=== PATIENT | male | born 1935 | race Caucasian/White ===

== ENCOUNTER 2016-11-27 11:58 | Outpatient (RCR) | payer MEDICARE, OTHER | END 2016-12-06 | LOC: M CR 11:58 | PROVIDERS: ATTEND Internal Medicine | DX: Z51.89 Encounter for other specified aftercare (principal); E78.00 Pure hypercholesterolemia, unspecified ==

== ENCOUNTER → 2017-03-10 | Outpatient (REF) | payer MEDICARE, OTHER ==
[2017-03-10 12:38] LABS: ALBUMIN 3.7 GM/DL (3.2-5.2); ALBUMIN/GLOBULIN RATIO 1.03 (1.00-1.93); BILIRUBIN,TOTAL 0.6 MG/DL (0.2-1.0); CREATININE FOR GFR 1.25 MG/DL (0.70-1.30); GLOMERULAR FILTRATION RATE 59.3 (>42); POTASSIUM SERUM 3.9 MEQ/L (3.5-5.1); TOTAL PROTEIN 7.3 GM/DL (6.4-8.2)
== END ==
LOC: M SFHCPLAZ 09:45
PROVIDERS: ATTEND Internal Medicine
DX: E11.9 Type 2 diabetes mellitus without complications (principal); E78.00 Pure hypercholesterolemia, unspecified
CPT/HCPCS: 36415; 80053; 80061; 82043; 83036; G0463

== ENCOUNTER → 2017-09-26 | Outpatient (REF) | payer MEDICARE, OTHER ==
[2017-09-26 21:34] LABS: HEMATOCRIT 41.7 % (42.0-52.0); HEMOGLOBIN 13.2 g/dl (14.0-18.0); MEAN CORPUSCULAR HEMOGLOBIN 28.6 pg (27.0-33.0); MEAN CORPUSCULAR HGB CONC 31.7 g/dl (32.0-36.5); MEAN CORPUSCULAR VOLUME 90.5 fl (80.0-96.0); PLATELET COUNT, AUTOMATED 235 10^3/uL (150-450); RED BLOOD COUNT 4.61 10^6/uL (4.30-6.10); RED CELL DISTRIBUTION WIDTH 13.2 % (11.5-14.5); WHITE BLOOD COUNT 5.9 10^3/uL (4.0-10.0)
[2017-09-26 21:53] LABS: ALBUMIN 4.2 GM/DL (3.2-5.2); ALKALINE PHOSPHATASE 88 U/L (45-117); ALT/SGPT 29 U/L (12-78); ANION GAP 7 MEQ/L (8-16); AST/SGOT 19 U/L (7-37); BILIRUBIN,TOTAL 0.6 MG/DL (0.2-1.0); BLOOD UREA NITROGEN 37 MG/DL (7-18); CALCIUM LEVEL 9.3 MG/DL (8.8-10.2); CARBON DIOXIDE LEVEL 31 MEQ/L (21-32); CHLORIDE LEVEL 103 MEQ/L (98-107); CHOLESTEROL LEVEL 140 MG/DL (<200); CHOLESTEROL RISK RATIO 2.456 (<5); CREATININE FOR GFR 1.18 MG/DL (0.70-1.30); GLOMERULAR FILTRATION RATE > 60.0 (>42); GLUCOSE, FASTING 110 MG/DL (83-110); HDL CHOLESTEROL 57 MG/DL (>40); LDL CHOLESTEROL 62.4 MG/DL (<100); NON-HDL-C 83 MG/DL; POTASSIUM SERUM 4.1 MEQ/L (3.5-5.1); SODIUM LEVEL 141 MEQ/L (136-145); TOTAL PROTEIN 7.7 GM/DL (6.4-8.2); TRIGLYCERIDES LEVEL 103 MG/DL (<150)
[2017-09-26 22:08] LABS: ESTIMATED AVERAGE GLUCOSE 146 MG/DL (60-110); HEMOGLOBIN A1c 6.7 %
== END ==
LOC: M SFHCPLAZ 11:35
DX: E11.9 Type 2 diabetes mellitus without complications (principal); E78.00 Pure hypercholesterolemia, unspecified; I10 Essential (primary) hypertension; Z85.46 Personal history of malignant neoplasm of prostate
CPT/HCPCS: 80053

== ENCOUNTER 2017-11-17 12:27 | Outpatient (RCR) | payer MEDICARE, OTHER ==
[2017-12-01 12:55] LABS: BEDSIDE GLUCOSE 233 MG/DL (83-110)
== END 2017-12-06 ==
LOC: M CR 12:27
DX: Z51.89 Encounter for other specified aftercare (principal); Z95.1 Presence of aortocoronary bypass graft
CPT/HCPCS: 93798

== ENCOUNTER 2017-12-08 12:56 | Outpatient (RCR) | payer MEDICARE, OTHER ==
[2017-12-18 11:25] LABS: BEDSIDE GLUCOSE 129 MG/DL (83-110)
== END 2018-01-05 ==
LOC: M CR 12:56
DX: Z95.1 Presence of aortocoronary bypass graft (principal)
CPT/HCPCS: 93798

== ENCOUNTER → 2018-01-22 | Outpatient (REF) | payer MEDICARE, OTHER ==
[2018-01-22 13:15] LABS: HEMOGLOBIN 11.4 g/dl (13.5-17.5); MEAN CORPUSCULAR HEMOGLOBIN 27.6 pg (27.0-33.0); MEAN CORPUSCULAR HGB CONC 31.7 g/dl (32.0-36.5); MEAN CORPUSCULAR VOLUME 87.2 fl (80.0-96.0); PLATELET COUNT, AUTOMATED 219 10^3/uL (150-450); RED BLOOD COUNT 4.13 10^6/uL (4.30-6.10); RED CELL DISTRIBUTION WIDTH 14.1 % (11.5-14.5); WHITE BLOOD COUNT 5.4 10^3/uL (4.0-10.0)
[2018-01-22 13:28] LABS: ESTIMATED AVERAGE GLUCOSE 120 MG/DL (60-110); HEMOGLOBIN A1c 5.8 %
[2018-01-22 13:33] LABS: ALBUMIN 3.7 GM/DL (3.2-5.2); ALBUMIN/GLOBULIN RATIO 0.97 (1.00-1.93); ALKALINE PHOSPHATASE 101 U/L (45-117); ALT/SGPT 49 U/L (12-78); ANION GAP 7 MEQ/L (8-16); AST/SGOT 31 U/L (7-37); BILIRUBIN,TOTAL 0.6 MG/DL (0.2-1.0); BLOOD UREA NITROGEN 39 MG/DL (7-18); CALCIUM LEVEL 9.1 MG/DL (8.8-10.2); CARBON DIOXIDE LEVEL 31 MEQ/L (21-32); CHLORIDE LEVEL 103 MEQ/L (98-107); CHOLESTEROL LEVEL 124 MG/DL (<200); CREATININE FOR GFR 1.56 MG/DL (0.70-1.30); GLOMERULAR FILTRATION RATE 45.8 (>35); GLUCOSE, FASTING 111 MG/DL (70-100); HDL CHOLESTEROL 50 MG/DL (>40); LDL CHOLESTEROL 57.6 MG/DL (<100); MAGNESIUM LEVEL 1.7 MG/DL (1.8-2.4); NON-HDL-C 74 MG/DL; POTASSIUM SERUM 4.1 MEQ/L (3.5-5.1); SODIUM LEVEL 141 MEQ/L (136-145); TOTAL PROTEIN 7.5 GM/DL (6.4-8.2); TRIGLYCERIDES LEVEL 82 MG/DL (<150)
== END ==
LOC: M SFHCADAM 08:37
DX: Z00.00 Encounter for general adult medical examination without abnormal findings (principal); I25.810 Atherosclerosis of coronary artery bypass graft(s) without angina pectoris; E11.9 Type 2 diabetes mellitus without complications; I10 Essential (primary) hypertension
CPT/HCPCS: 83735

== ENCOUNTER → 2018-03-04 | Outpatient (REF) | payer MEDICARE, OTHER ==
[2018-03-04 13:00] LABS: BASO # 0.1 10^3/uL (0.0-0.2); BASO % 1.3 % (0.0-1.0); EOS # 0.2 10^3/uL (0.0-0.50); EOS % 4.9 % (0.0-3.0); HEMATOCRIT 36.5 % (42.0-52.0); HEMOGLOBIN 11.7 g/dl (13.5-17.5); IMMATURE GRANULOCYTE % 0.4 % (0-3.0); LYMPH # 0.8 10^3/uL (1.5-4.5); LYMPH % 17.2 % (24.0-44.0); MEAN CORPUSCULAR HEMOGLOBIN 27.2 pg (27.0-33.0); MEAN CORPUSCULAR HGB CONC 32.1 g/dl (32.0-36.5); MEAN CORPUSCULAR VOLUME 84.9 fl (80.0-96.0); MONO # 0.7 10^3/uL (0.0-0.8); MONO % 14.6 % (0.0-5.0); NEUTROPHILS # 2.8 10^3/uL (1.8-7.7); NEUTROPHILS % 61.6 % (36.0-66.0); PLATELET COUNT, AUTOMATED 211 10^3/uL (150-450); RED CELL DISTRIBUTION WIDTH 14.4 % (11.5-14.5); WHITE BLOOD COUNT 4.5 10^3/uL (4.0-10.0)
[2018-03-04 13:09] LABS: ANION GAP 8 MEQ/L (8-16); BLOOD UREA NITROGEN 46 MG/DL (7-18); CALCIUM LEVEL 9.1 MG/DL (8.8-10.2); CARBON DIOXIDE LEVEL 32 MEQ/L (21-32); CHLORIDE LEVEL 100 MEQ/L (98-107); CREATININE FOR GFR 1.94 MG/DL (0.70-1.30); GLOMERULAR FILTRATION RATE 35.6 (>35); GLUCOSE, FASTING 117 MG/DL (70-100); POTASSIUM SERUM 3.4 MEQ/L (3.5-5.1); SODIUM LEVEL 140 MEQ/L (136-145)
== END ==
LOC: M LABDRWAD 12:14
DX: I11.0 Hypertensive heart disease with heart failure (principal); I50.32 Chronic diastolic (congestive) heart failure
CPT/HCPCS: 80048

== ENCOUNTER → 2018-03-18 | Outpatient (REF) | payer MEDICARE, OTHER ==
[2018-03-18 13:19] LABS: ANION GAP 7 MEQ/L (8-16); BLOOD UREA NITROGEN 50 MG/DL (7-18); CALCIUM LEVEL 9.4 MG/DL (8.8-10.2); CARBON DIOXIDE LEVEL 33 MEQ/L (21-32); CHLORIDE LEVEL 100 MEQ/L (98-107); CREATININE FOR GFR 1.66 MG/DL (0.70-1.30); GLOMERULAR FILTRATION RATE 42.6 (>35); GLUCOSE, FASTING 169 MG/DL (70-100); POTASSIUM SERUM 3.8 MEQ/L (3.5-5.1); SODIUM LEVEL 140 MEQ/L (136-145)
== END ==
LOC: M LAB REF 12:22
DX: I10 Essential (primary) hypertension (principal); E87.6 Hypokalemia
CPT/HCPCS: 80048

== ENCOUNTER → 2018-04-29 | Outpatient (REF) | payer MEDICARE, OTHER ==
[2018-04-29 13:20] LABS: PROSTATIC SPECIFIC AG MONITOR 0.03 NG/ML (< 4.0)
== END ==
LOC: M LAB REF 12:21
DX: C61 Malignant neoplasm of prostate (principal)
CPT/HCPCS: 84153

== ENCOUNTER → 2018-06-05 | Outpatient (REF) | payer MEDICARE, OTHER ==
[2018-06-05 12:37] LABS: HEMATOCRIT 38.2 % (42.0-52.0); HEMOGLOBIN 12.4 g/dl (13.5-17.5); MEAN CORPUSCULAR HEMOGLOBIN 27.6 pg (27.0-33.0); MEAN CORPUSCULAR HGB CONC 32.5 g/dl (32.0-36.5); MEAN CORPUSCULAR VOLUME 85.1 fl (80.0-96.0); PLATELET COUNT, AUTOMATED 232 10^3/uL (150-450); RED BLOOD COUNT 4.49 10^6/uL (4.30-6.10); WHITE BLOOD COUNT 5.4 10^3/uL (4.0-10.0)
[2018-06-05 12:59] LABS: ALBUMIN/GLOBULIN RATIO 1.05 (1.00-1.93); ALKALINE PHOSPHATASE 102 U/L (45-117); ALT/SGPT 43 U/L (12-78); ANION GAP 9 MEQ/L (8-16); AST/SGOT 36 U/L (7-37); BILIRUBIN,TOTAL 0.8 MG/DL (0.2-1.0); BLOOD UREA NITROGEN 45 MG/DL (7-18); CALCIUM LEVEL 9.6 MG/DL (8.8-10.2); CARBON DIOXIDE LEVEL 33 MEQ/L (21-32); CHLORIDE LEVEL 98 MEQ/L (98-107); CREATININE FOR GFR 1.53 MG/DL (0.70-1.30); GLOMERULAR FILTRATION RATE 46.9 (>35); GLUCOSE, FASTING 138 MG/DL (70-100); POTASSIUM SERUM 3.4 MEQ/L (3.5-5.1); SODIUM LEVEL 140 MEQ/L (136-145); TOTAL PROTEIN 7.8 GM/DL (6.4-8.2)
[2018-06-05 13:06] LABS: PTH INTACT 31.3 PG/ML (18.5-88.0)
[2018-06-05 14:08] LABS: CREATININE, URINE 84.3 MG/DL
[2018-06-05 14:12] LABS: MAU/CREAT RATIO 155.4 MCG/MG (0.0-30.0)
[2018-06-05 14:35] LABS: ESTIMATED AVERAGE GLUCOSE 134 MG/DL (60-110); HEMOGLOBIN A1c 6.3 %
== END ==
LOC: M SFHCADAM 08:49
DX: G47.30 Sleep apnea, unspecified (principal); N18.3 Chronic kidney disease, stage 3 (moderate); E11.29 Type 2 diabetes mellitus with other diabetic kidney complication
CPT/HCPCS: 80053

== ENCOUNTER → 2018-07-28 | Outpatient (REF) | payer MEDICARE, OTHER ==
[2018-07-28 13:12] LABS: ANION GAP 6 MEQ/L (8-16); BLOOD UREA NITROGEN 51 MG/DL (7-18); CALCIUM LEVEL 9.2 MG/DL (8.8-10.2); CARBON DIOXIDE LEVEL 34 MEQ/L (21-32); CHLORIDE LEVEL 102 MEQ/L (98-107); CREATININE FOR GFR 1.54 MG/DL (0.70-1.30); GLOMERULAR FILTRATION RATE 46.5 (>35); GLUCOSE, FASTING 122 MG/DL (70-100); POTASSIUM SERUM 3.7 MEQ/L (3.5-5.1); PROSTATIC SPECIFIC AG MONITOR < 0.0 NG/ML (< 4.0); SODIUM LEVEL 142 MEQ/L (136-145)
== END ==
LOC: M LAB REF 12:30
DX: C61 Malignant neoplasm of prostate (principal); R31.29 Other microscopic hematuria
CPT/HCPCS: 84153

== ENCOUNTER → 2018-09-29 | Outpatient (REF) | payer MEDICARE, OTHER ==
[~2018-09-29] MED LIST: AMLO10TA5 PO; ASCO25TA PO; BAYE325T12 PO; CELE20TA PO; FERR28TA PO; FOLI1TAB11 PO; GLIP2.5T2 PO; KLOR10TA76 PO; LASI20TA3 PO; LIPI20TA PO; METO1TAB87 PO; MIRA1.5T2 PO; MIRA3350 PO; OMEG1CAP16 PO; PACE0.05 PO; TYLE325T5 PO
[2018-09-29 10:57] LABS: HEMATOCRIT 37.6 % (42.0-52.0); HEMOGLOBIN 12.5 g/dl (13.5-17.5); MEAN CORPUSCULAR HEMOGLOBIN 28.8 pg (27.0-33.0); MEAN CORPUSCULAR HGB CONC 33.2 g/dl (32.0-36.5); MEAN CORPUSCULAR VOLUME 86.6 fl (80.0-96.0); PLATELET COUNT, AUTOMATED 224 10^3/uL (150-450); RED BLOOD COUNT 4.34 10^6/uL (4.30-6.10); WHITE BLOOD COUNT 5.4 10^3/uL (4.0-10.0)
[2018-09-29 11:14] LABS: ALBUMIN 3.8 GM/DL (3.2-5.2); CALCIUM LEVEL 9.2 MG/DL (8.8-10.2); CREATININE FOR GFR 1.55 MG/DL (0.70-1.30); GLOMERULAR FILTRATION RATE 46.2 (>35); MAGNESIUM LEVEL 1.4 MG/DL (1.8-2.4); POTASSIUM SERUM 3.6 MEQ/L (3.5-5.1); PTH INTACT 36.2 PG/ML (18.5-88.0); TOTAL PROTEIN 7.4 GM/DL (6.4-8.2)
[2018-09-29 11:41] LABS: HEMOGLOBIN A1c 7.2 %
== END ==
LOC: M SFHCPLAZ 08:28
PROVIDERS: ATTEND Internal Medicine
DX: E11.29 Type 2 diabetes mellitus with other diabetic kidney complication (principal); I12.9 Hypertensive chronic kidney disease with stage 1 through stage 4 chronic kidney disease, or unspecified chronic kidney disease
CPT/HCPCS: 36415; 80053; 83036; 83735; 83970; 85027; G0463

== ENCOUNTER → 2018-11-10 | Outpatient (CLI) | payer MEDICARE, OTHER ==
[2018-11-10 12:43] LABS: APPEARANCE, URINE CLEAR (CLEAR); BACTERIA, URINE AUTO NEGATIVE (NEGATIVE); BILIRUBIN, URINE AUTO NEGATIVE (NEGATIVE); BLOOD, URINE BLOOD 1+ (NEGATIVE); COLOR, URINE YELLOW (YELLOW); GLUCOSE, URINE (UA) AUTO 1+ mg/dL (NEGATIVE); KETONE, URINE AUTO NEGATIVE (NEGATIVE); LEUKOCYTE ESTERASE, URINE AUTO NEGATIVE (NEGATIVE); MUCUS, URINE SMALL (NEGATIVE); NITRITE, URINE AUTO NEGATIVE (NEGATIVE); PROTEIN, URINE AUTO 2+ mg/dL (NEGATIVE); RBC, URINE AUTO 48 /HPF (0-3); RENAL EPITHELIAL CELLS 2 /HPF; SPECIFIC GRAVITY URINE AUTO 1.013 (1.002-1.035); SQUAMOUS EPITHELIAL CELL UR AU 0 /HPF (0-6); TRANSITIONAL EPITHELIAL AUTO <1 /HPF; UROBILINOGEN, URINE AUTO 0.2 mg/dL (0.0-2.0); WBC, URINE AUTO 11 /HPF (0-3)
[2018-11-10 12:49] LABS: BASO # 0.1 10^3/uL (0.0-0.2); BASO % 1.6 % (0.0-1.0); EOS # 0.2 10^3/uL (0.0-0.50); EOS % 3.7 % (0.0-3.0); HEMATOCRIT 38.2 % (42.0-52.0); HEMOGLOBIN 12.7 g/dl (13.5-17.5); LYMPH # 1.2 10^3/uL (1.5-4.5); MEAN CORPUSCULAR HEMOGLOBIN 29.1 pg (27.0-33.0); MEAN CORPUSCULAR HGB CONC 33.2 g/dl (32.0-36.5); MEAN CORPUSCULAR VOLUME 87.6 fl (80.0-96.0); MONO # 0.5 10^3/uL (0.0-0.8); NEUTROPHILS # 4.4 10^3/uL (1.8-7.7); NEUTROPHILS % 68.4 % (36.0-66.0); PLATELET COUNT, AUTOMATED 236 10^3/uL (150-450); RED BLOOD COUNT 4.36 10^6/uL (4.30-6.10); WHITE BLOOD COUNT 6.4 10^3/uL (4.0-10.0)
[2018-11-10 13:19] LABS: ALBUMIN 3.8 GM/DL (3.2-5.2); BILIRUBIN,TOTAL 0.6 MG/DL (0.2-1.0); CALCIUM LEVEL 8.7 MG/DL (8.8-10.2); CREATININE FOR GFR 1.43 MG/DL (0.70-1.30); GLOMERULAR FILTRATION RATE 50.7 (>35); POTASSIUM SERUM 3.9 MEQ/L (3.5-5.1); TOTAL PROTEIN 7.5 GM/DL (6.4-8.2)
== END ==
LOC: M ADAMS 10:42
PROVIDERS: ATTEND Urology
DX: Z01.812 Encounter for preprocedural laboratory examination (principal); R82.998 Other abnormal findings in urine; R79.9 Abnormal finding of blood chemistry, unspecified

== ENCOUNTER → 2018-11-18 | Outpatient (REF) | payer MEDICARE, OTHER ==
[~2018-11-18] MED LIST changes: +CIPR500T3; +COLA100C5 PO; +KEFL500C17 PO; +OXYB5TAB; +PERC5TAB12 PO; +PHEN-500; +QUET1TAB7 PO; +[UNRECOGNIZED DRUG - OTHER]
[2018-11-18 19:54] LABS: CALCIUM LEVEL 9.3 MG/DL (8.8-10.2); CREATININE FOR GFR 1.75 MG/DL (0.70-1.30); GLOMERULAR FILTRATION RATE 40.1 (>35); POTASSIUM SERUM 3.1 MEQ/L (3.5-5.1)
[2018-11-18 20:03] LABS: HEMOGLOBIN A1c 8.3 %
== END ==
LOC: M SFHCPLAZ 12:09 → M SFHCADAM 12:55
PROVIDERS: ATTEND Internal Medicine
DX: E11.29 Type 2 diabetes mellitus with other diabetic kidney complication (principal); D49.4 Neoplasm of unspecified behavior of bladder; F34.1 Dysthymic disorder
CPT/HCPCS: 80048; 83036; G0463

== ENCOUNTER 2018-11-21 13:03 | Emergency (ER) | payer MEDICARE, OTHER ==
[~2018-11-21] VITALS: Ht 171.4 cm; Wt 80.9 kg
[~2018-11-21 13:03] MED LIST changes: -CIPR500T3; -COLA100C5 PO; -KEFL500C17 PO; -OXYB5TAB; -PERC5TAB12 PO; -PHEN-500; -QUET1TAB7 PO; -[UNRECOGNIZED DRUG - OTHER]
[2018-11-21] MEDS ORDERED: PHEN-500 (13:40)
[2018-11-21] MEDS ORDERED: [UNRECOGNIZED DRUG - OTHER] (13:40)
[2018-11-21] MEDS ORDERED: CIPR500T3 (13:40)
[2018-11-21] MEDS ORDERED: OXYB5TAB (13:40)
[2018-11-21] MEDS ORDERED: QUET1TAB7 PO (13:40)
[2018-11-21 13:48] LABS: BASO # 0.1 10^3/uL (0.0-0.2); BASO % 0.7 % (0.0-1.0); EOS # 0.1 10^3/uL (0.0-0.50); EOS % 0.8 % (0.0-3.0); HEMATOCRIT 37.1 % (42.0-52.0); HEMOGLOBIN 12.8 g/dl (13.5-17.5); LYMPH # 0.9 10^3/uL (1.5-4.5); LYMPH % 8.6 % (24.0-44.0); MEAN CORPUSCULAR HEMOGLOBIN 29.2 pg (27.0-33.0); MEAN CORPUSCULAR HGB CONC 34.5 g/dl (32.0-36.5); MEAN CORPUSCULAR VOLUME 84.5 fl (80.0-96.0); MONO # 0.9 10^3/uL (0.0-0.8); MONO % 8.7 % (0.0-5.0); NEUTROPHILS # 8.3 10^3/uL (1.8-7.7); NEUTROPHILS % 80.9 % (36.0-66.0); PLATELET COUNT, AUTOMATED 263 10^3/uL (150-450); RED BLOOD COUNT 4.39 10^6/uL (4.30-6.10); WHITE BLOOD COUNT 10.3 10^3/uL (4.0-10.0)
[2018-11-21 14:22] LABS: BLOOD UREA NITROGEN 55 MG/DL (7-18); CALCIUM LEVEL 8.8 MG/DL (8.8-10.2); CARBON DIOXIDE LEVEL 28 MEQ/L (21-32); CHLORIDE LEVEL 92 MEQ/L (98-107); CPK CREATINE PHOSPHOKINASE 412 U/L (39-308); CREATININE FOR GFR 2.03 MG/DL (0.70-1.30); GLOMERULAR FILTRATION RATE 33.8 (>35); GLUCOSE, FASTING 276 MG/DL (70-100); MB/CK RELATIVE INDEX 1.84 (< OR =4); POTASSIUM SERUM 3.2 MEQ/L (3.5-5.1); SODIUM LEVEL 132 MEQ/L (136-145); TROPONIN I < 0.02 NG/ML (< 0.10)
--- NOTE | 2018-11-21 14:26 | REP ---
CT Head without contrast HISTORY: Syncope COMPARISON: None An area of decreased attenuation is present in the left basal ganglia. This represents an old lacunar infarction. Areas of decreased attenuation are present in the periventricular white matter. This represents small-vessel ischemic disease. A punctate calcification is present in the right cerebellum. There is no intraparenchymal hemorrhage, acute infarct, mass or midline shift. The ventricular system and cortical sulci are dilated consistent with mild volume loss. There is no extra cerebral collection. There is no fracture. Mucosal thickening is present in the maxillary sinuses. IMPRESSION: 1. Old left basal ganglia lacunar infarction. 2. Small vessel ischemic disease. 3. Mild volume loss. Electronically Signed by Baljit Butt MD 11/21/2018 02:17 P
--- NOTE | 2018-11-21 14:29 | REP ---
CT cervical spine without contrast HISTORY: Syncope COMPARISON: None There is no acute fracture or subluxation. A disc bulge is present at the C2-3 level. Disc bulges with associated osteophyte formation are present at the C3-4 through C6-7 levels. There is minimal narrowing of the spinal canal. Uncinate process and/or facet hypertrophy are present at the C2-3 through C7-T1 levels. These findings produce minimal to severe narrowing of the neural foramina. The cervical intervertebral discs are decreased in height consistent with disc degeneration. IMPRESSION: 1. There is no acute fracture or subluxation. 2. There is cervical spondylosis at the C2-3 through C7-T1 levels. Electronically Signed by Baljit Butt MD 11/21/2018 02:22 P
--- NOTE | 2018-11-21 14:36 | REP ---
Chest one-view HISTORY: Syncope Comparison: None A calcified granuloma is present in the left lower lobe. The right lung is clear. The heart is normal in size. The pulmonary vasculature is normal in appearance. Impression: No acute disease. Electronically Signed by Baljit Butt MD 11/21/2018 02:28 P
[2018-11-21] MEDS ORDERED: KEFL500C17 PO (15:23)
[2018-11-21 15:34] VITALS: BP 141/63
--- NOTE | 2018-11-22 18:41 | ECGEPIP ---
Stationary ECG Study 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
== END 2018-11-21 15:53 | disposition home or self-care (01) ==
LOC: M ED 13:03
DX: R55 Syncope and collapse (principal); R33.9 Retention of urine, unspecified; E11.9 Type 2 diabetes mellitus without complications; I13.10 Hypertensive heart and chronic kidney disease without heart failure, with stage 1 through stage 4 chronic kidney disease, or unspecified chronic kidney disease; I25.10 Atherosclerotic heart disease of native coronary artery without angina pectoris; M54.12 Radiculopathy, cervical region; E78.5 Hyperlipidemia, unspecified; N18.3 Chronic kidney disease, stage 3 (moderate); Z85.46 Personal history of malignant neoplasm of prostate; Z95.1 Presence of aortocoronary bypass graft; Z98.890 Other specified postprocedural states; Z79.899 Other long term (current) drug therapy; Z79.82 Long term (current) use of aspirin; Z79.84 Long term (current) use of oral hypoglycemic drugs

== ENCOUNTER 2018-11-27 17:47 | Emergency (ER) | payer MEDICARE, OTHER ==
[~2018-11-27] VITALS: Ht 172.7 cm; Wt 81.4 kg
[~2018-11-27 17:47] MED LIST changes: -ASCO25TA PO; +CIPR500T3; +KEFL500C17 PO; +OXYB5TAB; +PHEN-500; +QUET1TAB7 PO; +VITA1TAB23 PO; +[UNRECOGNIZED DRUG - OTHER]
[2018-11-27] MEDS ORDERED: MORPHINE 2 MG/ML 1ML SYRINGE (J2270) IV ONE ×2 (18:30→20:00)
[2018-11-27] MEDS ORDERED: NS 500 ML IV ONE (18:30)
[2018-11-27 18:59] LABS: BASO # 0.1 10^3/uL (0.0-0.2); BASO % 1.4 % (0.0-1.0); EOS # 0.3 10^3/uL (0.0-0.50); EOS % 5.4 % (0.0-3.0); HEMATOCRIT 35.1 % (42.0-52.0); HEMOGLOBIN 11.8 g/dl (13.5-17.5); LYMPH # 1.1 10^3/uL (1.5-4.5); LYMPH % 18.4 % (24.0-44.0); MEAN CORPUSCULAR HEMOGLOBIN 28.8 pg (27.0-33.0); MEAN CORPUSCULAR HGB CONC 33.6 g/dl (32.0-36.5); MEAN CORPUSCULAR VOLUME 85.6 fl (80.0-96.0); MONO # 0.7 10^3/uL (0.0-0.8); MONO % 12.3 % (0.0-5.0); NEUTROPHILS # 3.6 10^3/uL (1.8-7.7); NEUTROPHILS % 62.1 % (36.0-66.0); PLATELET COUNT, AUTOMATED 269 10^3/uL (150-450); WHITE BLOOD COUNT 5.7 10^3/uL (4.0-10.0)
[2018-11-27 19:23] LABS: CALCIUM LEVEL 8.7 MG/DL (8.8-10.2); CREATININE FOR GFR 1.5 MG/DL (0.70-1.30); GLOMERULAR FILTRATION RATE 47.9 (>35); POTASSIUM SERUM 3.3 MEQ/L (3.5-5.1)
--- NOTE | 2018-11-27 20:07 | REPVR ---
EXAM: CT Abdomen and Pelvis Without Contrast EXAM DATE/TIME: 11/27/2018 7:14 PM CLINICAL HISTORY: 82 years old, male; Pain; Other: Pelvic; Prior surgery; Surgery date: 3-7 days post-operative; Surgery type: Turp; Additional info: Lower pelvic bladder pain, recent biopsy TECHNIQUE: Imaging protocol: Axial computed tomography images of the abdomen and pelvis without contrast. Coronal and sagittal reformatted images were created and reviewed. Radiation optimization: All CT scans at this facility use at least one of these dose optimization techniques: automated exposure control; mA and/or kV adjustment per patient size (includes targeted exams where dose is matched to clinical indication); or iterative reconstruction. COMPARISON: No relevant prior studies available. FINDINGS: Lower thorax: Minimal bibasilar fibro-atelectatic change and calcified granuloma in the left lower lobe. ABDOMEN: Liver: Normal. No mass. Gallbladder and bile ducts: The gallbladder is contracted with no stones, however, there is a calcification adjacent to the contracted fundus. Pancreas: Normal. No ductal dilation. Spleen: Splenic calcifications. Adrenals: Normal. No mass. Kidneys and ureters: There is a right renal cyst measuring 5.0 cm. Punctate nonobstructing right renal calculus. Stomach and bowel: There is colonic diverticulosis without evidence of diverticulitis. Appendix: Short appendix or appendiceal stump. PELVIS: Bladder: There is a Cedeño catheter in the bladder. Urinary bladder wall thickening with perivesicular induration. 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 Penile prosthesis in position with reservoir at the anterolateral aspect of the urinary bladder. Minimal calcification of the right vas deferens. ABDOMEN and PELVIS: Intraperitoneal space: Normal. No free air. No significant fluid collection. Bones/joints: Status post sternotomy. Degenerative changes of the lumbar spine. Soft tissues: Minimal fat filled umbilical hernia. Vasculature: There is prominent atherosclerotic calcification of the abdominal aorta. Lymph nodes: Normal. No enlarged lymph nodes. IMPRESSION: 1. 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 2. Punctate nonobstructing right renal calculus. 3. Cedeño catheter in the bladder. 4. 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 5. Urinary bladder wall thickening with perivesicular induration which is nonspecific. Cystitis is not excluded. 6. Colonic diverticulosis without diverticulitis. Electronically signed by: Conor Angelo On 11/27/2018 20:07:22 PM
[2018-11-27] MEDS ORDERED: MIRA3350 PO (21:42)
[2018-11-27] MEDS ORDERED: PERC5TAB12 PO (21:42)
[2018-11-27] MEDS ORDERED: COLA100C5 PO (21:42)
[2018-11-27 21:45] VITALS: BP 125/59
[2018-11-27] MEDS ORDERED: PERCOCET 5MG/325MG TAB PO ONE (21:45)
== END 2018-11-27 22:10 | disposition home or self-care (01) ==
LOC: M ED 17:47
DX: G89.18 Other acute postprocedural pain (principal); K59.00 Constipation, unspecified; Z46.6 Encounter for fitting and adjustment of urinary device; N20.0 Calculus of kidney; K57.30 Diverticulosis of large intestine without perforation or abscess without bleeding; Z85.46 Personal history of malignant neoplasm of prostate; Z87.891 Personal history of nicotine dependence; Z79.82 Long term (current) use of aspirin; Z79.84 Long term (current) use of oral hypoglycemic drugs; Z79.899 Other long term (current) drug therapy
CPT/HCPCS: 51700; 74176; 80048; 81001; 85025; 86850; 86900; 86901; 87086; 96361; 96374; 96376; 99284; J2270

== ENCOUNTER → 2018-12-21 | Outpatient (CLI) | payer MEDICARE, OTHER ==
[~2018-12-21] MED LIST changes: +COLA100C5 PO; +ISOVUE-370 76% 100ML VIAL (Q9967) As Ordered ONE; +PERC5TAB12 PO
--- NOTE | 2018-12-21 10:45 | REP ---
CT ANGIO NECK: HISTORY: Infarction. CONTRAST: Isovue 370, 75 mL. Calcified atherosclerotic plaques are present at the origins of the right external and internal carotid arteries . There is severe stenosis of 70% of the right internal carotid artery at is origin. There is moderate stenosis of 55% of the right external carotid artery at its origin. Calcified atherosclerotic plaques are present at the origins of the left external and internal carotid arteries. There is severe stenosis of 75% of the left internal carotid artery at its origin. There is moderate stenosis of 55% of the left external carotid artery at its origin. Calcified atherosclerotic plaques are present in the cavernous internal carotid arteries. These produce at least mild stenosis. The vertebral arteries are equal in size and patent. Calcified atherosclerotic plaque is present at the origin of the left subclavian artery. This produces at least moderate stenosis. Calcified atherosclerotic plaque is present at the origin of the right subclavian artery. There is no significant stenosis. The origins of the remaining great vessels are normal. IMPRESSION: 1. Severe stenosis of 70% of the right internal carotid artery at its origin. 2. Severe stenosis of 75% of the left internal carotid artery at its origin. Electronically Signed by Baljit Butt MD 12/21/2018 10:49 A
== END ==
LOC: M RAD 07:11
PROVIDERS: ATTEND Internal Medicine Cardiovascular Disease
DX: R42 Dizziness and giddiness (principal); I63.9 Cerebral infarction, unspecified
CPT/HCPCS: 70498; Q9967

== ENCOUNTER 2019-01-19 10:42 | Emergency (ER) | payer MEDICARE, OTHER ==
[~2019-01-19] VITALS: Ht 172.7 cm; Wt 81.8 kg
[~2019-01-19 10:42] MED LIST changes: -ISOVUE-370 76% 100ML VIAL (Q9967) As Ordered ONE
[2019-01-19] MEDS ORDERED: SITA50TAB (12:23)
[2019-01-19] MEDS ORDERED: METF750T (12:23)
[2019-01-19] MEDS ORDERED: PYRI1TAB5 PO (13:22)
[2019-01-19] MEDS ORDERED: PHENAZOPYRIDINE 100 MG TAB PO ONE (13:30)
[2019-01-19] MEDS ORDERED: cefTRIAXone SOD 1 GM VIAL (J0696) IM ONE (13:45)
[2019-01-19] MEDS ORDERED: LIDOCAINE 1% SDV 5 ML VIAL DILUENT ONE (13:45)
[2019-01-19 14:00] VITALS: BP 127/60
== END 2019-01-19 14:00 | disposition home or self-care (01) ==
LOC: M ED 10:42
DX: N10 Acute pyelonephritis (principal); E11.9 Type 2 diabetes mellitus without complications; I10 Essential (primary) hypertension; N40.0 Benign prostatic hyperplasia without lower urinary tract symptoms; I25.2 Old myocardial infarction; Z85.46 Personal history of malignant neoplasm of prostate; Z85.51 Personal history of malignant neoplasm of bladder; Z95.1 Presence of aortocoronary bypass graft; Z92.21 Personal history of antineoplastic chemotherapy; Z79.899 Other long term (current) drug therapy; Z79.84 Long term (current) use of oral hypoglycemic drugs; Z79.82 Long term (current) use of aspirin
CPT/HCPCS: 81001; 87088; 87186; 96372; 99283; J0696

== ENCOUNTER → 2019-03-30 | Outpatient (REF) | payer MEDICARE, OTHER ==
[~2019-03-30] MED LIST changes: +METF750T; +PYRI1TAB5 PO; +SITA50TAB
[2019-03-30 13:17] LABS: BASO # 0.1 10^3/uL (0.0-0.2); BASO % 1.2 % (0.0-1.0); EOS # 0.2 10^3/uL (0.0-0.50); EOS % 3.3 % (0.0-3.0); HEMATOCRIT 36.7 % (42.0-52.0); HEMOGLOBIN 11.8 g/dl (13.5-17.5); LYMPH # 0.8 10^3/uL (1.5-4.5); LYMPH % 12.6 % (24.0-44.0); MEAN CORPUSCULAR HEMOGLOBIN 27.3 pg (27.0-33.0); MEAN CORPUSCULAR HGB CONC 32.2 g/dl (32.0-36.5); MONO # 0.6 10^3/uL (0.0-0.8); MONO % 9.3 % (0.0-5.0); NEUTROPHILS # 4.7 10^3/uL (1.8-7.7); NEUTROPHILS % 73.1 % (36.0-66.0); PLATELET COUNT, AUTOMATED 233 10^3/uL (150-450); RED BLOOD COUNT 4.32 10^6/uL (4.30-6.10); WHITE BLOOD COUNT 6.4 10^3/uL (4.0-10.0)
[2019-03-30 13:29] LABS: CALCIUM LEVEL 9.3 MG/DL (8.8-10.2); CREATININE FOR GFR 1.36 MG/DL (0.70-1.30); GLOMERULAR FILTRATION RATE 53.5 (>35)
== END ==
LOC: M LABDRWAD 12:17
PROVIDERS: ATTEND Internal Medicine Cardiovascular Disease
DX: I65.23 Occlusion and stenosis of bilateral carotid arteries (principal); I25.10 Atherosclerotic heart disease of native coronary artery without angina pectoris; I10 Essential (primary) hypertension

== ENCOUNTER → 2019-04-02 | Outpatient (CLI) | payer MEDICARE, OTHER ==
[2019-04-02 11:08] LABS: CALCIUM LEVEL 8.9 MG/DL (8.8-10.2); CREATININE FOR GFR 1.44 MG/DL (0.70-1.30); GLOMERULAR FILTRATION RATE 50.1 (>35); POTASSIUM SERUM 3.9 MEQ/L (3.5-5.1)
== END ==
LOC: M LAB 10:02
PROVIDERS: ATTEND Internal Medicine Cardiovascular Disease
DX: I10 Essential (primary) hypertension (principal)

== ENCOUNTER → 2019-04-20 | Outpatient (REF) | payer MEDICARE, OTHER ==
[~2019-04-20] MED LIST changes: -OXYB5TAB; +OXYB5TAB2
== END ==
LOC: M SFHCADAM 13:02
PROVIDERS: ATTEND Internal Medicine
DX: N18.3 Chronic kidney disease, stage 3 (moderate) (principal); I12.9 Hypertensive chronic kidney disease with stage 1 through stage 4 chronic kidney disease, or unspecified chronic kidney disease; E11.29 Type 2 diabetes mellitus with other diabetic kidney complication; E78.00 Pure hypercholesterolemia, unspecified; Z53.9 Procedure and treatment not carried out, unspecified reason

== ENCOUNTER → 2019-04-21 | Outpatient (REF) | payer MEDICARE, OTHER ==
[2019-04-21 14:39] LABS: HEMATOCRIT 36.4 % (42.0-52.0); HEMOGLOBIN 11.5 g/dl (13.5-17.5); MEAN CORPUSCULAR HEMOGLOBIN 28.1 pg (27.0-33.0); MEAN CORPUSCULAR HGB CONC 31.6 g/dl (32.0-36.5); PLATELET COUNT, AUTOMATED 245 10^3/uL (150-450); RED BLOOD COUNT 4.09 10^6/uL (4.30-6.10)
[2019-04-21 15:18] LABS: CREATININE, URINE 95.6 MG/DL; MAU/CREAT RATIO 235.3 MCG/MG (0.0-30.0)
[2019-04-21 16:06] LABS: HEMOGLOBIN A1c 7.3 %
[2019-04-21 16:09] LABS: ALBUMIN 3.5 GM/DL (3.2-5.2); BILIRUBIN,TOTAL 0.7 MG/DL (0.2-1.0); CALCIUM LEVEL 9.7 MG/DL (8.8-10.2); CHOLESTEROL RISK RATIO 2.586 (<5); CREATININE FOR GFR 1.51 MG/DL (0.70-1.30); GLOMERULAR FILTRATION RATE 47.5 (>35); MAGNESIUM LEVEL 1.5 MG/DL (1.8-2.4); POTASSIUM SERUM 3.6 MEQ/L (3.5-5.1); PTH INTACT 31.1 PG/ML (18.5-88.0); TOTAL PROTEIN 7.6 GM/DL (6.4-8.2)
== END ==
LOC: M SFHCADAM 08:00
PROVIDERS: ATTEND Internal Medicine
DX: N18.3 Chronic kidney disease, stage 3 (moderate) (principal); I12.9 Hypertensive chronic kidney disease with stage 1 through stage 4 chronic kidney disease, or unspecified chronic kidney disease; E11.29 Type 2 diabetes mellitus with other diabetic kidney complication; E78.00 Pure hypercholesterolemia, unspecified

== ENCOUNTER → 2019-07-01 | Outpatient (REF) | payer MEDICARE, OTHER ==
[~2019-07-01] MED LIST changes: -METF750T; +METF750T36
[2019-07-01 13:30] LABS: CREATININE FOR GFR 1.57 MG/DL (0.70-1.30); GLOMERULAR FILTRATION RATE 45.4 (>35)
== END ==
LOC: M LABDRWAD 12:28
PROVIDERS: ATTEND Urology
DX: C67.8 Malignant neoplasm of overlapping sites of bladder (principal)

== ENCOUNTER 2019-09-02 14:04 | Emergency (ER) | payer MEDICARE, OTHER ==
[~2019-09-02] VITALS: Ht 172.7 cm; Wt 86.4 kg
[~2019-09-02 14:04] MED LIST changes: -OXYB5TAB2; +OXYB5TAB3
[2019-09-02] MEDS ORDERED: CIDA500T2 PO (14:37)
[2019-09-02] MEDS ORDERED: FOLI1TAB11 PO (14:37)
[2019-09-02] MEDS ORDERED: HYDR25TAB PO (14:37)
[2019-09-02 14:42] LABS: BASO # 0.1 10^3/uL (0.0-0.2); BASO % 0.8 % (0.0-1.0); EOS # 0.2 10^3/uL (0.0-0.5); HEMOGLOBIN 11.4 g/dl (13.5-17.5); LYMPH # 0.6 10^3/uL (1.5-5.0); LYMPH % 7.5 % (24.0-44.0); MEAN CORPUSCULAR HGB CONC 32.6 g/dl (32.0-36.5); MONO # 0.4 10^3/uL (0.0-0.8); MONO % 5.3 % (0.0-5.0); NEUTROPHILS # 6.6 10^3/uL (1.5-8.5); NEUTROPHILS % 83.3 % (36.0-66.0); PLATELET COUNT, AUTOMATED 206 10^3/uL (150-450); RED BLOOD COUNT 4.07 10^6/uL (4.30-6.10)
[2019-09-02 15:14] LABS: ALBUMIN 3.2 GM/DL (3.2-5.2); BILIRUBIN,DIRECT 0.2 MG/DL (0.0-0.2); BILIRUBIN,TOTAL 0.9 MG/DL (0.2-1.0); CALCIUM LEVEL 8.8 MG/DL (8.8-10.2); CREATININE FOR GFR 1.58 MG/DL (0.70-1.30); TOTAL PROTEIN 7.5 GM/DL (6.4-8.2)
[2019-09-02] MEDS ORDERED: E-Z-PAQUE 96% w/w SUSP 176GM BTL As Ordered ONE (15:43)
[2019-09-02] MEDS ORDERED: E-Z-HD 98% w/w 340GM SUSP BTL As Ordered ONE (15:43)
[2019-09-02] MEDS ORDERED: E-Z-GAS II EFFERVESCENT PACKET (SODIUM BICARB./CITRIC ACID/SIMETHICONE) As Ordered ONE (15:43)
[2019-09-02 18:15] VITALS: BP 154/73
--- NOTE | 2019-09-04 09:03 | REP ---
Examination Requested: Esophagram Barium Swallow Reason For Exam/Comment: Evaluate for esophageal stricture Esophagram: The procedure was performed LYUBOV Graves, under the direct supervision of Dr. Cerrato. The images were reviewed with Dr. Cerrato. A single PA chest x-ray is submitted as a shoe associate film, and shows no changes since the chest x-ray done on 11/21/2018. Liquid barium and gas producing granules were given in the erect position as well as liquid barium in the prone oblique position, in order to perform a double contrast esophagram examination. Oral and pharyngeal stages of the examination were unremarkable. Esophageal transport is efficient and there is no esophagitis, stricture, or mucosal ring noted. There is no hiatal hernia noted. Gastroesophageal reflux was not visualized throughout the course of the exam. Impression: 1. Unremarkable esophagram 0.4 minutes of fluoroscopy time was utilized for this procedure. Some fluoroscopic images are performed with last image hold technology. These images require no additional radiation. Reviewed by LYUBOV Killian 09/02/2019 04:44 P Electronically Signed by Neo Cerrato MD 09/04/2019 08:54 A
== END 2019-09-02 18:39 | disposition home or self-care (01) ==
LOC: M ED 14:04
DX: K20.8 Other esophagitis (principal); I48.91 Unspecified atrial fibrillation; I13.10 Hypertensive heart and chronic kidney disease without heart failure, with stage 1 through stage 4 chronic kidney disease, or unspecified chronic kidney disease; E11.22 Type 2 diabetes mellitus with diabetic chronic kidney disease; E78.5 Hyperlipidemia, unspecified; G25.81 Restless legs syndrome; G47.33 Obstructive sleep apnea (adult) (pediatric); N18.3 Chronic kidney disease, stage 3 (moderate); C67.9 Malignant neoplasm of bladder, unspecified; Z85.46 Personal history of malignant neoplasm of prostate; Z95.1 Presence of aortocoronary bypass graft; Z79.899 Other long term (current) drug therapy; Z79.82 Long term (current) use of aspirin; Z79.84 Long term (current) use of oral hypoglycemic drugs

== ENCOUNTER → 2019-10-27 | Outpatient (REF) | payer MEDICARE, OTHER ==
[~2019-10-27] MED LIST changes: +CIDA500T2 PO; +HYDR25TAB PO; +OXYB-54; -OXYB5TAB3
== END ==
LOC: M LABDRWAD 12:48
PROVIDERS: ATTEND Urology
DX: Z85.46 Personal history of malignant neoplasm of prostate (principal)

== ENCOUNTER → 2020-04-19 | Outpatient (REF) | payer MEDICARE, OTHER ==
[~2020-04-19] MED LIST changes: -AMLO10TA5 PO; +AMLO1TAB24 PO; +AMLO1TAB25 PO; -VITA1TAB23 PO; +VITA250T20 PO
[2020-05-20 10:36] LABS: HEMATOCRIT 38.5 % (42.0-52.0); HEMOGLOBIN 12.4 g/dl (13.5-17.5); MEAN CORPUSCULAR HEMOGLOBIN 28.8 pg (27.0-33.0); MEAN CORPUSCULAR HGB CONC 32.2 g/dl (32.0-36.5); MEAN CORPUSCULAR VOLUME 89.3 fl (80.0-96.0); PLATELET COUNT, AUTOMATED 246 10^3/uL (150-450); RED BLOOD COUNT 4.31 10^6/uL (4.30-6.10); WHITE BLOOD COUNT 6.7 10^3/uL (4.0-10.0)
[2020-06-02 22:43] LABS: ALBUMIN 3.5 GM/DL (3.2-5.2); BILIRUBIN,TOTAL 0.6 MG/DL (0.2-1.0); CALCIUM LEVEL 8.8 MG/DL (8.8-10.2); CHOLESTEROL RISK RATIO 2.604 (<5); CREATININE FOR GFR 1.44 MG/DL (0.70-1.30); HEMOGLOBIN A1c 6.5 %; POTASSIUM SERUM 3.7 MEQ/L (3.5-5.1); TOTAL PROTEIN 7.4 GM/DL (6.4-8.2)
== END ==
LOC: M LABDRWAD 16:52
PROVIDERS: ATTEND Internal Medicine
DX: I10 Essential (primary) hypertension (principal); E11.9 Type 2 diabetes mellitus without complications; E78.00 Pure hypercholesterolemia, unspecified; C67.9 Malignant neoplasm of bladder, unspecified

== ENCOUNTER 2020-05-02 15:22 | Emergency (ER) | payer MEDICARE, OTHER ==
[~2020-05-02] VITALS: Ht 171.4 cm; Wt 81.8 kg
[~2020-05-02 15:22] MED LIST changes: -AMLO1TAB24 PO
[2020-05-02] MEDS ORDERED: AMLO1TAB24 PO (15:48)
[2020-05-02 16:11] LABS: BASO # 0.1 10^3/uL (0.0-0.2); BASO % 1.1 % (0.0-1.0); EOS # 0.2 10^3/uL (0.0-0.5); EOS % 3.1 % (0.0-3.0); HEMATOCRIT 37.5 % (42.0-52.0); HEMOGLOBIN 12.6 g/dl (13.5-17.5); LYMPH % 13.5 % (24.0-44.0); MEAN CORPUSCULAR HEMOGLOBIN 29.5 pg (27.0-33.0); MEAN CORPUSCULAR HGB CONC 33.6 g/dl (32.0-36.5); MEAN CORPUSCULAR VOLUME 87.8 fl (80.0-96.0); MONO # 0.7 10^3/uL (0.0-0.8); MONO % 9.9 % (0.0-5.0); NEUTROPHILS # 5.1 10^3/uL (1.5-8.5); NEUTROPHILS % 72.1 % (36.0-66.0); PLATELET COUNT, AUTOMATED 241 10^3/uL (150-450); RED BLOOD COUNT 4.27 10^6/uL (4.30-6.10); WHITE BLOOD COUNT 7.1 10^3/uL (4.0-10.0)
--- NOTE | 2020-05-02 16:18 | REPVR ---
PROCEDURE INFORMATION: Exam: XR Chest, 1 View Exam date and time: 05/02/2020 4:05 PM Age: 84 years old Clinical indication: Chest pain TECHNIQUE: Imaging protocol: XR of the chest Views: 1 view. COMPARISON: CR PORTABLE CHEST X-RAY 11/21/2018 1:48 PM FINDINGS: Lungs: Comparison to the previous chest radiograph from 11/21/2018 shows interval improvement in aeration in both lungs. No evidence of acute pneumonia. A small calcified nodule is seen lateral to the left pulmonary hilum unchanged since the previous study. Pleural space: Unremarkable. No pleural effusion. No pneumothorax. Heart/Mediastinum: The heart size is normal. Midline sternotomy wires are intact. Bones/joints: Normal. IMPRESSION: 1. Comparison to the previous chest radiograph from 11/21/2018 shows interval improvement in aeration in both lungs. No evidence of acute pneumonia. A small calcified nodule is seen lateral to the left pulmonary hilum unchanged since the previous study. 2. The heart size is normal. Midline sternotomy wires are intact. Electronically signed by: Mairto Landis On 05/02/2020 16:19:07 PM
[2020-05-02 16:24] LABS: PARTIAL THROMBOPLASTIN TIME 25.2 SECONDS (25.0-38.4)
[2020-05-02 16:51] LABS: ALBUMIN 3.8 GM/DL (3.2-5.2); ALT/SGPT 41 U/L (12-78); BILIRUBIN,DIRECT 0.3 MG/DL (0.0-0.2); BLOOD UREA NITROGEN 40 MG/DL (7-18); CALCIUM LEVEL 9.4 MG/DL (8.8-10.2); CARBON DIOXIDE LEVEL 32 MEQ/L (21-32); CHLORIDE LEVEL 99 MEQ/L (98-107); CPK CREATINE PHOSPHOKINASE 305 U/L (39-308); CREATININE FOR GFR 1.52 MG/DL (0.70-1.30); GLUCOSE, FASTING 111 MG/DL (70-100); LIPASE 209 U/L (73-393); MB/CK RELATIVE INDEX 1.97 (< OR =4); NT-PRO BNP 419 PG/ML (<450); POTASSIUM SERUM 3.3 MEQ/L (3.5-5.1); SODIUM LEVEL 135 MEQ/L (136-145); TOTAL PROTEIN 8.2 GM/DL (6.4-8.2); TROPONIN I < 0.02 NG/ML (< 0.10)
[2020-05-02] MEDS ORDERED: ISOVUE-370 76% 100ML VIAL As Ordered ONE (18:09)
--- NOTE | 2020-05-02 18:57 | REPVR ---
PROCEDURE INFORMATION: Exam: CT Head Without Contrast Exam date and time: 05/02/2020 6:30 PM Age: 84 years old Clinical indication: Injury or trauma; Fall; Initial encounter; Blunt trauma (contusions or hematomas); Additional info: Fall, head injury TECHNIQUE: Imaging protocol: Computed tomography of the head without contrast. Radiation optimization: All CT scans at this facility use at least one of these dose optimization techniques: automated exposure control; mA and/or kV adjustment per patient size (includes targeted exams where dose is matched to clinical indication); or iterative reconstruction. COMPARISON: CT Head without contrast 11/21/2018 1:37 PM FINDINGS: Brain: No acute intracerebral abnormality or injury. No acute infarct or intracerebral bleed. Mild cerebral atrophy with minimal patchy periventricular leukomalacia in both cerebral hemispheres, consistent most likely with chronic underlying small vessel / microvascular ischemic disease. A small chronic lacunar infarct is seen in the head of the left caudate nucleus on image 13 of series 201. Small punctate calcifications are seen in the basal ganglia bilaterally and in the right cerebellar hemisphere. These have benign features and their causes could be idiopathic versus chronic cysticercosis infection. [place] Stroke Program Early CT Score (ASPECTS score) = 10. Ventricles: Normal. No ventriculomegaly. Bones/joints: Unremarkable. No acute fracture. Sinuses: Visualized sinuses are unremarkable. No fluid levels. Mastoid air cells: Visualized mastoid air cells are well aerated. Soft tissues: Unremarkable. IMPRESSION: 1. No acute intracerebral abnormality or injury. No acute infarct or intracerebral bleed. 2. Mild cerebral atrophy with minimal patchy periventricular leukomalacia in both cerebral hemispheres, consistent most likely with chronic underlying small vessel / microvascular ischemic disease. 3. A small chronic lacunar infarct is seen in the head of the left caudate nucleus on image 13 of series 201. Small punctate calcifications are seen in the basal ganglia bilaterally and in the right cerebellar hemisphere. These have benign features and their causes could be idiopathic versus chronic cysticercosis infection. 4. [place] Stroke Program Early CT Score (ASPECTS score) = 10. Electronically signed by: Marito Landis On 05/02/2020 18:57:01 PM
[2020-05-02 18:58] LABS: INR 1.01; PROTHROMBIN TIME 13.5 SECONDS (11.8-14.0)
--- NOTE | 2020-05-02 19:13 | REPVR ---
PROCEDURE INFORMATION: Exam: CT Angiography Chest With Contrast Exam date and time: 05/02/2020 6:30 PM Age: 84 years old Clinical indication: Chest pain; Additional info: Fall, head injury - chest pain/midepigastric pain TECHNIQUE: Imaging protocol: Computed tomographic angiography of the chest with intravenous contrast. 3D rendering (Not supervised by radiologist): MIP and/or 3D reconstructed images were created by the technologist. Radiation optimization: All CT scans at this facility use at least one of these dose optimization techniques: automated exposure control; mA and/or kV adjustment per patient size (includes targeted exams where dose is matched to clinical indication); or iterative reconstruction. Contrast material: ISOVUE 370; Contrast volume: 100 ml; Contrast route: INTRA-ARTERIAL (ARTERIAL); COMPARISON: CR PORTABLE CHEST X-RAY 05/02/2020 3:58 PM FINDINGS: Pulmonary arteries: No CT evidence of acute pulmonary embolism. Aorta: No CT evidence of acute aortic dissection, aneurysm or acute intramural thoracic aortic hematoma. Lungs: Both lungs are well-aerated. No pneumothorax or pleural effusion. Heart: The heart size is normal. Midline sternotomy wires are intact. Moderate coronary artery calcification is present. Lymph nodes: Unremarkable. No enlarged lymph nodes. Bones/joints: No acute vascular, visceral or bony injury evident in the chest or upper abdomen. Moderate chronic degenerative vertebral body endplate osteophytic disease is seen in the mid to lower thoracic spine. Soft tissues: Unremarkable. IMPRESSION: 1. No acute vascular, visceral or bony injury evident in the chest or upper abdomen. 2. No CT evidence of acute pulmonary embolism. 3. No CT evidence of acute aortic dissection, aneurysm or acute intramural thoracic aortic hematoma. 4. The heart size is normal. Midline sternotomy wires are intact. Moderate coronary artery calcification is present. 5. Both lungs are well-aerated. No pneumothorax or pleural effusion. 6. Moderate chronic degenerative vertebral body endplate osteophytic disease is seen in the mid to lower thoracic spine. Electronically signed by: aMrito Landis On 05/02/2020 19:14:01 PM
[2020-05-02] MEDS ORDERED: GI COCKTAIL 50ML BTL(HYOSCYAMINE/MAALOX/LIDOCAINE VISCOUS)(1:3:1) PO ONE (19:15)
--- NOTE | 2020-05-02 19:22 | REPVR ---
PROCEDURE INFORMATION: Exam: CT Abdomen And Pelvis With Contrast Exam date and time: 05/02/2020 6:30 PM Age: 84 years old Clinical indication: Abdominal pain; Epigastric; Additional info: Fall, head injury - chest pain/midepigastric pain TECHNIQUE: Imaging protocol: Computed tomography of the abdomen and pelvis with intravenous contrast. Radiation optimization: All CT scans at this facility use at least one of these dose optimization techniques: automated exposure control; mA and/or kV adjustment per patient size (includes targeted exams where dose is matched to clinical indication); or iterative reconstruction. Contrast material: ISOVUE 370; Contrast volume: 100 ml; Contrast route: INTRAVENOUS (IV); COMPARISON: CT ABD PELVIS W/O CONTRAST 11/27/2018 7:06 PM FINDINGS: Liver: Mild diffuse fatty infiltration of the liver. Gallbladder and bile ducts: Prior cholecystectomy. The biliary ducts appear normal. Pancreas: Normal. No ductal dilation. Spleen: Normal. No splenomegaly. Adrenals: Normal. No mass. Kidneys and ureters: There is a large hypodense mass in the lower pole right kidney on image 88 of series 501 and image 47 of series 502. This measures 4.3 x 4.3 cm transversely and 4.4 cm craniocaudally. This has a benign appearance with a smooth, well-defined thin wall and low internal CT attenuation and is likely a Bosniak type I simple cyst. No further follow-up is recommended. Reference: Madai EDGAR, Management of the Incidental Renal Mass on CT: A White Paper of the ACR Incidental Findings Committee, J Am Leonides Radiol 2018. Stomach and bowel: A small sliding-type gastric hiatal hernia is present. Moderately severe distal colonic diverticulosis is present, with no evidence of acute diverticulitis. Appendix: No evidence of appendicitis. Intraperitoneal space: Unremarkable. No free air. No significant fluid collection. Vasculature: No significant vascular, visceral or bony injury evident in the abdomen or pelvis. Atherosclerotic calcific disease of the abdominal aorta and iliofemoral arteries is present. No aortic aneurysm however. Lymph nodes: Unremarkable. No enlarged lymph nodes. Bladder: Unremarkable as visualized. 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 A penile prosthesis is present with a reservoir are seen anterior to the right side urinary bladder. Bones/joints: Moderate levoscoliosis of the lumbar spine, apex at L4/L5. Chronic degenerative discovertebral disease is seen in the lumbar spine with endplate osteophytosis, diminished disc height and vacuum disc phenomenon at levels L1-S1. Soft tissues: Unremarkable. IMPRESSION: 1. No significant vascular, visceral or bony injury evident in the abdomen or pelvis. 2. Mild diffuse fatty infiltration of the liver. 3. Prior cholecystectomy. The biliary ducts appear normal. 4. Atherosclerotic calcific disease of the abdominal aorta and iliofemoral arteries is present. No aortic aneurysm however. 5. There is a large hypodense mass in the lower pole right kidney on image 88 of series 501 and image 47 of series 502. This measures 4.3 x 4.3 cm transversely and 4.4 cm craniocaudally. This has a benign appearance with a smooth, well-defined thin wall and low internal CT attenuation and is likely a Bosniak type I simple cyst. No further follow-up is recommended. Reference: Madai EDGAR, Management of the Incidental Renal Mass on CT: A White Paper of the ACR Incidental Findings Committee, J Am Leonides Radiol 2018. 6. Moderately severe distal colonic diverticulosis is present, with no evidence of acute diverticulitis. 7. 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 A penile prosthesis is present with a reservoir are seen anterior to the right side urinary bladder. 8. Moderate levoscoliosis of the lumbar spine, apex at L4/L5. Chronic degenerative discovertebral disease is seen in the lumbar spine with endplate osteophytosis, diminished disc height and vacuum disc phenomenon at levels L1-S1. Electronically signed by: Marito Landis On 05/02/2020 19:23:10 PM
--- NOTE | 2020-05-02 20:46 | REPVR ---
PROCEDURE INFORMATION: Exam: US Duplex Lower Extremity Veins, Bilateral Exam date and time: 05/02/2020 8:27 PM Age: 84 years old Clinical indication: Other: Weakness TECHNIQUE: Imaging protocol: Real-time duplex ultrasound of the extremities with 2-D wisdom scale, color Doppler flow and spectral waveform analysis with image documentation. Complete exam focused on the bilateral lower extremity veins. COMPARISON: No relevant prior studies available. FINDINGS: Right deep veins: Unremarkable. The common femoral, femoral, proximal profunda femoral and popliteal veins are patent without thrombus. Normal Doppler waveforms. Normal compressibility and/or augmentation response. Right superficial veins: Saphenofemoral junction is patent without thrombus. Left deep veins: Unremarkable. The common femoral, femoral, proximal profunda femoral and popliteal veins are patent without thrombus. Normal Doppler waveforms. Normal compressibility and/or augmentation response. Left superficial veins: Saphenofemoral junction is patent without thrombus. Soft tissues: Unremarkable. IMPRESSION: No evidence of deep vein thrombosis. Electronically signed by: Lio Burks On 05/02/2020 20:46:58 PM
[2020-05-02 22:12] LABS: CK-MB VALUE MASS 3.9 NG/ML (<3.6); CPK CREATINE PHOSPHOKINASE 232 U/L (39-308); MB/CK RELATIVE INDEX 1.68 (< OR =4); TROPONIN I < 0.02 NG/ML (< 0.10)
[2020-05-02 22:50] VITALS: BP 138/67
--- NOTE | 2020-05-22 14:41 | ECGEPIP ---
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
== END 2020-05-02 23:03 | disposition home or self-care (01) ==
LOC: M ED 15:22
DX: R07.89 Other chest pain (principal); R06.02 Shortness of breath; E11.9 Type 2 diabetes mellitus without complications; I10 Essential (primary) hypertension; E78.5 Hyperlipidemia, unspecified; I25.10 Atherosclerotic heart disease of native coronary artery without angina pectoris; G47.30 Sleep apnea, unspecified; M54.12 Radiculopathy, cervical region; Z79.899 Other long term (current) drug therapy; Z79.84 Long term (current) use of oral hypoglycemic drugs; Z79.82 Long term (current) use of aspirin
CPT/HCPCS: 36415; 70450; 71045; 71275; 74177; 80048; 80076; 82550; 82553; 83690; 83880; 84443; 84484; 85025; 85610; 85730; 93005; 93970; 99284; Q9967

== ENCOUNTER 2020-08-25 06:22 | Emergency (ER) | payer MEDICARE, OTHER ==
[~2020-08-25] VITALS: Ht 170.2 cm; Wt 80.0 kg
[~2020-08-25 06:22] MED LIST changes: +AMLO1TAB24 PO
[2020-08-25] MEDS ORDERED: traMADol 50 MG TAB PO ONE (07:15)
--- NOTE | 2020-08-25 08:12 | REP ---
INDICATION: felt immediate pain and tear lateral leg, pain over IT band. COMPARISON: None. TECHNIQUE: Four views. FINDINGS: Four views of the left femur demonstrate mild vascular calcification. Radiotherapy prostate seeds are noted along with a peroneal prosthetic device. Femoral head is smooth and rounded. Hip joint and knee joint spaces are preserved. There is minimal patellar spurring. There is no evidence of fracture or subluxation.. . No opaque foreign body noted. IMPRESSION: Negative left femur series. <Electronically signed by Bran Shabazz > 08/25/20 [id number]
--- NOTE | 2020-08-25 08:14 | REP ---
INDICATION: felt immediate pain and tear when reaching on step stool COMPARISON: None. TECHNIQUE: Five views. FINDINGS: There is no fracture or dislocation. Mineralization and joint spaces are normal. There are no calcifications or foreign bodies. Except for vascular atheromatous calcifications. There is a suprapatellar effusion. IMPRESSION: Suprapatellar effusion. <Electronically signed by Kevyn Gatica > 08/25/20 [id number]
--- NOTE | 2020-08-25 09:15 | REP ---
INDICATION: severe pain to lateral leg, unable to bear weight. COMPARISON: Plain film studies of the left femur and left knee earlier this same date. TECHNIQUE: CT left femur without IV contrast. FINDINGS: There is no fracture or dislocation. Mineralization is normal. The femoroacetabular and knee articulations are unremarkable except for a suprapatellar effusion at the knee. There is mild focal edema/scarring in the subcutaneous soft tissues lateral to the hip greater trochanter. There are no calcifications or foreign bodies. There is a focal cyst versus hematoma posterior to the medial femoral condyle. IMPRESSION: Suprapatellar effusion of the knee. Cyst versus hematoma posterior to the medial femoral condyle. Focal soft tissue edema in the subcutaneous fat lateral to the greater trochanter. Depending on symptoms consider follow-up MRI. <Electronically signed by Kevyn Gatica > 08/25/20 [id number]
[2020-08-25] MEDS ORDERED: NORC1TAB7 PO (09:25)
[2020-08-25 09:56] VITALS: BP 143/65
== END 2020-08-25 09:50 | disposition home or self-care (01) ==
LOC: M ED 06:22
DX: M25.462 Effusion, left knee (principal); E11.9 Type 2 diabetes mellitus without complications; I10 Essential (primary) hypertension; E78.5 Hyperlipidemia, unspecified; Z79.84 Long term (current) use of oral hypoglycemic drugs; Z79.899 Other long term (current) drug therapy; Z87.891 Personal history of nicotine dependence

== ENCOUNTER → 2020-10-09 | Outpatient (REF) | payer MEDICARE, OTHER ==
[~2020-10-09] MED LIST changes: +NORC1TAB7 PO
[2020-10-09 13:26] LABS: BASO # 0.1 10^3/uL (0.0-0.2); BASO % 1.5 % (0.0-1.0); EOS # 0.2 10^3/uL (0.0-0.5); EOS % 3.2 % (0.0-3.0); HEMATOCRIT 39.6 % (42.0-52.0); HEMOGLOBIN 12.5 g/dl (13.5-17.5); LYMPH # 0.8 10^3/uL (1.5-5.0); LYMPH % 11.3 % (24.0-44.0); MEAN CORPUSCULAR HEMOGLOBIN 28.2 pg (27.0-33.0); MEAN CORPUSCULAR HGB CONC 31.6 g/dl (32.0-36.5); MEAN CORPUSCULAR VOLUME 89.4 fl (80.0-96.0); MONO # 0.6 10^3/uL (0.0-0.8); NEUTROPHILS # 5.6 10^3/uL (1.5-8.5); NEUTROPHILS % 75.2 % (36.0-66.0); PLATELET COUNT, AUTOMATED 256 10^3/uL (150-450); RED BLOOD COUNT 4.43 10^6/uL (4.30-6.10); WHITE BLOOD COUNT 7.4 10^3/uL (4.0-10.0)
[2020-10-09 13:51] LABS: ALBUMIN 3.4 GM/DL (3.2-5.2); BILIRUBIN,TOTAL 0.6 MG/DL (0.2-1.0); CALCIUM LEVEL 9.7 MG/DL (8.8-10.2); CREATININE FOR GFR 1.34 MG/DL (0.70-1.30); GLOMERULAR FILTRATION RATE 54.3 (>35); PROSTATIC SPECIFIC AG MONITOR 0.03 NG/ML (< 4.00); TOTAL PROTEIN 7.2 GM/DL (6.4-8.2)
== END ==
LOC: M LABDRWAD 12:37
PROVIDERS: ATTEND Urology
DX: C67.8 Malignant neoplasm of overlapping sites of bladder (principal); Z85.46 Personal history of malignant neoplasm of prostate

== ENCOUNTER 2020-11-02 16:35 | Emergency (ER) | payer MEDICARE, OTHER ==
[~2020-11-02] VITALS: Ht 172.7 cm; Wt 79.5 kg
[~2020-11-02 16:35] MED LIST changes: +HYDR-3490 PO; -HYDR25TAB PO; -QUET1TAB7 PO; +QUET25TA3 PO
--- OUTSIDE RECORDS SUMMARY | 2020-11-02 16:42 | CCD | Continuity of Care Document ---
Author Author Conor FIELDS M.D. Organization Unknown Address [address] [place] [id number] Phone [phone] Care Team Providers Care Flush Tester Name Role Phone Freeman Shen M.D. AUTM [phone] Parth Barney M.D AUTM [phone] Problems Active Problems Provider Date Impotence of organic origin Flaco Rivera, PMaryAMary Onset: 0 11/25/2011 Malignant tumor of prostate Cassie Spencer D.O. Onset: 11/25/2011 Hydrocele Cassie Spencer D.O. Onset: 012 History of malignant neoplasm of prostate FELIX Fields MD Onset: 08/11/2012 Right lower quadrant pain Ze Guzmán MD Onset: 016 Epididymitis associated with another disorder Ze Guzmán MD Onset: 05/03/2016 Nocturia FELIX Fields MD Onset: 04/08/2017 Microscopic hematuria FELIX Fields MD Onset: 08/03/2018 Urgent desire to urinate FELIX Fields MD Onset: 08/03/20 18 Neoplasm of uncertain behavior of bladder FELIX Fields MD Onset: 08/03/2018 Urinary tract infectious disease FELIX Fields MD Onset: 08/03/2018 Acute injury of kidney Onset: 10/19/2017 Coronary arteriosclerosis Onset: 018 Chest pain Onset: 10/09/2017 Essential hypertension Onset: 10/08/2017 Pure hypercholesterolemia Onset: 018 Type 2 diabetes mellitus without complication Onset: 10/08/2017 Preinfarction syndrome Onset: 10/08/2017 Malignant neoplasm, overlapping lesion of bladder FELXI Fields MD Onset: 03/24/2019 Acquired renal cystic disease PO Starr Fields MD Onset: Social History Type Date Description Comments Sex Unknown Tobacco Use Start: Unknown End: Unknown Former Cigarette Smo ker Smoking Status Reviewed: 04/12/20 Former Cigarette Smoker Tobacco Use Reviewed: 03/29/16 Never Smoked Cigars Tobacco Use Start: Unknown End: Unknown Former Pipe Smoker Smokeless Tobacco 03/29/2016 Never Used Smokeless Tobacco ETOH Use 03/29/2016 current beer 2 beers per week Allergies, Adverse Reactions, Alerts Description No Known Drug Allergies Medications Active Medications SIG Qnty Indications Ordering Provide r Date Gemcitabine HCL 2GM/52.6ML Solutio n instill into bladder once a week for 3 weeks PO Starr Fields MD 06/15/2020 Amlodipine Besylate 10mg Tablets Take 1 tablet (10 mg total) by mouth daily 30tabs Unknown 10/21/2017 Amiodarone HCL 200mg Tablets Take 200 mg PO bid x 1 week, then drop to 200 mg Po qd 56tabs Unkno wn 10/21/2017 Acetaminophen 325mg Tablets Take 2 tablets (650 mg total) by mouth every 6 (six) hours as needed for fever 30tabs Unknown 10/20/2017 Furosemide 20mg Tablets Take 1 tablet (20 mg total) by mouth daily 30tabs Unknown 018 Metoprolol Tartrate 25mg Tablets Take 1 tablet (25 mg total) by mouth 2 (two) times a day 60tabs Unknown 10/20/2017 Mirapex Unknown 09/26/2008 Januvia 50mg Tablets Take One Tablet By Mouth Every Day Unknown Metformin HCL Unknown Glipizide 5mg Tablets Freeman Shen M.D. Ferrous Gluconate 324(37.5Fe) mg T ablets Take 648 mg by mouth daily with breakfast Unknow n Quetiapine Fumarate 25mg Tablets Take 12.5 mg by mouth nightly Unknown Citalopram Hydrobromide 20mg Table ts Take 20 mg by mouth daily Unknown Atorvastatin Calcium 40mg Tablets Take One Tablet By Mouth Every Day Unknown Folic Acid 1mg Tablets Take One Tablet By Mouth Every Day Unknown Pramipexole Dihydrochloride 1.5mg Tablets Take 2 3 Tablets By Mouth Once A Day Unknown Hydrochlorothiazide 25mg Tablets Take One Tablet By Mouth Every Day Unknown Potassium Chloride Leigh Ann ER 20Meq Tablets ER Take One Tablet By Mouth Twice A Day Unkn own [id number] Ethyl Esters 1gm Caps ules Take Two Capsules By Mouth Every Day Unknown Vitamin E Unknown History Medications Cipro 250mg Tablets 1 by mouth twice a day 4tabs PO Starr Fields MD 04/12/2020 - 02/2020 Medications Administered in Office Medication SIG Qnty Indications Ordering Provider Date Gemcitabine HCL 200 MG Injection WSC2,Nursing Schedule/Procedure Room 07/04/2020 Gemcitabine HCL 200 MG Injection WSC2,Nursing Schedule/Procedure Room 06/27/2020 Gemcitabine HCL 200 MG Injection WSC2,Nursing Schedule/Procedure Room 06/20/2020 Gemcitabine HCL 200 MG Injection WSC2,Nursing Schedule/Procedure Room 09/20/2019 Gemcitabine HCL 200 MG Injection WSC2,Nursing Schedule/Procedure Room 08/30/2019 Gemcitabine HCL 200 MG Injection WSC2,Nursing Schedule/Procedure Room 04/15/2019 Gemcitabine HCL 200 MG Injection Matthew Hanson MD 04/01/2019 Gemcitabine HCL 200 MG Injection WSC2,Nursing Schedule/Procedure Room 04/01/2019 BCG, Firth Strain DO Not Use After 9 Dos Injection Jose D Damon MD 9 BCG, Firth Strain DO Not Use After 9 Dos Injection WSC2,Nursing Schedule/Proce dure Room 02/17/2019 BCG, Sharon Strain DO Not Use After 9 Dos Injection Ellyn Samuels 02/11/2019 BCG, Firth Strain DO Not Use After 9 Dos Injection WSC2,Nursing Schedule/Proce dure Room 02/11/2019 BCG, Sharon Strain DO Not Use After 9 Dos Injection WSC2,Nursing Schedule/Proce dure Room 02/04/2019 Chemoclave Kit Injection WSC2,Nursing Schedule/Procedure Room 02/04/2019 BCG, Sharon Strain DO Not Use After 9 Dos Injection Conor Izquierdo MD 10/2018 BCG, Sharon Strain DO Not Use After 9 Dos Injection WSC2,Nursing Schedule/Proce dure Room 01/07/2019 BCG, Firth Strain DO Not Use After 9 Dos Injection Conor Izquierdo MD 12/07 BCG, Firth Strain DO Not Use After 9 Dos Injection WSC2,Nursing Schedule/Proce dure Room 12/24/2018 Immunizations Description No Information Available Vital Signs Date Vital Result Comment 04/12/2020 9:21am Height 67.5 inches 5'7.50" Weight 180.00 lb Weight 81.648 kg BMI (Body Mass Index) 27.8 kg/m2 BP Systolic 128 mmHg BP Diastolic 69 mmHg Heart Rate 72 /min Body Temperature 97.1 F 11/03/2019 3:16pm Height 67.5 inches 5'7.50" Weight 190.00 lb Weight 86.184 kg BMI (Body Mass Index) 29.3 kg/m2 Results Test Acquired Date Facility Test Result H/L Range Note 230 Ua Routine 07/04/2020 [facility] REF TO DR ADDRESS ON ORDER FOR (315)- - Ua Glucose Negative Ua Protein 30 mg/dL Ua Nitrite Negative Ua Leuko Negative Ua Blood Negative Ua Color Not Entered Ua Ketones Negative Ua Clarity Not Entered Ua Specific Jasper 1.020 1.003-1.030 Ua PH 5.0 5.0-7.5 Ua Bilirubin Negative Ua Urobilinogen 0.2 E.U./dL 0.0-1.0 230 Ua Routine 06/27/2020 [facility] REF TO DR ADDRESS ON ORDER FOR (315)- - Ua Glucose Negative Ua Protein Negative Ua Nitrite Negative Ua Leuko Negative Ua Blood Negative Ua Color Not Entered Ua Ketones Negative Ua Clarity Not Entered Ua Specific Jasper 1.020 1.003-1.030 Ua PH 6.0 5.0-7.5 Ua Bilirubin Negative Ua Urobilinogen 0.2 E.U./dL 0.0-1.0 230 Ua Routine 06/20/2020 [facility] REF TO DR ADDRESS ON ORDER FOR (315)- - Ua Glucose Negative Ua Protein 30 mg/dL Ua Nitrite Negative Ua Leuko Negative Ua Blood Negative Ua Color Not Entered Ua Ketones Negative Ua Clarity Not Entered Ua Specific Jasper 1.025 1.003-1.030 Ua PH 7.0 5.0-7.5 Ua Bilirubin Negative Ua Urobilinogen 0.2 E.U./dL 0.0-1.0 Urine Cytology 04/12/2020 [facility] [address] [place] [address] [phone] Clinical History cancer Normal 1 Specimen Adequacy Satisfactory for <SEE NOTE> Normal 2 BodySite Voided - Clean C <SEE NOTE> Normal 3 Gross Description Received in a sp <SEE NOTE> Normal 4 Microscopic Description Atypical urothel <SEE NOTE> Normal 5 Final Diagnosis ATYPICAL UROTHEL <SEE NOTE> Normal 6 CPTCode 75945 Normal [id number] C67.8 Normal PDF Report SEE IMAGE 230 Ua Routine 04/12/2020 [facility] REF TO DR ADDRESS ON ORDER FOR (315)- - Ua Glucose Negative Ua Protein Trace Ua Nitrite Negative Ua Leuko Negative Ua Blood Negative Ua Color Not Entered Ua Ketones Negative Ua Clarity Not Entered Ua Specific Jasper 1.015 1.003-1.030 Ua PH 5.5 5.0-7.5 Ua Bilirubin Negative Ua Urobilinogen 0.2 E.U./dL 0.0-1.0 1 C67.8 2 Satisfactory for evaluation. 3 Voided - Clean Catch 4 Received in a specimen conta iner, labeled with the patients name and , is Cloudy Yellow fluid consistent with urine, measuring approximately 60 ml. 5 Atypical urothelial cells pr esent. 6 ATYPICAL UROTHELIAL CELLS. Procedures Date Code Description Status 07/04/2020 62136 Bladder Instillation ,Of Anticarcinogenic Agent (Including Retenti Completed 06/27/2020 41651 Bladder Instillation ,Of Anticarcinogenic Agent (Including Retenti Completed 06/20/2020 35245 Bladder Instillation ,Of Anticarcinogenic Agent (Including Retenti Completed 04/12/2020 73763 Cystourethroscopy, Separate Proc edure Completed 07/07/2019 84175404 Colonoscopy Completed Medical Devices Description No Information Available Encounters Description No Information Available Assessments Date Code Description Provider 07/04/2020 C67.8 Malignant neoplasm of overlappin g sites of bladder Kiana De Santiago MD 07/04/2020 C67.8 Malignant neoplasm of overlappin g sites of bladder WSC2,Nursing Schedule/Procedure Room 06/27/2020 C67.8 Malignant neoplasm of overlappin g sites of bladder FELIX Fields MD 06/27/2020 C67.8 Malignant neoplasm of overlappin g sites of bladder WSC2,Nursing Schedule/Procedure Room 06/20/2020 C67.8 Malignant neoplasm of overlappin g sites of bladder Raphael Arthur MD 06/20/2020 C67.8 Malignant neoplasm of overlappin g sites of bladder WSC2,Nursing Schedule/Procedure Room 04/12/2020 C67.8 Malignant neoplasm of overlappin g sites of bladder FELIX Fields MD 04/12/2020 C67.8 Malignant neoplasm of overlappin g sites of bladder Freedom Rangel MD Plan of Treatment Future Appointment(s):* 10/27/2020 2:20 pm - FELIX Fields MD at [facility] 04/12/2020 - FELIX Fields MD* C67.8 Malignant neoplasm of overlapping sites of bladder* New Labs:* CMP, Ordered: 04/12/20 * CBC W/Diff, Ordered: 04/12/20 * New Xrays:* CT Abdomen & Pelvis W/Wo Contrast, Scheduled: 10/27/20 * Comments:* Cystoscopy showed no evidence of recurrence of his cancer. I will send his urine for cytology. He should maintain his gemcitabine treatment. * Follow up:* Follow-up with Dr. Fields in 4 months with a cystoscopy. Please have him do 3 sessions of weekly gemcitabine starting in June. He will also need CT urogram, CBC, CMP, and PSA when he comes back to see me for his cystoscopy. * All * New Medication:* Cipro 250 mg - 1 by mouth twice a day Functional Status Functional Condition Comment Date Status Trifocal Glasses 03/29/2016 Active Mental Status Description No Information Available Referrals Refer to Reason for Referral Status Appt Date FELIX Fields M.D. Medicare Never Requires Prio r Authorization for Any Services Per [facility] Online ([facility] Health Plan) CPT Code: 63632 This member's plan does not currently require notification or prior-authorization through the [facility] Notification or Prior-Authorization Program 10/04/20 [facility] Urology [address] [place] [phone] FELIX Fields M.D. Medicare never needs auth Pe r [facility] online CPT Code: 57648 This member's plan does not currently require notification or prior-authorization through the [facility] Notification or Prior- Authorization Program. 07/20/2020 [place] Created [facility]rology [address] [place] [phone]
--- OUTSIDE RECORDS SUMMARY | 2020-11-02 16:42 | CCD | Continuity of Care Document ---
Author Author Conor JAIMES P.A. Organization Unknown Address [address] [place] [phone] Phone [phone] Care Team Providers Care Digestion Operator Name Role Phone Freeman Shen MD [facility] [phone] Problems Description No Information Available Social History Type Date Description Comments Sex Unknown Allergies, Adverse Reactions, Alerts Description No Information Available Medications Active Medications SIG Qnty Indications Ordering Provide r Date Medrol 4mg Tablets dose lana, take as directed on sheet 1tabs M19.012 Javier Bee MD 020 Immunizations Description No Information Available Vital Signs Description No Information Available Results Description No Information Available Procedures Description No Information Available Medical Devices Description No Information Available Encounters Description No Information Available Assessments Date Code Description Provider 08/25/2020 M19.012 Primary osteoarthritis, left sonya ulder Last Jaimes, Tariq.A. 08/25/2020 M75.42 Impingement syndrome of left sonya ulder Barak Mar. 08/25/2020 M17.12 Unilateral primary osteoarthriti s, left knee Shannon MarA. 08/25/2020 M25.462 Effusion, left knee Shannon BerryAMary 08/25/2020 M76.32 Iliotibial band syndrome, left l eg Madina Mar Plan of Treatment 08/25/2020 - Barak Mar.* M19.012 Primary osteoarthritis, left shoulder* New Medication:* Medrol 4 mg - dose lana, take as directed on sheet * Follow up:* 3-4 weeks with [facility] for right shoulder, hip and knee recheck * M75.42 Impingement syndrome of left shoulder * M17.12 Unilateral primary osteoarthritis, left knee * M25.462 Effusion, left knee * M76.32 Iliotibial band syndrome, left leg Functional Status Description No Information Available Mental Status Description No Information Available Referrals Description No Information Available
--- OUTSIDE RECORDS SUMMARY | 2020-11-02 16:42 | CCD ---
Author Author [facility] Organization [facility] Address Unknown Phone Unavailable Care Team Providers Care Core Finisher Name Role Phone Freeman Shen Unavailable PROBLEMS Type Condition ICD9-CM Code [id number] Code Onset Dates Condition S tatus SNOMED Code Notes Problem Dysthymia F34.1 Active [id number] He is on Heidi xa therapy with benefit. I restarted that in June 2011. He sees be stable at present. Problem History of prostate cancer Z85.46 Active 76763 2007 Prostate cancer, diagnosed on basis of elevated PSA in 2006, Izabel score 3+3 in one of 12 biopsies, treated with prostate seed implantation. PSA was undetectable in July 2018. Problem Restless legs syndrome G25.81 Active [id number] For this he is on Mirapex therapy. In the past this was not working well in receptive to ropinirole as of September 2017. He was placed on Seroquel during his hospitalization after his coronary bypass procedure because of delirium and he says this worked well for restless legs at the time. He is now off Seroquel and back on Mirapex 1.5 mg at bedtime and this is working fairly well. 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 With his hospitalizations in early 2017 he was switched to metoprolol and amlodipine and taken off lisinopril hydrochlorothiazide due to his chronic kidney disease. He remains on Lasix at 20 mg twice? Daily, and hydrochlorothiazide was added back by the hanger in mid 2017. His blood pressure is adequately controlled at present. He requires potassium supplementation. Problem Macular degeneration H35.30 Active 272902991 H e is no longer on avastin injections bilaterally but is suffering from gradual decline in his vision. Sees Dr. Courtney Salazar. Problem History of syncope Z87.898 Active [id number] In May 2012 he was admitted to the hospital after experiencing an episode of syncope. This was in [facility]. I have no records in that regard. He was working with [employer], looking up, stacked some brush after working outside for an hour, and went back to his house. He played a game with his . He started feeling faint, had nausea, weakness, and some diarrhea. As he got up from the toilet he felt lightheaded and collapsed. An ambulance was called. Glucose was normal. Cardiac monitoring in hospital overnight was unremarkable and a subsequent event monitor was unrevealing. I believe he had vasodepressor syncope. He had a recurrent episode associated with catheter difficulties in November 2018. 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 Suspect spinal stenosis. MRI deferred. In the past a bulging disc was identified. He is able to ambulate up to 200 feet before he needs to stop and rest briefly. Problem Memory change R41.3 Active 829444442 Serologi c testing was negative in November 2015. He seems fairly oriented today. Vitamin B12 therapy was suggested in the past, and which he maintains Problem Hypercholesterolemia E78.00 Active 10871791 He is on Lipitor and Lovaza, and when last assessed in April 2019 his lipids were optimal. With his bypass operations Lipitor was increased to 40 mg daily in October 2017. Problem Cervical radiculopathy due to degenerative joint disease of spine M47.22 Active 808543269 Describes neck p ain and radiculopathy to his hands. I have referred him to physical therapy. If this is ineffective, he will need referral to orthopedics. Problem Malignant neoplasm of urinary bladder, unspecified site C67.9 Active 407049694 This was discovered on the b asis of a urinalysis demonstrating microscopic hematuria, discovered by his urologist. Had TURBT, fulguration in October 2018 and is now getting bladder instillations with gemcitabine instead of BCG due to a shortage of BCG. Problem History of adenomatous polyp of colon Z86.010 Ac tive 134615776 I believe he had an adenomatous polyp in January 2014, and he had more adenomatous polyps in 08/2016. Problem Bilateral carotid artery stenosis I65.23 Active 60040929 He has been worked up by his hanger for moderate to severe carotid artery disease, as manifest on his CT angiogram in December 2018. Plans for a stent were canceled because his disease was not severe enough. Problem Sleep apnea syndrome G47.30 Active 87337703 He has sleep apnea but has been intolerant of therapy. His symptoms are stable by his account. In 2009 he was prescribed BiPAP at 10 but he stopped using it. I referred him back to his in home caregiver for a reevaluation in 2018 but he decided against keeping that appointment. 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 He denies any chest pain in a radionuclide stress test in June 2018 was unremarkable for reversible ischemia, and he had an ejection fraction of 67% at that time. He is referred back to cardiac rehabilitation at his request. Problem Paroxysmal atrial fibrillation I48.0 Active 2 97377949 He is on amiodarone since his bypass procedure in late September 2017, presumably because he had atrial fibrillation postoperatively. This is monitored by his hanger. Problem Chronic kidney disease, stage III (moderate) N18.3 Active 354556483 He has had a decline in his renal function since September 2017 when it was normal. His creatinine was 2.2 in the hospital when he had his bypass procedure, but has improved since. Most recent GFR was 48 with a creatinine of 1.51 in April 2019. He had been taken off his lisinopril therapy during cardiac hospitalization. He has an associated mild anemia with a hemoglobin of 12.5 in September 2018, 11.5 in April 2019. 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 Last HgbA1c had remained relatively stable at 7.3 in April 2019, a 8 % in November 2018, 7.2% in September 2018. He has chronic microalbuminuria , last evaluated May 2019, but this could relate to his hematuria. He was on an JOAQUÍN inhibitor until his bypass procedure when he developed some renal insufficiency and he is now on amlodipine. Has an eye examination at least twice yearly. Diabetes is currently adequately controlled. He was placed on insulin therapy with glargine during his hospitalizations for cardiac disease in October 2017 but I switched him back to his previous oral therapy as of late October 2017. As of September 2018 he was complaining of hyperphagia, likely from his glipizide therapy at 2.5 mg twice daily. I reduced at to once daily and changed his metformin to the 750 mg extended release product then. With his deterioration in control as of November 2018 I ncreased his metformin to 1500 mg daily, and increased his glipizide to 5 mg once daily. As of later in November 2018 his glucoses were still moderately elevated so we added Januvia 50 mg daily (dose adjusted for CKD), with some benefit. ALLERGIES No Known Allergies ENCOUNTERS from 1935 to 2020-08-28 Encounter Location Date Provider Diagnosis [address] [id number] [facility] Administration Date Status Influenza (High Dose 65 & up) Unknown May 22, 2018 Ad ministered Influenza (High Dose 65 & up) Unknown Jul 05, 2017 Ad ministered Pneumococcal Adult 0.5mL (Pneumovax 23) Unknown May 20, 2012 Administered Pneumococcal 0.5mL (Prevnar 13) IM Intramuscular November 20, 2015 Administered Influenza (6mo & up) Fluzone Unknown Jun 23, 2014 Adm inistered SOCIAL HISTORY Sex Assigned At : Social History Observation Description Sex Assigned At Unknown Audit Question Answer Notes Total Score: 2 Interpretation: Alcohol Education Language: Question Answer Notes Languages spoken: [place]guill[place] Jainism: Question Answer Notes Jainism No scientologist beliefs that would impact health care. Domestic Violence: Question Answer Notes Status: Sexual Hx: Question Answer Notes Had sex in the last 12 months (vaginal, oral, or anal)? No Have you ever had an STD? No Drug and Alcohol Question Answer Notes Total Score: 0 Interpretation: No problems reported BMI Care Goal Follow-Up Question Answer Notes Above Normal BMI Follow-Up Weight monitoring REASON FOR REFERRAL No Information VITAL SIGNS No information MEDICATIONS Medication SIG (Take, Route, Frequency, Duration) Notes Start Da te End Date Status Potassium Chloride 20 MEQ 1 capsule with food Orally twice a day for 90 day(s) Active Hydrochlorothiazide 25 MG 1 tablet in the morning Orally Once a day Active Metoprolol Tartrate 25 mg 1 tablet with food Orally twice daily for 9 0 Active Colace 100 mg 1 capsule Orally Twice a day as needed for constipation for 90 day(s) Dec, Not-Taking Folic Acid 1 mg 1 tablet Orally Once a day for 90 Active Lovaza 1 GM 2 capsules Orally Twice a day for 90 Nov, 018 Active Celexa 20 mg 1 tablet Orally Once a day for 90 Active GlipiZIDE 5 MG 1 tablet Orally Daily for 90 Active Colace 100 MG 1 capsule as needed Orally Once a day Not-Taking Acetaminophen 325 MG 2 capsule as needed Orally every 6 hrs Not-Taking Januvia 50 MG 1 tablet Orally Once a day for 90 Active Ferrous Gluconate 324 (38 Fe) MG Orally Active Amiodarone HCl 200 MG 1 tablet Orally Once a day for 90 day(s) Active MetFORMIN HCl ER 750 MG 2 tablets with evening meal Orally Once a day for 90 Active Lasix 20 MG 1 tablet Orally Once a day for 90 Active AmLODIPine Besylate 10 MG 1 tablet Orally Once a day for 90 Active Magnesium Oxide 400 MG 1 tablet as needed Orally Once a day for 30 day(s) Sep, Active Lipitor 40 MG 1 tablet Orally Once a day for 90 Active Mirapex 1.5 MG 1 tablet Orally Once a day as needed hs for 90 Active Vitamin B12 1000 MCG 1 tablet Orally Once a day for 100 days Oct, Not-Taking Aspirin 325 MG 1 tablet Orally Once a day Active PROCEDURES No Information RESULTS No Results REASON FOR VISIT ER F/U [facility] D/C 08/25; left hip hurts MEDICAL (GENERAL) HISTORY Type Description Date Medical History Diabetes mellitus Medical History Hypertension Medical History Hypercholesterolemia Medical History History of prostate cancer Medical History Restless legs syndrome Medical History Sleep apnea syndrome Medical History Macular degeneration Medical History Pseudoclaudication Medical History Dysthymia Medical History History of syncope Medical History History of adenomatous polyp of colon Medical History Memory change Medical History Cervical radiculopathy due t o degenerative joint disease of spine Medical History Coronary artery disease invo lving autologous artery coronary bypass graft without angina pectoris Medical History Paroxysmal atrial fibrillation Surgical History Appendectomy 1945 Surgical History L orchiectomy for torsion 1956 Surgical History Rhinoplasty 1957 Surgical History Prostate seed implantation 02-18-07 Surgical History Excision skin lesion 08-21-11 Surgical History Penile prosthesis insertion 10-04-11 Surgical History Colonoscopy and had adenomatous polyps 1 10/2015 Surgical History Coronary artery bypass procedure 10/08/19 18 Surgical History TURBT by Dr. Jordan 11/2018 Hospitalization History for above reasons. Hospitalization History [facility] ED-Syncopal episode 11/21/2018 Hospitalization History [facility] ED-Post-op pain 11/27/2018 Hospitalization History [facility] ED-pyleonephritis 01/19/2019 Goals Section No Information Health Concerns No Information MEDICAL EQUIPMENT No Information MENTAL STATUS No Information FUNCTIONAL STATUS No Information ASSESSMENTS No Information PLAN OF TREATMENT Medication Medication Name Sig Start Date Stop Date GlipiZIDE 5 MG 1 tablet Orally Daily for 90 Mirapex 1.5 MG 1 tablet Orally Once a day as needed hs for 90 Potassium Chloride 20 MEQ 1 capsule with food Orally twice a day for 90 day(s) AmLODIPine Besylate 10 MG 1 tablet Orally Once a day for 90 Insurance Providers Payer Name Payer Address Payer Phone Insured Name Patient Relati onship to Insured Coverage Start Date Coverage End Date MEDICARE Part A and B [address] [facility] [phone] NANY LENZ [facility] [address] [facility] [phone] NANY LENZ
--- OUTSIDE RECORDS SUMMARY | 2020-11-02 16:42 | CCD ---
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 Role Phone Jordan, N Po MD Unavailable Unavailable Jordan, N Po MD Unavailable Unavailable Jordan, N Po MD Unavailable Unavailable Jordan, N Po MD Unavailable Unavailable Jordan, N Po MD Unavailable Unavailable Jordan, N Po MD Unavailable Unavailable Jordan, N Po MD Unavailable Unavailable Jordan, N Po MD Unavailable Unavailable Jordan, N Po MD Unavailable Unavailable Jordan, N Po MD Unavailable Unavailable Jordan, N Po MD Unavailable Unavailable Jordan, N Po MD Unavailable Unavailable Jordan, N Po MD Unavailable Unavailable Jordan, N Po MD Unavailable Unavailable Jordan, N Po MD Unavailable Unavailable Jordan, N Po MD Unavailable Unavailable Jordan, N Po MD Unavailable Unavailable Jordan, N Po MD Unavailable Unavailable Jordan, N Po MD Unavailable Unavailable Jordan, N Po MD Unavailable Unavailable Jordan, N Po MD Unavailable Unavailable Jordan, N Po MD Unavailable Unavailable Jordan, N Po MD Unavailable Unavailable Jordan, N Po MD Unavailable Unavailable Jordan, N Po MD Unavailable Unavailable Jordan, N Po MD Unavailable Unavailable Jordan, N Po MD Unavailable Unavailable Jordan, N Po MD Unavailable Unavailable Jordan, N Po MD Unavailable Unavailable Jordan, N Po MD Unavailable Unavailable Jordan, N Po MD Unavailable Unavailable Jordan, N Po MD Unavailable Unavailable Jordan, N Po MD Unavailable Unavailable Jordan, N Po MD Unavailable Unavailable Jordan, N Po MD Unavailable Unavailable Jordan, N Po MD Unavailable Unavailable Jordan, N Po MD Unavailable Unavailable Jordan, N Po MD Unavailable Unavailable Jordan, N Po MD Unavailable Unavailable Jordan, N Po MD Unavailable Unavailable Jordan, N Po MD Unavailable Unavailable Jordan, N Po MD Unavailable Unavailable Jordan, N Po MD Unavailable Unavailable Jordan, N Po MD Unavailable Unavailable Jordan, N Po MD Unavailable Unavailable Jordan, N Po MD Unavailable Unavailable Jordan, N Po MD Unavailable Unavailable Jordan, N Po MD Unavailable Unavailable Jordan, N Po MD Unavailable Unavailable Jordan, N Po MD Unavailable Unavailable Jordan, N Po MD Unavailable Unavailable Jordan, N Po MD Unavailable Unavailable Jordan, N Po MD Unavailable Unavailable Jordan, N Po MD Unavailable Unavailable Jordan, N Po MD Unavailable Unavailable Jordan, N Po MD Unavailable Unavailable Jordan, N Po MD Unavailable Unavailable Jordan, N Po MD Unavailable Unavailable Jordan, N Po MD Unavailable Unavailable Jordan, N Po MD Unavailable Unavailable Jordan, N Po MD Unavailable Unavailable Jordan, N Po MD Unavailable Unavailable Jordan, N Po MD Unavailable Unavailable Jordan, N Po MD Unavailable Unavailable Jordan, N Po MD Unavailable Unavailable Jordan, N Po MD Unavailable Unavailable Jordan, N Po MD Unavailable Unavailable Jordan, N Po MD Unavailable Unavailable Jordan, N Po MD Unavailable Unavailable Jordan, N Po MD Unavailable Unavailable Jordan, N Po MD Unavailable Unavailable Jordan, N Po MD Unavailable Unavailable Jordan, N Po MD Unavailable Unavailable Jordan, N Po MD Unavailable Unavailable Jordan, N Po MD Unavailable Unavailable Jordan, N Po MD Unavailable Unavailable Jordan, N Po MD Unavailable Unavailable Jordan, N Po MD Unavailable Unavailable Jordan, N Po MD Unavailable Unavailable Jordan, N Po MD Unavailable Unavailable Jordan, N Po MD Unavailable Unavailable Jordan, N Po MD Unavailable Unavailable Jordan, N Po MD Unavailable Unavailable Jordan, N Po MD Unavailable Unavailable Jordan, N Po MD Unavailable Unavailable Jordan, N Po MD Unavailable Unavailable Jordan, N Po MD Unavailable Unavailable Jordan, N Po MD Unavailable Unavailable Jordan, N Po MD Unavailable Unavailable Jordan, N Po MD Unavailable Unavailable Jordan, N Po MD Unavailable Unavailable Jordan, N Po MD Unavailable Unavailable Jordan, N Po MD Unavailable Unavailable Jordan, N Po MD Unavailable Unavailable Jordan, N Po MD Unavailable Unavailable Jordan, N Po MD Unavailable Unavailable Jordan, N Po MD Unavailable Unavailable Parth Chen MD Unavailable Unavailabl e Ranjbaran-Jahromi, Parth MD Unavailable Unavailabl e Galdinobaran-Jahromi Parth MD Unavailable Unavailabl e Galdinobarsaroj-Jahromi Parth Unavailable Unavailabl e Galdinobaran-Jahromi Parth MD Unavailable Unavailabl e Galdinobaran-Jahromi, Parth MD Unavailable Unavailabl e Galdinobarsaroj-Jahromi Parth Unavailable Unavailabl e Galdinobaran-Jahromi Parth Unavailable Unavailabl e Galdinobaran-Jahromi Parth MD Unavailable Unavailabl e Galdinobaran-Jahromi Patrh MD Unavailable Unavailabl e Galdinobaran-Jahromi Parth Unavailable Unavailabl e Galdinobarsaroj-Christopherhromi Parth MD Unavailable Unavailabl e Galdinobaran-Jahromi Parth Unavailable Unavailabl e Caitlin-Christopherhromi Parthnisha BROOKS Unavailable Unavailabl e Caitlin-Christopherhromi Parthnisha BROOKS Unavailable Unavailabl e Caitlin-Jahromi Parth MD Unavailable Unavailabl e Caitlin-Jahromi Parth MD Unavailable Unavailabl e Caitlin-Christopherhromi Parthnisha BROOKS Unavailable Unavailabl e Caitlin-Christopherhromi Parthnisha BROOKS Unavailable Unavailabl e Caitlin-Christopherhromi Parthnisha BROOKS Unavailable Unavailabl e Caitlin-Christopherhromi Parthnisha BROOKS Unavailable Unavailabl e Caitlin-Christopherhromi Parthnisha BROOKS Unavailable Unavailabl e Caitlin-Christopherhromi Parthnisha BROOKS Unavailable Unavailabl e Caitlin-Jahromi Parthnisha BROOKS Unavailable Unavailabl e Jackan-Jahromi Parth Unavailable Unavailabl e Caitlin-Christopherhromi Parthnisha BROOKS Unavailable Unavailabl e Caitlin-Christopherhromi Parthnisha BROOKS Unavailable Unavailabl e Caitlin-Jahromi Parthnisha BROOKS Unavailable Unavailabl e Caitlin-Christopherhromi Parthnisha BROOKS Unavailable Unavailabl e Caitlin-Christopherhromi Parthnisha BROOKS Unavailable Unavailabl e Caitlin-Christopherhromi, Parth MD Unavailable Unavailabl e Ranjbaran-Jahromi, Parth MD Unavailable Unavailabl e Galdinobaran-Jahromi, Parth Unavailable Unavailabl e Galdinobarsaroj-Jahromi Parth MD Unavailable Unavailabl e Ranjbaran-Jahromi, Parth MD Unavailable Unavailabl e Galdinobaran-Jahromi Parth MD Unavailable Unavailabl e Galdinobaran-Jahromi Parth MD Unavailable Unavailabl e Galdinobaran-Jahromi Parth MD Unavailable Unavailabl e Ransinghbaran-Jahromi Parth MD Unavailable Unavailabl e Galdinobaran-Jahromi Parth Unavailable Unavailabl e Galdinobarsaroj-Jahromi Parth MD Unavailable Unavailabl e Galdinobaran-Jahromi Parth MD Unavailable Unavailabl e Galdinobaran-Jahromi Parth MD Unavailable Unavailabl e Caitlin-Jahromi Parth Unavailable Unavailabl e Caitlin-Jahromi Parth MD Unavailable Unavailabl e Caitlin-Jahromi Parth MD Unavailable Unavailabl e Caitlin-Christopherhromi Parthnisha BROOKS Unavailable Unavailabl e Caitlin-Christopherhromi Parthnisha BROOKS Unavailable Unavailabl e Caitlin-Jahromi Parthnisha BROOKS Unavailable Unavailabl e Caitlin-Jahromi Parthnisha BROOKS Unavailable Unavailabl e Caitlin-Christopherhromi Parthnisha BROOKS Unavailable Unavailabl e Caitlin-Christopherhromi Parth MD Unavailable Unavailabl e Galdinobaran-Jahromi Parth MD Unavailable Unavailabl e Jackan-Jahromi Parth Unavailable Unavailabl e Caitlin-Christopherhromi Parthnisha BROOKS Unavailable Unavailabl e Caitlin-Christopherhromi Parthnisha BROOKS Unavailable Unavailabl e Jackan-Jahromi Parth MD Unavailable Unavailabl e Caitlin-Jahromi Parth Unavailable Unavailabl e Caitlin-Christopherhromi Parthnisha BROOKS Unavailable Unavailabl e Caitlin-Christopherhromi Parthnisha BROOKS Unavailable Unavailabl e Ranjbaran-Jahromi, Parth MD Unavailable Unavailabl e Ranjbaran-Jahromi, Parth MD Unavailable Unavailabl e Ranjbaran-Jahromi, Parth MD Unavailable Unavailabl e Ranjbaran-Jahromi, Parth MD Unavailable Unavailabl e Ranjbaran-Jahromi, Parth MD Unavailable Unavailabl e Ranjbaran-Jahromi, Parth MD Unavailable Unavailabl e Ranjbaran-Jahromi, Parth MD Unavailable Unavailabl e Ranjbaran-Jahromi, Parth MD Unavailable Unavailabl e Ranjbaran-Jahromi, Parth MD Unavailable Unavailabl e Ranjbaran-Jahromi, Parth MD Unavailable Unavailabl e Ranjbaran-Jahromi, Parth MD Unavailable Unavailabl e Ranjbaran-Jahromi, Parth MD Unavailable Unavailabl e Ranjbaran-Jahromi, Parth MD Unavailable Unavailabl e Ranjbaran-Jahromi, Parth MD Unavailable Unavailabl e Ranjbaran-Jahromi, Parth MD Unavailable Unavailabl e Ranjbaran-Jahromi, Parth MD Unavailable Unavailabl e Ranjbaran-Jahromi, Parth MD Unavailable Unavailabl e Ranjbaran-Jahromi, Parth MD Unavailable Unavailabl e Ranjbaran-Jahromi, Parth MD Unavailable Unavailabl e Ranjbaran-Jahromi, Parth MD Unavailable Unavailabl e Ranjbaran-Jahromi, Parth MD Unavailable Unavailabl e Ranjbaran-Jahromi, Parth MD Unavailable Unavailabl e Ranjbaran-Jahromi, Parth MD Unavailable Unavailabl e Ranjbaran-Jahromi, Parth MD Unavailable Unavailabl e Ranjbaran-Jahromi, Parth MD Unavailable Unavailabl e Ranjbaran-Jahromi, Parth MD Unavailable Unavailabl e Re-disclosure Warning The records that you are about to access may contain information from federally-assisted alcohol or drug abuse programs. If such information is present, then the following federally mandated warning applies: This information has been disclosed to you from records protected by federal confidentiality rules (42 CFR part 2). The federal rules prohibit you from making any further disclosure of this information unless further disclosure is expressly permitted by the written consent of the person to whom it pertains or as otherwise permitted by 42 CFR part 2. A general authorization for the release of medical or other information is NOT sufficient for this purpose. The Federal rules restrict any use of the information to criminally investigate or prosecute any alcohol or drug abuse patient.The records that you are about to access may contain highly sensitive health information, the redisclosure of which is protected by Article 27-F of the [facility] Public Health law. If you continue you may have access to information: Regarding HIV / AIDS; Provided by facilities licensed or operated by the [facility] Office of Mental Health; or Provided by the [facility] Office for People With Developmental Disabilities. If such information is present, then the following [facility] mandated warning applies: This information has been disclosed to you from confidential records which are protected by state law. State law prohibits you from making any further disclosure of this information without the specific written consent of the person to whom it pertains, or as otherwise permitted by law. Any unauthorized further disclosure in violation of state law may result in a fine or long term sentence or both. A general authorization for the release of medical or other information is NOT sufficient authorization for further disc losure. Family History Family Member Name Family Member Gender Family Member Status Date o f Status Description Data Source(s) Unknown Male Problem MED[facility] ([facility]) Unknown Unknown Problem MED[facility] ([facility], ) Unknown Unknown Problem [facility] ([facility] ) Unknown Unknown Problem [facility] ([facility] ) Unknown Unknown Problem [facility] ([facility] ) Unknown Male Problem [facility] ([facility]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 Encounters Encounter Providers Location Date Indications Data Source(s ) Unknown [id number] [facility] [address] 08/29/2020 12:00:00 AM EST eCW1 ([facility]) [place] [address] [facility] [address] 08/28/2020 12:00:00 AM EST eCW1 ([facility]) Outpatient Attender: Parth Chen MD [facility] 06/27/2020 03:15:00 PM EDT MEDENT ([facility] [address] [address] 04/17/2020 12:00:00 AM EDT eCW1 ([facility]) Outpatient Attender: [place] 04/12 10:00:00 AM EDT [facility] [address] [address] 02/01/2020 12:00:00 AM EDT eCW1 ([facility]) [address] [address] 11/29/2019 12:00:00 AM EDT eCW1 ([facility]) Outpatient Attender: [place] 11/03 02:00:00 PM EST [facility] ([facility] Outpatient 09/16/2019 04:15:00 PM EST [facility] [address] [address] 09/13/2019 12:00:00 AM EST eCW1 ([facility]) [address] [address] 09/13/2019 12:00:00 AM EST eCW1 ([facility]) Immunizations Vaccine Date Status Description Data Source(s) INFLUENZA VACCINE TVS 2019- (65 YR UP)/ADJUVANT MF59 C.1/PF 06/16/2020 12:00:00 AM EDT completed [facility] Medications Medication Brand Name Start Date Product Form Dose Route Admi nistrative Instructions Pharmacy Instructions Status Indications Reaction Description Data Source(s) Methylprednisolone 4 MG Oral Tablet [Medrol] Medrol 12:00:00 AM EST active [facility] ( [facility]) 4 mg 08/25/2020 12:00:00 AM EST tablets,dose pack 21 TAKE DIRECTED ON SHEET TAKE DIRECTED ON SHEET SOLD: 08/30/2020 [facility] 5-325 mg 08/25/2020 12:00:00 AM EST tablet 10 TAKE ONE TABLET BY MOUTH EVERY 4 TO 6 HOURS NEEDED FOR PAIN MAXIMUM DAILY DOSE = 6 TAKE ONE TABLET BY MOUTH EVERY 4 TO 6 HOURS NEEDED FOR PAIN MAXIMUM DAILY DOSE = 6 SOLD: 08/25/2020 [facility] 500 mg 07/17/2020 12:00:00 AM EST capsule 28 TAKE ONE CAPSULE BY MOUTH FOUR TIMES A DAY FOR 7 DAYS TAKE ONE CAPSULE BY MOUTH FOUR TIMES A DAY FOR 7 DAYS SOLD: 07/17/2020 [facility] Gemcitabine HCL 200 MG 07/04/2020 12:00:00 AM EDT completed [facility] ([facility]) Medication administered onsite Gemcitabine HCL 200 MG 06/27/2020 12:00:00 AM EDT completed [facility] ([facility]) Medication administered onsite Asa 06/27/2020 12:00:00 AM EDT ORAL active MED[facility] ([facility]) Gemcitabine HCL 200 MG 06/20/2020 12:00:00 AM EDT completed [facility] ([facility]) Medication administered onsite Gemcitabine HCL Gemcitabine HCL 06/15/2020 12:00:00 AM EDT active [facility] ([facility]) 1.5 mg 05/01/2020 12:00:00 AM EDT tablet 90 TAKE ONE TABLET BY MOUTH AT BEDTIME NEEDED TAKE ONE TABLET BY MOUTH AT BEDTIME NEEDED SOLD: [facility] 1.5 mg 05/01/2020 12:00:00 AM EDT tablet 90 TAKE ONE TABLET BY MOUTH AT BEDTIME NEEDED TAKE ONE TABLET BY MOUTH AT BEDTIME NEEDED SOLD: [facility] Ciprofloxacin 250 MG Oral Tablet [Cipro] Cipro 04/12/2020 12:00: 00 AM EDT ORAL completed [facility] ([facility] [place]) Suprep Bowel Prep Kit Suprep Bowel Prep Kit 02/01/2020 12:00:00 AM EDT active [facility] ([facility]) 20 mEq 02/01/2020 12:00:00 AM EDT tablet,ER particles/cry stals 180 TAKE ONE TABLET BY MOUTH TWICE A DAY WITH FOOD TAKE ONE TABLET BY MOUTH TWICE A DAY WIT H FOOD SOLD: 05/03/2020 [facility] Bisacodyl 5 MG Delayed Release Oral Tablet [Dulcolax] Dulcol ax 02/01/2020 12:00:00 AM EDT ORAL active M [facility]ENT ([facility], ) 20 mEq 02/01/2020 12:00:00 AM EDT tablet,ER particles/cry stals 180 TAKE ONE TABLET BY MOUTH TWICE A DAY WITH FOOD TAKE ONE TABLET BY MOUTH TWICE A DAY WIT H FOOD SOLD: 02/03/2020 [facility] 20 mEq 02/01/2020 12:00:00 AM EDT tablet,ER particles/cry stals 180 TAKE ONE TABLET BY MOUTH TWICE A DAY WITH FOOD TAKE ONE TABLET BY MOUTH TWICE A DAY WIT FOOD SOLD: 08/11/2020 [facility] 10 mg 01/28/2020 12:00:00 AM EDT tablet 90 TAKE ONE TABLET BY MOUTH EVERY DAY TAKE ONE TABLET BY MOUTH EVERY DAY SOLD: 08/11/2020 [facility] 5 mg 01/28/2020 12:00:00 AM EDT tablet 90 TAKE ONE TABLET BY MOUTH EVERY DAY TAKE ONE TABLET BY MOUTH EVERY DAY SOLD: 02/03/2020 [facility] 10 mg 01/28/2020 12:00:00 AM EDT tablet 90 TAKE ONE TABLET BY MOUTH EVERY DAY TAKE ONE TABLET BY MOUTH EVERY DAY SOLD: 02/03/2020 [facility] 5 mg 01/28/2020 12:00:00 AM EDT tablet 90 TAKE ONE TABLET BY MOUTH EVERY DAY TAKE ONE TABLET BY MOUTH EVERY DAY SOLD: 05/03/2020 [facility] 10 mg 01/28/2020 12:00:00 AM EDT tablet 90 TAKE ONE TABLET BY MOUTH EVERY DAY TAKE ONE TABLET BY MOUTH EVERY DAY SOLD: 05/03/2020 [facility] 5 mg 01/28/2020 12:00:00 AM EDT tablet 90 TAKE ONE TABLET BY MOUTH EVERY DAY TAKE ONE TABLET BY MOUTH EVERY DAY SOLD: 08/11/2020 [facility] 25 mg 01/27/2020 12:00:00 AM EDT tablet 90 TAKE ONE TABLET BY MOUTH EVERY DAY TAKE ONE TABLET BY MOUTH EVERY DAY SOLD: 08/11/2020 [facility] 25 mg 01/27/2020 12:00:00 AM EDT tablet 90 TAKE ONE TABLET BY MOUTH EVERY DAY TAKE ONE TABLET BY MOUTH EVERY DAY SOLD: 02/03/2020 [facility] 25 mg 01/27/2020 12:00:00 AM EDT tablet 90 TAKE ONE TABLET BY MOUTH EVERY DAY TAKE ONE TABLET BY MOUTH EVERY DAY SOLD: 05/03/2020 [facility] BCG, Live, Sharon Strain 50 MG Injection BCG Vaccine 12/09/2019 12:0 0:00 AM EDT completed [facility] ([facility] [place]) Ciprofloxacin 250 MG Oral Tablet [Cipro] Cipro 11/03/2019 12:00: 00 AM EST ORAL completed [facility] ([facility] [place]) 50 mg 11/02/2019 12:00:00 AM EST tablet 90 TAKE ONE TABLET BY MOUTH EVERY DAY TAKE ONE TABLET BY MOUTH EVERY DAY SOLD: 08/11/2020 [facility] 25 mg 11/02/2019 12:00:00 AM EST tablet 180 TAKE ONE TABLET BY MOUTH TWICE A DAY TAKE WITH FOOD TAKE ONE TABLET BY MOUTH TWICE A DAY TAKE WITH FOOD SO LD: 05/03/2020 [facility] 1 mg 11/02/2019 12:00:00 AM EST tablet 90 TAKE ONE TABLET BY MOUTH EVERY DAY TAKE ONE TABLET BY MOUTH EVERY DAY SOLD: 05/03/2020 [facility] 1 mg 11/02/2019 12:00:00 AM EST tablet 90 TAKE ONE TABLET BY MOUTH EVERY DAY TAKE ONE TABLET BY MOUTH EVERY DAY SOLD: 02/03/2020 [facility] 40 mg 11/02/2019 12:00:00 AM EST tablet 90 TAKE ONE TABLET BY MOUTH EVERY DAY TAKE ONE TABLET BY MOUTH EVERY DAY SOLD: 02/03/2020 [facility] 20 mg 11/02/2019 12:00:00 AM EST tablet 90 TAKE ONE TABLET BY MOUTH ONCE DAILY TAKE ONE TABLET BY MOUTH ONCE DAILY SOLD: 11/03/2019 [facility] 40 mg 11/02/2019 12:00:00 AM EST tablet 90 TAKE ONE TABLET BY MOUTH EVERY DAY TAKE ONE TABLET BY MOUTH EVERY DAY SOLD: 05/03/2020 [facility] 24 HR Metformin hydrochloride 750 MG Extended Release Oral T ablet METFORMIN HCL 11/02/2019 12:00:00 AM EST tablet extended release 24 hr 180 TAKE TWO TABLETS BY MOUTH EVERY DAY TAKE WITH EVENING MEAL TAKE TWO TABLETS BY MOUTH EVERY DAY TAKE WITH EVENING MEAL SOLD: 08/11/2020 [facility] 1 mg 11/02/2019 12:00:00 AM EST tablet 90 TAKE ONE TABLET BY MOUTH EVERY DAY TAKE ONE TABLET BY MOUTH EVERY DAY SOLD: 11/03/2019 [facility] 50 mg 11/02/2019 12:00:00 AM EST tablet 90 TAKE ONE TABLET BY MOUTH EVERY DAY TAKE ONE TABLET BY MOUTH EVERY DAY SOLD: 11/03/2019 [facility] 20 mg 11/02/2019 12:00:00 AM EST tablet 90 TAKE ONE TABLET BY MOUTH ONCE DAILY TAKE ONE TABLET BY MOUTH ONCE DAILY SOLD: 02/03/2020 [facility] 750 mg 11/02/2019 12:00:00 AM EST tablet extended release 24 hr 180 TAKE TWO TABLETS BY MOUTH EVERY DAY TAKE WITH EVENING MEAL TAKE TWO TABLETS BY MOUTH EVERY DAY TAKE WITH EVENING MEAL SOLD: 05/03/2020 [facility] atorvastatin 40 MG Oral Tablet ATORVASTATIN CALCIUM 11/02/2019 1 2:00:00 AM EST tablet 90 TAKE ONE TABLET BY MOUTH EVERY D AY TAKE ONE TABLET BY MOUTH EVERY DAY SOLD: 08/11/2020 [facility] 750 mg 11/02/2019 12:00:00 AM EST tablet extended release 24 hr 180 TAKE TWO TABLETS BY MOUTH EVERY DAY TAKE WITH EVENING MEAL TAKE TWO TABLETS BY MOUTH EVERY DAY TAKE WITH EVENING MEAL SOLD: 11/03/2019 [facility] 20 mg 11/02/2019 12:00:00 AM EST tablet 90 TAKE ONE TABLET BY MOUTH ONCE DAILY TAKE ONE TABLET BY MOUTH ONCE DAILY SOLD: 05/03/2020 [facility] 750 mg 11/02/2019 12:00:00 AM EST tablet extended release 24 hr 180 TAKE TWO TABLETS BY MOUTH EVERY DAY TAKE WITH EVENING MEAL TAKE TWO TABLETS BY MOUTH EVERY DAY TAKE WITH EVENING MEAL SOLD: 02/03/2020 [facility] 20 mg 11/02/2019 12:00:00 AM EST tablet 90 TAKE ONE TABLET BY MOUTH EVERY DAY TAKE ONE TABLET BY MOUTH EVERY DAY SOLD: 05/03/2020 [facility] 20 mg 11/02/2019 12:00:00 AM EST tablet 90 TAKE ONE TABLET BY MOUTH EVERY DAY TAKE ONE TABLET BY MOUTH EVERY DAY SOLD: 11/03/2019 [facility] 20 mg 11/02/2019 12:00:00 AM EST tablet 90 TAKE ONE TABLET BY MOUTH EVERY DAY TAKE ONE TABLET BY MOUTH EVERY DAY SOLD: 02/03/2020 [facility] 50 mg 11/02/2019 12:00:00 AM EST tablet 90 TAKE ONE TABLET BY MOUTH EVERY DAY TAKE ONE TABLET BY MOUTH EVERY DAY SOLD: 02/03/2020 [facility] 25 mg 11/02/2019 12:00:00 AM EST tablet 180 TAKE ONE TABLET BY MOUTH TWICE A DAY TAKE WITH FOOD TAKE ONE TABLET BY MOUTH TWICE A DAY TAKE WITH FOOD SO LD: 02/03/2020 [facility] 40 mg 11/02/2019 12:00:00 AM EST tablet 90 TAKE ONE TABLET BY MOUTH EVERY DAY TAKE ONE TABLET BY MOUTH EVERY DAY SOLD: 11/03/2019 [facility] 0.12 % 11/02/2019 12:00:00 AM EST mouthwash 473 RINSE BY MOUTH WITH 1 CAPFUL TWO TIMES A DAY DIRECTED RINSE BY MOUTH WITH 1 CAPFUL TWO TIMES A DAY DIRECTED SOLD: 11/03/2019 [facility] 50 mg 11/02/2019 12:00:00 AM EST tablet 90 TAKE ONE TABLET BY MOUTH EVERY DAY TAKE ONE TABLET BY MOUTH EVERY DAY SOLD: 05/03/2020 [facility] 25 mg 11/02/2019 12:00:00 AM EST tablet 180 TAKE ONE TABLET BY MOUTH TWICE A DAY TAKE WITH FOOD TAKE ONE TABLET BY MOUTH TWICE A DAY TAKE WITH FOOD SO LD: 08/11/2020 [facility] 25 mg 11/02/2019 12:00:00 AM EST tablet 180 TAKE ONE TABLET BY MOUTH TWICE A DAY TAKE WITH FOOD TAKE ONE TABLET BY MOUTH TWICE A DAY TAKE WITH FOOD SO LD: 11/03/2019 [facility] Citalopram 20 MG Oral Tablet CITALOPRAM HYDROBROMIDE 11/02/2019 12:00:00 AM EST tablet 90 TAKE ONE TABLET BY MOUTH ONCE DA EDWARD TAKE ONE TABLET BY MOUTH ONCE DAILY SOLD: 08/11/2020 [facility] 1 mg 11/02/2019 12:00:00 AM EST tablet 90 TAKE ONE TABLET BY MOUTH EVERY DAY TAKE ONE TABLET BY MOUTH EVERY DAY SOLD: 08/11/2020 [facility] 20 mg 11/02/2019 12:00:00 AM EST tablet 90 TAKE ONE TABLET BY MOUTH EVERY DAY TAKE ONE TABLET BY MOUTH EVERY DAY SOLD: 08/11/2020 [facility] 500 mg 10/14/2019 12:00:00 AM EST tablet 20 TAKE ONE TABLET BY MOUTH FOUR TIMES A DAY FOR 5 DAYS TAKE ONE TABLET BY MOUTH FOUR TIMES A DAY FOR 5 DAYS SOLD: 10/14/2019 [facility] 1.1 % 10/14/2019 12:00:00 AM EST cream 51 BRUSH WITH CREAM TWO TIMES A DAY BRUSH WITH CREAM TWO TIMES A DAY SOLD: 10/14/2019 [facility] 500 mg 10/13/2019 12:00:00 AM EST capsule 12 TAKE 4 CAPSULES BY MOUTH 1 HOUR PRIOR TO APPOINTMENT TAKE 4 CAPSULES BY MOUTH 1 HOUR PRIOR TO APPOINTMENT S OLD: 10/14/2019 [facility] Gemcitabine HCL 200 MG 09/20/2019 12:00:00 AM EST completed [facility] ([facility]) Medication administered onsite 25 mg 05/12/2019 12:00:00 AM EDT tablet 90 TAKE ONE TABLET BY MOUTH EVERY DAY TAKE ONE TABLET BY MOUTH EVERY DAY SOLD: 11/03/2019 [facility] 5 mg 04/09/2019 12:00:00 AM EDT tablet 90 TAKE ONE TABLET BY MOUTH EVERY DAY TAKE ONE TABLET BY MOUTH EVERY DAY SOLD: 11/03/2019 [facility] 20 mEq 04/09/2019 12:00:00 AM EDT tablet,ER particles/cry stals 180 TAKE ONE TABLET BY MOUTH TWICE A DAY WITH FOOD TAKE ONE TABLET BY MOUTH TWICE A DAY WIT H FOOD SOLD: 11/03/2019 [facility] 1.5 mg 02/14/2019 12:00:00 AM EDT tablet 90 TAKE ONE TABLET BY MOUTH EVERY DAY AT BEDTIME NEEDED TAKE ONE TABLET BY MOUTH EVERY DAY AT BE DTIME NEEDED SOLD: 11/03/2019 [facility] 10 mg 02/14/2019 12:00:00 AM EDT tablet 90 TAKE ONE TABLET BY MOUTH EVERY DAY TAKE ONE TABLET BY MOUTH EVERY DAY SOLD: 11/03/2019 [facility] 1.5 mg 02/14/2019 12:00:00 AM EDT tablet 90 TAKE ONE TABLET BY MOUTH EVERY DAY AT BEDTIME NEEDED TAKE ONE TABLET BY MOUTH EVERY DAY AT BE DTIME NEEDED SOLD: 02/03/2020 [facility] Insurance Providers Payer name Policy type / Coverage type Policy ID Covered constitution party ID Covered constitution party's relationship to wilson Policy [place] Plan Information MEDICARE [id number] SP [id number] [facility] [id number] SP [id number] [facility] [id number] SP [id number] [facility] O [id number] S [id number] MEDICARE C [id number] S [id number] ANSI-Medicare Part B [id number] ANSI-Commercial [id number] [facility] [id number] MEDICARE [id number] MEDICARE [id number] [place] [id number] [facility] [id number] [place] [id number] Medicare Medicare Primary [id number] Self 4 [id number] [facility] Part B [id number] Self [id number] ANSI-Medicare Part B [id number] ANSI-Commercial [id number] ANSI-Medicare Part B [id number] ANSI-Commercial [id number] ANSI-Commercial [id number] ANSI-Medicare Part B [id number] ANSI-Medicare Part B [id number] ANSI-Commercial [id number] Medicare Medicare Primary [id number] Self [id number] [facility] Health Plan [facility] Part B [id number] Self [id number] ANSI-Commercial [id number] ANSI-Medicare Part B [id number] ANSI-Commercial [id number] ANSI-Medicare Part B [id number] Medicare Medicare Primary [id number] Self 4 [id number] Medicare Medicare Primary [id number] Self 4 [id number] ANSI-Commercial [id number] ANSI-Medicare Part B [id number] ANSI-Medicare Part B [id number] ANSI-Commercial [id number] ANSI-Medicare Part B [id number] ANSI-Commercial [id number] MEDICARE [id number] [facility] [id number] A Medicare Medicare Primary [id number] Self [id number] ANSI-Medicare Part B [id number] ANSI-Commercial [id number] ANSI-Medicare Part B [id number] ANSI-Commercial [id number] ANSI-Commercial [id number] ANSI-Medicare Part B [id number] MEDICARE [id number] [facility] Medicare [facility] Medigap Part B [id number] [facility] [id number] Medicare Medigap Part B [id number] Self [id number] Medicare Medicare Primary [id number] Self 4 [id number] [place] Medicare Dme Medigap Part B [id number] Self [id number] Medicare Medigap Part B [id number] Self [id number] Medicare Medicare Primary [id number] Self 4 [id number] [facility] [id number] SP [id number] MEDICARE [id number] SP [id number] A [facility] PI PI MEDICARE PI PI [facility] [id number] [place] [id number] MEDICARE [id number] [place] [id number] [facility] [id number] SP [id number] [facility] Health Maintenance Organization (HMO) [id number] Self [id number] [place] [facility] Medicare Primary Self [facility] Medigap Part B Self [place] Medicare Dme Medigap Part B Self Medicare Medicare Primary Self [facility] Medigap Part B Self [place] Medicare Dme Medigap Part B Self [employer] [id number] SP [id number] MEDICARE - [place] MCR [id number] A [id number] Problems, Conditions, and Diagnoses Code Display Name Description Problem Type Effective Dates Data Source(s) 198934990 Pure hypercholesterolemia Pure hypercholesterolemia Pr oblem 08/28/2020 12:00:00 AM EST [facility] ([facility] ) [id number] Essential hypertension Essential hypertension Problem 08/28/2020 12:00:00 AM EST [facility] ([facility] ) [id number] Type 2 diabetes mellitus Type 2 diabetes mellitus Prob sophia 08/28/2020 12:00:00 AM EST [facility] ([facility] ) [id number] Dietary management surveillance Dietary manageme nt surveillance Problem 06/27/2020 12:00:00 AM EDT [facility] ([facility]) [id number] 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 11/03/2019 12:00:00 AM EST [facility] ([facility]) Surgeries/Procedures Procedure Description Date Indications Data Source(s) ARTHROCENTESIS ASPIR&/INJECTION MAJOR JT/BURSA 020 12:00:00 AM EST [facility] ([facility] ) ARTHROCENTESIS ASPIR&/INJECTION MAJOR JT/BURSA 020 12:00:00 AM EST [facility] ([facility] ) BLADDER INSTILLATION ANTICARCINOGENIC AGENT 07/04/2020 12:00:00 AM EDT [facility] ([facility]) BLADDER INSTILLATION ANTICARCINOGENIC AGENT 06/27/2020 12:00:00 AM EDT [facility] ([facility]) Electrocardiogram Complete 06/27/2020 12:00:00 AM EDT [facility] ([facility]) BLADDER INSTILLATION ANTICARCINOGENIC AGENT 06/20/2020 12:00:00 AM EDT [facility] ([facility]) CYSTOURETHROSCOPY 04/12/2020 12:00:00 AM EDT [facility] ([facility]) CYSTOURETHROSCOPY 11/03/2019 12:00:00 AM EST [facility] ([facility]) US RETROPERITONEAL REAL TIME W/IMAGE COMPLETE 11/03/19 12:00:00 AM EST [facility] ([facility]) US RETROPERITONEAL REAL TIME W/IMAGE COMPLETE 11/03/19 12:00:00 AM EST [facility] ([facility]) Office Visit, Est Pt., Level 3 PC 09/13/2019 12:00:00 AM EST eCW1 ([facility]) Office Visit, Est Pt., Level 2 FC 09/13/2019 12:00:00 AM EST eCW1 ([facility]) DRAIN/INJ JOINT/BURSA W/O US 09/13/2019 12:00:00 AM ES T eCW1 ([facility]) Injection, triamcinolone acetonide, not otherwise specified , 10 mg 09/13/2019 12:00:00 AM EST eCW1 ([facility]) Results ID Date Data Source [id number] 07/04/2020 08:48:00 AM EDT [facility] ([facility]) Name Value Range Interpretation Code Description Data Cary rce(s) Supporting Document(s) Glucose [Presence] in Urine Laboratory test result [facility] ([facility]) Protein [Presence] in Urine by Test strip 30 mg/dL [facility] ([facility]) Ua Nitrite Laboratory test result ME DENT ([facility]) Blood [Presence] in Urine by Visual Laboratory test result [facility] ([facility]) Ua Leuko Laboratory test result ME DENT ([facility]) Color of Urine Laboratory test result [facility] ([facility]) Ketones [Presence] in Urine by Test strip Laboratory test result [facility] ([facility]) Clarity of Urine Laboratory test result [facility] ([facility]) Ua Specific [place] 1.020 1.003-1.030 MEDE NT ([facility]) Bilirubin.total [Presence] in Urine by Test strip Laboratory test res ult [facility] ([facility]) pH of Urine by Test strip 5.0 5.0-7.5 [facility] ([facility]) Urobilinogen [Mass/volume] in Urine by Test strip 0.2 E.U./dL 0.0-1.0 [facility] ([facility]) ID Date Data Source [id number] 06/27/2020 10:40:00 AM EDT BERNARD ([facility]) Name Value Range Interpretation Code Description Data Cary rce(s) Supporting Document(s) Protein [Presence] in Urine by Test strip Laboratory test result [facility] ([facility]) Glucose [Presence] in Urine Laboratory test result [facility] ([facility]) Ua Nitrite Laboratory test result ME DENT ([facility]) Blood [Presence] in Urine by Visual Laboratory test result [facility] ([facility]) Ua Leuko Laboratory test result ME DENT ([facility]) Ketones [Presence] in Urine by Test strip Laboratory test result [facility] ([facility]) Color of Urine Laboratory test result [facility] ([facility]) Clarity of Urine Laboratory test result [facility] ([facility]) pH of Urine by Test strip 6.0 5.0-7.5 [facility] ([facility]) Ua Specific [place] 1.020 1.003-1.030 MEDE NT ([facility]) Bilirubin.total [Presence] in Urine by Test strip Laboratory test res ult [facility] ([facility]) Urobilinogen [Mass/volume] in Urine by Test strip 0.2 E.U./dL 0.0-1.0 [facility] ([facility]) ID Date Data Source [id number] 06/20/2020 11:05:00 AM EDT [facility] ([facility]) Name Value Range Interpretation Code Description Data Cary rce(s) Supporting Document(s) Ua Nitrite Laboratory test result ME DENT ([facility]) Glucose [Presence] in Urine Laboratory test result [facility] ([facility]) Protein [Presence] in Urine by Test strip 30 mg/dL [facility] ([facility]) Ua Leuko Laboratory test result ME DENT ([facility]) Blood [Presence] in Urine by Visual Laboratory test result [facility] ([facility]) Clarity of Urine Laboratory test result [facility] ([facility]) Color of Urine Laboratory test result [facility] ([facility]) Ketones [Presence] in Urine by Test strip Laboratory test result [facility] ([facility]) Ua Specific [place] 1.025 1.003-1.030 MEDE NT ([facility]) Bilirubin.total [Presence] in Urine by Test strip Laboratory test res ult [facility] ([facility]) pH of Urine by Test strip 7.0 5.0-7.5 [facility] ([facility]) Urobilinogen [Mass/volume] in Urine by Test strip 0.2 E.U./dL 0.0-1.0 [facility] ([facility]) ID Date Data Source [id number] 04/12/2020 10:32:00 AM EDT [facility] ([facility]) Name Value Range Interpretation Code Description Data Cary rce(s) Supporting Document(s) Clinical History Laboratory test result [facility] ([facility]) C67.8 Specimen Adequacy Laboratory test result [facility] ([facility]) Satisfactory for evaluation. BodySite Laboratory test result ME DENT ([facility]) Voided - Clean Catch Microscopic Description Laboratory test result [facility] ([facility]) Atypical urothelial cells present. Final Diagnosis Laboratory test result [facility] ([facility]) ATYPICAL UROTHELIAL CELLS. Gross Description Laboratory test result [facility] ([facility]) Received in a specimen container, labele d with the patients name and , is Cloudy Yellow fluid consistent with urine, measuring approximately 60 ml. AAN7Ifiv Laboratory test result ME DENT ([facility]) CPTCode 30245 [facility] ([facility] [place]) PDF Report Laboratory test result ME DENT ([facility]) ID Date Data Source [id number] 04/12/2020 10:32:00 AM EDT [facility] ([facility]) Name Value Range Interpretation Code Description Data Cary rce(s) Supporting Document(s) Cytology report of Urine Cyto stain Laboratory test result [facility] ([facility]) ID Date Data Source [id number] 04/12/2020 09:31:00 AM EDT [facility] ([facility]) Name Value Range Interpretation Code Description Data Cary rce(s) Supporting Document(s) Ua Nitrite Laboratory test result ME DENT ([facility]) Glucose [Presence] in Urine Laboratory test result [facility] ([facility]) Protein [Presence] in Urine by Test strip Laboratory test result [facility] ([facility]) Blood [Presence] in Urine by Visual Laboratory test result [facility] ([facility]) Ua Leuko Laboratory test result ME DENT ([facility]) Clarity of Urine Laboratory test result [facility] ([facility]) Ketones [Presence] in Urine by Test strip Laboratory test result [facility] ([facility]) Color of Urine Laboratory test result [facility] ([facility]) Ua Specific [place] 1.015 1.003-1.030 MEDE NT ([facility]) Bilirubin.total [Presence] in Urine by Test strip Laboratory test res ult [facility] ([facility]) pH of Urine by Test strip 5.5 5.0-7.5 [facility] ([facility]) Urobilinogen [Mass/volume] in Urine by Test strip 0.2 E.U./dL 0.0-1.0 [facility] ([facility]) ID Date Data Source [id number] 11/03/2019 02:46:00 PM EST [facility] ([facility]) Name Value Range Interpretation Code Description Data Cary rce(s) Supporting Document(s) Protein [Presence] in Urine by Test strip 30 mg/dL [facility] ([facility]) Glucose [Presence] in Urine 100 mg/dL [facility] ([facility]) Blood [Presence] in Urine by Visual Laboratory test result [facility] ([facility]) Ua Nitrite Laboratory test result ME [facility]ENT ([facility]) Ua Leuko Laboratory test result ME DENT ([facility]) Ketones [Presence] in Urine by Test strip Laboratory test result [facility] ([facility]) Color of Urine Laboratory test result [facility] ([facility]) Clarity of Urine Laboratory test result [facility] ([facility]) Ua Specific [place] 1.015 1.003-1.030 MEDE NT ([facility]) pH of Urine by Test strip 6.5 5.0-7.5 [facility] ([facility]) Bilirubin.total [Presence] in Urine by Test strip Laboratory test res ult [facility] ([facility]) Urobilinogen [Mass/volume] in Urine by Test strip 0.2 E.U./dL 0.0-1.0 [facility] ([facility]) ID Date Data Source [id number] 10/27/2019 01:34:00 PM EST [facility] ([facility]) Name Value Range Interpretation Code Description Data Cary rce(s) Supporting Document(s) Prostate specific Ag [Mass/volume] in Serum or Plasma 0.02 [facility] ([facility]) Procedure Social History Code Duration Value Status Description Data Source(s ) Smoking 04/12/2020 12:00:00 AM EDT Former Cigarette Smoker com pleted Former Cigarette Smoker [facility] ([facility]) Vital Signs ID Date Data Source UNK Name Value Range Interpretation Code Description Data Source(s) Body surface area Derived from formula 1.96 m2 1.96 m2 [facility] ([facility]) Body mass index (BMI) [Ratio] 29.1 kg/m2 29.1 k g/m2 [facility] ([facility]) Body height 67 [in_i] 67 [in_i] [facility] ([facility]) 5'7" Body weight 186.00 [lb_av] 186.00 [lb_av] MEDEN T ([facility]) Heart rate 71 /min 71 /min [facility] ([facility]) per EKG Diastolic blood pressure 64 mm[Hg] 64 mm[Hg] [facility] ([facility]) Systolic blood pressure 124 mm[Hg] 124 mm[Hg] M EDENT ([facility]) Body height 67 [in_i] 67 [in_i] [facility] ([facility]) 5'7" Body temperature 97.1 [degF] 97.1 [degF] [facility] ([facility]) Heart rate 72 /min 72 /min [facility] ([facility] [place] Diastolic blood pressure 69 mm[Hg] 69 mm[Hg] [facility] ([facility]) Systolic blood pressure 128 mm[Hg] 128 mm[Hg] M EDENT ([facility]) Body mass index (BMI) [Ratio] 27.8 kg/m2 27.8 k g/m2 [facility] ([facility]) Body weight 81.648 kg 81.648 kg [facility] ([facility]) Body weight 180.00 [lb_av] 180.00 [lb_av] MEDEN T ([facility]) Body height 67.5 [in_i] 67.5 [in_i] [facility] ([facility] [place] 5'7.50" Body weight 86.184 kg 86.184 kg MED[facility] ([facility], ) Body mass index (BMI) [Ratio] 28.9 kg/m2 28.9 k g/m2 MED[facility] ([facility], ) Body weight 190.00 [lb_av] 190.00 [lb_av] MEDEN T ([facility], ) Body height 68 [in_i] 68 [in_i] [facility] ([facility], ) 5'8" Diastolic blood pressure 69 mm[Hg] 69 mm[Hg] [facility] ([facility], ) Systolic blood pressure 155 mm[Hg] 155 mm[Hg] M EDENT ([facility], ) Body mass index (BMI) [Ratio] 29.3 kg/m2 29.3 k g/m2 [facility] ([facility]) Body weight 86.184 kg 86.184 kg [facility] ([facility] [place] Body weight 190.00 [lb_av] 190.00 [lb_av] MEDEN T ([facility] [place]) Body height 67.5 [in_i] 67.5 [in_i] [facility] ([facility] [place] 5'7.50" Body weight 85.730 kg 85.730 [facility] Body mass index (BMI) [Ratio] 28.7 kg/m2 28.7 k g/m2 MED[facility] ([facility]) Body weight 189.00 [lb_av] 189.00 [lb_av] MEDEN T ([facility], ) Body height 68 [in_i] 68 [in_i] [facility] ([facility], ) 5'8" Diastolic blood pressure 72 mm[Hg] 72 mm[Hg] [facility] Systolic blood pressure 140 mm[Hg] 140 mm[Hg] M EDENT ([facility], ) Diastolic blood pressure 60 mm[Hg] 60 mm[Hg] eCW1 ([facility]) Systolic blood pressure 122 mm[Hg] 122 mm[Hg] e CW1 ([facility]) Body temperature 98.5 [degF] 98.5 [degF] eCW1 ( [facility]) Respiratory rate 18 /min 18 /min eCW1 ([facility]) Heart rate 74 /min 74 /min eCW1 [facility] Body mass index (BMI) [Ratio] 29.19 kg/m2 29.19 kg/m2 eCW1 ([facility]) Body height [in_us] eCW1 ([facility]) Body weight Measured 192 [lb_av] 192 [lb_av] eC W1 ([facility])
--- OUTSIDE RECORDS SUMMARY | 2020-11-02 16:42 | CCD ---
Author Author [facility] Organization [facility] Address Unknown Phone Unavailable Care Team Providers Care Video Effects Editor Name Role Phone Freeman Shen Unavailable PROBLEMS Type Condition ICD9-CM Code [id number] Code Onset Dates Condition S tatus SNOMED Code Notes Problem Dysthymia F34.1 Active 22819978 He is on Heidi xa therapy with benefit. I restarted that in June 2011. He sees be stable at present. TSH was 1.35 in April 2020 Problem History of prostate cancer Z85.46 Active 26502 2007 Prostate cancer, diagnosed on basis of elevated PSA in 2006, Izabel score 3+3 in one of 12 biopsies, treated with prostate seed implantation. PSA was undetectable in July 2018. Problem Restless legs syndrome G25.81 Active 08380543 For this he is on Mirapex therapy. [...] this is working fairly well. 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 With his hospitalizations in early 2017 he was switched to metoprolol and amlodipine and taken off lisinopril hydrochlorothiazide due to his chronic kidney disease. He remains on Lasix at 20 mg twice? Daily, and hydrochlorothiazide was added back by the rf microwave engineer in mid 2017. His blood pressure is adequately controlled at present. He requires potassium supplementation. Problem Macular degeneration H35.30 Active 339968728 H marty is no longer on avastin injections bilaterally but is suffering from gradual decline in his vision. Sees Dr. Courtney Salazar. Problem History of syncope Z87.898 Active [id number] 09 In May 2012 he was admitted to the hospital after experiencing an episode of syncope. This was in [facility]. I have no records in that regard. He was working with [employer], looking up, stacked some brush after working [...] in November 2018. 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 Suspect spinal stenosis. MRI deferred. In the past a bulging disc was identified. He is able to ambulate up to 200 feet before he needs to stop and rest briefly. Problem Memory change R41.3 Active 314608579 Serologi c testing was negative in November 2015. He seems fairly oriented today. Vitamin B12 therapy was suggested in the past, and which he maintains Problem Hypercholesterolemia E78.00 Active 42083747 He is on Lipitor and Lovaza, and when last assessed in April 2020 his lipids were optimal. With his bypass operations Lipitor was increased to 40 mg daily in October 2017. Problem Cervical radiculopathy due to degenerative joint disease of spine M47.22 Active 900089433 Describes neck p ain and radiculopathy to his hands. I have referred him to physical therapy. If this is ineffective, he will need referral to orthopedics. Problem Malignant neoplasm of urinary bladder, unspecified site C67.9 Active 213791138 This was discovered on the b asis of a urinalysis demonstrating microscopic hematuria, discovered by his urologist. Had TURBT, fulguration in October 2018 and is now getting bladder instillations with gemcitabine instead of BCG due to a shortage of BCG. Problem History of adenomatous polyp of colon Z86.010 Ac tive 224560001 I believe he had an adenomatous polyp in January 2014, and he had more adenomatous polyps in 08/2016. Problem Bilateral carotid artery stenosis I65.23 Active 25213946 He has been worked up by his rf microwave engineer for moderate to severe carotid artery disease, as manifest on his CT angiogram in December 2018. Plans for a stent were canceled because his disease was not severe enough. Problem Sleep apnea syndrome G47.30 Active 58509111 He has sleep apnea but has been intolerant of therapy. His symptoms are stable by his account. In 2009 he was prescribed BiPAP at 10 but he stopped using it. I referred him back to his parts washer for a reevaluation in 2017 but he decided against keeping that appointment. Problem Coronary artery disease invo lving autologous artery coronary bypass graft without angina pectoris I25.810 Active 940201 009 He had a bypass procedure for significant angina in September 2017. He denies any chest pain in a radionuclide stress test in June 2018 was unremarkable for reversible ischemia, and he had an ejection fraction of 67% at that time. He is referred back to cardiac rehabilitation at his request. Problem Paroxysmal atrial fibrillation I48.0 Active 2 45830949 He is on amiodarone since his bypass procedure in late September 2017, presumably because he had atrial fibrillation postoperatively. This is monitored by his rf microwave engineer. Problem Chronic kidney disease, stage III (moderate) N18.3 Active 465866633 He has had a decline in his renal function since September 2017 when it was normal. His creatinine was 2.2 in the hospital when he had his bypass procedure, but has improved since. Most recent GFR was 47 with a creatinine of 1.52 in April 2020. He had been taken off his lisinopril therapy during cardiac hospitalization. He has an associated mild anemia with a hemoglobin of 12.6 in April 2020. 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 Last HgbA1c was most recently stable at 6.5% in April 2020. 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 ; Chronic kidney disease, stage III (moderate) N18.3 ; Hypercholesterolemia E78.00 ; Sleep apnea syndrome G47.30 ; History of prostate cancer Z85.46 and Encounter for HCV screening test for low risk patient Z11.59 IMMUNIZATIONS Vaccine Route Administration Date Status Influenza (High [...] Education Language: Question Answer Notes Languages spoken: Hong Konger Anglican: Question Answer Notes Anglican No scientologist beliefs that would impact health [...] Information RESULTS No Results REASON FOR VISIT lab order for October 2020; needs an appointment MEDICAL (GENERAL) HISTORY Type Description Date Medical [...] Surgical History Coronary artery bypass procedure 10/08/19 Surgical History TURBT by Dr. Jordan 11/2018 Hospitalization History for above reasons. Hospitalization History [facility] ED-Syncopal episode 11/21/2018 Hospitalization History [facility] ED-Post-op pain 11/27/2018 Hospitalization History [facility] ED-pyleonephritis 01/19/2019 Goals Section No Information Health Concerns No Information MEDICAL EQUIPMENT No Information MENTAL STATUS No Information FUNCTIONAL STATUS No Information ASSESSMENTS Encounter Date Diagnosis Assessment Notes Treatment Notes Treatm ent Clinical Notes Aug, Type 2 diabetes mellitus wit h other diabetic kidney complication (ICD-10 - E11.29) On metformin (since 07/15) therapy and g lipizide was added in March 2017. Last HgbA1c was most recently stable at 6.5% in April 2020. He has chronic microalbuminuria , last evaluated [...] during his hospitalizations for cardiac disease in September-October 2017 but I switched him back to [...] glipizide to 5 mg once daily. As o f later in November 2018 his glucoses were still moderately elevated so we added Januvia 50 mg daily (dose adjusted for CKD), with some benefit. Aug, Hypertension with renal disease (ICD-10 - I12.9) He was on lisinopril hydrochlorothiazide, atenolol and furosemide as needed until his hospitalizations September-October 2017. With his hospitalizations in early 2017 he was switched to metoprolol and amlodipine and taken off lisinopril hydrochlorothiazide due to his chronic kidney disease. He remains on Lasix at 20 mg twice? Daily, and hydrochlorothiazide was added back by the rf microwave engineer in mid 2017. His blood pressure is adequately controlled at present. He requires potassium supplementation. Aug, Chronic kidney disease, stage III (moder ate) (ICD-10 - N18.3) He has had a decline in his renal function since September 2017 when it was normal. His creatinine was 2.2 in the hospital when he had his bypass procedure, but has improved since. Most recent GFR was 47 with a creatinine of 1.52 in April 2020. He had been taken off his lisinopril therapy during cardiac hospitalization. He has an associated mild anemia with a hemoglobin of 12.6 in April 2020. Aug, Hypercholesterolemia (ICD-10 - E78.00) Zhen ferguson is on Lipitor and Lovaza, and when last assessed in April 2020 his lipids were optimal. With his bypass operations Lipitor was increased to 40 mg daily in October 2017. Aug, Sleep apnea syndrome (ICD-10 - G47.30) Zhen ferguson has sleep apnea but has been intolerant of therapy. His symptoms are stable by his account. In 2009 he was prescribed BiPAP at 8/4 but he stopped using it. I referred him back to his parts washer for a reevaluation in 2017 but he decided against keeping that appointment. Aug, History of prostate cancer (ICD-10 - Z85 .46) Prostate cancer, diagnosed on basis of elevated PSA in 2006, Izabel score 3+3 in one of 12 biopsies, treated with prostate seed implantation. PSA was undetectable in July 2018. Aug, Encounter for HCV screening test for low risk patient (ICD-10 - Z11.59) PLAN OF TREATMENT Medication Medication Name Sig Start Date Stop Date GlipiZIDE 5 MG 1 tablet Orally Daily for 90 Mirapex 1.5 MG 1 tablet Orally Once a day as needed hs for 90 Potassium Chloride 20 MEQ 1 capsule with food Orally twice a day for 90 day(s) AmLODIPine Besylate 10 MG 1 tablet Orally Once a day for 90 Future Test Test Name Order Date HEMOGLOBIN A1c 88432502 PTH INTACT 20201023 Comprehensive Metabolic Profile (CMP) [id number] CBC with Differential [id number] LIPID PANEL (CARDIAC RISK) [id number] HEPATITIS C VIRUS AB SCRN MEDICARE [id number] PSA MONITOR (HX PROSTATE CA/ABNORMAL PSA) [id number] Insurance Providers Payer Name Payer Address Payer Phone Insured Name Patient Relati onship to Insured Coverage Start Date Coverage End Date MEDICARE Part A and B [address] [facility] [id number] NANY LENZ [employer] [address] [facility] [id number] NANY LENZ
--- OUTSIDE RECORDS SUMMARY | 2020-11-02 16:42 | CCD | Continuity of Care Document ---
Author Author [facility] Organization Unknown Address [address] [place] [address] Phone [phone] Care Team Providers Care Outsole Cutter Machine Name Role Phone Freeman Shen MD AUTM [phone] Problems Active Problems Provider Date Type 2 diabetes mellitus Madina Mar Onset: 1 10/29/2019 Essential hypertension Madina Mar Onset: Pure hypercholesterolemia Madina Mar Onset: 08/28/2020 Social History Type Date Description Comments Sex Unknown ETOH Use Occasionally consumes alcohol Tobacco Use Start: Unknown End: Unknown Patient is a former smoker Allergies, Adverse Reactions, Alerts Description No Known Drug Allergies Medications Active Medications SIG Qnty Indications Ordering Provide r Date Medrol 4mg Tablets dose lana, take as directed on sheet 1tabs M19.012 Javier Bee MD 020 SF 5000 Plus 1.1% Cream [place] With Cream Two Times A Day Unknown Penicillin V Potassium 500mg Tablets Unknown Chlorhexidine Gluconate 0.12% Solu tion Rinse By Mouth With 1 Capful Two Times A Day as Directed Unknown Amoxicillin 500mg Capsules Unknown Amlodipine Besylate 10mg Tablets Take One Tablet By Mouth Every Day Unknown Atorvastatin Calcium 40mg Tablets Take One Tablet By Mouth Every Day Unknown Citalopram Hydrobromide 20mg Table ts Take One Tablet By Mouth Once Daily Unknown 0 Folic Acid 1mg Tablets Take One Tablet By Mouth Every Day Unknown Furosemide 20mg Tablets Take One Tablet By Mouth Every Day Unknown Glipizide 5mg Tablets Take One Tablet By Mouth Every Day Unknown Hydrochlorothiazide 25mg Tablets Take One Tablet By Mouth Every Day Unknown Januvia 50mg Tablets Take One Tablet By Mouth Every Day Unknown Metformin HCL ER 750mg Tablets ER 24HR Take Two Tablets By Mouth Every Day Take With Evening Meal Unknown Metoprolol Tartrate 25mg Tablets Take One Tablet By Mouth Twice A Day Take With Food Unkno wn Potassium Chloride Leigh Ann ER 20Meq Tablets ER Take One Tablet By Mouth Twice A Day With Food Unknown Pramipexole Dihydrochloride 1.5mg Tablets Take One Tablet By Mouth AT Bedtime as Needed Un known Hydrocodone-Acetaminophen 5-325mg Tablets Unknown Immunizations Description No Information Available Vital Signs Description No Information Available Results Description No Information Available Procedures Date Code Description Status 08/25/202020042 Inject/Drain Joint/Bursa Major C ompleted 08/25/202086863 Inject/Drain Joint/Bursa Major C ompleted Medical Devices Description No Information Available Encounters Description No Information Available Assessments Date Code Description Provider 08/25/2020 M19.012 Primary osteoarthritis, left sonya ulder Last Jaimes, ShannonA. 08/25/2020 M75.42 Impingement syndrome of left sonya ulder Last Jaimes, Tariq.A. 08/25/2020 M17.12 Unilateral primary osteoarthriti s, left knee Madina Mar 08/25/2020 M25.462 Effusion, left knee Shannon BerryAMary 08/25/2020 M76.32 Iliotibial band syndrome, left l eg Madina Mar Plan of Treatment Future Appointment(s):* 09/22/2020 1:15 pm - Madina Mar at [facility] 08/25/2020 - Madina Mar* M19.012 Primary osteoarthritis, left shoulder* New Medication:* [...]
[2020-11-02] MEDS ORDERED: NORCO, ANEXSIA 5/325MG TABLET (HYDROcodone/ACETAMINOPHEN) PO ONE (17:25)
--- OUTSIDE RECORDS SUMMARY | 2020-11-02 17:30 | CCD ---
Author Author [facility] Organization [facility] Address Unknown Phone Unavailable Care Team Providers Care Furniture Sander Name Role Phone Jordan, N Po MD [...] e Galdinobaran-Jahromi Parth MD Unavailable Unavailabl e Galdinobarasroj-Jahromi Parth Unavailable Unavailabl e Galdinobaran-Jahromi Parth MD [...] e Galdinobaran-Jahromi Parth MD Unavailable Unavailabl e Ransnighbaran-Jahromi Parth MD Unavailable Unavailabl e Galdinobaran-Jahromi Parth [...] Ranjbaran-Jahromi, Parth MD Unavailable Unavailabl e Ranjbaran-Jahromi, Patrh MD Unavailable Unavailabl e Ranjbaran-Jahromi, Parth MD [...] is protected by Article 27-F of the [facility] Public Health law. If you continue you may have access to information: Regarding HIV / AIDS; Provided by facilities licensed or operated by the [facility] Office of Mental Health; or Provided by the [facility] Office for People With Developmental Disabilities. If such information is present, then the following [facility] mandated warning applies: This information has been [...] law may result in a fine or longterm sentence or both. A general authorization for the release of medical or other information is NOT sufficient authorization for further disc losure. Family History Family Member Name Family Member Gender Family Member Status Date o f Status Description Data Source(s) Unknown Male Problem [facility] Unknown Unknown Problem MEDENT ([facility] ) Unknown Unknown Problem MEDENT ([facility] ) Unknown Unknown Problem MEDENT ([facility] ) Unknown Unknown Problem MEDENT ([facility] ) Unknown Male Problem MED[facility] ([facility]) 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 Encounters Encounter Providers Location Date Indications Data Source(s ) Unknown [address] [facility] [address] 08/29/2020 12:00:00 AM EST eCW1 ([facility]) Unknown [address] [facility] [address] 08/28/2020 12:00:00 AM EST eCW1 ([facility]) Outpatient Attender: Parth Chen MD [facility] 06/27/2020 03:15:00 PM EDT MEDENT ([facility] [address] [address] 04/17/2020 12:00:00 AM EDT eCW1 ([facility]) Outpatient Attender: [place] 04/12 10:00:00 AM EDT [facility] ([facility] [address] [address] 02/01/2020 12:00:00 AM EDT eCW1 ([facility]) [address] [address] 11/29/2019 12:00:00 AM EDT eCW1 ([facility]) Outpatient Attender: [place] 11/03 02:00:00 PM EST MEDENT ([facility]) Outpatient 09/16/2019 04:15:00 PM EST [facility] [address] [address] 09/13/2019 12:00:00 AM EST eCW1 ([facility]) [address] [address] 09/13/2019 12:00:00 AM EST eCW1 ([facility]) Immunizations Vaccine Date Status Description Data Source(s) INFLUENZA VACCINE TVS 2019- (65 YR UP)/ADJUVANT MF59 C.1/PF 06/16/2020 12:00:00 AM EDT completed [facility] Medications Medication Brand Name Start Date Product Form Dose Route Admi nistrative Instructions Pharmacy Instructions Status Indications Reaction Description Data Source(s) Methylprednisolone 4 MG Oral Tablet [Medrol] Medrol 12:00:00 AM EST active MEDENT ( [facility]) 4 mg 08/25/2020 12:00:00 AM [...] 07/04/2020 12:00:00 AM EDT completed [facility] ([facility]) Medication administered onsite Gemcitabine HCL 200 MG 06/27/2020 12:00:00 AM EDT completed [facility] ([facility]) Medication administered onsite Asa 06/27/2020 12:00:00 AM EDT ORAL active MEDENT ([facility]) Gemcitabine HCL 200 MG 06/20/2020 12:00:00 AM EDT completed [facility] ([facility]) Medication administered onsite Gemcitabine HCL Gemcitabine HCL 06/15/2020 12:00:00 AM EDT active [facility] ([facility]) 1.5 mg 05/01/2020 12:00:00 AM EDT tablet [...] AM EDT ORAL completed MEDENT ([facility]) Suprep Bowel Prep Kit Suprep Bowel Prep [...] 12:00:00 AM EDT ORAL active M EDENT ([facility], ) 20 mEq 02/01/2020 12:00:00 AM [...] 0:00 AM EDT completed [facility] ([facility] Ciprofloxacin 250 MG Oral Tablet [Cipro] Cipro 11/03/2019 12:00: 00 AM EST ORAL completed [facility] ([facility]) 50 mg 11/02/2019 12:00:00 AM EST tablet [...] TABLET BY MOUTH EVERY DAY SOLD: 08/11/2020 [facility] 500 mg 10/14/2019 12:00:00 AM EST [...] 09/20/2019 12:00:00 AM EST completed [facility] ([facility]) Medication administered onsite 25 mg 05/12/2019 12:00:00 [...] type / Coverage type Policy ID Covered democrat ID Covered democrat's relationship to wilson Policy Wilson Plan Information MEDICARE [id number] SP [id number] [employer] [id number] SP [id number] [employer] [facility] [id number] SP [id number] [employer] O [id number] S [id number] MEDICARE C [id number] S [id number] ANSI-Medicare Part B [id number] ANSI-Commercial [id number] [facility] [id number] MEDICARE [id number] MEDICARE [id number] [place] [id number] [facility] [id number] [place] [id number] Medicare Medicare Primary [id number] Self [id number] [facility] Part B [id number] Self [id number] ANSI-Medicare Part B [id number] ANSI-Commercial [id number] ANSI-Medicare Part B [id number] ANSI-Commercial [id number] ANSI-Commercial [id number] ANSI-Medicare Part B [id number] ANSI-Medicare Part B [id number] ANSI-Commercial [id number] Medicare Medicare Primary [id number] Self [id number] [facility] Health Plan [facility] Part B [id number] Self [id number] ANSI-Commercial [id number] ANSI-Medicare Part B [id number] ANSI-Commercial [id number] ANSI-Medicare Part B [id number] Medicare Medicare Primary [id number] Self [id number] Medicare Medicare Primary [id number] Self 4 [id number] ANSI-Commercial [id number] ANSI-Medicare Part B [id number] ANSI-Medicare Part B [id number] ANSI-Commercial [id number] ANSI-Medicare Part B [id number] ANSI-Commercial [id number] MEDICARE [id number] [facility] [id number] A Medicare Medicare Primary [id number] Self 4 [id number] ANSI-Medicare Part B [id number] ANSI-Commercial [id number] ANSI-Medicare Part B [id number] ANSI-Commercial [id number] ANSI-Commercial [id number] ANSI-Medicare Part B [id number] MEDICARE [id number] A [facility] Medigap Part B [id number] [facility] [id number] Medicare Medigap Part B [id number] Self [id number] Medicare Medicare Primary [id number] Self [id number] [place] Medicare Dme Medigap Part B [id number] Self [id number] Medicare Medigap Part B [id number] Self [id number] Medicare Medicare Primary [id number] Self 4 [id number] [facility] [id number] SP [id number] MEDICARE [id number] SP [id number] A [facility] PI PI MEDICARE PI PI [facility] [id number] [place] [id number] MEDICARE [id number] [place] [id number] A [facility] [id number] SP [id number] [facility] Health Maintenance Organization (HMO) [id number] Self [id number] [place] Medicare Primary Self [facility] Medigap Part B Self [place] Medicare Dme Medigap Part B Self Medicare Medicare Primary Self [facility] Medigap Part B Self [place] Medicare Dme Medigap Part B Self [employer] [id number] SP [id number] MEDICARE - [place] MCR [id number] S [id number] A [id number] Problems, Conditions, and Diagnoses Code Display Name Description Problem Type Effective Dates Data Source(s) 672899402 Pure hypercholesterolemia Pure hypercholesterolemia Pr oblem 08/28/2020 12:00:00 AM EST MEDENT ([facility] ) [id number] Essential hypertension Essential hypertension Problem 08/28/2020 12:00:00 AM EST MEDENT ([facility] ) [id number] Type 2 diabetes mellitus Type 2 diabetes mellitus Prob sophia 08/28/2020 12:00:00 AM EST MEDENT ([facility] ) [id number] Dietary management surveillance Dietary manageme nt surveillance Problem 06/27/2020 12:00:00 AM EDT MEDENT ([facility] [id number] 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 11/03/2019 12:00:00 AM EST MED[facility] ([facility]) Surgeries/Procedures Procedure Description Date Indications Data Source(s) ARTHROCENTESIS ASPIR&/INJECTION MAJOR JT/BURSA 020 12:00:00 AM EST MEDENT ([facility] ) ARTHROCENTESIS ASPIR&/INJECTION MAJOR JT/BURSA 020 12:00:00 AM EST MEDENT ([facility] ) BLADDER INSTILLATION ANTICARCINOGENIC AGENT 07/04/2020 12:00:00 AM EDT MED[facility] ([facility]) BLADDER INSTILLATION ANTICARCINOGENIC AGENT 06/27/2020 12:00:00 AM EDT MED[facility] ([facility]) Electrocardiogram Complete 06/27/2020 12:00:00 AM EDT MEDENT ([facility]) BLADDER INSTILLATION ANTICARCINOGENIC AGENT 06/20/2020 12:00:00 AM EDT MEDENT ([facility]) CYSTOURETHROSCOPY 04/12/2020 12:00:00 AM EDT MEDENT ([facility]) CYSTOURETHROSCOPY 11/03/2019 12:00:00 AM EST MED[facility] ([facility] US RETROPERITONEAL REAL TIME W/IMAGE COMPLETE 11/03/19 12:00:00 AM EST MEDENT ([facility]) US RETROPERITONEAL REAL TIME W/IMAGE COMPLETE 11/03/19 12:00:00 AM EST MEDENT ([facility]) Office Visit, Est Pt., Level 3 PC 09/13/2019 12:00:00 AM EST eCW1 ([facility]) Office Visit, Est Pt., Level 2 FC 09/13/2019 12:00:00 AM EST eCW1 ([facility]) DRAIN/INJ JOINT/BURSA W/O US 09/13/2019 12:00:00 AM ES T eCW1 ([facility]) Injection, triamcinolone acetonide, not otherwise specified , 10 mg 09/13/2019 12:00:00 AM EST eCW1 ([facility]) Results ID Date Data Source [id number] 07/04/2020 08:48:00 AM EDT MEDENT ([facility]) Name Value Range Interpretation Code Description Data Cary rce(s) Supporting Document(s) Glucose [Presence] in Urine Laboratory test result MED[facility] ([facility]) Protein [Presence] in Urine by Test strip 30 mg/dL [facility] ([facility]) Ua Nitrite Laboratory test result ME DENT ([facility]) Blood [Presence] in Urine by Visual Laboratory test result MEDENT ([facility]) Ua Leuko Laboratory test result ME DENT ([facility]) Color of Urine Laboratory test result MEDENT ([facility]) Ketones [Presence] in Urine by Test strip Laboratory test result MEDENT ([facility]) Clarity of Urine Laboratory test result MED[facility] ([facility]) Ua Specific [place] 1.020 1.003-1.030 MEDE NT ([facility]) Bilirubin.total [Presence] in Urine by Test strip Laboratory test res ult MEDENT ([facility]) pH of Urine by Test strip 5.0 5.0-7.5 MED[facility] ([facility]) Urobilinogen [Mass/volume] in Urine by Test strip 0.2 E.U./dL 0.0-1.0 MEDENT ([facility]) ID Date Data Source [id number] 06/27/2020 10:40:00 AM EDT BERNARD ([facility]) Name Value Range Interpretation Code Description Data Cary rce(s) Supporting Document(s) Protein [Presence] in Urine by Test strip Laboratory test result MEDENT ([facility]) Glucose [Presence] in Urine Laboratory test result MEDENT ([facility]) Ua Nitrite Laboratory test result ME DENT ([facility]) Blood [Presence] in Urine by Visual Laboratory test result MEDENT ([facility]) Ua Leuko Laboratory test result ME DENT ([facility]) Ketones [Presence] in Urine by Test strip Laboratory test result MEDENT ([facility]) Color of Urine Laboratory test result MED[facility] ([facility]) Clarity of Urine Laboratory test result MED[facility] ([facility]) pH of Urine by Test strip 6.0 5.0-7.5 [facility] ([facility]) Ua Specific [place] 1.020 1.003-1.030 MEDE NT ([facility]) Bilirubin.total [Presence] in Urine by Test strip Laboratory test res ult MEDENT ([facility]) Urobilinogen [Mass/volume] in Urine by Test strip 0.2 E.U./dL 0.0-1.0 [facility] ([facility]) ID Date Data Source [id number] 06/20/2020 11:05:00 AM EDT MED[facility] ([facility]) Name Value Range Interpretation Code Description Data Cary rce(s) Supporting Document(s) Ua Nitrite Laboratory test result ME DENT ([facility]) Glucose [Presence] in Urine Laboratory test result MEDENT ([facility]) Protein [Presence] in Urine by Test strip 30 mg/dL MED[facility] ([facility]) Ua Leuko Laboratory test result ME DENT ([facility]) Blood [Presence] in Urine by Visual Laboratory test result MEDENT ([facility]) Clarity of Urine Laboratory test result MED[facility] ([facility]) Color of Urine Laboratory test result MEDENT ([facility]) Ketones [Presence] in Urine by Test strip Laboratory test result MEDENT ([facility]) Ua Specific [place] 1.025 1.003-1.030 MEDE NT ([facility]) Bilirubin.total [Presence] in Urine by Test strip Laboratory test res ult MEDENT ([facility]) pH of Urine by Test strip 7.0 5.0-7.5 MED[facility] ([facility]) Urobilinogen [Mass/volume] in Urine by Test strip 0.2 E.U./dL 0.0-1.0 [facility] ([facility]) ID Date Data Source [id number] 04/12/2020 10:32:00 AM EDT MED[facility] ([facility]) Name Value Range Interpretation Code Description Data Cary rce(s) Supporting Document(s) Clinical History Laboratory test result MEDENT ([facility]) C67.8 Specimen Adequacy Laboratory test result MED[facility] ([facility]) Satisfactory for evaluation. BodySite Laboratory test result ME DENT ([facility]) Voided - Clean Catch Microscopic Description Laboratory test result MEDENT ([facility]) Atypical urothelial cells present. Final Diagnosis Laboratory test result MEDENT ([facility]) ATYPICAL UROTHELIAL CELLS. Gross Description Laboratory test result MED[facility] ([facility]) Received in a specimen container, labele d with the patients name and , is Cloudy Yellow fluid consistent with urine, measuring approximately 60 ml. [id number] Laboratory test result ME DENT ([facility]) CPTCode 98961 [facility] ([facility] PDF Report Laboratory test result ME DENT ([facility]) ID Date Data Source [id number] 04/12/2020 10:32:00 AM EDT [facility] ([facility]) Name Value Range Interpretation Code Description Data Cary rce(s) Supporting Document(s) Cytology report of Urine Cyto stain Laboratory test result [facility] ([facility]) ID Date Data Source [id number] 04/12/2020 09:31:00 AM EDT MED[facility] ([facility]) Name Value Range Interpretation Code Description Data Cary rce(s) Supporting Document(s) Ua Nitrite Laboratory test result ME DENT ([facility]) Glucose [Presence] in Urine Laboratory test result MED[facility] ([facility]) Protein [Presence] in Urine by Test strip Laboratory test result [facility] ([facility]) Blood [Presence] in Urine by Visual Laboratory test result [facility] ([facility]) Ua Leuko Laboratory test result ME DENT ([facility]) Clarity of Urine Laboratory test result [facility] ([facility]) Ketones [Presence] in Urine by Test strip Laboratory test result [facility] ([facility]) Color of Urine Laboratory test result [facility] ([facility]) Ua Specific [place] 1.015 1.003-1.030 MEDE NT ([facility]) Bilirubin.total [Presence] in Urine by Test strip Laboratory test res ult MEDENT ([facility]) pH of Urine by Test strip 5.5 5.0-7.5 MED[facility] ([facility]) Urobilinogen [Mass/volume] in Urine by Test strip 0.2 E.U./dL 0.0-1.0 [facility] ([facility]) ID Date Data Source [id number] 11/03/2019 02:46:00 PM EST MEDENT ([facility]) Name Value Range Interpretation Code Description Data Cary rce(s) Supporting Document(s) Protein [Presence] in Urine by Test strip 30 mg/dL MED[facility] ([facility]) Glucose [Presence] in Urine 100 mg/dL MED[facility] ([facility]) Blood [Presence] in Urine by Visual Laboratory test result MED[facility] ([facility]) Ua Nitrite Laboratory test result ME DENT ([facility]) Ua Leuko Laboratory test result ME DENT ([facility]) Ketones [Presence] in Urine by Test strip Laboratory test result MED[facility] ([facility]) Color of Urine Laboratory test result MED[facility] ([facility]) Clarity of Urine Laboratory test result [facility] ([facility]) Ua Specific [place] 1.015 1.003-1.030 MEDE NT ([facility]) pH of Urine by Test strip 6.5 5.0-7.5 [facility] ([facility]) Bilirubin.total [Presence] in Urine by Test strip Laboratory test res ult MEDENT ([facility]) Urobilinogen [Mass/volume] in Urine by Test strip 0.2 E.U./dL 0.0-1.0 [facility] ([facility]) ID Date Data Source [id number] 10/27/2019 01:34:00 PM EST MED[facility] ([facility]) Name Value Range Interpretation Code Description Data Cary rce(s) Supporting Document(s) Prostate specific Ag [Mass/volume] in Serum or Plasma 0.02 [facility] ([facility]) Procedure Social History Code Duration Value Status Description Data Source(s ) Smoking 04/12/2020 12:00:00 AM EDT Former Cigarette Smoker com pleted Former Cigarette Smoker MED[facility] ([facility]) Vital Signs ID Date Data Source UNK Name Value Range Interpretation Code Description Data Source(s) Body surface area Derived from formula 1.96 m2 1.96 m2 MEDENT ([facility]) Body mass index (BMI) [Ratio] 29.1 kg/m2 29.1 k g/m2 MEDENT ([facility]) Body height 67 [in_i] 67 [in_i] MED[facility] ([facility]) 5'7" Body weight 186.00 [lb_av] 186.00 [lb_av] MEDEN T ([facility]) Heart rate 71 /min 71 /min MEDENT ([facility]) per EKG Diastolic blood pressure 64 mm[Hg] 64 mm[Hg] MEDENT ([facility]) Systolic blood pressure 124 mm[Hg] 124 mm[Hg] M EDENT ([facility]) Body height 67 [in_i] 67 [in_i] MEDENT ([facility]) 5'7" Body temperature 97.1 [degF] 97.1 [degF] MEDENT ([facility]) Heart rate 72 /min 72 /min MEDENT ([facility] Diastolic blood pressure 69 mm[Hg] 69 mm[Hg] MEDENT ([facility]) Systolic blood pressure 128 mm[Hg] 128 mm[Hg] M EDENT ([facility]) Body mass index (BMI) [Ratio] 27.8 kg/m2 27.8 k g/m2 MEDENT ([facility]) Body weight 81.648 kg 81.648 kg MEDENT ([facility]) Body weight 180.00 [lb_av] 180.00 [lb_av] MEDEN T ([facility]) Body height 67.5 [in_i] 67.5 [in_i] MEDENT ([facility] 5'7.50" Body weight 86.184 kg 86.184 kg MEDENT ([facility], ) Body mass index (BMI) [Ratio] 28.9 kg/m2 28.9 k g/m2 MEDENT ([facility], ) Body weight 190.00 [lb_av] 190.00 [lb_av] MEDEN T ([facility], ) Body height 68 [in_i] 68 [in_i] MEDENT ([facility], ) 5'8" Diastolic blood pressure 69 mm[Hg] 69 mm[Hg] MEDENT ([facility], ) Systolic blood pressure 155 mm[Hg] 155 mm[Hg] M EDENT ([facility], ) Body mass index (BMI) [Ratio] 29.3 kg/m2 29.3 k g/m2 MEDENT ([facility]) Body weight 86.184 kg 86.184 kg MEDENT ([facility] [place] Body weight 190.00 [lb_av] 190.00 [lb_av] MEDEN T ([facility]) Body height 67.5 [in_i] 67.5 [in_i] MEDENT ([facility] 5'7.50" Body weight 85.730 kg 85.730 kg [facility] ([facility], ) Body mass index (BMI) [Ratio] 28.7 kg/m2 28.7 k g/m2 MEDENT ([facility]) Body weight 189.00 [lb_av] 189.00 [lb_av] MEDEN T ([facility], ) Body height 68 [in_i] 68 [in_i] [facility] ([facility], ) 5'8" Diastolic blood pressure 72 mm[Hg] 72 mm[Hg] [facility]) Systolic blood pressure 140 mm[Hg] 140 mm[Hg] M EDENT ([facility], ) Diastolic blood pressure 60 mm[Hg] 60 mm[Hg] eCW1 ([facility]) Systolic blood pressure 122 mm[Hg] 122 mm[Hg] e CW1 ([facility]) Body temperature 98.5 [degF] 98.5 [degF] eCW1 ( [facility]) Respiratory rate 18 /min 18 /min eCW1 ([facility]) Heart rate 74 /min 74 /min eCW1 ([facility]) Body mass index (BMI) [Ratio] 29.19 kg/m2 29.19 kg/m2 eCW1 ([facility]) Body height [in_us] eCW1 ([facility]) Body weight Measured 192 [lb_av] 192 [lb_av] eC W1 ([facility])
--- NOTE | 2020-11-02 17:56 | REP ---
INDICATION: severe pain over patella was kneeling prolinged time 2 days. COMPARISON: Comparison left knee radiographs are from August 25, 2020.. TECHNIQUE: Five views. FINDINGS: Five views of the left knee demonstrate fullness in the suprapatellar bursa suggestive of a mild joint effusion. There is also articular spurring of the patella consistent with osteoarthritis. There is non articular spurring of the inferior pole of patella at the patellar tendon insertion. Some spurring is seen in the anterior tibial apophysis as well. There is vascular calcification. Mild medial compartment osteoarthritic spurring is seen. No fracture is noted. . At. IMPRESSION: No acute bony abnormality. 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 Non articular spurring of the patella and anterior tibia may reflect patellar tendinitis. Small joint effusion suspected.. <Electronically signed by Bran Shabazz > 11/02/20 [id number]
--- NOTE | 2020-11-02 18:19 | REPVR ---
PROCEDURE INFORMATION: Exam: US Duplex Left Lower Extremity Veins, Limited Exam date and time: 11/02/2020 5:58 PM Age: 84 years old Clinical indication: Pain; Leg, upper and leg, lower; Left; Additional info: RO clot of left leg TECHNIQUE: Imaging protocol: Real-time Duplex ultrasound of the Left Lower Extremity with 2-D wisdom scale, color Doppler flow and spectral waveform analysis with image documentation. Limited exam focused on the left lower extremity veins. COMPARISON: US PV-Demetrio 05/02/2020 8:27 PM FINDINGS: Left deep veins: Unremarkable. The common femoral, femoral, proximal profunda femoral and popliteal veins are patent without thrombus. Normal Doppler waveforms. Normal compressibility and/or augmentation response. Left superficial veins: Unremarkable. Saphenofemoral junction is patent without thrombus. Soft tissues: There is a large popliteal cyst measuring 4.7 cm in length by 1.2 cm in thickness by the 2.9 cm in transverse dimension. IMPRESSION: No evidence of deep vein thrombosis. Large popliteal cyst. Electronically signed by: Pio Ordaz On 11/02/2020 18:20:10 PM
[2020-11-02 18:59] LABS: ALBUMIN 3.2 GM/DL (3.2-5.2); BILIRUBIN,DIRECT 0.1 MG/DL (0.0-0.2); BILIRUBIN,TOTAL 0.6 MG/DL (0.2-1.0); CALCIUM LEVEL 8.6 MG/DL (8.8-10.2); CREATININE FOR GFR 1.28 MG/DL (0.70-1.30); GLOMERULAR FILTRATION RATE 57.3 (>35); POTASSIUM SERUM 4.3 MEQ/L (3.5-5.1); TOTAL PROTEIN 6.7 GM/DL (6.4-8.2)
[2020-11-02 19:11] LABS: C REACTIVE PROTEIN QUANTITATIV 0.43 MG/DL (0.00-0.30)
[2020-11-02 19:13] LABS: BASO # 0.1 10^3/uL (0.0-0.2); EOS # 0.2 10^3/uL (0.0-0.5); HEMATOCRIT 35.5 % (42.0-52.0); HEMOGLOBIN 11.1 g/dl (13.5-17.5); LYMPH # 0.7 10^3/uL (1.5-5.0); LYMPH % 8.4 % (24.0-44.0); MEAN CORPUSCULAR HGB CONC 31.3 g/dl (32.0-36.5); MEAN CORPUSCULAR VOLUME 89.4 fl (80.0-96.0); MONO # 0.8 10^3/uL (0.0-0.8); MONO % 9.5 % (2.0-8.0); NEUTROPHILS # 6.3 10^3/uL (1.5-8.5); NEUTROPHILS % 77.6 % (36.0-66.0); PLATELET COUNT, AUTOMATED 224 10^3/uL (150-450); RED BLOOD COUNT 3.97 10^6/uL (4.30-6.10); WHITE BLOOD COUNT 8.1 10^3/uL (4.0-10.0)
[2020-11-02 19:56] LABS: ERYTHROCYTE SEDIMENTATION RATE 41 mm/hr (0-20)
[2020-11-02 20:15] VITALS: BP 120/58
== END 2020-11-02 20:48 | disposition home or self-care (01) ==
LOC: M ED 16:35
DX: M17.12 Unilateral primary osteoarthritis, left knee (principal); M25.462 Effusion, left knee; M71.22 Synovial cyst of popliteal space [Baker], left knee; E11.9 Type 2 diabetes mellitus without complications; I11.0 Hypertensive heart disease with heart failure; I50.9 Heart failure, unspecified; E78.5 Hyperlipidemia, unspecified; I25.2 Old myocardial infarction; M10.9 Gout, unspecified; Z79.899 Other long term (current) drug therapy; Z79.84 Long term (current) use of oral hypoglycemic drugs; Z79.82 Long term (current) use of aspirin; Z87.891 Personal history of nicotine dependence

== ENCOUNTER → 2020-12-07 | Outpatient (REF) | payer MEDICARE, OTHER ==
[2020-12-07 14:01] LABS: ALBUMIN 3.7 GM/DL (3.2-5.2); BILIRUBIN,TOTAL 0.9 MG/DL (0.2-1.0); CALCIUM LEVEL 9.2 MG/DL (8.8-10.2); CREATININE FOR GFR 1.34 MG/DL (0.70-1.30); GLOMERULAR FILTRATION RATE 54.2 (>35); POTASSIUM SERUM 3.9 MEQ/L (3.5-5.1); TOTAL PROTEIN 7.4 GM/DL (6.4-8.2)
== END ==
LOC: M LABDRWAD 12:17
PROVIDERS: ATTEND Urology
DX: C67.8 Malignant neoplasm of overlapping sites of bladder (principal)

== ENCOUNTER → 2020-12-19 | Outpatient (CLI) | payer MEDICARE, OTHER ==
--- NOTE | 2020-12-19 16:08 | REP ---
INDICATION: PAIN. COMPARISON: None TECHNIQUE: Four views FINDINGS: Chronic changes are seen involving the acromioclavicular joint consistent with arthritic changes and likely old injury. There is a subtle flake like ossific density seen arising from the inferior margin of the glenoid on both AP views. The glenohumeral relationship is within normal limits. Note is made of an old calcified granuloma in the imaged portion of the left lung. IMPRESSION: 1. Possible chip fracture involving the inferior glenoid rim. 2. AC joint changes as described above. <Electronically signed by Los Jensen > 12/19/20 [id number]
== END ==
LOC: M SOG 11:31
PROVIDERS: ATTEND Orthopaedic Surgery Sports Medicine
DX: M75.42 Impingement syndrome of left shoulder (principal)

== ENCOUNTER → 2020-12-21 | Outpatient (CLI) | payer MEDICARE, OTHER | LOC: M RAD 17:16 | PROVIDERS: ATTEND Urology | DX: K76.9 Liver disease, unspecified (principal); C67.9 Malignant neoplasm of bladder, unspecified; N28.1 Cyst of kidney, acquired ==

== ENCOUNTER → 2021-01-01 | Outpatient (CLI) | payer MEDICARE, OTHER ==
[2021-01-01 11:03] LABS: BASO # 0.1 10^3/uL (0.0-0.2); BASO % 1.7 % (0.0-1.0); EOS # 0.2 10^3/uL (0.0-0.5); EOS % 2.8 % (0.0-3.0); HEMATOCRIT 41.3 % (42.0-52.0); HEMOGLOBIN 13.3 g/dl (13.5-17.5); LYMPH # 0.8 10^3/uL (1.5-5.0); LYMPH % 12.8 % (24.0-44.0); MEAN CORPUSCULAR HEMOGLOBIN 28.1 pg (27.0-33.0); MEAN CORPUSCULAR HGB CONC 32.2 g/dl (32.0-36.5); MEAN CORPUSCULAR VOLUME 87.1 fl (80.0-96.0); MONO # 0.6 10^3/uL (0.0-0.8); MONO % 8.9 % (2.0-8.0); NEUTROPHILS # 4.8 10^3/uL (1.5-8.5); NEUTROPHILS % 73.2 % (36.0-66.0); PLATELET COUNT, AUTOMATED 248 10^3/uL (150-450); RED BLOOD COUNT 4.74 10^6/uL (4.30-6.10); WHITE BLOOD COUNT 6.5 10^3/uL (4.0-10.0)
[2021-01-01 11:33] LABS: CHOLESTEROL RISK RATIO 2.727 (<5); CREATININE FOR GFR 1.44 MG/DL (0.70-1.30); GLOMERULAR FILTRATION RATE 49.9 (>35); POTASSIUM SERUM 3.3 MEQ/L (3.5-5.1)
== END ==
LOC: M WUC 08:41
PROVIDERS: ATTEND Nurse Practitioner Adult Health
DX: I25.10 Atherosclerotic heart disease of native coronary artery without angina pectoris (principal); I10 Essential (primary) hypertension; Z71.3 Dietary counseling and surveillance; E11.9 Type 2 diabetes mellitus without complications; E78.2 Mixed hyperlipidemia

== ENCOUNTER → 2021-01-18 | Outpatient (CLI) | payer MEDICARE, OTHER ==
--- NOTE | 2021-01-18 16:41 | REP ---
INDICATION: EVAL FOR LIVER DISEASE. COMPARISON: CT 05/02/2020. TECHNIQUE: Multiple sequences obtained in the axial coronal planes prior to and following the intravenous administration of 8 cc ProHance. FINDINGS: The gallbladder appears to be collapsed and contains calculi. There is no significant intrahepatic or extrahepatic biliary dilatation. Maximum diameter of the common bile duct 7 mm. There is no evidence of significant fatty infiltration of the liver. The liver is not enlarged. No liver cyst or nodule is seen. The spleen is normal in size with no intrinsic abnormality. The adrenal glands are normal. No pancreatic mass is seen. There is no pancreatic duct dilatation. There is no hydronephrosis. Simple cyst of the lower pole the right kidney measures 4.6 cm in diameter. There is no adenopathy or free fluid in the abdomen. IMPRESSION: Gallbladder appears collapsed and contains calculi. Common bile duct upper limits of normal at 7 mm. No abnormalities identified of the liver. <Electronically signed by Kevyn Campos > 01/18/21 1716
== END ==
LOC: M RAD 13:46
PROVIDERS: ATTEND Urology
DX: K76.9 Liver disease, unspecified (principal); C67.9 Malignant neoplasm of bladder, unspecified; N28.1 Cyst of kidney, acquired

== ENCOUNTER → 2021-01-18 | Outpatient (CLI) | payer MEDICARE, OTHER ==
[~2021-01-18] MED LIST changes: +PROHANCE 279.3MG/ML 5ML VIAL As Ordered ONE
--- NOTE | 2021-01-18 16:31 | REP ---
INDICATION: IMPINGEMENT SYNDROME LT SHOULDER. COMPARISON: Radiographs 12/19/2020. TECHNIQUE: Coronal oblique T1, T2 fat sat, sagittal oblique T2 fat sat, axial T2 fat sat, gradient echo. The study is extremely limited due to patient motion. FINDINGS: Rotator cuff: There is complete tear of the supraspinatus tendon with retraction of the musculotendinous junction approximately 3-4 cm. There is a partial tear of the infraspinatus tendon. Acromioclavicular joint: There are moderate hypertrophic degenerative changes of the acromioclavicular joint. Acromion: Type 2 Biceps Tendon: Biceps tendon is displaced anteromedially out of the bicipital groove and there is diffuse thickening of the biceps tendon. There is moderate surrounding fluid. This is compatible with tenosynovitis. Hill Sach's deformity: None. Deltoid muscle: No abnormal signal. Biceps labral complex: There is fraying of the biceps labral complex. Labrum: There is diffuse SLAP tear. There is tear of the inferior labrum. Cartilage: No defects. Bone marrow: There is mild subchondral marrow edema in the superolateral humeral head. Joint fluid: There is a moderate joint effusion. There is moderate fluid throughout the subacromial/subdeltoid bursae. IMPRESSION: Complete tear of the supraspinatus tendon with retraction approximately 3-4 cm. Partial tear infraspinatus tendon. Moderate hypertrophic degenerative changes acromioclavicular joint with a type 2 acromion. Biceps tendon is displaced anteromedially out of the bicipital groove, with diffuse thickening and moderate surrounding fluid compatible with tenosynovitis. There is fraying of the biceps labral complex. There is diffuse SLAP tear. There is tear of the inferior labrum. Moderate joint effusion with fluid in the subacromial/subdeltoid bursae. <Electronically signed by Kevyn Campos > 01/18/21 [id number]
== END ==
LOC: M RAD 13:50
PROVIDERS: ATTEND Orthopaedic Surgery Sports Medicine
DX: S46.012A Strain of muscle(s) and tendon(s) of the rotator cuff of left shoulder, initial encounter (principal); W18.30XA Fall on same level, unspecified, initial encounter; Y92.009 Unspecified place in unspecified non-institutional (private) residence as the place of occurrence of the external cause; K76.9 Liver disease, unspecified; C67.9 Malignant neoplasm of bladder, unspecified; N28.1 Cyst of kidney, acquired
CPT/HCPCS: 73221; 74183; A9576

== ENCOUNTER → 2021-06-19 | Outpatient (CLI) | payer MEDICARE, OTHER ==
[~2021-06-19] MED LIST changes: +ECOT81TA5 PO; -KLOR10TA76 PO; +POTA-136 PO; -PROHANCE 279.3MG/ML 5ML VIAL As Ordered ONE; +QUET1TAB17 PO; -QUET25TA3 PO
[2021-06-19 15:29] LABS: BASO # 0.1 10^3/uL (0.0-0.2); BASO % 1.4 % (0.0-1.0); EOS # 0.2 10^3/uL (0.0-0.5); EOS % 3.1 % (0.0-3.0); HEMATOCRIT 41.3 % (42.0-52.0); HEMOGLOBIN 13.4 g/dl (13.5-17.5); LYMPH # 0.8 10^3/uL (1.5-5.0); LYMPH % 11.5 % (24.0-44.0); MEAN CORPUSCULAR HEMOGLOBIN 28.5 pg (27.0-33.0); MEAN CORPUSCULAR HGB CONC 32.4 g/dl (32.0-36.5); MEAN CORPUSCULAR VOLUME 87.7 fl (80.0-96.0); MONO # 0.9 10^3/uL (0.0-0.8); MONO % 11.6 % (2.0-8.0); NEUTROPHILS # 5.3 10^3/uL (1.5-8.5); NEUTROPHILS % 72.1 % (36.0-66.0); PLATELET COUNT, AUTOMATED 283 10^3/uL (150-450); RED BLOOD COUNT 4.71 10^6/uL (4.30-6.10); WHITE BLOOD COUNT 7.3 10^3/uL (4.0-10.0)
[2021-06-19 16:00] LABS: ALBUMIN 3.6 GM/DL (3.2-5.2); ALT/SGPT 25 U/L (12-78); BILIRUBIN,TOTAL 0.9 MG/DL (0.2-1.0); BLOOD UREA NITROGEN 34 MG/DL (7-18); CALCIUM LEVEL 9.6 MG/DL (8.8-10.2); CARBON DIOXIDE LEVEL 32 MEQ/L (21-32); CHLORIDE LEVEL 96 MEQ/L (98-107); CHOLESTEROL LEVEL 163 MG/DL (<200); CHOLESTEROL RISK RATIO 2.672 (<5); CREATININE FOR GFR 1.53 MG/DL (0.70-1.30); GLOMERULAR FILTRATION RATE 46.5 (>35); GLUCOSE, FASTING 137 MG/DL (70-100); HDL CHOLESTEROL 61 MG/DL (>40); LDL CHOLESTEROL 74 MG/DL (<100); NON-HDL-C 102 MG/DL; POTASSIUM SERUM 3.3 MEQ/L (3.5-5.1); PROSTATIC SPECIFIC AG MONITOR 0.04 NG/ML (< 4.00); SODIUM LEVEL 135 MEQ/L (136-145); TOTAL PROTEIN 7.5 GM/DL (6.4-8.2); TRIGLYCERIDES LEVEL 142 MG/DL (<150)
[2021-06-19 16:08] LABS: PTH INTACT 38.9 PG/ML (18.5-88.0)
[2021-06-19 16:50] LABS: HEMOGLOBIN A1c 7.1 %
== END ==
LOC: M PLALAB 12:34
PROVIDERS: ATTEND Internal Medicine
DX: I12.9 Hypertensive chronic kidney disease with stage 1 through stage 4 chronic kidney disease, or unspecified chronic kidney disease (principal); N18.30 Chronic kidney disease, stage 3 unspecified; G47.30 Sleep apnea, unspecified; E11.29 Type 2 diabetes mellitus with other diabetic kidney complication; E78.00 Pure hypercholesterolemia, unspecified; Z85.46 Personal history of malignant neoplasm of prostate; Z11.59 Encounter for screening for other viral diseases; Z23 Encounter for immunization
CPT/HCPCS: 36415; 80053; 80061; 83036; 83970; 84153; 85025; 90682; G0008; G0463; G0472

== ENCOUNTER → 2021-06-19 | Outpatient (REF) | payer MEDICARE, OTHER ==
[~2021-06-19] MED LIST changes: -ECOT81TA5 PO
== END ==
LOC: M SFHCPLAZ 12:24
PROVIDERS: ATTEND Internal Medicine
DX: G47.30 Sleep apnea, unspecified (principal); I12.9 Hypertensive chronic kidney disease with stage 1 through stage 4 chronic kidney disease, or unspecified chronic kidney disease; E11.29 Type 2 diabetes mellitus with other diabetic kidney complication; E78.00 Pure hypercholesterolemia, unspecified; N18.30 Chronic kidney disease, stage 3 unspecified; Z85.46 Personal history of malignant neoplasm of prostate; Z11.59 Encounter for screening for other viral diseases

== ENCOUNTER → 2021-07-23 | Outpatient (CLI) | payer MEDICARE, OTHER ==
[~2021-07-23] MED LIST changes: +ECOT81TA5 PO
== END ==
LOC: M LABSMTC 10:12
PROVIDERS: ATTEND Anesthesiology
DX: Z01.812 Encounter for preprocedural laboratory examination (principal); Z20.822 Contact with and (suspected) exposure to COVID-19

== ENCOUNTER 2021-07-27 05:59 | Day surgery (SDC) | payer MEDICARE, OTHER ==
[~2021-07-27] VITALS: Ht 170.2 cm; Wt 75.2 kg
[2021-07-27] MEDS ORDERED: PROPARACAINE 0.5% OPHTH SOL 15ML OD ONE (06:00)
--- OUTSIDE RECORDS SUMMARY | 2021-07-27 06:03 | CCD | Continuity of Care Document ---
Author Conor Loera M.D. Organization Unknown Address [address] [place] [address] Phone [phone] Care Team Providers Care Quality Technician [employer]erglass Name Role Phone Dorita Gan M.D. [facility] [phone] Freeman Shen M.D. [facility] [phone] Problems Active Problems Provider Date Hand pain Lidia Olivera M.D. Onset: 04/30/2021 Numbness of hand Lidia Olivera M.D. Onset: 04/30/2021 Carpal tunnel syndrome Lidia Olivera M.D. Onset: 04/30/2021 Social History Type Date Description Comments Sex Unknown Tobacco Use Start: Unknown End: Unknown Patient is a former smoker Allergies, Adverse Reactions, Alerts Description No Known Drug Allergies Medications Active Medications SIG Qnty Indications Ordering Provide r Date Tylenol 8 Hour 650mg Tablets ER Lidia Olivera M.D. 04/30/2021 Immunizations Description No Information Available Vital Signs Date Vital Result Comment 05/03/2021 11:12am BP Systolic 120 mmHg BP Diastolic 80 mmHg Heart Rate 72 /min Height 67 inches 5'7" Weight 168.00 lb BMI (Body Mass Index) 26.3 kg/m2 [place] Body Weight 148 lb Results Description No Information Available Procedures Date Code Description Status 05/03/2021 13700 Nerve Conduction 13+ Studies Com pleted 05/03/2021 53800 Needle Electromyogra phy Non Extremity Done With Nerve Conduction Completed 05/03/2021 43019 Needle Electromyogra phy Non Extremity Done With Nerve Conduction Completed 05/03/2021 79687 Needle Electromyography Complete , Five Or More Muscles Studied Completed 05/03/2021 20423 Needle Electromyography Complete , Five Or More Muscles Studied Completed Medical Devices Description No Information Available Encounters Description No Information Available Assessments Date Code Description Provider 05/03/2021 G56.03 Carpal tunnel syndrome, bilatera l upper limbs Lidia Jarod, M.D. 05/03/2021 G56.00 Carpal tunnel syndrome, unspecif ied upper limb Lidia Jarod, M.D. 05/03/2021 M54.12 Radiculopathy, cervical region A bdul Jarod, M.D. 05/03/2021 M25.541 Pain in joints of right hand Abd ul Jarod, M.D. 05/03/2021 M25.549 Pain in joints of unspecified monson nd Lidia Jarod, M.D. 05/03/2021 M54.2 Cervicalgia Lidia Jarod, M.D . 05/03/2021 M25.542 Pain in joints of left hand Abdu l Jarod, M.D. Plan of Treatment No Information Available Functional Status Description No Information Available Mental Status Description No Information Available Referrals Description No Information Available
--- OUTSIDE RECORDS SUMMARY | 2021-07-27 06:03 | CCD | Continuity of Care Document ---
Author Conor Loera M.D. Organization Unknown Address [address] [place] [address] Phone [phone] Care Team Providers Care Cap And Hat Production Supervisor Name Role Phone Dorita Gan M.D. [facility] [phone] Freeman Shen M.D. [facility] [phone] Problems Active Problems Provider Date Hand pain [...] lb BMI (Body Mass Index) 26.3 kg/m2 [place] Body Weight 148 lb Results Description No Information Available Procedures Description No Information Available Medical Devices Description No Information Available Encounters Description No Information Available Assessments Description No Information Available Plan of Treatment No Information Available Functional Status Description No Information Available Mental Status Description No Information Available Referrals Description No Information Available
--- OUTSIDE RECORDS SUMMARY | 2021-07-27 06:03 | CCD | Continuity of Care Document ---
Author Author Conor ANDERSON MANAGER OF FINANCIAL PLANNING Organization Unknown Address [address] [place] [address] Phone [phone] Care Team Providers Care Director Of Sales Marketing Name Role Phone [facility] AUTM [phone] [facility] Operating Room AUTM [phone] [facility] AUTM Problems Active Problems Provider Date Essential hypertension Dorita Gan M.D. Onset: Pure hypercholesterolemia Dorita Gan M.D. Onset: 2020 Localized, primary osteoarthritis of the wrist Dorita estrada M.D. Onset: 05/28/2021 Lesion of ulnar nerve Dorita Gan M.D. Onset: 05/28/2021 Carpal tunnel syndrome of right wrist Dorita Gan M.D. O nset: 04/24/2021 Carpal tunnel syndrome of left wrist Doriat Gan M.D. On set: 04/24/2021 Neck pain Dorita Gan M.D. Onset: 04/24/2021 Social History Type Date Description Comments Sex Unknown ETOH Use Occasionally consumes alcohol Tobacco Use Start: Unknown End: Patient is a former smoker Recreational Drug Use Denies Drug Use Allergies and adverse reactions Active Allergies Criticality Reaction | Severity Comments Date NKDA Unable to assess criticality 04/23/2021 NKFA Unable to assess criticality 04/24/2021 NKEA Unable to assess criticality 04/24/2021 Medications Active Medications SIG Qnty Indications Ordering Provide r Date Folic Acid 1mg Tablets 1 by mouth every day Unknown Potassium Chloride Leigh Ann ER 20Meq Tablets ER 1 by mouth every day Unknown Amlodipine Besylate 10mg Tablets 1 by mouth every day Unknown Mirapex 1.5mg Tablets Unknown Januvia 50mg Tablets 1 by mouth every day Unknown Lasix 20mg Tablets 1 by mo uth every day Unknown Glipizide 5mg Tablets 1 by mouth once daily Unknown Metformin HCL ER 750mg Tablets ER 24HR Unknown Metoprolol Succinate ER 25mg Tablets ER 24HR 1 tablet by mouth at night daily Unknown Lovaza 1gm Capsules 1 by mouth twice a day Unknown Celexa 20mg Tablets 1 by mouth every day Unknown Lipitor 40mg Tablets 1 by mouth every day Unknown Magnesium Oxide -MG Supplement 400mg Capsules 1 by mouth every day as needed Unknown Ferrous Gluconate 324(38Fe) mg Tab lets 1 by mouth every day Unknown Hydrochlorothiazide 25mg Tablets 1 by mouth every day Unknown Aspirin 325mg Tablets 1 by mouth every day Unknown Amiodarone HCL 200mg Tablets take 1 tablet by mouth once daily Unknown Immunizations Description No Information Available Vital Signs Date Vital Result Comment 07/04/2021 9:04am Body Temperature 97.3 F 07/04/2021 9:03am Body Temperature 97.5 F Results Test Acquired Date Facility Test Result H/L Range Note Covid-19 06/23/2021 [facility] Sars-CoV-2, Emely Not Detected Not Detected 1 Sars-CoV-2, Emely 2 Day Tat Performed 1 This nucleic acid amplificat ion test was developed and its performance characteristics determined by [facility]. Nucleic acid amplification tests include RT-PCR and TMA. This test has not been FDA cleared or approved. This test has been authorized by FDA under an Emergency Use Authorization (EUA). This test is only authorized for the duration of time the declaration that circumstances exist justifying the authorization of the emergency use of in vitro diagnostic tests for detection of SARS-CoV-2 virus and/or diagnosis of COVID-19 infection under section 564(b)(1) of the Act, 21 U.S.C. 360bbb-3(b) (1), unless the authorizatio n is terminated or revoked sooner. When diagnostic testing is negative, the possibility of a false negative result should be considered in the context of a patient's recent exposures and the presence of clinical signs and symptoms consistent with COVID-19. An individual without symptoms of COVID-19 and who is not shedding SARS-CoV-2 virus would expect to have a negative (not detected) result in this assay. Procedures Date Code Description Status 06/04/2021 16106 Office/Outpatient Established Mo d MDM 30-39 Min Completed 05/28/2021 78960 Office/Outpatient Established Lo w MDM 20-29 Min Completed 04/24/2021 54347 Office/Outpatient New Low MDM 30 -44 Minutes Completed Medical Devices Description No Information Available Encounters Type Date Location Provider Dx Diagnosis Office Visit 07/04/2021 9:00a [facility] Alfred BlakeDarrell loera MD DO [facility] G56.01 Carpal tunnel syndrome, right upper limb Z47.89 Encounter for other orthoped ic aftercare Assessments Date Code Description Provider 07/04/2021 G56.01 Carpal tunnel syndrome, right up per limb Alfred Anderson [facility] 07/04/2021 Z47.89 Encounter for other orthopedic a ftercare Alfred Anderson [facility] 06/04/2021 G56.01 Carpal tunnel syndrome, right up per limb Dorita Gan M.D. 05/28/2021 M54.2 Cervicalgia Dorita Gan M.D. 05/28/2021 M54.12 Radiculopathy, cervical region N irasema Gan M.D. 05/28/2021 G56.01 Carpal tunnel syndrome, right up per limb Dorita Gan M.D. 05/28/2021 G56.02 Carpal tunnel syndrome, left upp er limb Dorita Gan M.D. 05/28/2021 G56.22 Lesion of ulnar nerve, left uppe r limb Dorita Gan M.D. 05/28/2021 G56.21 Lesion of ulnar nerve, right upp er limb Dorita Gan M.D. 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 05/28/2021 M19.032 Primary osteoarthritis, left wri st Dorita Gan M.D. 05/28/2021 Y92.530 Ambulatory surgery c enter as the place of occurrence of the external cause Dorita Gan M.D. 04/24/2021 M54.2 Cervicalgia Dorita Gan M.D. 04/24/2021 G56.02 Carpal tunnel syndrome, left upp er limb Dorita Gan M.D. 04/24/2021 G56.01 Carpal tunnel syndrome, right up per limb Dorita Gan M.D. Plan of Treatment Future Appointment(s):* 08/04/2021 8:00 am - Covid Resource Schedule at [facility] * 07/09/2021 10:20 am - Ortho Group Schedule Resource Only at [facility] * 08/09/2021 6:00 am - Dorita Gan M.D. at [facility] 07/04/2021 - PEPE Castillo* G56.01 Carpal tunnel syndrome, right upper limb * Follow up:* Friday * Instructions:* You may take a shower. Your stitches can get wet but do not soak them. Gently wash over them with liquid soap and water then rinse and pat dry. Do not put any ointments or lotions on the surgical incision. You can place a band-aid over it if you would like, or if there is any chance the incision might get dirty. A band-aid will also keep your stitches from getting caught on fabrics. Try to wean yourself off the pain medications over the next few days if you have not already. Once you have completely weaned off the narcotics, you can take Tylenol (acetaminophen) OTC per the box instructions as needed for pain as long as you do not have any contraindications to this medication. You were given an order for occupational therapy today. You will start no later than next week. It is important that you schedule your appointment as soon as possible so that you start on time. You may schedule this at the physical therapy office of your choosing. You will return to the office on Friday for suture removal. Contact us sooner if you have any questions or concerns. If you have any issues outside of office hours, contact Dr. Gan on his cell phone (this number is on your surgical discharge pa perwork). * Z47.89 Encounter for other orthopedic aftercare Functional Status Functional Condition Comment Date Status Glasses Active Hearing Aid in both ears Active Mental Status Description No Information Available Referrals Refer to Reason for Referral Status Appt Date Jarod, Lidia Bilateral hand numbness and weakness, Pt is referred for EMG-NCT of bilateral upper extremities Received Complete 05/03/[address] [place] [address] [phone]"
--- OUTSIDE RECORDS SUMMARY | 2021-07-27 06:03 | CCD | Continuity of Care Document ---
Author Author Conor GAN M.D. Organization Unknown Address [facility] [address] [place] [address] Phone [phone] Care Team Providers Care Disk Operator Name Role Phone [facility] AUTM [phone] [facility] AUTM Problems Active Problems Provider Date Essential hypertension Dorita Gan M.D. Onset: Pure hypercholesterolemia Dorita Gan M.D. Onset: 2020 Localized, primary osteoarthritis of the wrist Dorita estrada M.D. Onset: 05/28/2021 Lesion of ulnar nerve Dorita Gan M.D. Onset: 05/28/2021 Carpal tunnel syndrome of right wrist Dorita Gan M.D. O nset: 04/24/2021 Carpal tunnel syndrome of left wrist Dorita Gan M.D. On set: 04/24/2021 Neck pain Dorita Gan M.D. Onset: 04/24/2021 Social History Type Date Description Comments Sex Unknown ETOH Use Occasionally consumes alcohol Tobacco Use Start: Unknown End: Patient is a former smoker Recreational Drug Use Denies Drug Use Allergies, Adverse Reactions, Alerts Active Allergies Criticality Reaction | Severity Comments Date NKDA Unable to assess criticality 04/23/2021 NKFA Unable to assess criticality 04/24/2021 NKEA Unable to assess criticality 04/24/2021 Medications Active Medications SIG Qnty Indications Ordering Provide r Date Folic Acid 1mg Tablets 1 by mouth every day Unknown Potassium Chloride Leigh Ann ER 20Meq Tablets ER 1 by mouth every day Unknown 00/00/0 000 Amlodipine Besylate 10mg Tablets 1 by mouth [...] Available Vital Signs Date Vital Result Comment 05/28/2021 9:55am Body Temperature 98.1 F 04/24/2021 1:08pm Body Temperature 98.4 F Results Description No Information Available Procedures Date Code Description Status 05/28/2021 13453 Office/Outpatient Established Lo w MDM 20-29 Min Completed 04/24/2021 06053 Office/Outpatient New Low MDM 30 -44 Minutes Completed Medical Devices Description No Information Available Encounters Type Date Location Provider Dx Diagnosis Office Visit 05/28/2021 10:20a [facility] Dorita estrada M.D. M54.2 Cervicalgia M54.12 Radiculopathy, cervical boubacar on G56.01 Carpal tunnel syndrome, righ t upper limb G56.02 Carpal tunnel syndrome, left upper limb G56.22 Lesion of ulnar nerve, left upper limb G56.21 Lesion of ulnar nerve, right upper limb M19.031 Primary osteoarthritis, righ t wrist M19.032 Primary osteoarthritis, left wrist Assessments Date Code Description Provider 05/28/2021 M54.2 Cervicalgia Dorita Gan M.D. 05/28/2021 M54.12 Radiculopathy, cervical region Tanvir Gan M.D. 05/28/2021 G56.01 Carpal tunnel syndrome, [...] osteoarthritis, left wri st Dorita Gan M.D. 04/24/2021 M54.2 Cervicalgia Dorita Gan M.D. 04/24/2021 G56.02 Carpal tunnel syndrome, left upp er limb Dorita Gan M.D. 04/24/2021 G56.01 Carpal tunnel syndrome, right up per limb Dorita Gan M.D. Plan of Treatment Future Appointment(s):* 07/11/2021 10:00 am - Ortho Group Schedule Resource Only at [facility] * 06/04/2021 9:40 am - Ortho Group Schedule Resource Only at [facility] 05/28/2021 - Dorita Gan M.D.* M54.2 Cervicalgia* Instructions:* Contact your primary care in the next couple of days to start cervical spine elaine luation. Go immediately to the emergency room with any deterioration ( weakness, numbness or aggravation of pain). * M54.12 Radiculopathy, cervical region* Instructions:* Contact your primary care in the next couple of days to start cervical spine evaluation. Go immediately to the emergency room with any deterioration ( weakness, numbness or aggravation of pain). * G56.01 Carpal tunnel syndrome, right upper limb* Follow up:* 1 week. * Instructions:* Keep doing self stretching and strengthening. In any deterioration contact my clinic. Therapy as instructed. * G56.02 Carpal tunnel syndrome, left upper limb* Follow up:* 6 Weeks * Instructions:* Keep doing self stretching and strengthening. In any deterioration contact my clinic. Therapy as instructed. * G56.22 Lesion of ulnar nerve, left upper limb* Instructions:* Keep doing self stretching and strengthening. In any deterioration contact my clinic. Physical Therapy as instructed. * G56.21 Lesion of ulnar nerve, right upper limb* Instructions:* Keep doing self strecthing and strengthening. In any deterioration contact my clinic. Physical Therapy as instructed. 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 In any deterioration contact my clinic. Physical Therapy as instructed. * M19.032 Primary osteoarthritis, left wrist* Instructions:* Keep doing self stretching and strengthening. In any deterioration contact my clinic. Physical Therapy as instructed. Functional Status Functional Condition Comment Date Status Glasses Active Hearing Aid in both ears Active Mental Status Description No Information Available Referrals Refer to Reason for Referral Status Appt Date Jarod, Lidia Bilateral hand numbness and weakness, Pt is referred for EMG-NCT of bilateral upper extremities Received Complete 05/03/[address] [place] [address] [phone]"
--- OUTSIDE RECORDS SUMMARY | 2021-07-27 06:03 | CCD | Continuity of Care Document ---
Author Author Conor GAN M.D. Organization Unknown Address [facility] [address] [place] [address] Phone [phone] Care Team Providers Care Men'S Swim Coach Name Role Phone [facility] AUTM [phone] [facility] AUTM [phone] Problems Active Problems Provider Date Essential hypertension [...] Available Vital Signs Date Vital Result Comment 06/04/2021 12:58pm Body Temperature 97.3 F Weight 162.00 lb Weight 73.483 kg Height 67 inches 5'7" BMI (Body Mass Index) 25.4 kg/m2 BSA (Body Surface Area) 1.85 m2 05/28/2021 9:55am Body Temperature 98.1 F Results Description No Information Available Procedures Date Code Description Status 06/04/2021 39077 Office/Outpatient Established Mo d MDM 30-39 Min Completed 05/28/2021 07036 Office/Outpatient Established Lo w MDM 20-29 Min Completed 04/24/2021 78314 Office/Outpatient New Low MDM 30 -44 Minutes Completed Medical Devices Description No Information Available Encounters Type Date Location Provider Dx Diagnosis Office Visit 06/04/2021 1:00p [facility] Dorita estrada M.D. G56.01 Carpal tunnel syndrome, right upper limb Assessments Date Code Description Provider 06/04/2021 G56.01 Carpal tunnel syndrome, right up [...] Gan M.D. Plan of Treatment Future Appointment(s):* 07/09/2021 10:20 am - Ortho Group Schedule Resource Only at [facility] * 07/04/2021 9:00 am - Ortho Group Schedule Resource Only at [facility] * 06/23/2021 8:00 am - Covid Resource Schedule at [facility] * 08/09/2021 6:00 am - Dorita Gan M.D. at [facility] * 06/28/2021 6:00 am - Dorita Gan M.D. at [facility] * 07/11/2021 10:00 am - Dorita Gan M.D. at [facility] 06/04/2021 - Dorita Gan M.D.* G56.01 Carpal tunnel syndrome, right upper limb* New Labs:* Covid-19, Scheduled: 06/23/21 * Follow up:* You will receive your next appointment prior to being discharged from the OR on the day of surgery. * Instructions:* It is very important to keep all of the appointments that were scheduled for you today including any presurgical clearances with your primary care provider/specialty doctors and with anesthesia at [facility]. Make sure you have all of your labs done and EKG, chest X-ray, etc as indicated on your Pre-Operative Order. Complete the [facility] Anesthesia Questionnaire prior to your meeting with anesthesia. If you will require a sling following surgery, your order has already been faxed. [facility] Orthopedic lab will likely contact you within the next few days. If you do not hear from them in a week, contact their office. You will need to have this appointment to get fitted for your sling. Do not take any NSAIDs (including but no limited to: ibuprofen, Motrin, Advil, aleve, naproxen, mobic, meloxicam, Celebrex) 7 days prior to surgery. If you have pain and do not have any contraindication to taking Tylenol (acetaminophen), you may do so per the bottle recommendations. If you are currently taking any narcotic pain medications, we strongly recommend you stop it 2 weeks prior to surgery so that it will work better after your surgery. If you take blood thinners (Plavi x, coumadin, warfarin, xarelto, pradaxa, eliquis etc), it is very important that you stop them according to the prescribing provider's recommendations. It is important that you maintain your range of motion but avoid activities that aggravate your pain or put you at risk for any further injury. Contact our office immediately if you have any questions, concerns, or problems completing your presurgical work up. Functional Status Functional Condition Comment Date Status Glasses Active Hearing Aid in both ears Active Mental Status Description No Information Available Referrals Refer to Reason for Referral Status Appt Date Jarod, Lidia Bilateral hand numbness and weakness, Pt is referred for EMG-NCT of bilateral upper extremities Received Complete 05/03/2021 [facility] [place], [place] [id number] [phone]
--- OUTSIDE RECORDS SUMMARY | 2021-07-27 06:03 | CCD | Continuity of Care Document ---
Author Author Conor GAN M.D. Organization Unknown Address [facility] [address] [place] [address] Phone [phone] Care Team Providers Care Sawmill Relief Worker Name Role Phone [facility] AUTM [phone] [facility] AUTM [phone] [facility] Operating Room AUTM [phone] [facility] AUTM Problems Active Problems Provider Date Essential hypertension Dorita Gan M.D. Onset: Pure hypercholesterolemia Dorita aGn M.D. Onset: 2020 Localized, primary osteoarthritis of [...] Available Vital Signs Date Vital Result Comment 07/09/2021 10:09am Body Temperature 97.9 F 07/04/2021 9:04am Body Temperature 97.3 F Results Test Acquired Date Facility Test Result H/L Range Note Covid-19 06/23/2021 [facility] Sars-CoV-2, Emely Not Detected Not Detected 1 Sars-CoV-2, Emely 2 Day Tat Performed 1 This nucleic acid amplificat ion test was developed and its performance characteristics determined by [facility]. Nucleic acid amplification tests include RT-PCR and [...] this assay. Procedures Date Code Description Status 07/09/2021 98775 Office/Outpatient Established Mo d MDM 30-39 Min Completed 06/04/2021 25456 Office/Outpatient Established Mo d MDM 30-39 Min Completed 05/28/2021 83099 Office/Outpatient Established Lo w MDM 20-29 Min Completed 04/24/2021 03600 Office/Outpatient New Low MDM 30 -44 Minutes Completed Medical Devices Description No Information Available Encounters Type Date Location Provider Dx Diagnosis Office Visit 07/09/2021 10:20a [facility] Dorita estrada M.D. G56.02 Carpal tunnel syndrome, left upper limb G56.01 Carpal tunnel syndrome, righ t upper limb Assessments Date Code Description Provider 07/09/2021 G56.02 Carpal tunnel syndrome, left upp er limb Dorita Gan M.D. 07/09/2021 G56.01 Carpal tunnel syndrome, right up per limb Dorita Gan M.D. 07/04/2021 G56.01 Carpal tunnel syndrome, right up per limb Alfred Anderson, [facility] 07/04/2021 Z47.89 Encounter for other orthopedic a ftercare Alfred Anderson, [facility] 06/04/2021 G56.01 Carpal tunnel syndrome, right up [...] Gan M.D. Plan of Treatment Future Appointment(s):* 08/20/2021 8:00 am - Ortho Group Schedule Resource Only at [facility] * 08/15/2021 8:40 am - Ortho Group Schedule Resource Only at [facility] * 08/04/2021 8:00 am - Covid Resource Schedule at [facility] * 08/09/2021 6:00 am - Dorita Gan M.D. at [facility] 07/09/2021 - Dorita Gan M.D.* G56.02 Carpal tunnel syndrome, left upper limb* New Labs:* Covid-19, Scheduled: 08/04/21 * Follow up:* You will receive your next appointment prior to being discharged from the OR on the day of surgery. * Instructions:* It is very important to keep all of the appointments that were scheduled for you today including any presurgical clearances with your primary care provider/specialty doctors and with anesthesia at [facility]. Make sure you have all of your labs done and EKG, chest X-ray, etc as indicated on your Pre-Operative Order. Complete the [facility] Anesthesia Questionnaire prior to your meeting with anesthesia. If you will require a sling following surgery, your order has already been faxed. [facility] Orthopedic lab will likely contact you within [...] or problems completing your presurgical work up. * G56.01 Carpal tunnel syndrome, right upper limb* Instructions:* sutures were removed today Functional Status Functional Condition Comment Date Status Glasses Active Hearing Aid in both ears Active Mental Status Description No Information Available Referrals Refer to Reason for Referral Status Appt Date Jarod, Lidia Bilateral hand numbness and weakness, Pt is referred for EMG-NCT of bilateral upper extremities Received Complete 05/03/[address] [place] [address] [phone]"
--- OUTSIDE RECORDS SUMMARY | 2021-07-27 06:03 | CCD ---
Author Author [facility] Organization [facility] Address Unknown Phone Unavailable Care Team Providers Care Child Care Worker Name Role Phone Freeman Shen Unavailable PROBLEMS Type Condition ICD9-CM Code UDM34-[place] Code Onset Dates Condition S tatus W/U Status Risk SNOMED Code Notes Problem Dysthymia F34.1 Active confirmed 63826381 H e is on Celexa therapy with benefit. I restarted that in June 2011. He sees be stable at present. TSH was 1.35 in April 2020 Problem History of prostate cancer Z85.46 Active confirmed 490089820 Prostate cancer, diagnosed on basis of elevated PSA in 2006, Branchland score 3+3 in one of 12 biopsies, treated with prostate seed implantation. PSA was undetectable in July 2018. Problem Restless legs syndrome G25.81 Active confirmed 41323855 For this he is on Mirapex therapy. [...] this is working fairly well. Problem Other senior care (current) drug therapy Z79.899 A ctive confirmed 041969278 Problem Bilateral carpal tunnel syndrome G56.03 Active confirmed [id number] Problem Macular degeneration H35.30 Active confirmed 562698152 He is no longer on avastin injections bilaterally but is suffering from gradual decline in his vision. Sees Dr. Courtney Salazar. Problem History of syncope Z87.898 Active confirmed [id number] In May 2012 he was admitted to the hospital after experiencing an episode of syncope. This was in [facility]. I have no records in that regard. He was working with [employer], looking up, stacked some brush after working [...] in November 2018. 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 Suspect spinal stenosis. MRI deferred. In the past a bulging disc was identified. He is able to ambulate up to 200 feet before he needs to stop and rest briefly. Problem Memory change R41.3 Active confirmed 502071 006 Serologic testing was negative in November 2015. He seems fairly oriented today. Vitamin B12 therapy was suggested in the past, and which he maintains Problem Hypercholesterolemia E78.00 Active confirmed 23084144 He is on Lipitor and Lovaza, and when last assessed in April 2020 his lipids were optimal. With his bypass operations Lipitor was increased to 40 mg daily in October 2017. Problem Cervical radiculopathy due to degenerative joint disease of spine M47.22 Active confirmed 862461602 Describes neck pain and radiculopathy to his hands. I have referred him to physical therapy. If this is ineffective, he will need referral to orthopedics. Problem Malignant neoplasm of urinary bladder, unspecified site C67.9 Active confirmed 406709534 This was discove red on the basis of a urinalysis demonstrating microscopic hematuria, discovered by his urologist. Had TURBT, fulguration in October 2018 and is now getting bladder instillations with gemcitabine instead of BCG due to a shortage of BCG. Problem History of adenomatous polyp of colon Z86.010 Ac tive confirmed 726049053 I believe he had an adenomatous polyp in January 2014, and he had more adenomatous polyps in 08/2016. Problem Bilateral carotid artery stenosis I65.23 Active confirmed 59247233 He has been worked up by his cardiologis t for moderate to severe carotid artery disease, as manifest on his CT angiogram in December 2018. Plans for a stent were canceled because his disease was not severe enough. Problem Sleep apnea syndrome G47.30 Active confirmed 65254472 He has sleep apnea but has been intolerant of therapy. His symptoms are stable by his account. In 2009 he was prescribed BiPAP at 8/4 but he stopped using it. I referred him back to his financial planning consultant for a reevaluation in 2018 but he decided against keeping that appointment. 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 With his hospitalizations in early 2017 he was switched to metoprolol and amlodipine and taken off lisinopril hydrochlorothiazide due to his chronic kidney disease. He remains on Lasix at 20 mg twice? Daily, and hydrochlorothiazide was added back by the juice standardizer in mid 2017. His blood pressure is adequately controlled at present. He requires potassium supplementation. Problem Coronary artery disease invo lving autologous artery coronary bypass graft without angina pectoris I25.810 Active confirmed 428712344 He had a bypass procedure for significant angina in September 2017. He denies any chest pain in a radionuclide stress test in June 2018 was unremarkable for reversible ischemia, and he had an ejection fraction of 67% at that time. He is referred back to cardiac rehabilitation at his request. Problem Paroxysmal atrial fibrillation I48.0 Active confir med 108173426 He is on amiodarone since his bypass procedure in late September 2017, presumably because he had atrial fibrillation postoperatively. This is monitored by his juice standardizer. Problem Chronic kidney disease, stage III (moderate) N18.3 Active confirmed 951604607 He has had a decline in his [...] other diabetic kid juan complication E11.29 Active confirmed 40762028 On metformin ( since 07/15) therapy and glipizide was added in [...] No Known Allergies ENCOUNTERS from 1935 to 2021-06-04 Encounter Location Date Provider Diagnosis [facility] [address] [facility] [phone] [place] [address] May, Freeman [facility] IMMUNIZATIONS Vaccine Route Administration Date Status COVID-19 dose #2 given elsewhere Unspecified Unknown Nov Administered COVID-19 dose #1 given elsewhere Unspecified Unknown Oct 26, 2020 Administered Influenza Pharmacy Given Unknown Jun 16, 2020 Adminis tered Influenza (High Dose 65 & up) Unknown May 22, 2018 Ad ministered Influenza (High Dose 65 & up) Unknown Jul 05, 2017 Ad ministered Pneumococcal Adult 0.5mL Pneumovax 23 Unknown May 20 012 Administered Pneumococcal 0.5mL Prevnar 13 IM Intramuscular November 20, 2015 A dministered Influenza 6mo & up Fluzone Unknown Jun 23, 2014 Admin istered SOCIAL HISTORY Sex Assigned At : Social History Observation Description Sex Assigned At Unknown Audit Question Answer Notes Total Score: 2 Interpretation: Alcohol Education Language: Question Answer Notes Languages spoken: Ukrainian Buddhism: Question Answer Notes Buddhism No yarsanism beliefs that would impact health care. Domestic [...] Notes Start Da te End Date Status Vitamin B12 1000 MCG 1 tablet Orally Once a day for 100 days Oct, Not-Taking Colace 100 MG 1 capsule as needed Orally Once a day Not-Taking amLODIPine Besylate 10 MG 1 tablet Orally Once a day for 90 day(s) Active Lovaza 1 GM 2 capsules Orally Twice a day for 90 Nov, 018 Active Potassium Chloride 20 MEQ 1 capsule with food Orally twice a day for 90 day(s) Active Magnesium Oxide 400 MG 1 tablet as needed Orally Once a day for 30 day(s) Sep, Active hydroCHLOROthiazide 25 MG 1 tablet in the morning Oral ly Once a day for 90 day(s) Started by cardiology in 02/2018 Active Ferrous Gluconate 324 (38 Fe) MG Orally Active Lasix 20 MG 1 tablet Orally Once a day for 90 Active Metoprolol Tartrate 25 mg 1 tablet with food Orally twice daily for 9 0 Active Amiodarone HCl 200 MG 1 tablet Orally Once a day for 90 day(s) Active Lipitor 40 MG 1 tablet Orally Once a day for 90 Active Mirapex 1.5 MG 1 tablet Orally Once a day at hs for 90 day(s) Active Aspirin 325 MG 1 tablet Orally Once a day Active glipiZIDE 5 MG 1 tablet Orally Daily for 90 day(s) Active Folic Acid 1 mg 1 tablet Orally Once a day for 90 Active Januvia 50 MG 1 tablet Orally Once a day for 90 Active CeleXA 20 mg 1 tablet Orally Once a day for 90 day(s) Active Acetaminophen 325 MG 2 capsule as needed Orally every 6 hrs Not-Taking Colace 100 mg 1 capsule Orally Twice a day as needed for constipation for 90 day(s) Dec, Not-Taking metFORMIN HCl ER 750 MG 2 tablets with evening meal Orally Once a day for 90 Active PROCEDURES No Information RESULTS No Results REASON FOR VISIT refill-multiple MEDICAL (GENERAL) HISTORY Type Description Date Medical [...] Hospitalization History for above reasons. Hospitalization History [facility] ED-Syncopal episode 11/21/2018 Hospitalization History [facility] ED-Post-op pain 11/27/2018 Hospitalization History [facility] ED-pyleonephritis 01/19/2019 Goals Section No Information Health Concerns No Information MEDICAL EQUIPMENT No Information MENTAL STATUS No Information FUNCTIONAL STATUS No Information ASSESSMENTS No Information PLAN OF TREATMENT Medication Medication Name Sig Start Date Stop Date amLODIPine Besylate 10 MG 1 tablet Orally Once a day for 90 day( s) Potassium Chloride 20 MEQ 1 capsule with food Orally twice a day for 90 day(s) CeleXA 20 mg 1 tablet Orally Once a day for 90 day(s) hydroCHLOROthiazide 25 MG 1 tablet in the morning Oral ly Once a day for 90 day(s) glipiZIDE 5 MG 1 tablet Orally Daily for 90 day(s) Next Appt Details Provider Name:Freeman Shen, 2021-06-19 11 :30:00 AM, [address] [place] [address] , [place], [address], Provider Name:Freeman Shen, 2021-08-22 03 :30:00 PM, [address] [place] [address] , [place], [address], Insurance Providers Payer Name Payer Address Payer Phone Insured Name Patient Relati onship to Insured Coverage Start Date Coverage End Date MEDICARE Part A and B [address] [facility] [id number] [phone] NANY LENZ Formerly [facility] [address] [facility] [phone] NANY RIOS
--- OUTSIDE RECORDS SUMMARY | 2021-07-27 06:03 | CCD | Continuity of Care Document ---
Author Organization Unknown Address Unknown Phone Unavailable Care Team Providers Care Wax Bleacher Name Role Phone Freeman Shen M.D. AUTM [phone] Parth Barney M.D AUTM [phone] Problems Active Problems Provider Date Impotence of organic origin Madina Farah Onset: 0 11/25/2011 Malignant tumor of prostate Cassie Spencer D.O. Onset: 11/25/2011 Hydrocele Cassie Spencer D.O. Onset: 012 History of malignant neoplasm of prostate FELIX Jordan MD Onset: 08/11/2012 Right lower quadrant pain Ze Guzmán MD Onset: 016 Epididymitis associated with another disorder Ze Guzmán MD Onset: 05/03/2016 Nocturia FELIX Jordan MD Onset: 04/08/2017 Microscopic hematuria FELIX Jordan MD Onset: 08/03/2018 Urgent desire to urinate FELIX Jordan MD Onset: 08/03/20 18 Neoplasm of uncertain behavior of bladder FELIX Jordan MD Onset: 08/03/2018 Urinary tract infectious disease FELIX Jordan MD Onset: 08/03/2018 Acute injury of kidney Onset: 10/19/2017 Coronary arteriosclerosis Onset: 018 Chest pain Onset: 10/09/2017 Essential hypertension Onset: 10/08/2017 Pure hypercholesterolemia Onset: 018 Type 2 diabetes mellitus without complication Onset: 10/08/2017 Preinfarction syndrome Onset: 10/08/2017 Malignant neoplasm, overlapping lesion of bladder FELIX Jrodan MD Onset: 03/24/2019 Acquired renal cystic disease FELIX Jordan MD Onset: Erectile dysfunction Ravi Mendez MD Onset: Lesion of liver PO Starr Jordan MD Onset: 11/20/2020 Mechanical complication of genitourinary device, impla nt AND/OR graft Ravi Mendez MD Onset: 12/15/2020 Social History Type Date Description Comments Sex Unknown Tobacco Use Start: Unknown End: Unknown Former Cigarette Smo ker Smoking Status Reviewed: 03/28/21 Former Cigarette Smoker Tobacco Use Reviewed: 03/29/16 Never Smoked Cigars Tobacco Use Start: Unknown End: Unknown Former Pipe Smoker Smokeless Tobacco 03/29/2016 Never Used Smokeless Tobacco ETOH Use 03/29/2016 current beer 2 beers per week Allergies and adverse reactions Description No Known Drug Allergies Medications Active Medications SIG Qnty Indications Ordering Provide r Date Sildenafil Citrate 100mg Tablets 1 by mouth as needed 30tabs PO Starr Jordan MD 11/20/2020 Gemcitabine HCL 2GM/52.6ML Solutio n instill into bladder once a week for 3 weeks PO Starr Jordan MD 06/15/2020 Amlodipine Besylate 10mg Tablets Take [...] day 60tabs Unknown 10/20/2017 Mirapex Unknown 09/26/2008 Hydrochlorothiazide 25mg Tablets Take One Tablet By [...] Tablets By Mouth Once A Day Unknown Potassium Chloride Leigh Ann ER 20Meq Tablets ER Take One Tablet By Mouth Twice A Day Unkn own Hjaco-1-Yysf Ethyl Esters 1gm Caps ules Take Two Capsules By Mouth Every Day Unknown Vitamin E Unknown History Medications Cipro 250mg Tablets 1 by mouth twice a day 1tabs PO Starr Jordan MD 03/28/2021 - Medications Administered in Office Medication SIG Qnty Indications Ordering Provider Date Gemcitabine HCL 200 MG Injection WSC2,Nursing Schedule/Procedure Room 03/13/2021 Gemcitabine HCL 200 MG Injection WSC2,Nursing Schedule/Procedure Room 03/05/2021 Gemcitabine HCL 200 MG Injection WSC2,Nursing Schedule/Procedure Room 02/26/2021 Gemcitabine HCL 200 MG Injection WSC2,Nursing Schedule/Procedure [...] MG Injection WSC2,Nursing Schedule/Procedure Room 04/01/2019 BCG, Sharon Strain DO Not Use After 9 Dos Injection Jose D Damon MD 9 BCG, [place] Strain DO Not Use After 9 Dos Injection WSC2,Nursing Schedule/Proce dure Room 02/17/2019 BCG, [place] Strain DO Not Use After 9 Dos Injection Ellyn Samuels 02/11/2019 BCG, Sharon Strain DO Not Use After 9 Dos Injection WSC2,Nursing Schedule/Proce dure Room 02/11/2019 BCG, Sharon Strain DO Not Use After 9 Dos Injection WSC2,Nursing Schedule/Proce dure Room 02/04/2019 Chemoclave Kit Injection WSC2,Nursing Schedule/Procedure Room 02/04/2019 BCG, [place] Strain DO Not Use After 9 Dos Injection Conor Izquierdo MD 10/2018 BCG, [place] Strain DO Not Use After 9 Dos Injection WSC2,Nursing Schedule/Proce dure Room 01/07/2019 BCG, [place] Strain DO Not Use After 9 Dos Injection Conor Izquierdo MD 12/07 BCG, [place] Strain DO Not Use After 9 Dos Injection WSC2,Nursing Schedule/Proce dure Room 12/24/2018 Immunizations Description No Information Available Vital Signs Date Vital Result Comment 03/28/2021 10:23am Height 67 inches 5'7" Weight 168.00 lb Weight 76.205 kg BMI (Body Mass Index) 26.3 kg/m2 BP Systolic 174 mmHg BP Diastolic 77 mmHg Heart Rate 79 /min Body Temperature 98.0 F 11/20/2020 12:24pm Height 68 inches 5'8" Weight 175.00 lb Weight 79.380 kg BMI (Body Mass Index) 26.6 kg/m2 BP Systolic 155 mmHg BP Diastolic 75 mmHg Heart Rate 77 /min Body Temperature 96.8 F Results Test Acquired Date Facility Test Result H/L Range Note Laboratory test finding 06/19/2021 Outside Facility (315)- - PSA 0.04 Urine Cytology 03/28/2021 [facility] [address] [place], [place] [id number] [phone] Clinical History cancer Normal 1 Specimen Adequacy Satisfactory for <SEE NOTE> Normal 2 BodySite Voided - Clean C <SEE NOTE> Normal 3 Gross Description Received in a sp <SEE NOTE> Normal 4 Microscopic Description Moderate numbers <SEE NOTE> Normal 5 Final Diagnosis NEGATIVE FOR HIG <SEE NOTE> Normal 6 CPTCode 72221 Normal PDF Report SEE IMAGE 230 Ua Routine 03/28/2021 [facility] REF TO DR ADDRESS ON ORDER FOR (315)- - Ua Glucose 100 mg/dL Ua Protein >=300 mg/dL Ua Nitrite Negative Ua Leuko Trace Ua Blood Negative Ua Color Not Entered Ua Ketones Negative Ua Clarity Not Entered Ua Specific [place] >=1.030 1.003-1.030 Ua PH 5.0 5.0-7.5 Ua Bilirubin Negative Ua Urobilinogen 0.2 E.U./dL 0.0-1.0 230 Ua Routine 03/13/2021 [facility] REF TO DR ADDRESS ON ORDER FOR (315)- - Ua Glucose Negative Ua Protein 100 mg/dL Ua Nitrite Negative Ua Leuko Negative Ua Blood Negative Ua Color Not Entered Ua Ketones Negative Ua Clarity Not Entered Ua Specific [place] 1.020 1.003-1.030 Ua PH 5.0 5.0-7.5 Ua Bilirubin Negative Ua Urobilinogen 0.2 E.U./dL 0.0-1.0 230 Ua Routine 03/05/2021 [facility] REF TO DR ADDRESS ON ORDER FOR (315)- - Ua Glucose 500 mg/dL Ua Protein 100 mg/dL Ua Nitrite Negative Ua Leuko Negative Ua Blood Small Ua Color Not Entered Ua Ketones Negative Ua Clarity Not Entered Ua Specific [place] 1.025 1.003-1.030 Ua PH 5.5 5.0-7.5 Ua Bilirubin Negative Ua Urobilinogen 0.2 E.U./dL 0.0-1.0 230 Ua Routine 02/26/2021 [facility] REF TO DR ADDRESS ON ORDER FOR (315)- - Ua Glucose 250 mg/dL Ua Protein 100 mg/dL Ua Nitrite Negative Ua Leuko Negative Ua Blood Trace-intact Ua Color Not Entered Ua Ketones Negative Ua Clarity Not Entered Ua Specific [place] 1.020 1.003-1.030 Ua PH 6.0 5.0-7.5 Ua Bilirubin Negative Ua Urobilinogen 0.2 E.U./dL 0.0-1.0 1 C67.8 2 Satisfactory for evaluation. 3 Voided - Clean Catch 4 Received in a specimen conta iner, labeled with the patients name and , is Cloudy Yellow fluid consistent with urine, measuring approximately 15 ml. 5 Moderate numbers of neutroph ils present. 6 NEGATIVE FOR HIGH-GRADE UROT HELIAL CARCINOMA. Procedures Date Code Description Status 03/28/2021 11832 Office/Outpatient Established Lo w MDM 20-29 Min Completed 03/28/2021 55461 Cystourethroscopy, Separate Proc edure Completed 03/13/2021 00361 Bladder Instillation ,Of Anticarcinogenic Agent (Including Retenti Completed 03/05/2021 30330 Bladder Instillation ,Of Anticarcinogenic Agent (Including Retenti Completed 02/26/2021 73290 Bladder Instillation ,Of Anticarcinogenic Agent (Including Retenti Completed 01/26/2021 97794 Telephone Eval And MGT 21-30 Min Completed 07/07/2019 31538833 Colonoscopy Completed Medical Devices Description No Information Available Encounters Type Date Location Provider Dx Diagnosis Office Visit 03/28/2021 10:30a [address] PO Starr Jordan MD C67.8 Malignant neoplasm of overlapping sites of bladder N52.9 Male erectile dysfunction, u nspecified Office Visit 01/26/2021 12:00p [address] FELIX Jordan MD N52.9 Male erectile dysfunction, unspecified K76.9 Liver disease, unspecified C67.8 Malignant neoplasm of overla pping sites of bladder K80.20 Calculus of gallbladder w/o cholecystitis w/o obstruction Assessments Date Code Description Provider 03/28/2021 C67.8 Malignant neoplasm of overlappin g sites of bladder Freedom Rangel MD 03/28/2021 C67.8 Malignant neoplasm of overlappin g sites of bladder FELIX Jordan MD 03/28/2021 N52.9 Male erectile dysfunction, unspe cified FELIX Jordan MD 03/13/2021 C67.8 Malignant neoplasm of overlappin g sites of bladder Raphael Arthur MD 03/13/2021 C67.8 Malignant neoplasm of overlappin g sites of bladder WSC2,Nursing Schedule/Procedure Room 03/05/2021 C67.8 Malignant neoplasm of overlappin g sites of bladder Juan Carlos Abdullahi MD 03/05/2021 C67.8 Malignant neoplasm of overlappin g sites of bladder WSC2,Nursing Schedule/Procedure Room 02/26/2021 C67.8 Malignant neoplasm of overlappin g sites of bladder Allie Perez MD 02/26/2021 C67.8 Malignant neoplasm of overlappin g sites of bladder WSC2,Nursing Schedule/Procedure Room 01/26/2021 N52.9 Male erectile dysfunction, unspe cified FELIX Jordan MD 01/26/2021 K76.9 Liver disease, unspecified FELIX Jordan MD 01/26/2021 C67.8 Malignant neoplasm of overlappin g sites of bladder FELIX Jordan MD 01/26/2021 K80.20 Calculus of gallblad arleen without cholecystitis without obstruction FELIX Jordan MD Plan of Treatment Future Appointment(s):* 08/08/2021 9:20 am - FELIX Jordna MD at [facility] 03/28/2021 - FELIX Jordan MD* C67.8 Malignant neoplasm of overlapping sites of bladder* New Xrays:* US Retroperitoneal Complete (Kidneys/Bladder), Ordered: 03/28/21 * Comments:* No obvious evidence of his cancer recurring however there is some erythematous patches. There are no obvious masses or lesions. I would like to get his urine cytology. If it is possible he would benefit from a transurethral resection of bladder tumor and cauterization. * Follow up:* follow up in 3-4 month with cystoscopy * N52.9 Male erectile dysfunction, unspecified* Comments:* I encouraged the patient to follow-up with Dr. Ray Hernandez to see if there are any surgical treatment to improve and fix his penile prosthesis. * All * New Medication:* Cipro 250 mg - 1 by mouth twice a day Functional Status Functional Condition Comment Date Status Trifocal Glasses 03/29/2016 Active Mental Status Description No Information Available Referrals Refer to Reason for Referral Status Appt Date FELIX Jordan M.D. CPT: J9201,09483- Per Rik , patient has active Medicare, no managed plans found. No authorization required for services. Per Jose at [facility], no authorization is required due to Medicare primary. REF# [id number] Created [facility] Urology [facility] [place] [address] [phone]
--- OUTSIDE RECORDS SUMMARY | 2021-07-27 06:03 | CCD ---
Continuity of Care Document (CCD) Created on: 06/28/2021 Conor Alonso External Reference #: [id number] : [id number] Sex: Male Author Author Conor GAN M.D. Organization Unknown Address [facility] [address] [place] [address] Phone [phone] Care Team Providers Care Traffic I Manager Name Role Phone [facility] AUTM [phone] [facility] AUTM [facility] Operating Room AUTM [phone] Problems Active Problems Provider Date Essential hypertension [...] ER 1 by mouth every day Unknown 000 Amlodipine Besylate 10mg Tablets 1 by [...] 05/28/2021 9:55am Body Temperature 98.1 F Results Test Acquired Date Facility Test Result H/L Range Note Covid-19 06/23/2021 [facility] Sars-CoV-2, Emely Not Detected Not Detected 1 Sars-CoV-2, Emely 2 Day Tat Performed 1 This nucleic acid amplificat ion test was developed and its performance characteristics determined by [employer]. Nucleic acid amplification tests include RT-PCR and [...] assay. Procedures Date Code Description Status 06/04/2021 01745 Office/Outpatient Established Mo d MDM 30-39 Min Completed 05/28/2021 09329 Office/Outpatient Established Lo w MDM 20-29 Min Completed 04/24/2021 85925 Office/Outpatient New Low MDM 30 -44 Minutes Completed Medical Devices Description No Information Available Encounters Description No Information Available Assessments Date Code Description Provider 06/04/2021 G56.01 [...] 8:00 am - Covid Resource Schedule at [facility] * 07/09/2021 10:20 am - Ortho Group Schedule Resource Only at [facility] * 07/04/2021 9:00 am - Ortho Group Schedule Resource Only at [facility] * 08/09/2021 6:00 am - Dorita Gan M.D. at [facility] * 07/11/2021 10:00 am - Dorita Gan M.D. at [facility] 06/04/2021 - Dorita Gan M.D.* G56.01 Carpal tunnel syndrome, right upper limb* Follow up:* You will receive your next appointment prior to being discharged from the OR on the day of surgery. * Instructions:* It is very important to keep all of the appointments that were scheduled for you today including any presurgical clearances with your primary care provider/specialty doctors and with anesthesia at [facility]. Make sure you have all of your labs done and EKG, chest X-ray, etc as indicated on your Pre-Operative Order. Complete the [facility] Anesthesia Questionnaire prior to your meeting with anesthesia. If you will require a sling following surgery, your order has already been faxed. [facility] Orthopedic lab will likely contact you [...] of bilateral upper extremities Received Complete 05/03/[address] [place] [address] [phone]
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
--- OUTSIDE RECORDS SUMMARY | 2021-07-27 06:05 | CCD ---
Author Author [facility] Organization [facility] Address Unknown Phone Unavailable Care Team Providers Care Substation Maintenance Technician Name Role Phone WINTER, M BRI SENIOR PRODUCTION SUPERVISOR Unavailable Unavailable WINTER, M BRI SENIOR PRODUCTION SUPERVISOR Unavailable Unavailable WINTER, M BRI SENIOR PRODUCTION SUPERVISOR Unavailable Unavailable WINTER, M BRI SENIOR PRODUCTION SUPERVISOR Unavailable Unavailable WINTER, M BRI SENIOR PRODUCTION SUPERVISOR Unavailable Unavailable WINTER, M BRI SENIOR PRODUCTION SUPERVISOR Unavailable Unavailable WINTER, M BRI SENIOR PRODUCTION SUPERVISOR Unavailable Unavailable WINTER, M BRI SENIOR PRODUCTION SUPERVISOR Unavailable Unavailable WINTER, M BRI SENIOR PRODUCTION SUPERVISOR Unavailable Unavailable WINTER, M BRI SENIOR PRODUCTION SUPERVISOR Unavailable Unavailable WINTER, M BRI SENIOR PRODUCTION SUPERVISOR Unavailable Unavailable WINTER, M BRI SENIOR PRODUCTION SUPERVISOR Unavailable Unavailable WINTER, M BRI SENIOR PRODUCTION SUPERVISOR Unavailable Unavailable WINTER, M BRI SENIOR PRODUCTION SUPERVISOR Unavailable Unavailable WINTER, M BRI SENIOR PRODUCTION SUPERVISOR Unavailable Unavailable WINTER, M BRI SENIOR PRODUCTION SUPERVISOR Unavailable Unavailable WINTER, M BRI SENIOR PRODUCTION SUPERVISOR Unavailable Unavailable WINTER, M BRI SENIOR PRODUCTION SUPERVISOR Unavailable Unavailable WINTER, M BRI SENIOR PRODUCTION SUPERVISOR Unavailable Unavailable WINTER, M BRI SENIOR PRODUCTION SUPERVISOR Unavailable Unavailable WINTER, M BRI SENIOR PRODUCTION SUPERVISOR Unavailable Unavailable WINTER, M BRI SENIOR PRODUCTION SUPERVISOR Unavailable Unavailable WINTER, M BRI SENIOR PRODUCTION SUPERVISOR Unavailable Unavailable WINTER, M BRI SENIOR PRODUCTION SUPERVISOR Unavailable Unavailable WINTER, M BRI SENIOR PRODUCTION SUPERVISOR Unavailable Unavailable WINTER, M BRI SENIOR PRODUCTION SUPERVISOR Unavailable Unavailable WINTER, M BRI SENIOR PRODUCTION SUPERVISOR Unavailable Unavailable WINTER, M BRI SENIOR PRODUCTION SUPERVISOR Unavailable Unavailable WINTER, M BRI SENIOR PRODUCTION SUPERVISOR Unavailable Unavailable WINTER, M BRI SENIOR PRODUCTION SUPERVISOR Unavailable Unavailable WINTER, M BRI SENIOR PRODUCTION SUPERVISOR Unavailable Unavailable WINTER, M BRI SENIOR PRODUCTION SUPERVISOR Unavailable Unavailable WINTER, M BRI SENIOR PRODUCTION SUPERVISOR Unavailable Unavailable MADISSOO, Ellyn SWEENEY MD Unavailable Unavailable MADISSOO, Ellyn SWEENEY MD Unavailable Unavailable MADISSOO, Ellyn SWEENEY MD Unavailable Unavailable MADISSOO, Ellyn SWEENEY MD Unavailable Unavailable MADISSOO, Ellyn SWEENEY MD Unavailable Unavailable MADISSOO, Ellyn SWEENEY MD Unavailable Unavailable MADISSOO, Ellyn SWEENEY MD Unavailable Unavailable MADISSOO, Ellyn SWEENEY MD Unavailable Unavailable MADISSOO, Ellyn SWEENEY MD Unavailable Unavailable MADISSOO, Ellyn SWEENEY MD Unavailable Unavailable MADISSOO, Ellyn SWEENEY MD Unavailable Unavailable MADISSOO, Ellyn SWEENEY MD Unavailable Unavailable MADISSOO, Ellyn SWEENEY MD Unavailable Unavailable MADISSOO, Ellyn SWEENEY MD Unavailable Unavailable MADISSOO, Ellyn SWEENEY MD Unavailable Unavailable MADISSOO, Ellyn SWEENEY MD Unavailable Unavailable MADISSOO, Ellyn SWEENEY MD Unavailable Unavailable MADISSOO, Ellyn SWEENEY MD Unavailable Unavailable MADISSOO, Ellyn SWEENEY MD Unavailable Unavailable MADISSOO, Ellyn SWEENEY MD Unavailable Unavailable MADISSOO, Ellyn SWEENEY MD Unavailable Unavailable MADISSOO, Ellyn SWEENEY MD Unavailable Unavailable MADISSOO, Ellyn SWEENEY MD Unavailable Unavailable MADISSOO, Ellyn SWEENEY MD Unavailable Unavailable MADISSOO, Ellyn SWEENEY MD Unavailable Unavailable MADISSOO, Ellyn SWEENEY MD Unavailable Unavailable MADISSOO, Ellyn SWEENEY MD Unavailable Unavailable MADISSOO, Ellyn SWEENEY MD Unavailable Unavailable MADISSOO, Ellyn SWEENEY MD Unavailable Unavailable MADISSOO, Ellyn SWEENEY MD Unavailable Unavailable MADISSOO, Ellyn SWEENEY MD Unavailable Unavailable MADISSOO, Ellyn SWEENEY MD Unavailable Unavailable MADISSOO, Ellyn SWEENEY MD Unavailable Unavailable MADISSOO, Ellyn SWEENEY MD Unavailable Unavailable MADISSOO, Ellyn SWEENEY MD Unavailable Unavailable MADISSOO, Ellyn SWEENEY MD Unavailable Unavailable MADISSOO, Ellyn SWEENEY MD Unavailable Unavailable MADISSOO, Ellyn SWEENEY MD Unavailable Unavailable MADISSOO, Ellyn SWEENEY MD Unavailable Unavailable MADISSOO, Ellyn SWEENEY MD Unavailable Unavailable MADISSOO, Ellyn SWEENEY MD Unavailable Unavailable MADISSOO, Ellyn SWEENEY MD Unavailable Unavailable MADISSOO, Ellyn SWEENEY MD Unavailable Unavailable MADISSOO, Ellyn SWEENEY MD Unavailable Unavailable MADISSOO, Ellyn SWEENEY MD Unavailable Unavailable MADISSOO, Ellyn SWEENEY MD Unavailable Unavailable MADISSOO, Ellyn SWEENEY MD Unavailable Unavailable MADISSOO, Ellyn SWEENEY MD Unavailable Unavailable MADISSOO, Ellyn SWEENEY MD Unavailable Unavailable MADISSOO, Ellyn SWEENEY MD Unavailable Unavailable MADISSOO, Ellyn SWEENEY MD Unavailable Unavailable MADISSOO, Ellyn SWEENEY MD Unavailable Unavailable MADISSOO, Ellyn SWEENEY MD Unavailable Unavailable MADISSOO, Ellyn SWEENEY MD Unavailable Unavailable MADISSOO, Ellyn SWEENEY MD Unavailable Unavailable MADISSOO, Ellyn SWEENEY MD Unavailable Unavailable MADISSOO, Ellyn SWEENEY MD Unavailable Unavailable MADISSOO, Ellyn SWEENEY MD Unavailable Unavailable MADISSOO, Ellyn SWEENEY MD Unavailable Unavailable MADISSOO, Ellyn SWEENEY MD Unavailable Unavailable MADISSOO, Ellyn SWEENEY MD Unavailable Unavailable MADISSOO, Ellyn SWEENEY MD Unavailable Unavailable MADISSOO, Ellyn SWEENEY MD Unavailable Unavailable MADISSOO, Ellyn SWEENEY MD Unavailable Unavailable MADISSOO, Ellyn SWEENEY MD Unavailable Unavailable MADISSOO, Ellyn SWEENEY MD Unavailable Unavailable MADISSOO, Ellyn SWEENEY MD Unavailable Unavailable MADISSOO, Ellyn SWEENEY MD Unavailable Unavailable MADISSOO, Ellyn SWEENEY MD Unavailable Unavailable MADISSOO, Ellyn SWEENEY MD Unavailable Unavailable MADISSOO, Ellyn SWEENEY MD Unavailable Unavailable MADISSOO, Ellyn SWEENEY MD Unavailable Unavailable MADISSOO, Ellyn SWEENEY MD Unavailable Unavailable MADISSOO, Ellyn SWEENEY MD Unavailable Unavailable MADDEVOO, Ellyn SWEENEY MD Unavailable Unavailable MADISSOO, Ellyn SWEENEY MD Unavailable Unavailable MADISSOO, Ellyn SWEENEY MD Unavailable Unavailable MADISSOO, Ellyn SWEENEY MD Unavailable Unavailable MADISSOO, Ellyn SWEENEY MD Unavailable Unavailable MADISSOO, Ellyn SWEENEY MD Unavailable Unavailable MADISSOO, Ellyn SWEENEY MD Unavailable Unavailable MADDEVOO, Ellyn SWEENEY MD Unavailable Unavailable MADISSOO, Ellyn SWEENEY MD Unavailable Unavailable MADISSOO, Ellyn SWEENEY MD Unavailable Unavailable MADISSOO, Ellyn SWEENEY MD Unavailable Unavailable Mollison, Boy Orellana MD Unavailable Unavailable Mollison, Boy Orellana MD Unavailable Unavailable Molljosie, Boy Orellana MD Unavailable Unavailable Molljosie, Boy Orellana MD Unavailable Unavailable Molljosie, Boy Orellana MD Unavailable Unavailable Molljosie, Boy Orellana MD Unavailable Unavailable Mollison, Boy Orellana MD Unavailable Unavailable Mollison, Boy Orellana MD Unavailable Unavailable Mollison, Boy Orellana MD Unavailable Unavailable Mollison, Boy Orellana MD Unavailable Unavailable Mollison, Boy Orellana MD Unavailable Unavailable Mollison, Boy Orellana MD Unavailable Unavailable Mollison, Boy Orellana MD Unavailable Unavailable Mollison, Boy Orellana MD Unavailable Unavailable Mollison, Boy Orellana MD Unavailable Unavailable Mollison, Boy Orellana MD Unavailable Unavailable Mollison, Boy Orellana MD Unavailable Unavailable Mollison, Boy Orellana MD Unavailable Unavailable Mollison, Boy Orellana MD Unavailable Unavailable Mollison, Boy Orellana MD Unavailable Unavailable Mollison, Boy Orellana MD Unavailable Unavailable Mollison, Boy Orellana MD Unavailable Unavailable Mollison, Boy Orellana MD Unavailable Unavailable Mollison, Boy Orellana MD Unavailable Unavailable Mollison, Boy Orellana MD Unavailable Unavailable Mollison, Boy Orellana MD Unavailable Unavailable Mollison, Boy Orellana MD Unavailable Unavailable Mollison, Boy Orellana MD Unavailable Unavailable Mollison, Boy Orellana MD Unavailable Unavailable Mollison, Boy Orellana MD Unavailable Unavailable Parth Chen MD Unavailable Unavailabl Parth Paniagua MD Unavailable Unavailabl Parth Paniagua MD Unavailable Unavailabl e Parth Chen MD Unavailable Unavailabl e Parth Chen MD Unavailable Unavailabl Parth Paniagua MD Unavailable Unavailabl Parth Paniagua MD Unavailable Unavailabl Parth Paniagua MD Unavailable Unavailabl Parth Paniagua MD Unavailable Unavailabl Parth Paniagua MD Unavailable Unavailabl Parth Paniagua MD Unavailable Unavailabl marty Tucker-Parth Barney MD Unavailable Unavailabl Parth Paniagua MD Unavailable Unavailabl Parth Paniagua MD Unavailable Unavailabl Parth Paniagua MD Unavailable Unavailabl Parth Paniagua MD Unavailable Unavailabl Parth Paniagua MD Unavailable Unavailabl Parth Paniagua MD Unavailable Unavailabl Parth Paniagua MD Unavailable Unavailabl e Ranjbaran-Jahromi, Parth MD Unavailable Unavailabl e Ransinghbaran-Jahromi, Parth MD Unavailable Unavailabl e Ransinghbaran-Jahromi Parth MD Unavailable Unavailabl e Ransinghbaran-Jahromi, Parth MD Unavailable Unavailabl e Ransinghbaran-Jahromi, Parth MD Unavailable Unavailabl e Galdinobaran-Jahromi Parth MD Unavailable Unavailabl e Galdinobaran-Jahromi Parth MD Unavailable Unavailabl e Ranjbaran-Jahromi Parth MD Unavailable Unavailabl e Ranjbaran-Jahromi Parth MD Unavailable Unavailabl e Galdinobaran-Jahromi, Parth MD Unavailable Unavailabl e Galdinobaran-Jahromi Parth MD Unavailable Unavailabl e Galdinobaran-Jahromi Parth MD Unavailable Unavailabl e Galdinobaran-Jahromi Parth MD Unavailable Unavailabl e Galdinobaran-Jahromi Parth MD Unavailable Unavailabl e Galdinobaran-Jahromi Parth MD Unavailable Unavailabl e Galdinobaran-Jahromi Parth MD Unavailable Unavailabl e Caitlin-Jahromi Parthnisha BROOKS Unavailable Unavailabl e Caitlin-Christopherhromi Parthnisha BROOKS Unavailable Unavailabl e Caitlin-Jahromi Parth MD Unavailable Unavailabl e Caitlin-Jahromi Parthnisha BROOKS Unavailable Unavailabl e Caitlin-Christopherhromi Parthnisha BROOKS Unavailable Unavailabl e Caitlin-Christopherhromi Parth MD Unavailable Unavailabl e Galdinobaran-Jahromi Parth MD Unavailable Unavailabl e Galdinobaran-Jahromi Parth MD Unavailable Unavailabl e Jackan-Jahromi Parth Unavailable Unavailabl e Caitlin-Christopherhromi Parth MD Unavailable Unavailabl e Galdinobaran-Jahromi Parth MD Unavailable Unavailabl e Jackan-Jahromi Parth Unavailable Unavailabl e Caitlin-Christopherhromi Parthnisha BROOKS Unavailable Unavailabl e Caitlin-Christopherhromi, Parth MD Unavailable Unavailabl e Ranjbaran-Jahromi, Parth MD Unavailable Unavailabl e Galdinobaran-Jahromi, Parth Unavailable Unavailabl e Galdinobaran-Jahromi Parth MD Unavailable Unavailabl e Ranjbaran-Jahromi Parth MD Unavailable Unavailabl e Galdinobaran-Jahromi Parth MD Unavailable Unavailabl e Galdinobaran-Jahromi Parth MD Unavailable Unavailabl e Ransinghbaran-Jahromi Parth MD Unavailable Unavailabl e Ranjbaran-Jahromi Parth Unavailable Unavailabl e Galdinobaran-Jahromi Parth Unavailable Unavailabl e Galdinobarsaroj-Jahromi Parth Unavailable Unavailabl e Galdinobaran-Jahromi Parth MD Unavailable Unavailabl e Galdinobaran-Jahromi Parth MD Unavailable Unavailabl e Caitlin-Jahromi Parthnisha BROOKS Unavailable Unavailabl e Caitlin-Jahromi Parth MD Unavailable Unavailabl e Caitlin-Jahromi Parth MD Unavailable Unavailabl e Caitlin-Christopherhromi Parthnisha BROOKS Unavailable Unavailabl e Caitlin-Christopherhromi Parthnisha BROOKS Unavailable Unavailabl e Caitlin-Jahromi Parthnisha BROOKS Unavailable Unavailabl e Caitlin-Jahromi Parthnisha BROOKS Unavailable Unavailabl e Caitlin-Garrettomi Parthnisha BROOKS Unavailable Unavailabl e Caitlin-Christopherhromi Parthnisha BROOKS Unavailable Unavailabl e Galdinobaran-Jahromi Parth MD Unavailable Unavailabl e Jackan-Jahromi Parth Unavailable Unavailabl e Caitlin-Christopherhromi Parthnisha BROOKS Unavailable Unavailabl e Caitlin-Christopherhromi Parthnisha BROOKS Unavailable Unavailabl e Jackan-Jahromi Parth Unavailable Unavailabl e Caitlin-Jahromi Parthnisha BROOKS Unavailable Unavailabl e Caitlin-Christopherhromi Parthnisha BROOKS Unavailable Unavailabl e Caitlin-Christopherhromi Parthnisha BROOKS Unavailable Unavailabl e Ransinghbaran-JaParth michaels MD Unavailable Unavailabl e Caitlin-Parth Barney MD Unavailable Unavailabl e Caitlin-JaomParth gallardo MD Unavailable Unavailabl e Ranjbaran-JahromiParth MD Unavailable Unavailabl e Ranjbaran-JahromiParth MD Unavailable Unavailabl e Ranjosvaldo-JahromiParth MD Unavailable Unavailabl e Ranjbaran-JahromiParth MD Unavailable Unavailabl e Ranjbaran-JahromiParth MD Unavailable Unavailabl e Ranjbaran-JahromiParth MD Unavailable Unavailabl e Ranjbarsaroj-JahromiParth MD Unavailable Unavailabl e Nabeeljbaran-JahromiParth MD Unavailable Unavailabl Rukhsana Ferris DORITA MD Unavailable Unavailable PARRukhsana BEAR DORITA MD Unavailable Unavailable PARRukhsana BEAR DORITA MD Unavailable Unavailable PARRukhsana BEAR MD Unavailable Unavailable PARRukhsana BEAR MD Unavailable Unavailable PARRukhsana BEAR MD Unavailable Unavailable PARRukhsana BEAR MD Unavailable Unavailable PARRukhsana BEAR DORITA MD Unavailable Unavailable PARRukhsana BEAR DORITA MD Unavailable Unavailable PARRukhsana BEAR DORITA MD Unavailable Unavailable PARRukhsana BEAR MD Unavailable Unavailable PARRukhsana BEAR MD Unavailable Unavailable PARRukhsana BEAR MD Unavailable Unavailable PARRukhsana BEAR MD Unavailable Unavailable PARRukhsana BEAR MD Unavailable Unavailable PARRukhsana BEAR DORITA MD Unavailable Unavailable PARRukhsana BEAR DORITA MD Unavailable Unavailable PARRukhsana BEAR MD Unavailable Unavailable PARRukhsana BEAR MD Unavailable Unavailable PARRukhsana BEAR MD Unavailable Unavailable PARRukhsana BEAR DORITA Unavailable Unavailable PARRukhsana BEAR DORITA Unavailable Unavailable PARRukhsana BEAR DORITA Unavailable Unavailable PARNESRukhsana DORITA Unavailable Unavailable PARRukhsana BEAR DORITA MD Unavailable Unavailable PARRukhsana BEAR DORITA MD Unavailable Unavailable PARRukhsana BEAR DORITA MD Unavailable Unavailable PARRukhsana BEAR DORITA MD Unavailable Unavailable PARNESRukhsana DORITA Unavailable Unavailable PARNESRukhsana DORITA Unavailable Unavailable PARNESRukhsana DORITA Unavailable Unavailable PARNESRukhsana DORITA Unavailable Unavailable PARNESRukhsana DORITA Unavailable Unavailable PARNESRukhsana DORITA Unavailable Unavailable PARNESRukhsana DORITA Unavailable Unavailable PARNES, Z DORITA MD Unavailable Unavailable PARNES, Z DORITA Unavailable Unavailable PARNES, Z DORITA Unavailable Unavailable PARNES, Z DORITA MD Unavailable Unavailable PARNES, Z DORITA MD Unavailable Unavailable PARNES, Z DORITA MD Unavailable Unavailable PARNES, Z DORITA MD Unavailable Unavailable Monica, D Alfred SENIOR PRODUCTION SUPERVISOR Unavailable Unavailable Monica, D Alfred SENIOR PRODUCTION SUPERVISOR Unavailable Unavailable Monica, D Alfred SENIOR PRODUCTION SUPERVISOR Unavailable Unavailable Monica, D Alfred SENIOR PRODUCTION SUPERVISOR Unavailable Unavailable Monica, D Alfred SENIOR PRODUCTION SUPERVISOR Unavailable Unavailable Monica, D Alfred SENIOR PRODUCTION SUPERVISOR Unavailable Unavailable Monica, D Alfred SENIOR PRODUCTION SUPERVISOR Unavailable Unavailable Monica, D Alfred SENIOR PRODUCTION SUPERVISOR Unavailable Unavailable Monica, D Alfred SENIOR PRODUCTION SUPERVISOR Unavailable Unavailable Monica, D Alfred SENIOR PRODUCTION SUPERVISOR Unavailable Unavailable Monica, D Alfred SENIOR PRODUCTION SUPERVISOR Unavailable Unavailable Monica, D Alfred SENIOR PRODUCTION SUPERVISOR Unavailable Unavailable Monica, D Alfred SENIOR PRODUCTION SUPERVISOR Unavailable Unavailable Monica, D Alfred SENIOR PRODUCTION SUPERVISOR Unavailable Unavailable Monica, D Alfred SENIOR PRODUCTION SUPERVISOR Unavailable Unavailable Monica, D Alfred SENIOR PRODUCTION SUPERVISOR Unavailable Unavailable Monica, D Alfred SENIOR PRODUCTION SUPERVISOR Unavailable Unavailable Monica, D Alfred SENIOR PRODUCTION SUPERVISOR Unavailable Unavailable Monica, D Alfred SENIOR PRODUCTION SUPERVISOR Unavailable Unavailable Monica, D Alfred SENIOR PRODUCTION SUPERVISOR Unavailable Unavailable Monica, D Alfred SENIOR PRODUCTION SUPERVISOR Unavailable Unavailable Monica, D Alfred SENIOR PRODUCTION SUPERVISOR Unavailable Unavailable Monica, D Alfred SENIOR PRODUCTION SUPERVISOR Unavailable Unavailable Monica, D Alfred SENIOR PRODUCTION SUPERVISOR Unavailable Unavailable Monica, D Alfred SENIOR PRODUCTION SUPERVISOR Unavailable Unavailable Monica, D Alfred SENIOR PRODUCTION SUPERVISOR Unavailable Unavailable Monica, D Alfred SENIOR PRODUCTION SUPERVISOR Unavailable Unavailable Monica, D Alfred SENIOR PRODUCTION SUPERVISOR Unavailable Unavailable Monica, D Alfred SENIOR PRODUCTION SUPERVISOR Unavailable Unavailable Monica, D Alfred SENIOR PRODUCTION SUPERVISOR Unavailable Unavailable Monica, D Alfred SENIOR PRODUCTION SUPERVISOR Unavailable Unavailable Monica, D Alfred SENIOR PRODUCTION SUPERVISOR Unavailable Unavailable Monica, D Alfred SENIOR PRODUCTION SUPERVISOR Unavailable Unavailable Monica, D Alfred SENIOR PRODUCTION SUPERVISOR Unavailable Unavailable Monica, D Alfred SENIOR PRODUCTION SUPERVISOR Unavailable Unavailable Monica, D Alfred SENIOR PRODUCTION SUPERVISOR Unavailable Unavailable Jordan, N Po MD Unavailable [...] Unavailable Jordan, N Po MD Unavailable Unavailable Jodran, N Po MD Unavailable Unavailable Jordan, N [...] Unavailable Jordan, N Po MD Unavailable Unavailable Ojrdan, N Po MD Unavailable Unavailable Jordan, N [...] Unavailable Jordan, N Po MD Unavailable Unavailable Contreras, V KOBI PA-C Unavailable Unavailable Corson, V KOBI PA-C Unavailable Unavailable Contreras, V KOBI PA-C Unavailable Unavailable Corson, V KOBI PA-C Unavailable Unavailable Contreras, V KOBI PA-C Unavailable Unavailable Corson, V KOBI PA-C Unavailable Unavailable Contreras, V KOBI PA-C Unavailable Unavailable Corson, V KOBI PA-C Unavailable Unavailable Contreras, V KOBI PA-C Unavailable Unavailable Corson, V KOBI PA-C Unavailable Unavailable Corson, V KOBI PA-C Unavailable Unavailable Corson, V KOBI PA-C Unavailable Unavailable Contreras, V KOBI PA-C Unavailable Unavailable Corson, V KOBI PA-C Unavailable Unavailable Monica, D Alfred SENIOR PRODUCTION SUPERVISOR Unavailable Unavailable Monica, D Alfred SENIOR PRODUCTION SUPERVISOR Unavailable Unavailable Monica, D Alfred SENIOR PRODUCTION SUPERVISOR Unavailable Unavailable Monica, D Alfred SENIOR PRODUCTION SUPERVISOR Unavailable Unavailable Monica, D Alfred SENIOR PRODUCTION SUPERVISOR Unavailable Unavailable Monica, D Alfred SENIOR PRODUCTION SUPERVISOR Unavailable Unavailable Monica, D Alfred SENIOR PRODUCTION SUPERVISOR Unavailable Unavailable Monica, D Alfred SENIOR PRODUCTION SUPERVISOR Unavailable Unavailable Monica, D Alfred SENIOR PRODUCTION SUPERVISOR Unavailable Unavailable Monica, D Alfred SENIOR PRODUCTION SUPERVISOR Unavailable Unavailable Monica, D Alfred SENIOR PRODUCTION SUPERVISOR Unavailable Unavailable Monica, D Alfred SENIOR PRODUCTION SUPERVISOR Unavailable Unavailable Monica, D Alfred SENIOR PRODUCTION SUPERVISOR Unavailable Unavailable Monica, D Alfred SENIOR PRODUCTION SUPERVISOR Unavailable Unavailable Monica, D Alfred SENIOR PRODUCTION SUPERVISOR Unavailable Unavailable Monica, D Alfred SENIOR PRODUCTION SUPERVISOR Unavailable Unavailable Monica, D Alfred SENIOR PRODUCTION SUPERVISOR Unavailable Unavailable Monica, D Alfred SENIOR PRODUCTION SUPERVISOR Unavailable Unavailable Monica, D Alfred SENIOR PRODUCTION SUPERVISOR Unavailable Unavailable Monica, D Alfred SENIOR PRODUCTION SUPERVISOR Unavailable Unavailable Monica, D Alfred SENIOR PRODUCTION SUPERVISOR Unavailable Unavailable Monica, D Alfred SENIOR PRODUCTION SUPERVISOR Unavailable Unavailable Monica, D Alfred SENIOR PRODUCTION SUPERVISOR Unavailable Unavailable Monica, D Alfred SENIOR PRODUCTION SUPERVISOR Unavailable Unavailable Monica, D Alfred SENIOR PRODUCTION SUPERVISOR Unavailable Unavailable Monica, D Alfred SENIOR PRODUCTION SUPERVISOR Unavailable Unavailable Monica, D Alfred SENIOR PRODUCTION SUPERVISOR Unavailable Unavailable Monica, D Alfred SENIOR PRODUCTION SUPERVISOR Unavailable Unavailable Monica, D Alfred SENIOR PRODUCTION SUPERVISOR Unavailable Unavailable Monica, D Alfred SENIOR PRODUCTION SUPERVISOR Unavailable Unavailable Monica, D Alfred SENIOR PRODUCTION SUPERVISOR Unavailable Unavailable Monica, D Alfred SENIOR PRODUCTION SUPERVISOR Unavailable Unavailable Monica, D Alfred SENIOR PRODUCTION SUPERVISOR Unavailable Unavailable Monica, D Alfred SENIOR PRODUCTION SUPERVISOR Unavailable Unavailable Monica, D Alfred SENIOR PRODUCTION SUPERVISOR Unavailable Unavailable Monica, Danilo Simon SENIOR PRODUCTION SUPERVISOR Unavailable Unavailable NON, PHYSICIAN STAFF Unavailable Unavailable Re-disclosure Warning The records that you are [...] is protected by Article 27-F of the [facility] Public Health law. If you continue you may have access to information: Regarding HIV / AIDS; Provided by facilities licensed or operated by the [facility] Office of Mental Health; or Provided by the [facility] Office for People With Developmental Disabilities. If such information is present, then the following [facility] mandated warning applies: This information has [...] law may result in a fine or penitentiary sentence or both. A general authorization for the release of medical or other information is NOT sufficient authorization for further disc losure. Allergies and Adverse Reactions Type Description Substance Reaction Status Data Source(s ) No Known Drug Allergies No Known Drug Allergies [facility] No Known Environmental Allergies No Known Environmental Al lergies [facility] No Known Food Allergies No Known Food Allergies [facility] Family History Family Member Name Family Member Gender Family Member Status Date o f Status Description Data Source(s) Unknown Male Problem MEDENT ([facility] Unknown Unknown Problem [facility] ([facility] ) Unknown Unknown Problem [facility] ([facility], ) Unknown Unknown Problem [facility] ([facility], ) Unknown Unknown Problem [facility] ([facility], ) Unknown Male Problem [facility] ([facility]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 Encounters Encounter Providers Location Date Indications Data Source(s ) Unknown [id number] [facility] [address] 07/13/2021 12:00:00 AM EDT eCW1 ([facility]) Outpatient Attender: DORITA PLATA MD Family Practice 07/09/2021 10 :20:00 AM EDT [facility] ([facility]) Outpatient Attender: DORITA PLATA MDConsultant: STAFF NON 07/09/2021 10:07:00 AM EDT - 07/09/2021 10:07:00 AM EDT [facility] Out[facility] Attender: DORITA PLATA MDConsultant: STAFF NON 07/04/2021 09:00:00 AM EDT - 07/04/2021 09:00:00 AM EDT [facility] Office Visit Attender: Alfred Anderson NP Family Practice 2020 09:00:00 AM EDT [facility] Outpatient Attender: DORITA PLATA MDConsultant: STAFF NON 06/28/2021 06:30:00 AM EDT - 06/28/2021 09:22:00 AM EDT [facility] Patient discharged. Outpatient Attender: DORITA PLATA MDConsultant: STAFF NON 06/23/2021 10:01:00 AM EDT - 06/23/2021 11:01:00 AM EDT [facility] Patient discharged. Outpatient Attender: Alfred Anderson NPConsultant: STAFF NON 06/20/2021 10:12:54 AM EDT - 06/21/2021 11:31:00 AM EDT [facility] Patient discharged. Outpatient Attender: KOBI HURTADO 07/2021 12:00:00 AM EDT - 06/18/2021 09:06:39 AM EDT [facility] Outpatient Attender: DORITA PLATA MD Family Practice 06/04/2021 01 :00:00 PM EDT MEDENT ([facility]) Outpatient Attender: DORITA PLATA MD 021 12:55:00 PM EDT - 06/04/2021 12:55:00 PM EDT [facility] Unknown [address] [facility] [address] 06/04/2021 12:00:00 AM EDT eCW1 ([facility]) Outpatient Attender: DORITA PLATA MD Family Practice 05/28/2021 10 :20:00 AM EDT MEDENT ([facility]) Outpatient Attender: DORITA PLATA MD 021 09:50:00 AM EDT - 05/28/2021 09:50:00 AM EDT [facility] Unknown [address] [facility] [address] 04/30/2021 12:00:00 AM EDT eCW1 ([facility]) Unknown [address] [facility] [address] 04/26/2021 12:00:00 AM EDT eCW1 ([facility]) Outpatient Attender: DORITA PLATA MD 021 01:06:00 PM EDT - 04/24/2021 03:35:00 PM EDT [facility] Outpatient Attender: [place]/ [facility] 03/28 10:30:00 AM EDT [facility] ([facility] [place] [address] [facility] [address] 01/31/2021 12:00:00 AM EDT eCW1 ([facility]) Office Visit Attender: [place]/ [facility] 01/26 12:00:00 PM EDT [facility] ([facility] Office Visit Attender: BRI SILVESTRE NP [facility] 01/25/2021 03:15:00 PM EDT MEDENT ([facility]) Outpatient Attender: BRI SILVESTRE NP [facility] 12/26/2020 02:15:00 PM EDT MEDENT ([facility]) Outpatient Referrer: [place] MD 12/25/2020 10:47:56 AM EDT [facility] Outpatient Attender: Esteban Angeles/Sadaf/Arnoldo/Re indl 12/19/2020 10:45:00 AM EDT MEDENT ([facility] Outpatient Attender: ZAHRA Perrin[facility] 12/15/2020 03:30:00 PM EDT [facility] ([facility] Outpatient Attender: [place]/ [facility] 11/20 01:50:00 PM EDT [facility] ([facility] Unknown [address] [facility] [address] 11/06/2020 12:00:00 AM EST eCW1 ([facility]) Outpatient Attender: Esteban Angeles/Sadaf/Arnoldo/Re indl 11/03/2020 01:00:00 PM EST [facility] ([facility] Unknown [address] [facility] [address] 08/29/2020 12:00:00 AM EST eCW1 ([facility]) Unknown [address] [facility] [address] 08/28/2020 12:00:00 AM EST eCW1 ([facility]) Outpatient Attender: Parth Chen MD [facility]io [facility]y [facility] 06/27/2020 03:15:00 PM EDT MEDENT ([facility]) Immunizations Vaccine Date Status Description Data Source(s) influenza, recombinant, quadrIvalent,injectable, prese rvative free 06/19/2021 11:52:00 AM EDT completed eCW1 ([facility]) influenza, recombinant, quadrIvalent,injectable, prese rvative free 06/19/2021 11:52:00 AM EDT completed eCW1 ([facility]) COVID-19 dose #2 given elsewhere Unspecified 11/16/2020 12:5 1:00 PM EST completed eCW1 ([facility]) COVID-19 dose #2 given elsewhere Unspecified 11/16/2020 12:5 1:00 PM EST completed eCW1 ([facility]) COVID-19 dose #2 given elsewhere Unspecified 11/16/2020 12:5 1:00 PM EST completed eCW1 ([facility]) COVID-19 dose #2 given elsewhere Unspecified 11/16/2020 12:5 1:00 PM EST completed eCW1 ([facility]) COVID-19 dose #2 given elsewhere Unspecified 11/16/2020 12:5 1:00 PM EST completed eCW1 ([facility]) COVID-19 VACCINE Pfizer 11/16/2020 12:00:00 AM EST completed [facility] Vaccine Series Complete: YESThis Data wa s Submitted to [facility] Via [facility]. COVID-19 dose #1 given elsewhere Unspecified 10/26/2020 12:5 1:00 PM EST completed eCW1 ([facility]) COVID-19 dose #1 given elsewhere Unspecified 10/26/2020 12:5 1:00 PM EST completed eCW1 ([facility]) COVID-19 dose #1 given elsewhere Unspecified 10/26/2020 12:5 1:00 PM EST completed eCW1 ([facility]) COVID-19 dose #1 given elsewhere Unspecified 10/26/2020 12:5 1:00 PM EST completed eCW1 ([facility]) COVID-19 dose #1 given elsewhere Unspecified 10/26/2020 12:5 1:00 PM EST completed eCW1 ([facility]) COVID-19 VACCINE Pfizer 10/26/2020 12:00:00 AM EST completed [facility] Vaccine Series Complete: NOThis Data was Submitted to [facility] Via [facility]. IIV3. This is one of two codes replacing CVX 15, which is being retired. 06/16/2020 12:50:00 PM EDT completed [facility] IIV3. This is one of two codes replacing CVX 15, which is being retired. 06/16/2020 12:50:00 PM EDT completed [facility]CW[facility] IIV3. This is one of two codes replacing CVX 15, which is being retired. 06/16/2020 12:50:00 PM EDT completed eCW1 ([facility]) IIV3. This is one of two codes replacing CVX 15, which is being retired. 06/16/2020 12:50:00 PM EDT completed eCW1 ([facility]) IIV3. This is one of two codes replacing CVX 15, which is being retired. 06/16/2020 12:50:00 PM EDT completed eCW1 ([facility]) INFLUENZA VACCINE TVS (65 YR UP)/ADJUVANT MF59 C.1/PF 06/16/2020 12:00:00 AM EDT completed [facility] This CVX code allows reporting of a vacc ination when formulation is unknown (for example, when recording a Influenza vaccination when noted on a vaccination card) 06/08/2020 01:42:00 PM EDT completed RONY Biggs ([facility]) Medications Medication Brand Name Start Date Product Form Dose Route Admi nistrative Instructions Pharmacy Instructions Status Indications Reaction Description Data Source(s) 0.3 % 07/16/2021 12:00:00 AM EST drops 10 INSTILL 1 DROP IN RIGHT EYE FOUR TIMES A DAY START 3 DAYS PRIOR TO SURGERY INSTILL 1 DROP IN RIGHT EYE FOUR TIMES A DAY START 3 DAYS PRIOR TO SURGERY SOLD: 07/18/2021 [facility] 1 % 07/14/2021 12:00:00 AM EDT drops,suspension 10 INSTILL 1 DROP IN RIGHT EYE FOUR TIMES A DAY START 3 DAYS PRIOR TO SURGERY INSTILL 1 DROP IN RIGHT EYE FOUR TIMES A DAY START 3 DAYS PRIOR TO SURGERY SOLD: 07/18/2021 [facility] 0.5 % 07/14/2021 12:00:00 AM EDT drops 5 INSTILL 1 DROP IN RIGHT EYE FOUR TIMES A DAY START 3 DAYS PRIOR TO SURGERY INSTILL 1 DROP IN RIGHT EYE FOUR TIMES A DAY START 3 DAYS PRIOR TO SURGERY SOLD: 07/18/2021 [facility] 5-325 mg 06/28/2021 12:00:00 AM EDT tablet 3 TAKE ONE TABLET BY MOUTH EVERY 8 HOURS NEEDED FOR PAIN MAXIMUM DAILY DOSE = 3 TABLETS TAKE ONE TABLET BY MOUTH EVERY 8 HOURS NEEDED FOR PAIN MAXIMUM DAILY DOSE = 3 TABLETS SOLD: 06/28/2021 [facility] 0.05 % 06/20/2021 12:00:00 AM EDT lotion 60 APPLY EXTERNALLY ONCE A DAY TO RASH ON FOREARMS AND LEGS APPLY EXTERNALLY ONCE A DAY TO RASH ON F OREARMS AND LEGS SOLD: 06/22/2021 [facility] Betamethasone 0.5 MG/ML Topical Lotion Betamethasone D ipropionate 0.05 % Betamethasone Dipropionate 0.05 % 06/19/2021 12:00:00 AM EDT 1.0 {application} active Betamethasone Dipropiona te 0.05 % eCW1 ([facility]) Betamethasone 0.5 MG/ML Topical Lotion Betamethasone D ipropionate 0.05 % Betamethasone Dipropionate 0.05 % 06/19/2021 12:00:00 AM EDT 1.0 {application} active Betamethasone Dipropiona te 0.05 % eCW1 ([facility]) 24 HR Metformin hydrochloride 750 MG Ext ended Release Oral Tablet metFORMIN (GLUCOPHAGE-XR) 750 MG 24 hr tablet metFORMIN (GLUCOPHAGE-XR) 750 MG 24 hr tablet 06/09/2021 12:00:00 AM EDT active TAKE 2 TABLETS BY MOUTH WITH EVENING MEAL [facility] 10 mg 06/04/2021 12:00:00 AM EDT tablet 90 TAKE ONE TABLET BY MOUTH EVERY DAY TAKE ONE TABLET BY MOUTH EVERY DAY SOLD: 06/14/2021 [facility] 20 mEq 06/04/2021 12:00:00 AM EDT tablet,ER particles/cry stals 180 TAKE ONE TABLET BY MOUTH TWICE A DAY WITH FOOD TAKE ONE TABLET BY MOUTH TWICE A DAY WIT H FOOD SOLD: 06/14/2021 [facility] Citalopram 20 MG Oral Tablet CITALOPRAM HYDROBROMIDE 06/04/2021 12:00:00 AM EDT tablet 90 TAKE ONE TABLET BY MOUTH EVERY D AY TAKE ONE TABLET BY MOUTH EVERY DAY SOLD: 06/14/2021 [facility] Glipizide 5 MG Oral Tablet GLIPIZIDE 06/04/2021 12:00:00 AM EDT tablet 90 TAKE ONE TABLET BY MOUTH EVERY DAY TAKE ONE TABLET BY MOUTH EVERY DAY SOLD: 06/14/2021 [facility] Glipizide 5 MG Oral Tablet glipiZIDE (GLUCOTROL) 5 MG tablet glipiZIDE (GLUCOTROL) 5 MG tablet 06/04/2021 12:00:00 AM EDT 5 mg Oral active Take 5 mg by mouth daily [facility] 25 mg 06/04/2021 12:00:00 AM EDT tablet 90 TAKE ONE TABLET BY MOUTH EVERY DAY IN THE MORNING TAKE ONE TABLET BY MOUTH EVERY DAY IN THE MORNING SOLD : 06/14/2021 [facility] 8 HR Acetaminophen 650 MG Extended Release Oral Tablet [Tyle nol] Tylenol 8 Hour 04/30/2021 12:00:00 AM EDT active MEDENT ([facility] ) Ciprofloxacin 250 MG Oral Tablet [Cipro] Cipro 03/28/2021 12:00: 00 AM EDT ORAL completed [facility] ([facility]) Gemcitabine HCL 200 MG 03/13/2021 12:00:00 AM EDT completed [facility] ([facility]) Medication administered onsite Gemcitabine HCL 200 MG 03/05/2021 12:00:00 AM EDT completed [facility] ([facility]) Medication administered onsite Gemcitabine HCL 200 MG 02/26/2021 12:00:00 AM EDT completed [facility] ([facility]) Medication administered onsite 5 mg 02/03/2021 12:00:00 AM EDT tablet 90 TAKE ONE TABLET BY MOUTH ONCE DAILY TAKE ONE TABLET BY MOUTH ONCE DAILY SOLD: 02/11/2021 [facility] 10 mg 02/02/2021 12:00:00 AM EDT tablet 90 TAKE ONE TABLET BY MOUTH EVERY DAY TAKE ONE TABLET BY MOUTH EVERY DAY SOLD: 02/11/2021 [facility] 20 mEq 02/02/2021 12:00:00 AM EDT tablet,ER particles/cry stals 180 TAKE ONE TABLET BY MOUTH TWICE A DAY WITH FOOD TAKE ONE TABLET BY MOUTH TWICE A DAY WIT H FOOD SOLD: 02/11/2021 [facility] 500 mg 12/19/2020 12:00:00 AM EDT tablet 30 TAKE ONE TABLET BY MOUTH TWICE A DAY TAKE ONE TABLET BY MOUTH TWICE A DAY SOLD: 12/20/2020 [facility] Naproxen 500 MG Oral Tablet Naproxen 12/19/2020 12:00:00 AM EDT ORAL active MEDENT ([facility] ) 100 mg 11/21/2020 12:00:00 AM EDT tablet 30 TAKE 1 TABLET BY MOUTH NEEDED TAKE 1 TABLET BY MOUTH NEEDED SOLD: 11/21/2020 [facility] Doxycycline Monohydrate 100 MG Oral Capsule Doxycycline [place] hydrate 11/20/2020 12:00:00 AM EDT ORAL completed [facility] ([facility]) sildenafil 100 MG Oral Tablet Sildenafil Citrate 11/20/2020 12:00:00 AM EDT ORAL active [facility] ([facility]) Covid-19 vaccine, Unspecified 11/16/2020 12:00:00 AM EST completed [facility] ([facility]) Medication administered onsite 1.5 mg 11/07/2020 12:00:00 AM EST tablet 90 TAKE ONE TABLET BY MOUTH ONCE A DAY AT BEDTIME TAKE ONE TABLET BY MOUTH ONCE A DAY AT BEDTIME SOLD: [facility] 1.5 mg 11/07/2020 12:00:00 AM EST tablet 90 TAKE ONE TABLET BY MOUTH ONCE A DAY AT BEDTIME TAKE ONE TABLET BY MOUTH ONCE A DAY AT BEDTIME SOLD: [facility] 1.5 mg 11/07/2020 12:00:00 AM EST tablet 90 TAKE ONE TABLET BY MOUTH ONCE A DAY AT BEDTIME TAKE ONE TABLET BY MOUTH ONCE A DAY AT BEDTIME SOLD: 021 [facility] 50 mg 11/04/2020 12:00:00 AM EST tablet 90 TAKE ONE TABLET BY MOUTH EVERY DAY TAKE ONE TABLET BY MOUTH EVERY DAY SOLD: 02/11/2021 [facility] atorvastatin 40 MG Oral Tablet ATORVASTATIN CALCIUM 11/04/2020 1 2:00:00 AM EST tablet 90 TAKE ONE TABLET BY MOUTH EVERY D AY TAKE ONE TABLET BY MOUTH EVERY DAY SOLD: 02/11/2021 [facility] 1 mg 11/04/2020 12:00:00 AM EST tablet 90 TAKE ONE TABLET BY MOUTH EVERY DAY TAKE ONE TABLET BY MOUTH EVERY DAY SOLD: 02/11/2021 [facility] 25 mg 11/04/2020 12:00:00 AM EST tablet 180 TAKE ONE TABLET BY MOUTH TWICE A DAY WITH FOOD TAKE ONE TABLET BY MOUTH TWICE A DAY WITH FOOD SOLD: 021 [facility] 1 mg 11/04/2020 12:00:00 AM EST tablet 90 TAKE ONE TABLET BY MOUTH EVERY DAY TAKE ONE TABLET BY MOUTH EVERY DAY SOLD: 06/14/2021 [facility] 24 HR Metformin hydrochloride 750 MG Extended Release Oral T ablet METFORMIN HCL 11/04/2020 12:00:00 AM EST tablet extended release 24 hr 180 TAKE 2 TABLETS BY MOUTH WITH EVENING MEAL TAKE 2 TABLETS BY MOUTH WITH EVENING MEAL SOLD: 02/11/2021 [facility] 20 mg 11/04/2020 12:00:00 AM EST tablet 90 TAKE ONE TABLET BY MOUTH EVERY DAY TAKE ONE TABLET BY MOUTH EVERY DAY SOLD: 11/08/2020 [facility] 25 mg 11/04/2020 12:00:00 AM EST tablet 90 TAKE ONE TABLET BY MOUTH ONCE DAILY TAKE ONE TABLET BY MOUTH ONCE DAILY SOLD: 11/08/2020 [facility] atorvastatin 40 MG Oral Tablet ATORVASTATIN CALCIUM 11/04/2020 1 2:00:00 AM EST tablet 90 TAKE ONE TABLET BY MOUTH EVERY D AY TAKE ONE TABLET BY MOUTH EVERY DAY SOLD: 06/14/2021 [facility] 50 mg 11/04/2020 12:00:00 AM EST tablet 90 TAKE ONE TABLET BY MOUTH EVERY DAY TAKE ONE TABLET BY MOUTH EVERY DAY SOLD: 11/08/2020 [facility] atorvastatin 40 MG Oral Tablet ATORVASTATIN CALCIUM 11/04/2020 1 2:00:00 AM EST tablet 90 TAKE ONE TABLET BY MOUTH EVERY D AY TAKE ONE TABLET BY MOUTH EVERY DAY SOLD: 11/08/2020 [facility] 25 mg 11/04/2020 12:00:00 AM EST tablet 180 TAKE ONE TABLET BY MOUTH TWICE A DAY WITH FOOD TAKE ONE TABLET BY MOUTH TWICE A DAY WITH FOOD SOLD: 021 [facility] 20 mg 11/04/2020 12:00:00 AM EST tablet 90 TAKE ONE TABLET BY MOUTH EVERY DAY TAKE ONE TABLET BY MOUTH EVERY DAY SOLD: 06/14/2021 [facility] 24 HR Metformin hydrochloride 750 MG Extended Release Oral T ablet METFORMIN HCL 11/04/2020 12:00:00 AM EST tablet extended release 24 hr 180 TAKE 2 TABLETS BY MOUTH WITH EVENING MEAL TAKE 2 TABLETS BY MOUTH WITH EVENING MEAL SOLD: 11/08/2020 [facility] 50 mg 11/04/2020 12:00:00 AM EST tablet 90 TAKE ONE TABLET BY MOUTH EVERY DAY TAKE ONE TABLET BY MOUTH EVERY DAY SOLD: 06/14/2021 [facility] Citalopram 20 MG Oral Tablet CITALOPRAM HYDROBROMIDE 11/04/2020 12:00:00 AM EST tablet 90 TAKE ONE TABLET BY MOUTH ONCE DA EDWARD TAKE ONE TABLET BY MOUTH ONCE DAILY SOLD: 11/08/2020 [facility] Folic Acid 1 MG Oral Tablet FOLIC ACID 11/04/2020 12:00:00 AM EST tabl et 90 TAKE ONE TABLET BY MOUTH EVERY DAY TAKE ONE TABLET BY MOUTH EVERY DAY SOLD: 11/08/2020 [facility] 20 mg 11/04/2020 12:00:00 AM EST tablet 90 TAKE ONE TABLET BY MOUTH EVERY DAY TAKE ONE TABLET BY MOUTH EVERY DAY SOLD: 02/11/2021 [facility] 24 HR Metformin hydrochloride 750 MG Extended Release Oral T ablet METFORMIN HCL 11/04/2020 12:00:00 AM EST tablet extended release 24 hr 180 TAKE 2 TABLETS BY MOUTH WITH EVENING MEAL TAKE 2 TABLETS BY MOUTH WITH EVENING MEAL SOLD: 06/14/2021 [facility] 25 mg 11/04/2020 12:00:00 AM EST tablet 90 TAKE ONE TABLET BY MOUTH ONCE DAILY TAKE ONE TABLET BY MOUTH ONCE DAILY SOLD: 02/11/2021 [facility] Citalopram 20 MG Oral Tablet CITALOPRAM HYDROBROMIDE 11/04/2020 12:00:00 AM EST tablet 90 TAKE ONE TABLET BY MOUTH ONCE DA EDWARD TAKE ONE TABLET BY MOUTH ONCE DAILY SOLD: 02/11/2021 [facility] 25 mg 11/04/2020 12:00:00 AM EST tablet 180 TAKE ONE TABLET BY MOUTH TWICE A DAY WITH FOOD TAKE ONE TABLET BY MOUTH TWICE A DAY WITH FOOD SOLD: 021 [facility] Covid-19 vaccine, Unspecified 10/26/2020 12:00:00 AM EST completed [facility] ([facility]) Medication administered onsite 4 mg 08/25/2020 12:00:00 AM EST tablets,dose pack 21 TAKE DIRECTED ON SHEET TAKE DIRECTED ON SHEET SOLD: 08/30/2020 [facility] Methylprednisolone 4 MG Oral Tablet [Medrol] Medrol 12:00:00 AM EST active MEDENT ( [facility] ) 5-325 mg 08/25/2020 12:00:00 AM EST tablet [...] 07/04/2020 12:00:00 AM EDT completed [facility] ([facility]) Medication administered onsite Gemcitabine HCL 200 MG 06/27/2020 12:00:00 AM EDT completed [facility] ([facility]) Medication administered onsite Asa 06/27/2020 12:00:00 AM EDT ORAL active [facility] ([facility]) Gemcitabine HCL 200 MG 06/20/2020 12:00:00 AM EDT completed [facility] ([facility]) Medication administered onsite Gemcitabine HCL Gemcitabine HCL 06/15/2020 12:00:00 AM EDT active [facility] ([facility]) 1.5 mg 05/01/2020 12:00:00 AM EDT tablet 90 TAKE ONE TABLET BY MOUTH AT BEDTIME NEEDED TAKE ONE TABLET BY MOUTH AT BEDTIME NEEDED SOLD: [facility] 20 mEq 02/01/2020 12:00:00 AM EDT tablet,ER particles/cry stals 180 TAKE ONE TABLET BY MOUTH TWICE A DAY WITH FOOD TAKE ONE TABLET BY MOUTH TWICE A DAY WIT H FOOD SOLD: 11/08/2020 [facility] 20 mEq 02/01/2020 12:00:00 AM EDT tablet,ER particles/cry stals 180 TAKE ONE TABLET BY MOUTH TWICE A DAY WITH FOOD TAKE ONE TABLET BY MOUTH TWICE A DAY WIT H FOOD SOLD: 08/11/2020 [facility] 10 mg 01/28/2020 12:00:00 AM EDT tablet 90 TAKE ONE TABLET BY MOUTH EVERY DAY TAKE ONE TABLET BY MOUTH EVERY DAY SOLD: 11/08/2020 [facility] 5 mg 01/28/2020 12:00:00 AM EDT tablet 90 TAKE ONE TABLET BY MOUTH EVERY DAY TAKE ONE TABLET BY MOUTH EVERY DAY SOLD: 11/08/2020 [facility] 10 mg 01/28/2020 12:00:00 AM [...] MOUTH EVERY DAY SOLD: 08/11/2020 [facility] 1 mg 11/02/2019 12:00:00 AM EST tablet 90 TAKE ONE TABLET BY MOUTH EVERY DAY TAKE ONE TABLET BY MOUTH EVERY DAY SOLD: 08/11/2020 [facility] atorvastatin 40 MG Oral Tablet ATORVASTATIN CALCIUM 11/02/2019 1 2:00:00 AM EST tablet 90 TAKE ONE TABLET BY MOUTH EVERY D AY TAKE ONE TABLET BY MOUTH EVERY DAY SOLD: 08/11/2020 [facility] Citalopram 20 MG Oral Tablet CITALOPRAM HYDROBROMIDE 11/02/2019 12:00:00 AM EST tablet 90 TAKE ONE TABLET BY MOUTH ONCE DA EDWARD TAKE ONE TABLET BY MOUTH ONCE DAILY SOLD: 08/11/2020 [facility] 50 mg 11/02/2019 12:00:00 [...] WITH FOOD SO LD: 08/11/2020 [facility] 20 mg 11/02/2019 12:00:00 AM EST tablet 90 TAKE ONE TABLET BY MOUTH EVERY DAY TAKE ONE TABLET BY MOUTH EVERY DAY SOLD: 08/11/2020 [facility] 24 HR Metformin hydrochloride 750 MG Extended Release Oral T ablet METFORMIN HCL 11/02/2019 12:00:00 AM EST tablet extended release 24 hr 180 TAKE TWO TABLETS BY MOUTH EVERY DAY TAKE WITH EVENING MEAL TAKE TWO TABLETS BY MOUTH EVERY DAY TAKE WITH EVENING MEAL SOLD: 08/11/2020 [facility] clopidogrel 75 MG Oral Tablet clopidogrel (PLAVIX) 75 MG tablet clopidogrel (PLAVIX) 75 MG tablet 03/30/2019 12:00:00 AM EDT 75 mg Oral aborted Take 75 mg by mouth daily [facility] Phenazopyridine hydrochloride 100 MG Ora l Tablet phenazopyridine (PYRIDIUM) 100 MG tablet phenazopyridine (PYRIDIUM) 100 MG tablet 11/20/2018 12:00:00 AM EDT 100 mg Oral aborted Take 1 tab let (100 mg total) by mouth 3 (three) times a day as needed for pain [facility] 24 HR Oxybutynin chloride 5 MG Extended Release Oral Tablet oxybutynin (DITROPAN-XL) 5 MG 24 hr tablet oxybutynin (DITROPAN-XL) 5 MG 24 hr tablet 11/20/2018 12:00:00 AM EDT 5 mg Oral aborted Take 1 tablet (5 mg total) by mouth daily [facility] Glipizide 2.5 MG / Metformin hydrochlori de 500 MG Oral Tablet glipiZIDE- metFORMIN (METAGLIP) 2.5-500 MG per tablet glipiZIDE-metFORMIN (METAGLIP) 2.5- 500 MG per tablet 1 {tbl} Oral aborted Take 1 tablet by mouth 2 (two) times a day [facility] Polyethylene Glycol 3350 (MIRALAX PO) drug or medication Oral aborted Take by mouth daily [facility] [place]-3 Acid Ethyl Esters (JAIL) 1000 MG Oral Capsule omega-3 acid ethyl esters (LOVAZA) 1 g capsule omega-3 acid ethyl esters (LOVAZA) 1 g capsule 2 g Oral aborted Take 2 g by mouth 2 (two) times a day [facility] Insurance Providers Payer name Policy type / Coverage type Policy ID Covered constitution party ID Covered constitution party's relationship to wilson Policy [place] Plan Information [id number] [id number] [id number] Medicare Medicare Primary [id number] Self [id number] MEDICARE [id number] [place] [id number] A MEDICARE [id number] SP [id number] A Medicare Medicare Primary [id number] Self MEDICARE [id number] xxxxxxxxxxx [id number] MEDICARE [id number] [place] [id number] [facility] Part B [id number] Self [id number] A MEDICARE [id number] [place] [id number] A Medicare Medicare Primary [id number] Self [id number] Medicare Medicare Primary [id number] Self [id number] Medicare [facility] Part B [id number] Self [id number] [facility] [id number] SP [id number] [facility] [id number] [place] [id number] [facility] [id number] SP [id number] [facility] [id number] xxxxxxxxx [id number] [facility] [id number] [place] [id number] [facility] [id number] [facility] [id number] ANSI-Commercial [id number] Medicare Medicare Primary [id number] Self [id number] [facility] Part B [id number] Self [id number] ANSI-Commercial [id number] ANSI-Medicare Part B [id number] ANSI-Commercial [id number] ANSI-Medicare Part B [id number] Medicare Medicare Primary [id number] Self [id number] ANSI-Commercial [id number] ANSI-Medicare Part B [id number] ANSI-Medicare Part B [id number] ANSI-Commercial [id number] ANSI-Medicare Part B [id number] ANSI-Commercial [id number] ANSI-Medicare Part B [id number] ANSI-Commercial [id number]-[id number] [id number]-[id number] ANSI-Medicare Part B [id number] ANSI-Commercial [id number]-o4i9-61a2-[id number] [id number]-u3k6-75g0-[id number] ANSI-Commercial [id number]-d22d-[id number] ANSI-Medicare Part B [id number] MEDICARE [id number] A [place] Medicare Dme Medigap Part B [id number] Self 0 [id number] Medicare Medicare Primary [id number]. [id number] Self [id number] [place] Medicare Dme Medigap Part B [id number] Self 0 [id number] Medicare Medicare Primary [id number]. [id number] Self [id number] [facility] PI PI MEDICARE PI PI [facility] Maintenance Organization (HMO) [id number] Self [id number] MEDICARE [id number] SP [id number] [facility] Health Plan Medigap Part B [id number] Self [place] Medicare Dme Medigap Part B [id number] Self United [employer] Medigap Part B [id number] Self [facility] Medicare Dme Medigap Part B [id number] Self MEDICARE - [facility] [id number] S [id number] [place] Medicare Primary [id number] Self UNITED HEALTHCARE [id number] SP [id number] UNITED HEALTHCARE [id number] SP [id number] [facility] COMMERCIAL [id number] MEDICARE PART A [facility] [id number] 18 [id number] UNITED HEALTHCARE COMMERCIAL -O/P [id number] 18 [id number] UNITED HEALTHCARE COMMERCIAL -PHYSICIAN [id number] 18 [id number] MEDICARE PART A -O/P [id number] 18 [id number] [facility] COMMUNITY PLAN XIX - OP/ER [id number] 18 [id number] UNITED HEALTHCARE O [id number] S [id number] MEDICARE C [id number] S [id number] ANSI-Medicare Part B [id number] ANSI-Commercial [id number] [facility] Part B [id number] Self [id number] ANSI-Medicare Part B [id number] ANSI-Commercial [id number] ANSI-Medicare Part B [id number] ANSI-Commercial [id number] ANSI-Commercial [id number] Problems, Conditions, and Diagnoses Code Display Name Description Problem Type Effective Dates Data Source(s) G5602 Carpal tunnel syndrome, left upper limb Carpal tunnel syndrome, left upper limb Diagnosis 07/09/2021 10:07:00 AM EDT [facility] Z4802 Encounter for removal of sutures Encounter for r emoval of sutures Diagnosis 07/09/2021 10:07:00 AM EDT [facility] Z4789 Encounter for other orthopedic aftercare Encounter for other orthopedic aftercare Diagnosis 07/04/2021 09:00:00 AM EDT [facility] G5603 Carpal tunnel syndrome, bilateral upper limbs Carpal tunnel syndrome, bilateral upper limbs Diagnosis 06/28/2021 06:30:00 AM EDT [facility] Z1152 ENCOUNTER FOR SCREENING FOR COVID-19 ENCOUNTER F OR SCREENING FOR COVID-19 Diagnosis 06/23/2021 10:01:00 AM [facility] W68655 Encounter for preprocedural laboratory e xamination Encounter for preprocedural laboratory examination Diagnosis 06/23/2021 10:01:00 AM EDT [facility] V89495 Encounter for other preprocedural examin ation Encounter for other preprocedural examination Diagnosis 06/21/2021 10:30:00 AM [facility] G5601 Carpal tunnel syndrome, right upper limb Carpal tunnel syndrome, right upper limb Diagnosis 06/04/2021 12:55:00 PM [facility] 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, left wrist Primary osteo arthritis, left wrist Diagnosis 05/28/2021 09:50:00 AM [facility] T60260 Primary osteoarthritis, right wrist Primary oste oarthritis, right wrist Diagnosis 05/28/2021 09:50:00 AM [facility] G5621 Lesion of ulnar nerve, right upper limb Lesion of ulnar nerve, right upper limb Diagnosis 05/28/2021 09:50:00 AM [facility] 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, left upper limb L esion of ulnar nerve, left upper limb Diagnosis 05/28/2021 09:50:00 AM [facility] M5412 Radiculopathy, cervical region Radiculopathy, cervical region Diagnosis 05/28/2021 09:50:00 AM [facility] M542 Cervicalgia Cervicalgia Diagnosis 05/28/2021 09:50:00 AM [facility] I65.23 Bilateral carotid artery stenosis Bilateral quintero tid artery stenosis [id number] 06/18/2021 12:00:00 AM EDT [facility] Z01.818 Preoperative clearance Preoperative clearance [id number] 06/18/2021 12:00:00 AM EDT [facility] 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 Problem 05/28/2021 12:00:00 AM EDT [facility] ([facility]) 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, primary osteoarthritis of the wrist Localized, primary osteoarthritis of the wrist Problem 05/28/2021 12:00:00 AM EDT [facility] T ([facility]) [id number] Carpal tunnel syndrome Carpal tunnel syndrome Problem 04/30/2021 12:00:00 AM EDT [facility] ([facility], ) [id number] Numbness of hand Numbness of hand Problem 04/30/2021 12 :00:00 AM EDT [facility] ([facility], ) [id number] Hand pain Hand pain Problem 04/30/2021 12:00:00 AM ED T [facility] ([facility] ) M54.2 Neck pain Neck pain Problem 04/24/2021 12:00:00 AM ED T [facility] ([facility]) G56.02 Carpal tunnel syndrome of left wrist Car pal tunnel syndrome of left wrist Problem 04/24/2021 12:00:00 AM EDT [facility] ([facility]) G56.01 Carpal tunnel syndrome of right wrist Ca rpal tunnel syndrome of right wrist Problem 04/24/2021 12:00:00 AM EDT [facility] ([facility]) [id number] Pure hypercholesterolemia Pure hypercholesterolemia Pr oblem 04/23/2021 12:00:00 AM EDT [facility] ([facility]) [id number] Essential hypertension Essential hypertension Problem 04/23/2021 12:00:00 AM EDT [facility] ([facility]) G56.03 [id number] Bilateral carpal tunnel syndrome Pro blem 04/18/2021 12:00:00 AM EDT eCW1 ([facility]) E11.9 Type 2 diabetes mellitus Type 2 diabetes mellitus Prob sophia 01/25/2021 12:00:00 AM EDT [facility] ([facility]) R42 Dizziness and giddiness Dizziness and giddiness Proble m 01/09/2021 12:00:00 AM EDT [facility] ([facility]) T83.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 Mechanical complication of genitourinary device, 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, implant AND/OR graft Problem 12/15/2020 12:00:00 AM EDT [facility] ([facility]) N52.9 Erectile dysfunction Erectile dysfunction Problem 12/15/2020 12:00:00 AM EDT [facility] ([facility]) K76.9 Lesion of liver Lesion of liver Problem 11/20/2020 12:0 0:00 AM EDT [facility] ([facility]) [id number] Pure hypercholesterolemia Pure hypercholesterolemia Pr oblem 08/28/2020 12:00:00 AM EST [facility] ([facility]) 89384164 Essential hypertension Essential hypertension Problem 08/28/2020 12:00:00 AM EST [facility] ([facility] ) [id number] Type 2 diabetes mellitus Type 2 diabetes mellitus Prob sophia 08/28/2020 12:00:00 AM EST [facility] ([facility]) Z71.3 Dietary management surveillance Dietary management david veillance Problem 06/27/2020 12:00:00 AM EDT [facility] ([facility] Lizzette davis) Surgeries/Procedures Procedure Description Date Indications Data Source(s) OFFICE OUTPATIENT VISIT 25 MINUTES 07/09/2021 12:00:00 AM EDT [facility] ([facility]) ECG ROUTINE ECG W/LEAST 12 LDS W/I&R <td>POCT AMB EKG</td><td>Routine</td><td>06/18/2021 9:16 AM EDT</td><td> Preoperative clearance</td><td> </td> 06/18/2021 09:16:00 AM EDT Preoperative clearance [facility] Preoperative clearance OFFICE OUTPATIENT VISIT 25 MINUTES 06/04/2021 12:00:00 AM EDT [facility] ([facility]) OFFICE OUTPATIENT VISIT 15 MINUTES 05/28/2021 12:00:00 AM EDT [facility] ([facility]) Needle electromyography, each extremity, with related paraspinal areas, when performed, done with nerve conduction, amplitude and latency/velocity study; complete, five or more muscles studied, innervated by three or more nerves or four or more spinal levels (list separately in addition to the code for primary procedure). 05/03/2021 12:00:00 AM EDT MED[facility] T ([facility], ) Needle electromyography, each extremity, with related paraspinal areas, when performed, done with nerve conduction, amplitude and latency/velocity study; complete, five or more muscles studied, innervated by three or more nerves or four or more spinal levels (list separately in addition to the code for primary procedure). 05/03/2021 12:00:00 AM EDT [facility] T ([facility], ) Needle Electromyography Non Extremity Done With Nerve Conduc tion 05/03/2021 12:00:00 AM EDT [facility] ([facility] ) Needle Electromyography Non Extremity Done With Nerve Conduc tion 05/03/2021 12:00:00 AM EDT [facility] ([facility]) 38782 Nerve conduction studies 13 or more studies NEW 201205/03/2021 12:00:00 AM EDT [facility] ([facility]) OFFICE OUTPATIENT NEW 30 MINUTES 04/24/2021 12:00:00 A M EDT [facility] ([facility]) CYSTOURETHROSCOPY 03/28/2021 12:00:00 AM EDT [facility] ([facility]) OFFICE OUTPATIENT VISIT 15 MINUTES 03/28/2021 12:00:00 AM EDT [facility] ([facility]) BLADDER INSTILLATION ANTICARCINOGENIC AGENT 03/13/2021 12:00:00 AM EDT [facility] ([facility]) BLADDER INSTILLATION ANTICARCINOGENIC AGENT 03/05/2021 12:00:00 AM EDT [facility] ([facility]) BLADDER INSTILLATION ANTICARCINOGENIC AGENT 02/26/2021 12:00:00 AM EDT [facility] ([facility]) PHYSICIAN TELEPHONE EVALUATION 21-30 MIN 01/26/2021 12 :00:00 AM EDT [facility] ([facility]) Complete ECHO 01/09/2021 12:00:00 AM EDT [facility] ([facility]) Duplex Scan Extracranial Arteries, Complete Bilateral 01/09/2021 12:00:00 AM EDT [facility] ([facility]) Electrocardiogram Complete 12/26/2020 12:00:00 AM EDT [facility] ([facility]) OFFICE OUTPATIENT VISIT 25 MINUTES 12/15/2020 12:00:00 AM EDT [facility] ([facility]) CYSTOURETHROSCOPY 11/20/2020 12:00:00 AM EDT [facility] ([facility]) CT ABDOMEN & PELVIS W/O CONTRST 1/> BODY REGIONS 11/20 12:00:00 AM EDT [facility] ([facility]) OFFICE OUTPATIENT VISIT 15 MINUTES 11/20/2020 12:00:00 AM EDT [facility] ([facility]) Inject/Drain Arthrocentesis Major Joint/Bursa/Ganglion Cyst 11/03/2020 12:00:00 AM EST [facility] ([facility] ) ARTHROCENTESIS ASPIR&/INJECTION MAJOR JT/BURSA 020 12:00:00 AM EST [facility] ([facility]) ARTHROCENTESIS ASPIR&/INJECTION MAJOR JT/BURSA 020 12:00:00 AM EST [facility] ([facility]) BLADDER INSTILLATION ANTICARCINOGENIC AGENT 07/04/2020 12:00:00 AM EDT [facility] ([facility]) BLADDER INSTILLATION ANTICARCINOGENIC AGENT 06/27/2020 12:00:00 AM EDT [facility] ([facility]) Electrocardiogram Complete 06/27/2020 12:00:00 AM EDT [facility] ([facility] BLADDER INSTILLATION ANTICARCINOGENIC AGENT 06/20/2020 12:00:00 AM EDT [facility] ([facility]) Results ID Date Data Source [id number] 07/01/2021 07:44:00 [place] [address] OPERATIVE SUMMARYNAME: YOANNA Agrawal DATE OF : 1935TTENDING PHYS: Dorita Plata MD DATE: 06/28/21 MR#: [id number] OF PROCEDURE: 06/28/21PREOPERATIVE DIAGNOSIS: Right wrist carpal tunnel syndrome.POSTOPERATIVE DIAGNOSIS: Right wrist carpal tunnel syndrome.SURGEON: Dorita Plata MD.ADVANCED MANUFACTURING VICE PRESIDENT: Alfred Anderson NPANESTHESIOLOGIST: PAULY VyasTHESIA: Local plus sedation.OPERATION PERFORMED: Right wrist carpal tunnel release.ESTIMATED BLOOD LOSS: Less than 20 cc.DRAINS: None.SPECIMEN: None.TOURNIQUET TIME: None.SURGICAL TIME: 17 minutes.SPONGE COUNT: Correct.NEEDLE COUNT: Correct.COMPLICATIONS: None.INDICATION FOR PROCEDURE:The patient is an 85-year-old male patient who is suffering from right hand numbness, tingling andpain for the last 7 months. Physical examination and EMG nerve conduction studies supported theabove noted diagnosis. The patient failed conservative treatment. Therefore, it was elected at thistime to undergo the above-noted procedure. [address] [place] [address] OPERATIVE SUMMARYNAME: YOANNA Agrawal DATE OF : 10ATTENDING PHYS: Dorita Plata MD DATE: 06/28/21 MR#: [id number] OF PROCEDURE:The patient was brought to the operating room and placed on the operating table in a supineposition. The right arm was then elevated, prepped and draped in the usual sterile fashion. Thepatient received 2 grams of Ancef IV preoperatively as prophylaxis against infection. After the timeout, an incision was planned on the volar aspect of the hand with skin tension free and infiltratedwith local anesthesia.CARPAL TUNNEL RELEASE:The incision for the carpal tunnel release was then made with a #10 blade down to thesubcutaneous tissue. Deep spreading with tenotomy scissors exposed the palmar fascia which wasincised sharply. The transverse carpal ligament was visualized and it was incised up into theanterior forearm fascia and distally to the edge of the ligament over a metal protector, taking carenot to harm the median nerve, recurrent branch of the median nerve or the vascular arch. Thewound was irrigated thoroughly. Hemostasis was obtained using bipolar cautery. The wound wasclosed using #5-0 nylon mattress suture. The patient was placed in a soft hand dressing and taken tothe recovery room in satisfactory condition.POSTOPERATIVE REHABILITATION PROTOCOL:The patient will start doing finger and wrist range of motion immediately. The [facility] for suture removal and then start hand therapy and scar t herapy. I, Nilsa, personally performed all elements of this surgery.DD: Dorita Plata MD 07/01/21 10:59DT: TAYLOR 07/01/21 19:44DS: Dorita Plata MD 07/02/21 08:25 2 Name Value Range Interpretation Code Description Data Cary rce(s) Supporting Document(s) ID Date Data Source [id number] 06/23/2021 08:30:00 AM EDT [facility] ([facility]) Name Value Range Interpretation Code Description Data Cary rce(s) Supporting Document(s) Sars-CoV-2, Ishaan Laboratory test result [facility] ([facility]) This nucleic acid amplification test was developed and its performance characteristics determined by [facility]. Nucleic acid amplification tests include RT-PCR and [...] negative (not detected) result in this assay. Laboratory test finding (navigational concept) Laboratory test result [facility] ([facility]) ID Date Data Source [id number] 06/23/2021 08:30:00 AM EDT [facility] Name Value Range Interpretation Code Description Data Cary rce(s) Supporting Document(s) SARS coronavirus 2 RNA Not Detected [facility] [place] This lab was ordered by [facility] Rizwan rollins and reported by [email or web address]. ID Date Data Source [id number] 06/26/2021 06:51:00 AM EDT [facility] Name Value Range Interpretation Code Description Data Cary rce(s) Supporting Document(s) SARS-CoV-2, ISHAAN Not Detected Not Detected [facility] This nucleic acid amplification test was developed and its performancecharacteristics determined by [facility]. Nucleic acidamplification tests include RT-PCR and TMA. This test has not beenFDA cleared or approved. This test has been authorized by FDA underan Emergency Use Authorization (EUA). This test is only authorizedfor the duration of time the declaration that circumstances existjustifying the authorization of the emergency use of in vitrodiagnostic tests for detection of SARS-CoV-2 virus and/or diagnosisof COVID-19 infection under section 564(b)(1) of the Act, 21 U.S.C.360bbb-3(b) (1), unless the authorization is terminated or revokedsooner.When diagnostic testing is negative, the possibility of a falsenegative result should be considered in the context of a patient'srecent exposures and the presence of clinical signs and symptomsconsistent with COVID- 19. An individual without symptoms of COVID-19and who is not shedding SARS-CoV-2 virus would expect to have anegative (not detected) result in this assay. SARS-CoV-2, ISHAAN 2 DAY TAT Performed [facility] ID Date Data Source [id number] 06/19/2021 01:57:00 PM EDT [facility] ([facility] Name Value Range Interpretation Code Description Data Cary rce(s) Supporting Document(s) Prostate specific Ag [Mass/volume] in Serum or Plasma 0.04 [facility] ([facility]) ID Date Data Source [id number] 04/24/2021 08:03:00 PM EDT [facility] [address] [place] [address] PHONE: [phone] FAX: [phone] Name .................. : YOANNA Agrawal Acct Number.................. : [id number] ROOM. ................. : MR Number ................... : [id number] Stay type ............. : CLINIC Discharge Date......... ... : 04/24/21 Admit Date ......... : 04/24/21 Admit Phys .................... : BONI SZYMANSKI Date of ....... : 1935 Family Phys ................... : Phone .................. : [phone] Age ................................ : 85 Film# .................. .:[id number] Sex ................................. : M Unsigned transcriptions are preliminary reports and do not represent a medical or legal document HAND COMP - BILATERAL [id number] COMPLETE:04/24/21 15:14 [facility] [id number] Reason for Exam: CARPAL TUNNEL SYNDROME RADIOGRAPHS OF THE BILATERAL HANDS 8 VIEWS INDICATION: Carpal tunnel syndrome COMPARISON: None. FINDINGS: Right side: Wrist findings discussed separately. First CMC joint shows severe joint space narrowing and sclerosis. Multifocal mild interphalangeal joint marginal osteophytes. No marginal erosions. No subluxations. No acute fracture or dislocation. Left side: Wrist findings discussed separately. First CMC joint shows severe joint space narrowing and sclerosis. Mild multifocal interphalangeal joint osteophytic change. No marginal erosions or subluxations. No acute fracture or dislocation. There is deformity of the bone and soft tissue tuft of the left third finger with appearance suggesting sequela of prior trauma. IMPRESSION: Multifocal arthritic changes typical of osteoarthritis mild in the interphalangeal joints and severe in the first CMC joint bilaterally. Electronically Reviewed and Signed By Esteban New MD , 04/24/21 20:03, TAPAN Transcribe Initials: DZ , Transcribe Date: 04/24/21 15:37, Dictation Date: Page 1 of 1 Name Value Range Interpretation Code Description Data Cary rce(s) Supporting Document(s) ID Date Data Source [id number] 04/24/2021 08:02:00 PM EDT [facility] [address] [place] [address] PHONE: [phone] FAX: [phone] Name .................. : YOANNA AYON Tanvir Acct Number.................. : [id number] ROOM. ................. : Number ................... : [id number] Stay type ............. : CLINIC Discharge Date......... ... : 04/24/21 Admit Date ......... : 04/24/21 Admit Phys .................... : BONI SZYMANSKI Date of ....... : 1935 Family Phys ................... : Phone .................. : [phone] Age ................................ : 85 Film# .................. .:[id number] Sex ................................. : M Unsigned transcriptions are preliminary reports and do not represent a medical or legal document WRIST COMP - BILATERAL [id number] COMPLETE:04/24/21 15:15 [facility] [id number] Reason for Exam: CARPAL TUNNEL SYNDROME RADIOGRAPHS OF THE BILATERAL WRISTS 8 VIEWS. NO TUNNEL VIEWS SUPPLIED INDICATION: Carpel tunnel syndrome COMPARISON: None. FINDINGS: No acute fracture or dislocation. Small ossicle adjacent to ulnar styloid may be sequela of old fracture. Right side: Widening of the scapholunate interval indicative of ligamentous injury. Complete collapse of the scaphoid radial articular cartilage interface with ldgh-fw-abcp contact. Near complete collapse of the lunate radial articular space. Sclerosis in the periarticular portions of the scaphoid and lunate likely degenerative rather than osteonecrotic based on location. Severe joint space narrowing and sclerosis first CMC joint. Left side: Severe narrowing of the articular space between the lunate and the radius. Distal radial lesion likely representing benign subchondral cyst. Severe first CMC joint narrowing and sclerosis. No acute fracture or dislocation. IMPRESSION: Scapholunate ligament disruption on the right. 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 Electronically Reviewed and Signed By Esteban New MD , 04/24/21 20:02, MOMario Transcribe Initials: DZ , Transcribe Date: 04/24/21 15:35, Dictation Date: Page 1 of 1 Name Value Range Interpretation Code Description Data Cary rce(s) Supporting Document(s) ID Date Data Source [id number] 03/28/2021 11:15:00 AM EDT [facility] ([facility] Name Value Range Interpretation Code Description Data Cary rce(s) Supporting Document(s) Clinical History Laboratory test result [facility] ([facility]) C67.8 Specimen Adequacy Laboratory test result [facility] ([facility]) Satisfactory for evaluation. BodySite Laboratory test result [facility] ([facility]) Voided - Clean Catch Gross Description Laboratory test result [facility] ([facility]) Received in a specimen container, labele d with the patients name and , is Cloudy Yellow fluid consistent with urine, measuring approximately 15 ml. Microscopic Description Laboratory test result [facility] ([facility]) Moderate numbers of neutrophils present. Final Diagnosis Laboratory test result [facility] ([facility]) NEGATIVE FOR HIGH-GRADE UROTHELIAL CARCI NOMA. PDF Report Laboratory test result [facility] ([facility]) CPTCode 20009 [facility] ID Date Data Source [id number] 03/28/2021 11:15:00 AM EDT [facility] ([facility] Name Value Range Interpretation Code Description Data Cary rce(s) Supporting Document(s) Cytology report of Urine Cyto stain Laboratory test result [facility] ([facility]) ID Date Data Source [id number] 03/28/2021 10:08:00 AM EDT [facility] Name Value Range Interpretation Code Description Data Cary rce(s) Supporting Document(s) Protein [Presence] in Urine by Test strip Laboratory test result [facility] ([facility]) Glucose [Presence] in Urine 100 mg/dL [facility] ([facility]) Ua Leuko Laboratory test result [facility] ([facility] Blood [Presence] in Urine by Visual Laboratory test result [facility]) Ua Nitrite Laboratory test result [facility] ([facility]) Color of Urine Laboratory test result [facility] ([facility] Clarity of Urine Laboratory test result [facility] ([facility]) Ketones [Presence] in Urine by Test strip Laboratory test result [facility] ([facility]) Ua Specific [place] Laboratory test result 1.003-1.030 [facility] ([facility]) Bilirubin.total [Presence] in Urine by Test strip Laboratory test res ult [facility] ([facility]) pH of Urine by Test strip 5.0 5.0-7.5 [facility] ([facility]) Urobilinogen [Mass/volume] in Urine by Test strip 0.2 E.U./dL 0.0-1.0 [facility] ([facility]) ID Date Data Source [id number] 03/13/2021 10:56:00 AM EDT [facility] ([facility]) Name Value Range Interpretation Code Description Data Cary rce(s) Supporting Document(s) Glucose [Presence] in Urine Laboratory test result [facility] ([facility]) Protein [Presence] in Urine by Test strip 100 mg/dL [facility] ([facility] [place]) Ua Nitrite Laboratory test result ME D[facility] ([facility]) Ua Leuko Laboratory test result [facility] ([facility]) Blood [Presence] in Urine by Visual Laboratory test result [facility] ([facility]) Clarity of Urine Laboratory test result [facility] ([facility]) Color of Urine Laboratory test result [facility] ([facility]) Ketones [Presence] in Urine by Test strip Laboratory test result [facility] ([facility]) Bilirubin.total [Presence] in Urine by Test strip Laboratory test res ult [facility] ([facility]) Ua Specific [place] 1.020 1.003-1.030 MEDE NT ([facility]) pH of Urine by Test strip 5.0 5.0-7.5 [facility] ([facility]) Urobilinogen [Mass/volume] in Urine by Test strip 0.2 E.U./dL 0.0-1.0 [facility] ([facility]) ID Date Data Source [id number] 03/05/2021 10:49:00 AM EDT [facility] ([facility]) Name Value Range Interpretation Code Description Data Cary rce(s) Supporting Document(s) Glucose [Presence] in Urine 500 mg/dL [facility] ([facility]) Ua Nitrite Laboratory test result [facility] ([facility]) Protein [Presence] in Urine by Test strip 100 mg/dL [facility] ([facility]) Blood [Presence] in Urine by Visual Laboratory test result [facility] ([facility]) Ua Leuko Laboratory test result [facility] ([facility]) Color of Urine Laboratory test result [facility] ([facility]) Ketones [Presence] in Urine by Test strip Laboratory test result [facility] ([facility]) Clarity of Urine Laboratory test result [facility] ([facility]) Ua Specific [place] 1.025 1.003-1.030 MED[facility] NT ([facility]) Urobilinogen [Mass/volume] in Urine by Test strip 0.2 E.U./dL 0.0-1.0 [facility] ([facility]) Bilirubin.total [Presence] in Urine by Test strip Laboratory test res ult [facility] ([facility]) pH of Urine by Test strip 5.5 5.0-7.5 [facility] ([facility]) ID Date Data Source [id number] 02/26/2021 11:34:00 AM EDT [facility] ([facility]) Name Value Range Interpretation Code Description Data Cary rce(s) Supporting Document(s) Glucose [Presence] in Urine 250 mg/dL [facility] ([facility]) Ua Leuko Laboratory test result [facility] ([facility]) Ua Nitrite Laboratory test result [facility] ([facility]) Protein [Presence] in Urine by Test strip 100 mg/dL [facility] ([facility]) Ketones [Presence] in Urine by Test strip Laboratory test result [facility] ([facility]) Color of Urine Laboratory test result [facility] ([facility]) Blood [Presence] in Urine by Visual Laboratory test result [facility] ([facility]) Ua Specific [place] 1.020 1.003-1.030 [facility] NT ([facility]) pH of Urine by Test strip 6.0 5.0-7.5 [facility] ([facility]) Clarity of Urine Laboratory test result [facility] ([facility]) Bilirubin.total [Presence] in Urine by Test strip Laboratory test res ult [facility] ([facility]) Urobilinogen [Mass/volume] in Urine by Test strip 0.2 E.U./dL 0.0-1.0 [facility] ([facility]) ID Date Data Source [id number] 01/01/2021 08:44:00 AM EDT [facility] ([facility] Name Value Range Interpretation Code Description Data Cary rce(s) Supporting Document(s) White Blood Count 6.5 10 4.0-10.0 Normal (applies to non-numeri c results) [facility] ([facility] Red Blood Count 4.74 10 4.30-6.10 Normal (applies to non-numeric results) [facility] ([facility]) Hemoglobin 13.3 g/dL 13.5-17.5 Below low normal [facility] ( [facility]) Hematocrit 41.3 % 42.0-52.0 Below low normal [facility] ( [facility]) Mean Corpuscular Volume 87.1 fl 80.0-96.0 Normal ( applies to non-numeric results) [facility] ([facility]iac [facility]) Mean Corpuscular HGB Conc 32.2 g/dL 32.0-36.5 Normal (applies to non-numeric results) [facility] ([facility]) Mean Corpuscular Hemoglobin 28.1 pg 27.0-33.0 Norm al (applies to non-numeric results) [facility] ([facility]) Red Cell Distribution Width 13.0 % 11.5-14.5 Norm al (applies to non-numeric results) [facility] ([facility]) Platelet Count, Automated 248 10 150-450 Normal (applies to non-numeric results) [facility] ([facility]) Neutrophils % 73.2 % 36.0-66.0 Above high normal MEDE NT ([facility]) Lymph % 12.8 % 24.0-44.0 Below low normal [facility] ( [facility]) [place] % 8.9 % 2.0-8.0 Above high normal [facility] ([facility]) Baso % 1.7 % 0.0-1.0 Above high normal [facility] ([facility]) Eos % 2.8 % 0.0-3.0 Normal (applies to non-numeric resul ts) [facility] ([facility]) Immature Granulocyte % 0.6 % 0-3.0 Normal (applies to non-n umeric results) [facility] ([facility]) Nucleated Red Blood Cell % 0.0 % 0-0 Normal (applies to n on-numeric results) [facility] ([facility]) Lymph # 0.8 10 1.5-5.0 Below low normal [facility] ( [facility]) [place] # 0.6 10 0.0-0.8 Normal (applies to non-numeric resul ts) [facility] ([facility]) Neutrophils # 4.8 10 1.5-8.5 Normal (applies to non-numeric re sults) [facility] ([facility]) Eos # 0.2 10 0.0-0.5 Normal (applies to non-numeric resul ts) [facility] ([facility]) Baso # 0.1 10 0.0-0.2 Normal (applies to non-numeric resul ts) [facility] ([facility]) ID Date Data Source [id number] 01/01/2021 08:44:00 AM EDT [facility] ([facility] Name Value Range Interpretation Code Description Data Cary rce(s) Supporting Document(s) Aspartate aminotransferase [Enzymatic activity/volume] in Serum or Plasma 30 U/L 7-37 Normal (applies to non-numeric results) [facility] ([facility]) Creatine kinase [Enzymatic activity/volume] in Serum or Plasma 4 69 U/L 39-308 Above high normal [facility] ([facility] Alanine aminotransferase [Enzymatic activity/volume] in Seru m or Plasma 30 U/L 12-78 Normal (applies to non-numeric results) [facility] ([facility]) ID Date Data Source [id number] 01/01/2021 08:44:00 AM EDT [facility] Name Value Range Interpretation Code Description Data Cary rce(s) Supporting Document(s) Glucose, Fasting 143 mg/dL 70-100 Above high normal M EDENT ([facility]) Creatinine For GFR 1.44 mg/dL 0.70-1.30 Above high normal [facility] ([facility]) Blood Urea Nitrogen 39 mg/dL 7-18 Above high normal [facility] ([facility]) Glomerular Filtration Rate 49.9 Normal (applies to n on-numeric results) [facility] ([facility]) <content>Units are mL/min/1.73 m2</content>
<content></content>
<content>Chronic Kidney Disease Staging per NKF:</content>
<content></content>
<content>Stage I & II GFR >=60 Normal to Mildly Decreased</content>
<content>Stage III GFR 30-59 Moderately Decreased</content>
<content>Stage IV GFR 15-29 Severely Decreased</content>
<content>Stage V GFR <15 Very Little GFR Left</content>
<content>ESRD GFR <15 on BUTTONHOLE MAK[employer] HAND</content>
<content></content> Sodium Level 138 meq/L 136-145 Normal (applies to non-numeric res ults) [facility] ([facility] Potassium Serum 3.3 meq/L 3.5-5.1 Below low normal MED ENT ([facility]) Chloride Level 97 meq/L 98-107 Below low normal MEDE NT ([facility]) Carbon Dioxide Level 33 meq/L 21-32 Above high normal [facility] ([facility]) Anion Gap 8 meq/L 8-16 Normal (applies to non-numeric resul ts) [facility] ([facility]) Calcium Level 9.0 mg/dL 8.8-10.2 Normal (applies to non-numeric re sults) [facility] ([facility]) ID Date Data Source [id number] 01/01/2021 08:44:00 AM EDT [facility] ([facility]) Name Value Range Interpretation Code Description Data Cary rce(s) Supporting Document(s) Triglycerides Level 96 mg/dL Normal (applies to non-nume ramonita results) [facility] ([facility]) Cholesterol Level 150 mg/dL Normal (applies to non-numeri c results) [facility] ([facility]) HDL Cholesterol 55 mg/dL Normal (applies to non-numeric results) [facility] ([facility] LDL Cholesterol 76 mg/dL Normal (applies to non-numeric results) [facility] ([facility]) Non-HDL-C 95 mg/dL Normal (applies to non-numeric resul ts) [facility] ([facility]) Cholesterol Risk Ratio 2.727 Normal (applies to non-n umeric results) [facility] ([facility]) ID Date Data Source [id number] 01/01/2021 08:44:00 AM EDT [facility] ([facility] Name Value Range Interpretation Code Description Data Cary rce(s) Supporting Document(s) Hemoglobin A1c 8.0 % Normal (applies to non-numeric r esults) [facility] ([facility]) <content>REFERENCE RANGES:</content><br/ ><content></content>
<content><=5.6% NORMAL</content>
<content>5.7-6.4% SUGGESTS IMPAIRED GLUCOSE METABOLISM/PREDIABETIC</content>
<content>>= 6.5% ABNORMAL</content>
<content></content> Estimated Average Glucose 183 mg/dL 60-110 Above high normal [facility] ([facility]) ID Date Data Source [id number] 11/20/2020 01:58:00 PM EDT [facility] ([facility] [place]) Name Value Range Interpretation Code Description Data Cary rce(s) Supporting Document(s) Specimen Adequacy Laboratory test result [facility] ([facility]) Satisfactory for evaluation. Clinical History Laboratory test result [facility] ([facility]) C67.8 BodySite Laboratory test result ME [facility] ([facility]) Voided - Clean Catch Microscopic Description Laboratory test result [facility] ([facility]) Gross Description Laboratory test result [facility] ([facility] [place]) Received in a specimen container, labele d with the patients name and , is Cloudy Yellow fluid consistent with urine, measuring approximately 40 ml. CPTCode 23334 [facility] ([facility] [place]) Final Diagnosis Laboratory test result [facility] ([facility]) NEGATIVE FOR HIGH-GRADE UROTHELIAL CARCI NOMA. PDF Report Laboratory test result [facility] ([facility]) [id number] Laboratory test result [facility] ([facility]) ID Date Data Source [id number] 11/20/2020 01:58:00 PM EDT [facility] ([facility]) Name Value Range Interpretation Code Description Data Cary rce(s) Supporting Document(s) Cytology report of Urine Cyto stain Laboratory test result [facility] ([facility]) ID Date Data Source [id number] 11/20/2020 01:31:00 PM EDT [facility] ([facility]) Name Value Range Interpretation Code Description Data Cary rce(s) Supporting Document(s) Glucose [Presence] in Urine 250 mg/dL [facility] ([facility]) Protein [Presence] in Urine by Test strip 100 mg/dL [facility] ([facility]) Ua Leuko Laboratory test result [facility] ([facility]) Ua Nitrite Laboratory test result [facility] ([facility]) Color of Urine Laboratory test result [facility] ([facility]) Blood [Presence] in Urine by Visual Laboratory test result [facility] ([facility]) Ketones [Presence] in Urine by Test strip Laboratory test result [facility] ([facility]) Clarity of Urine Laboratory test result [facility] ([facility]) Ua Specific [place] 1.010 1.003-1.030 MEDE NT ([facility]) Bilirubin.total [Presence] in Urine by Test strip Laboratory test res ult [facility] ([facility]) pH of Urine by Test strip 5.5 5.0-7.5 [facility] ([facility]) Urobilinogen [Mass/volume] in Urine by Test strip 0.2 E.U./dL 0.0-1.0 [facility] ([facility]) ID Date Data Source [id number] 10/09/2020 02:39:00 PM EST [facility] ([facility]) Name Value Range Interpretation Code Description Data Cary rce(s) Supporting Document(s) Prostate specific Ag [Mass/volume] in Serum or Plasma 0.03 [facility] ([facility]) ID Date Data Source [id number] 07/04/2020 08:48:00 AM EDT [facility] ([facility]) Name Value Range Interpretation Code Description Data Cary rce(s) Supporting Document(s) Glucose [Presence] in Urine Laboratory test result [facility] ([facility]) Ua Nitrite Laboratory test result [facility] ([facility]) Protein [Presence] in Urine by Test strip 30 mg/dL [facility] ([facility]) Blood [Presence] in Urine by Visual Laboratory test result [facility] ([facility]) Ua Leuko Laboratory test result [facility] ([facility]) Color of Urine Laboratory test result [facility] ([facility]) Ketones [Presence] in Urine by Test strip Laboratory test result [facility] ([facility]) Ua Specific [place] 1.020 1.003-1.030 MED[facility] NT ([facility]) Clarity of Urine Laboratory test result [facility] ([facility]) Bilirubin.total [Presence] in Urine by Test strip Laboratory test res ult [facility] ([facility]) pH of Urine by Test strip 5.0 5.0-7.5 [facility] ([facility]) Urobilinogen [Mass/volume] in Urine by Test strip 0.2 E.U./dL 0.0-1.0 [facility] ([facility]) ID Date Data Source [id number] 06/27/2020 10:40:00 AM EDT [facility] ([facility]) Name Value Range Interpretation Code Description Data Cary rce(s) Supporting Document(s) Protein [Presence] in Urine by Test strip Laboratory test result [facility] ([facility]) Glucose [Presence] in Urine Laboratory test result [facility] ([facility]) Ua Nitrite Laboratory test result [facility] ([facility]) Ua Leuko Laboratory test result [facility] ([facility]) Blood [Presence] in Urine by Visual Laboratory test result [facility] ([facility]) Color of Urine Laboratory test result [facility] ([facility] Ketones [Presence] in Urine by Test strip Laboratory test result [facility] ([facility]) Ua Specific [place] 1.020 1.003-1.030 MED[facility] NT ([facility]) Clarity of Urine Laboratory test result [facility] ([facility]) pH of Urine by Test strip 6.0 5.0-7.5 [facility] ([facility]) Bilirubin.total [Presence] in Urine by Test strip Laboratory test res ult [facility] ([facility]) Urobilinogen [Mass/volume] in Urine by Test strip 0.2 E.U./dL 0.0-1.0 [facility] ([facility]) ID Date Data Source [id number] 06/20/2020 11:05:00 AM EDT [facility] ([facility]) Name Value Range Interpretation Code Description Data Cary rce(s) Supporting Document(s) Glucose [Presence] in Urine Laboratory test result [facility] ([facility]) Protein [Presence] in Urine by Test strip 30 mg/dL [facility] ([facility]) Ua Nitrite Laboratory test result [facility] ([facility] [place]) Ua Leuko Laboratory test result [facility] ([facility]) Blood [Presence] in Urine by Visual Laboratory test result [facility] ([facility]) Color of Urine Laboratory test result [facility] ([facility]) Ketones [Presence] in Urine by Test strip Laboratory test result [facility] ([facility]) Clarity of Urine Laboratory test result [facility] ([facility]) Ua Specific [place] 1.025 1.003-1.030 MED[facility] NT ([facility]) pH of Urine by Test strip 7.0 5.0-7.5 [facility] ([facility]) Urobilinogen [Mass/volume] in Urine by Test strip 0.2 E.U./dL 0.0-1.0 [facility] ([facility]) Bilirubin.total [Presence] in Urine by Test strip Laboratory test res ult [facility] ([facility]) Procedure Social History Code Duration Value Status Description Data Source(s ) Alcohol intake 06/18/2021 12:00:00 AM EDT Current drinker of al cohol (finding) completed Current drinker of alcohol (finding) [facility] Smoking 03/28/2021 12:00:00 AM EDT Former Cigarette Smoker com pleted Former Cigarette Smoker [facility] ([facility]) Smoking 01/25/2021 12:00:00 AM EDT Patient is a former smoker completed Patient is a former smoker [facility] ([facility]) Vital Signs ID Date Data Source [id number] Name Value Range Interpretation Code Description Data Source(s) Body temperature 97.9 [degF] 97.9 [degF] [facility] ([facility]) Body temperature 97.3 [degF] 97.3 [degF] [facility] ([facility]) Body temperature 97.5 [degF] 97.5 [degF] [facility] ([facility]) Systolic blood pressure 130 mm[Hg] 130 mm[Hg] [facility] Diastolic blood pressure 68 mm[Hg] 68 mm[Hg] [facility] Heart rate 61 /min 61 /min [facility] Respiratory rate 18 /min 18 /min [facility] Body height 171.5 cm 171.5 cm [facility] Body weight 74.39 kg 74.39 kg [facility] Body mass index (BMI) [Ratio] 25.31 kg/m2 25.31 kg/m2 [facility] Oxygen saturation in Arterial blood by Pulse oximetry 96 % 96 % [facility] Body temperature 97.3 [degF] 97.3 [degF] MEDENT ([facility]) Body weight 162.00 [lb_av] 162.00 [lb_av] MEDEN T ([facility]) Body weight 73.483 kg 73.483 kg MED[facility] ([facility]) Body height 67 [in_i] 67 [in_i] [facility] ([facility]) 5'7" Body mass index (BMI) [Ratio] 25.4 kg/m2 25.4 k g/m2 [facility] ([facility]) Body surface area Derived from formula 1.85 m2 1.85 m2 [facility] Body temperature 98.1 [degF] 98.1 [degF] [facility] ([facility]) Diastolic blood pressure 80 mm[Hg] 80 mm[Hg] [facility] ([facility] ) Systolic blood pressure 120 mm[Hg] 120 mm[Hg] M EDENT ([facility] ) Body weight 168.00 [lb_av] 168.00 [lb_av] MEDEN T ([facility] ) Body height 67 [in_i] 67 [in_i] [facility] ([facility] ) 5'7" [place] body weight 148 [lb_av] 148 [lb_av] MEDEN T ([facility] ) Body mass index (BMI) [Ratio] 26.3 kg/m2 26.3 k g/m2 [facility] ([facility] ) Heart rate 72 /min 72 /min [facility] ([facility] ) Body temperature 98.4 [degF] 98.4 [degF] [facility] ([facility]) Systolic blood pressure 174 mm[Hg] 174 mm[Hg] M EDENT ([facility]) Body height 67 [in_i] 67 [in_i] [facility] 5'7" Body weight 168.00 [lb_av] 168.00 [lb_av] MEDEN T ([facility]) Body weight 76.205 kg 76.205 kg [facility] ([facility] Diastolic blood pressure 77 mm[Hg] 77 mm[Hg] [facility] ([facility]) Body mass index (BMI) [Ratio] 26.3 kg/m2 26.3 k g/m2 [facility] ([facility]) Heart rate 79 /min 79 /min [facility] Body temperature 98.0 [degF] 98.0 [degF] [facility] ([facility]) Diastolic blood pressure 70 mm[Hg] 70 mm[Hg] MED[facility] ([facility] Body weight 176.00 [lb_av] 176.00 [lb_av] MEDEN T ([facility] Body height 67 [in_i] 67 [in_i] MED[facility] ([facility] 5'7" Body mass index (BMI) [Ratio] 27.6 kg/m2 27.6 k g/m2 [facility] ([facility] Body surface area Derived from formula 1.92 m2 1.92 m2 [facility] ([facility]) Systolic blood pressure 135 mm[Hg] 135 mm[Hg] M EDENT ([facility] Body mass index (BMI) [Ratio] 28.7 kg/m2 28.7 k g/m2 [facility] ([facility]) Systolic blood pressure 128 mm[Hg] 128 mm[Hg] M EDENT ([facility] Body weight 183.00 [lb_av] 183.00 [lb_av] MEDEN T ([facility] Body height 67 [in_i] 67 [in_i] MEDENT ([facility] 5'7" Oxygen saturation in Arterial blood by Pulse oximetry 98 % 98 % [facility] ([facility] Body surface area Derived from formula 1.95 m2 1.95 m2 [facility] ([facility] Diastolic blood pressure 62 mm[Hg] 62 mm[Hg] [facility] ([facility] Heart rate 72 /min 72 /min [facility] ([facility] Body temperature 97.8 [degF] 97.8 [degF] MED[facility] ([facility]) Body height 68 [in_i] 68 [in_i] MEDENT ([facility]) 5'8" Body weight 175.00 [lb_av] 175.00 [lb_av] MEDEN T ([facility]) Systolic blood pressure 161 mm[Hg] 161 mm[Hg] M EDENT ([facility]) Diastolic blood pressure 70 mm[Hg] 70 mm[Hg] [facility] ([facility]) Heart rate 83 /min 83 /min [facility] ([facility]) Oxygen saturation in Arterial blood by Pulse oximetry 97 % 97 % [facility] ([facility]) Respiratory rate 18 /min 18 /min [facility] ( [facility]) Body mass index (BMI) [Ratio] 26.6 kg/m2 26.6 k g/m2 [facility] ([facility]) [place] body weight 154 [lb_av] 154 [lb_av] MEDEN T ([facility]) Body surface area Derived from formula 1.93 m2 1.93 m2 [facility] ([facility]) Body weight 79.380 kg 79.380 kg [facility] ([facility]) Body temperature 96.8 [degF] 96.8 [degF] [facility] ([facility]) Body height 68 [in_i] 68 [in_i] [facility] 5'8" Body weight 175.00 [lb_av] 175.00 [lb_av] MEDEN T ([facility]) Body weight 79.380 kg 79.380 kg [facility] Body mass index (BMI) [Ratio] 26.6 kg/m2 26.6 k g/m2 [facility] ([facility]) Systolic blood pressure 155 mm[Hg] 155 mm[Hg] M EDENT ([facility]) Diastolic blood pressure 75 mm[Hg] 75 mm[Hg] [facility] ([facility]) Heart rate 77 /min 77 /min [facility] Body temperature 97.9 [degF] 97.9 [degF] [facility] ([facility]) Body height 68 [in_i] 68 [in_i] MED[facility] ([facility]) 5'8" Body weight 175.00 [lb_av] 175.00 [lb_av] MEDEN T ([facility]) Body mass index (BMI) [Ratio] 26.6 kg/m2 26.6 k g/m2 [facility] ([facility]) [place] body weight 154 [lb_av] 154 [lb_av] MEDEN T ([facility]) Body weight 79.380 kg 79.380 kg [facility] ([facility]) Body surface area Derived from formula 1.93 m2 1.93 m2 [facility] ([facility]) Body temperature 97.9 [degF] 97.9 [degF] [facility] ([facility]) Body height 68 [in_i] 68 [in_i] [facility] ([facility]) 5'8" Body weight 175.25 [lb_av] 175.25 [lb_av] MEDEN T ([facility]) Body mass index (BMI) [Ratio] 26.6 kg/m2 26.6 k g/m2 [facility] ([facility]) [place] body weight 154 [lb_av] 154 [lb_av] MEDEN T ([facility]) Body weight 79.500 kg 79.500 kg [facility] ([facility]) Body surface area Derived from formula 1.93 m2 1.93 m2 [facility] ([facility]) Heart rate 71 /min 71 /min [facility] ([facility] per EKG Systolic blood pressure 124 mm[Hg] 124 mm[Hg] M EDENT ([facility] Diastolic blood pressure 64 mm[Hg] 64 mm[Hg] [facility] ([facility] Body weight 186.00 [lb_av] 186.00 [lb_av] MEDEN T ([facility] Body height 67 [in_i] 67 [in_i] [facility] ([facility] 5'7" Body mass index (BMI) [Ratio] 29.1 kg/m2 29.1 k g/m2 [facility] ([facility] Body surface area Derived from formula 1.96 m2 1.96 m2 [facility] ([facility] ID Date Data Source [id number] 07/09/2021 10:07:47 AM EDT [facility] Name Value Range Interpretation Code Description Data Source(s) WEIGHT RECORDED 159.00 pounds 159.00 pounds [facility] Height 68 Inches 068 Inches [facility] Patient Treatment Plan of Care Planned Activity Planned Date Details Description Data Source (s) Betamethasone 0.5 MG/ML Topical Lotion 06/19/2021 12:00:00 AM EDT [email or web address] ([facility]) Betamethasone 0.5 MG/ML Topical Lotion 06/19/2021 12:00:00 AM EDT eCW1 ([facility]) 24 HR Metformin hydrochloride 750 MG Extended Release Oral Tablet 06/09/2021 12:00:[address] [facility] Glipizide 5 MG Oral Tablet 06/04/2021 12:00:00 AM EDT [facility] clopidogrel 75 MG Oral Tablet 03/30/2019 12:00:00 AM EDT [facility] Phenazopyridine hydrochloride 100 MG Oral Tablet 11/20/2018 12:00:0 0 AM EDT [facility] 24 HR Oxybutynin chloride 5 MG Extended Release Oral T ablet 11/20/2018 12:00:[address] [facility] Polyethylene Glycol 3350 (MIRALAX PO) [facility] Glipizide 2.5 MG / Metformin hydrochloride 500 MG Oral Tablet [facility] [place]-3 Acid Ethyl Esters (JAIL) 1000 MG Oral Capsule [facility]
[2021-07-27] MEDS: TROPICAMIDE 1% OPHTH SOLN 2ML OD SCH ×3 (06:55→07:14)
[2021-07-27] MEDS: PHENYLEPHRINE 2.5% OPHTH SOL 2ML OD SCH ×3 (06:55→07:14)
[2021-07-27] MEDS: OFLOXACIN 0.3 % (OCUFLOX) OPTH SOL 5ML OD SCH ×3 (06:55→07:14)
[2021-07-27] MEDS ORDERED: DUOVISC (0.50ML VISCOAT/0.85ML PROVISC) OPHTH KIT As Ordered ONE (07:12)
[2021-07-27] MEDS ORDERED: PHENYLEPHRINE 1.5%/LIDOCAINE 1% INTRAOCULAR 0.8ML SYRINGE As Ordered ONE (07:12)
[2021-07-27] MEDS ORDERED: CEFUROXIME 1MG/0.1ML INTRACAMERAL INJ As Ordered ONE (07:13)
[2021-07-27] MEDS ORDERED: BSS IRR 500ML/OMIDRIA 4ML IRR BAG (OR ONLY) As Ordered ONE (07:13)
[2021-07-27] MEDS ORDERED: LABETALOL 100MG/20ML VIAL As Ordered ONE (07:37)
[2021-07-27] MEDS ORDERED: fentaNYL 100 MCG/2 ML INJECTION (J3010) As Ordered ONE (07:37)
[2021-07-27] MEDS ORDERED: MIDAZOLAM INJ 2MG/2ML VIAL (J2250 PER 1MG) As Ordered ONE (07:37)
[2021-07-27] MEDS ORDERED: ACETYLCHOLINE OPHTH SOLN 1% 2ML (MIOCHOL-E) As Ordered ONE (07:45)
[2021-07-27 08:10] VITALS: BP 215/93
--- NOTE | 2021-07-28 13:40 | RO ---
OPERATIVE NOTE DATE OF OPERATION: 07/27/2021 PREOPERATIVE DIAGNOSIS: Mature cataract right eye. POSTOPERATIVE DIAGNOSIS: Mature cataract right eye. PROCEDURE: Phacoemulsification, cataract extraction, implantation intraocular lens right eye. SURGEON: Tal Benitez MD DRAW IN HAND: COMPLICATIONS: None. ESTIMATED BLOOD LOSS: Zero mL. LENS: AcrySof Model SN60AT, power 20.5 diopter, [employer] 6.68 CDE. ANESTHESIA: MAC and topical. DISPOSITION: Excellent to recovery room with shield over right eye. INDICATIONS FOR PROCEDURE: The patient experienced decreased vision associated with cataract formation. 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 Informed consent was obtained for review of the risks, benefits and alternatives for the above procedure. DESCRIPTION OF PROCEDURE: Prior to entering the operating room the patient was identified, the right eye was marked. He was wheeled supine to the OR suite, positioned on stretcher. Topical Tetracaine was placed in both eyes. He was prepped and draped with 5% Povidone iodine to lids, lashes and periocular face. Lashes were taped with Tegaderm. Speculum was placed in the right eye. 1 mm side port was created at the 11:30 limbus.1% preservative-free Lidocaine was injected. Viscoat was injected. A 2.6 mm clear corneal incision was made temporally. A bent cystitome, needle and Utrata forceps fashioned a continuous curvilinear capsulorrhexis. BSS was used to hydrodissect, the lens was found to rotate freely. It was phacoemulsified using [id number] technique. Residual cortex was removed with I/A. Provisc was injected to expand the capsular bag. The lens was injected using lens delivery system and positioned using Jame hook. Residual viscoelastic was removed with the I/A. BSS was used to hydrate the cornea wounds. Antibiotic prophylaxis was injected. The speculum was removed from the eye. Shield was taped over the eye. The patient was sent in excellent condition to recovery room.
== END 2021-07-27 08:30 | disposition home or self-care (01) ==
LOC: M SDC 05:59
PROVIDERS: ATTEND Ophthalmology
DX: H25.89 Other age-related cataract (principal); I10 Essential (primary) hypertension; E11.9 Type 2 diabetes mellitus without complications; M54.12 Radiculopathy, cervical region; R06.83 Snoring; Z92.21 Personal history of antineoplastic chemotherapy; Z79.899 Other long term (current) drug therapy; Z85.51 Personal history of malignant neoplasm of bladder; Z85.46 Personal history of malignant neoplasm of prostate
CPT/HCPCS: 66984; J1097; J2250; J3010; V2632

== ENCOUNTER → 2021-11-20 | Outpatient (CLI) | payer MEDICARE, OTHER ==
[2021-11-20 15:36] LABS: BASO # 0.1 10^3/uL (0.0-0.2); BASO % 1.6 % (0.0-1.0); EOS # 0.2 10^3/uL (0.0-0.5); EOS % 2.5 % (0.0-3.0); HEMOGLOBIN 13.2 g/dl (13.5-17.5); LYMPH # 0.9 10^3/uL (1.5-5.0); MEAN CORPUSCULAR HEMOGLOBIN 28.2 pg (27.0-33.0); MEAN CORPUSCULAR VOLUME 85.5 fl (80.0-96.0); MONO # 0.6 10^3/uL (0.0-0.8); MONO % 8.9 % (2.0-8.0); NEUTROPHILS # 5.2 10^3/uL (1.5-8.5); NEUTROPHILS % 73.7 % (36.0-66.0); PLATELET COUNT, AUTOMATED 235 10^3/uL (150-450); RED BLOOD COUNT 4.68 10^6/uL (4.30-6.10); WHITE BLOOD COUNT 7.1 10^3/uL (4.0-10.0)
[2021-11-20 16:07] LABS: ALBUMIN 3.6 GM/DL (3.2-5.2); BILIRUBIN,TOTAL 0.6 MG/DL (0.2-1.0); CALCIUM LEVEL 8.9 MG/DL (8.8-10.2); CHOLESTEROL RISK RATIO 4.258 (<5); CREATININE FOR GFR 1.32 MG/DL (0.70-1.30); GLOMERULAR FILTRATION RATE 55.1 (>35); MAGNESIUM LEVEL 1.5 MG/DL (1.8-2.4); POTASSIUM SERUM 3.7 MEQ/L (3.5-5.1); PROSTATIC SPECIFIC AG MONITOR 0.04 NG/ML (< 4.00); THYROID STIMULATING HORMONE 2.07 uIU/ML (0.358-3.740); TOTAL PROTEIN 7.3 GM/DL (6.4-8.2)
[2021-11-20 16:09] LABS: PTH INTACT 61.3 PG/ML (18.5-88.0)
[2021-11-20 16:10] LABS: FOLATE 11.3 NG/ML
[2021-11-20 16:32] LABS: MAU/CREAT RATIO 2316.6 MCG/MG (0.0-30.0)
[2021-11-20 16:56] LABS: HEMOGLOBIN A1c 8.1 %
== END ==
LOC: M PLALAB 12:05
PROVIDERS: ATTEND Internal Medicine
DX: I12.9 Hypertensive chronic kidney disease with stage 1 through stage 4 chronic kidney disease, or unspecified chronic kidney disease (principal); N18.30 Chronic kidney disease, stage 3 unspecified; E11.29 Type 2 diabetes mellitus with other diabetic kidney complication; E78.00 Pure hypercholesterolemia, unspecified; R41.3 Other amnesia; G47.30 Sleep apnea, unspecified; Z85.46 Personal history of malignant neoplasm of prostate

== ENCOUNTER 2021-12-27 12:03 | Emergency (ER) | payer MEDICARE, OTHER ==
[~2021-12-27] VITALS: Ht 170.2 cm; Wt 71.8 kg
[2021-12-27] MEDS ORDERED: PRAM1.5T2 (12:16)
[2021-12-27] MEDS ORDERED: AMLO1TAB25 (12:16)
[2021-12-27] MEDS ORDERED: MAGN400T2 (12:16)
[2021-12-27] MEDS ORDERED: CITA20TA7 (12:16)
[2021-12-27] MEDS ORDERED: AMIO200T37 (12:16)
[2021-12-27] MEDS ORDERED: FURO20TA2 (12:16)
[2021-12-27] MEDS ORDERED: DOXE10CA (12:16)
[2021-12-27] MEDS ORDERED: POTA-151 (12:16)
[2021-12-27] MEDS ORDERED: ATOR40TA75 (12:16)
[2021-12-27] MEDS ORDERED: GLIP5TAB8 (12:16)
[2021-12-27] MEDS ORDERED: ceFAZolin SOD 2 GM in IV 1 EA IV ONE (12:25)
[2021-12-27] MEDS ORDERED: ONDANSETRON 4MG/2ML VIAL As Ordered ONE (12:31)
[2021-12-27] MEDS ORDERED: ONDANSETRON 4MG/2ML VIAL IV ONE (12:35)
[2021-12-27] MEDS ORDERED: BOOSTRIX/ADACEL VACCINE (DIPHTH/PERTUSS/ACELL/TETANUS) 0.5ML SYR IM ONE (12:55)
[2021-12-27 12:56] LABS: BASO # 0.1 10^3/uL (0.0-0.2); BASO % 1.1 % (0.0-1.0); EOS # 0.2 10^3/uL (0.0-0.5); HEMATOCRIT 38.8 % (42.0-52.0); HEMOGLOBIN 12.6 g/dl (13.5-17.5); LYMPH % 13.8 % (24.0-44.0); MEAN CORPUSCULAR HEMOGLOBIN 28.7 pg (27.0-33.0); MEAN CORPUSCULAR HGB CONC 32.5 g/dl (32.0-36.5); MEAN CORPUSCULAR VOLUME 88.4 fl (80.0-96.0); MONO # 0.7 10^3/uL (0.0-0.8); MONO % 9.3 % (2.0-8.0); NEUTROPHILS # 5.4 10^3/uL (1.5-8.5); NEUTROPHILS % 73.3 % (36.0-66.0); PLATELET COUNT, AUTOMATED 277 10^3/uL (150-450); RED BLOOD COUNT 4.39 10^6/uL (4.30-6.10); WHITE BLOOD COUNT 7.4 10^3/uL (4.0-10.0)
[2021-12-27] MEDS: MORPHINE 2 MG/ML 1ML VIAL IV PRN ×2 (13:00→13:15)
[2021-12-27 13:26] LABS: CALCIUM LEVEL 9.1 MG/DL (8.8-10.2); CREATININE FOR GFR 1.38 MG/DL (0.70-1.30); GLOMERULAR FILTRATION RATE 52.3 (>35); POTASSIUM SERUM 4.1 MEQ/L (3.5-5.1)
[2021-12-27] MEDS ORDERED: COLA100C5 PO (15:02)
[2021-12-27] MEDS ORDERED: CEPH500T PO (15:02)
[2021-12-27] MEDS ORDERED: HYDR-3713 PO (15:02)
[2021-12-27 15:23] VITALS: BP 156/69
[2021-12-28] MEDS ORDERED: OXYC1TAB23 PO (15:28)
[2021-12-28] MEDS ORDERED: CEPH500C PO (15:48)
== END 2021-12-27 15:33 | disposition home or self-care (01) ==
LOC: M ED 12:03
DX: S68.127A Partial traumatic metacarpophalangeal amputation of left little finger, initial encounter (principal); W23.1XXA Caught, crushed, jammed, or pinched between stationary objects, initial encounter; Y92.9 Unspecified place or not applicable; Y93.9 Activity, unspecified; Y99.9 Unspecified external cause status
CPT/HCPCS: 73130; 80048; 85025; 86850; 86900; 86901; 90471; 90715; 96365; 96375; 99284; J0690; J2270; J2405

== ENCOUNTER 2021-12-28 14:29 | Day surgery (SDC) | payer MEDICARE, OTHER ==
[~2021-12-28] VITALS: Ht 170.2 cm; Wt 73.5 kg
[~2021-12-28 14:29] MED LIST changes: +AMIO200T37; +AMLO1TAB25; +ATOR40TA75; +BACITRACIN OINTMENT 30GM TUBE As Ordered ONE; +BUPIVACAINE HCL 0.25% 30ML VIAL As Ordered ONE; +CEPH500T PO; +CITA20TA7; +DOXE10CA; +FURO20TA2; +GLIP5TAB8; +HYDR-3713 PO; +LIDOCAINE W/EPINEPHRINE 1% 20ML VIAL XX ONE; +MAGN400T2; +POTA-151; +PRAM1.5T2; +SODIUM BICARBONATE 8.4% INJ 50MEQ 50 ML VIAL XX ONE
[2021-12-28] MEDS ORDERED: OXYC1TAB23 PO (15:28)
[2021-12-28 15:36] VITALS: BP 172/82
[2021-12-28] MEDS ORDERED: CEPH500C PO (15:48)
== END 2021-12-28 16:02 | disposition home or self-care (01) ==
LOC: M SDC 14:29
PROVIDERS: ATTEND Orthopaedic Surgery Hand Surgery
DX: S68.627A Partial traumatic transphalangeal amputation of left little finger, initial encounter (principal); W23.0XXA Caught, crushed, jammed, or pinched between moving objects, initial encounter; Y92.62 Dock or shipyard as the place of occurrence of the external cause; Y93.18 Activity, surfing, windsurfing and boogie boarding; E11.9 Type 2 diabetes mellitus without complications; I10 Essential (primary) hypertension; E78.5 Hyperlipidemia, unspecified; F41.9 Anxiety disorder, unspecified; G47.30 Sleep apnea, unspecified; H35.30 Unspecified macular degeneration; C67.9 Malignant neoplasm of bladder, unspecified; Z85.46 Personal history of malignant neoplasm of prostate; N28.89 Other specified disorders of kidney and ureter; Z79.899 Other long term (current) drug therapy; Z79.82 Long term (current) use of aspirin; Z79.1 Long term (current) use of non-steroidal anti-inflammatories (NSAID); Z79.84 Long term (current) use of oral hypoglycemic drugs

== ENCOUNTER 2022-04-25 16:02 | Inpatient (IN) | payer MEDICARE, OTHER ==
[~2022-04-25] VITALS: Ht 170.2 cm; Wt 69.9 kg
[~2022-04-25 16:02] MED LIST changes: -BACITRACIN OINTMENT 30GM TUBE As Ordered ONE; -BUPIVACAINE HCL 0.25% 30ML VIAL As Ordered ONE; +CEPH500C PO; -LIDOCAINE W/EPINEPHRINE 1% 20ML VIAL XX ONE; +OXYC1TAB23 PO; -SODIUM BICARBONATE 8.4% INJ 50MEQ 50 ML VIAL XX ONE
[2022-04-25 18:37] LABS: BASO # 0.1 10^3/uL (0.0-0.2); BASO % 0.8 % (0.0-1.0); EOS # 0.1 10^3/uL (0.0-0.5); EOS % 0.7 % (0.0-3.0); HEMATOCRIT 40.3 % (42.0-52.0); HEMOGLOBIN 13.3 g/dl (13.5-17.5); LYMPH # 0.7 10^3/uL (1.5-5.0); LYMPH % 9.5 % (24.0-44.0); MEAN CORPUSCULAR VOLUME 87.8 fl (80.0-96.0); MONO # 0.5 10^3/uL (0.0-0.8); MONO % 6.9 % (2.0-8.0); NEUTROPHILS # 6.1 10^3/uL (1.5-8.5); NEUTROPHILS % 81.6 % (36.0-66.0); PLATELET COUNT, AUTOMATED 296 10^3/uL (150-450); RED BLOOD COUNT 4.59 10^6/uL (4.30-6.10); WHITE BLOOD COUNT 7.5 10^3/uL (4.0-10.0)
[2022-04-25 18:41] LABS: INR 0.98; PROTHROMBIN TIME 13.4 SECONDS (12.7-14.5)
[2022-04-25 18:42] LABS: PARTIAL THROMBOPLASTIN TIME 26.3 SECONDS (25.9-37.0)
[2022-04-25 19:10] LABS: CK-MB VALUE MASS 1.3 NG/ML (<3.6); MB/CK RELATIVE INDEX 3.1 (< OR =4)
[2022-04-25 19:16] LABS: ALBUMIN 3.6 GM/DL (3.2-5.2); BILIRUBIN,DIRECT 0.1 MG/DL (0.0-0.2); BILIRUBIN,TOTAL 0.5 MG/DL (0.2-1.0); CALCIUM LEVEL 9.3 MG/DL (8.8-10.2); CREATININE FOR GFR 1.37 MG/DL (0.70-1.30); FREE T4 1.09 NG/DL (0.76-1.46); GLOMERULAR FILTRATION RATE 52.7 (>35); POTASSIUM SERUM 3.7 MEQ/L (3.5-5.1); THYROID STIMULATING HORMONE 0.73 uIU/ML (0.358-3.740); TOTAL PROTEIN 7.2 GM/DL (6.4-8.2)
[2022-04-25] MEDS ORDERED: hydrALAZINE 20MG/ML 1ML VIAL (J0360 PER 20MG) IV STA (20:27)
[2022-04-25] MEDS ORDERED: amLODIPine 5 MG TAB PO ONE (20:30)
[2022-04-25] MEDS ORDERED: MIRA1.5T2 PO (22:11)
[2022-04-25] MEDS ORDERED: ATOR40TA75 PO (22:11)
[2022-04-25] MEDS ORDERED: AMLO1TAB25 PO (22:11)
[2022-04-25] MEDS ORDERED: DOCU100C17 PO (22:11)
[2022-04-25] MEDS ORDERED: SITA50TAB PO (22:11)
[2022-04-25] MEDS ORDERED: CELE20TA PO (22:11)
[2022-04-25] MEDS ORDERED: FURO20TA2 PO (22:11)
[2022-04-25] MEDS ORDERED: METO25TA4 PO (22:11)
[2022-04-25] MEDS ORDERED: METF750T36 PO (22:11)
[2022-04-25] MEDS ORDERED: GLIP5TAB8 PO (22:11)
[2022-04-25] MEDS ORDERED: AMIO200T49 PO (22:11)
[2022-04-25] MEDS ORDERED: HYDR-3490 PO (22:11)
[2022-04-25] MEDS ORDERED: MAGN400T35 PO (22:11)
[2022-04-25] MEDS ORDERED: FERR32TA PO (22:11)
[2022-04-25] MEDS ORDERED: FOLI1TAB11 PO (22:11)
[2022-04-25] MEDS ORDERED: POTA1TAB14 PO (22:11)
[2022-04-25] MEDS ORDERED: HOME MED LIST COMPLETE! XX SCH (22:15)
[2022-04-25] MEDS ORDERED: DEXTROSE 50% 50 ML SYRINGE IV PRN (23:05)
[2022-04-25] MEDS ORDERED: GLUCAGON INJ 1MG VIAL SC PRN (23:05)
[2022-04-25] MEDS ORDERED: GLUCOSE 4GM CHEW TABLET PO PRN (23:05)
[2022-04-25] MEDS: INSULIN LISPRO (NovoLOG) PER UNIT SC SCH (23:17)
[2022-04-25] MEDS ORDERED: PILL CUTTER 1 EACH XX PRN (23:25)
[2022-04-25] MEDS: POTASSIUM CHLORIDE 10MEQ SR TABLET PO SCH (23:51)
[2022-04-25] MEDS: METOPROLOL TART 25 MG TABLET PO SCH (23:51)
[2022-04-26] MEDS: PRAMIPEXOLE 1 MG TAB PO SCH ×2 (00:20→22:17)
[2022-04-26 06:55] LABS: BLOOD UREA NITROGEN 24 MG/DL (7-18); CALCIUM LEVEL 9.3 MG/DL (8.8-10.2); CARBON DIOXIDE LEVEL 30 MEQ/L (21-32); CHLORIDE LEVEL 97 MEQ/L (98-107); CREATININE FOR GFR 1.34 MG/DL (0.70-1.30); GLOMERULAR FILTRATION RATE 54.1 (>35); GLUCOSE, FASTING 239 MG/DL (70-100); POTASSIUM SERUM 3.6 MEQ/L (3.5-5.1); SODIUM LEVEL 132 MEQ/L (136-145)
[2022-04-26] MEDS: INSULIN LISPRO (NovoLOG) PER UNIT SC SCH ×3 (07:28→21:00)
[2022-04-26] MEDS: METOPROLOL TART 25 MG TABLET PO SCH (09:00)
[2022-04-26] MEDS: ASPIRIN 81MG ENTERIC TABLET PO SCH (09:00)
[2022-04-26] MEDS: HEPARIN SOD (PORCINE) 5000UNITS/ML 1ML VIAL/SYRINGE SC SCH ×2 (09:00→22:16)
[2022-04-26] MEDS: ATORVASTATIN 20 MG TAB PO SCH (09:00)
[2022-04-26] MEDS: FOLIC ACID 1MG TAB PO SCH (09:00)
[2022-04-26] MEDS: AMIODARONE 200 MG TAB (PACERONE) PO SCH (09:00)
[2022-04-26] MEDS: CitaloPRAM (CeleXA) 20 MG TAB PO SCH (09:00)
[2022-04-26] MEDS: FERROUS GLUCONATE 324 MG TAB PO SCH (09:00)
[2022-04-26] MEDS: FUROSEMIDE 20 MG TAB PO SCH ×2 (09:00→09:01)
[2022-04-26] MEDS: POTASSIUM CHLORIDE 10MEQ SR TABLET PO SCH ×3 (09:00→22:15)
[2022-04-26] MEDS ORDERED: ONDANSETRON 4MG 2ML VIAL IV ONE (09:15)
[2022-04-26 09:18] LABS: C REACTIVE PROTEIN QUANTITATIV < 0.30 MG/DL (0.00-0.30)
[2022-04-26] MEDS ORDERED: LABETALOL 100MG/20ML VIAL IV STA (14:19)
[2022-04-26] MEDS ORDERED: PROHANCE 279.3MG/ML 5ML VIAL As Ordered ONE (17:44)
[2022-04-26 20:10] VITALS: BP 155/69
[2022-04-26] MEDS: METOPROLOL TART 50 MG TAB PO SCH (22:15)
[2022-04-26] MEDS: LIDOCAINE 5% (LIDODERM) PATCH TD PRN (22:17)
[2022-04-26 23:35] VITALS: BP 140/65
[2022-04-27] VITALS (7 sets, daily range): BP systolic 119–172; BP diastolic 60–74
[2022-04-27] MEDS: METOPROLOL TART 50 MG TAB PO SCH ×2 (09:00→21:00)
[2022-04-27] MEDS: CHLORTHALIDONE 25 MG TAB PO SCH (09:00)
[2022-04-27] MEDS: INSULIN LISPRO (NovoLOG) PER UNIT SC SCH ×4 (09:41→21:11)
[2022-04-27] MEDS: HEPARIN SOD (PORCINE) 5000UNITS/ML 1ML VIAL/SYRINGE SC SCH ×2 (09:41→21:12)
[2022-04-27 10:43] LABS: BASO # 0.1 10^3/uL (0.0-0.2); BASO % 0.7 % (0.0-1.0); EOS # 0.1 10^3/uL (0.0-0.5); HEMATOCRIT 41.4 % (42.0-52.0); HEMOGLOBIN 13.9 g/dl (13.5-17.5); LYMPH % 14.3 % (24.0-44.0); MEAN CORPUSCULAR HEMOGLOBIN 29.6 pg (27.0-33.0); MEAN CORPUSCULAR HGB CONC 33.6 g/dl (32.0-36.5); MEAN CORPUSCULAR VOLUME 88.1 fl (80.0-96.0); MONO # 0.4 10^3/uL (0.0-0.8); MONO % 5.4 % (2.0-8.0); NEUTROPHILS # 5.6 10^3/uL (1.5-8.5); NEUTROPHILS % 78.2 % (36.0-66.0); PLATELET COUNT, AUTOMATED 338 10^3/uL (150-450); WHITE BLOOD COUNT 7.2 10^3/uL (4.0-10.0)
[2022-04-27] MEDS: ATORVASTATIN 20 MG TAB PO SCH (10:43)
[2022-04-27 11:12] LABS: CALCIUM LEVEL 9.3 MG/DL (8.8-10.2); CREATININE FOR GFR 1.56 MG/DL (0.70-1.30); GLOMERULAR FILTRATION RATE 45.4 (>35); POTASSIUM SERUM 3.5 MEQ/L (3.5-5.1)
[2022-04-27] MEDS ORDERED: METOPROLOL TART 50 MG TAB PO ONE (14:00)
[2022-04-27] MEDS ORDERED: CHLORTHALIDONE 25 MG TAB PO ONE (14:00)
[2022-04-27] MEDS: **NOTE PATIENT COMMENT** MISC XX SCH (21:00)
[2022-04-27] MEDS: PRAMIPEXOLE 1 MG TAB PO SCH (21:11)
[2022-04-27] MEDS: POTASSIUM CHLORIDE 10MEQ SR TABLET PO SCH (21:11)
[2022-04-28 03:45] VITALS: BP 168/79
[2022-04-28 06:50] LABS: BASO # 0.1 10^3/uL (0.0-0.2); BASO % 1.1 % (0.0-1.0); EOS # 0.1 10^3/uL (0.0-0.5); EOS % 0.7 % (0.0-3.0); HEMATOCRIT 38.9 % (42.0-52.0); LYMPH # 0.9 10^3/uL (1.5-5.0); LYMPH % 10.4 % (24.0-44.0); MEAN CORPUSCULAR HEMOGLOBIN 29.2 pg (27.0-33.0); MEAN CORPUSCULAR HGB CONC 33.4 g/dl (32.0-36.5); MEAN CORPUSCULAR VOLUME 87.4 fl (80.0-96.0); MONO # 0.5 10^3/uL (0.0-0.8); MONO % 5.9 % (2.0-8.0); NEUTROPHILS # 6.7 10^3/uL (1.5-8.5); NEUTROPHILS % 81.5 % (36.0-66.0); PLATELET COUNT, AUTOMATED 283 10^3/uL (150-450); RED BLOOD COUNT 4.45 10^6/uL (4.30-6.10); WHITE BLOOD COUNT 8.2 10^3/uL (4.0-10.0)
[2022-04-28 07:27] LABS: CALCIUM LEVEL 8.9 MG/DL (8.8-10.2); CREATININE FOR GFR 1.45 MG/DL (0.70-1.30); GLOMERULAR FILTRATION RATE 49.4 (>35); POTASSIUM SERUM 3.5 MEQ/L (3.5-5.1)
[2022-04-28 07:53] VITALS: BP 162/72
[2022-04-28] MEDS: INSULIN LISPRO (NovoLOG) PER UNIT SC SCH ×4 (08:38→21:00)
[2022-04-28] MEDS: HEPARIN SOD (PORCINE) 5000UNITS/ML 1ML VIAL/SYRINGE SC SCH ×2 (08:38→20:02)
[2022-04-28] MEDS: ATORVASTATIN 20 MG TAB PO SCH (08:39)
[2022-04-28] MEDS: FOLIC ACID 1MG TAB PO SCH (08:39)
[2022-04-28] MEDS: POTASSIUM CHLORIDE 10MEQ SR TABLET PO SCH ×2 (08:40→20:01)
[2022-04-28] MEDS: ASPIRIN 81MG ENTERIC TABLET PO SCH (08:40)
[2022-04-28] MEDS: CHLORTHALIDONE 25 MG TAB PO SCH (08:40)
[2022-04-28] MEDS: AMIODARONE 200 MG TAB (PACERONE) PO SCH (08:40)
[2022-04-28] MEDS: FUROSEMIDE 20 MG TAB PO SCH (08:40)
[2022-04-28] MEDS: CitaloPRAM (CeleXA) 20 MG TAB PO SCH (08:40)
[2022-04-28] MEDS: METOPROLOL TART 50 MG TAB PO SCH ×3 (08:41→21:00)
[2022-04-28] MEDS: FERROUS GLUCONATE 324 MG TAB PO SCH (08:41)
[2022-04-28 11:43] VITALS: BP 142/60
[2022-04-28 15:32] VITALS: BP 138/62
[2022-04-28 20:00] VITALS: BP 133/64
[2022-04-28] MEDS: PRAMIPEXOLE 1 MG TAB PO SCH (20:02)
[2022-04-28] MEDS: LIDOCAINE 5% (LIDODERM) PATCH TD PRN (20:16)
[2022-04-28] MEDS: **NOTE PATIENT COMMENT** MISC XX SCH (21:00)
[2022-04-29] VITALS (7 sets, daily range): BP systolic 96–163; BP diastolic 57–73
[2022-04-29 05:58] LABS: BASO # 0.1 10^3/uL (0.0-0.2); BASO % 0.9 % (0.0-1.0); EOS # 0.1 10^3/uL (0.0-0.5); EOS % 0.9 % (0.0-3.0); HEMATOCRIT 38.3 % (42.0-52.0); LYMPH # 0.8 10^3/uL (1.5-5.0); LYMPH % 8.5 % (24.0-44.0); MEAN CORPUSCULAR HEMOGLOBIN 29.3 pg (27.0-33.0); MEAN CORPUSCULAR HGB CONC 33.9 g/dl (32.0-36.5); MEAN CORPUSCULAR VOLUME 86.5 fl (80.0-96.0); MONO # 0.7 10^3/uL (0.0-0.8); MONO % 7.4 % (2.0-8.0); NEUTROPHILS # 7.6 10^3/uL (1.5-8.5); NEUTROPHILS % 81.7 % (36.0-66.0); PLATELET COUNT, AUTOMATED 296 10^3/uL (150-450); RED BLOOD COUNT 4.43 10^6/uL (4.30-6.10); WHITE BLOOD COUNT 9.3 10^3/uL (4.0-10.0)
[2022-04-29 06:37] LABS: CALCIUM LEVEL 8.9 MG/DL (8.8-10.2); CREATININE FOR GFR 1.57 MG/DL (0.70-1.30); POTASSIUM SERUM 3.7 MEQ/L (3.5-5.1)
[2022-04-29] MEDS: LIDOCAINE 5% (LIDODERM) PATCH TD PRN (07:58)
[2022-04-29] MEDS: HEPARIN SOD (PORCINE) 5000UNITS/ML 1ML VIAL/SYRINGE SC SCH ×3 (07:59→21:20)
[2022-04-29] MEDS: CHLORTHALIDONE 25 MG TAB PO SCH (07:59)
[2022-04-29] MEDS: ATORVASTATIN 20 MG TAB PO SCH (07:59)
[2022-04-29] MEDS: ASPIRIN 81MG ENTERIC TABLET PO SCH (07:59)
[2022-04-29] MEDS: FOLIC ACID 1MG TAB PO SCH (08:00)
[2022-04-29] MEDS: MAGNESIUM OXIDE 400MG TAB (MAG-OX) PO PRN (08:00)
[2022-04-29] MEDS: FUROSEMIDE 20 MG TAB PO SCH (08:00)
[2022-04-29] MEDS: CitaloPRAM (CeleXA) 20 MG TAB PO SCH (08:01)
[2022-04-29] MEDS: DOCUSATE SODIUM 100MG CAPSULE PO PRN (08:01)
[2022-04-29] MEDS: POTASSIUM CHLORIDE 10MEQ SR TABLET PO SCH ×2 (08:01→21:12)
[2022-04-29] MEDS: FERROUS GLUCONATE 324 MG TAB PO SCH (08:01)
[2022-04-29] MEDS: METOPROLOL TART 50 MG TAB PO SCH (08:02)
[2022-04-29] MEDS: INSULIN LISPRO (NovoLOG) PER UNIT SC SCH ×4 (08:10→21:19)
[2022-04-29] MEDS: AMIODARONE 200 MG TAB (PACERONE) PO SCH (12:25)
[2022-04-29] MEDS: **hydrALAZINE HCL** 25 MG TAB PO SCH ×2 (14:00→21:12)
[2022-04-29] MEDS ORDERED: METOPROLOL TART 25 MG TABLET PO SCH (21:00)
[2022-04-29] MEDS: PRAMIPEXOLE 1 MG TAB PO SCH (21:13)
[2022-04-29] MEDS: **NOTE PATIENT COMMENT** MISC XX SCH (21:13)
[2022-04-30] VITALS: BP 142/65
[2022-04-30 04:00] VITALS: BP 123/58
[2022-04-30] MEDS: **hydrALAZINE HCL** 25 MG TAB PO SCH ×3 (05:27→22:26)
[2022-04-30] MEDS: HEPARIN SOD (PORCINE) 5000UNITS/ML 1ML VIAL/SYRINGE SC SCH ×3 (05:27→22:26)
[2022-04-30 06:39] LABS: BASO # 0.1 10^3/uL (0.0-0.2); BASO % 0.6 % (0.0-1.0); EOS # 0.2 10^3/uL (0.0-0.5); EOS % 1.2 % (0.0-3.0); HEMATOCRIT 39.5 % (42.0-52.0); HEMOGLOBIN 13.5 g/dl (13.5-17.5); LYMPH # 0.9 10^3/uL (1.5-5.0); MEAN CORPUSCULAR HEMOGLOBIN 29.7 pg (27.0-33.0); MEAN CORPUSCULAR HGB CONC 34.2 g/dl (32.0-36.5); MONO # 0.8 10^3/uL (0.0-0.8); MONO % 6.7 % (2.0-8.0); NEUTROPHILS # 10.4 10^3/uL (1.5-8.5); NEUTROPHILS % 83.9 % (36.0-66.0); PLATELET COUNT, AUTOMATED 282 10^3/uL (150-450); RED BLOOD COUNT 4.54 10^6/uL (4.30-6.10); WHITE BLOOD COUNT 12.4 10^3/uL (4.0-10.0)
[2022-04-30 07:09] LABS: CALCIUM LEVEL 9.1 MG/DL (8.8-10.2); CREATININE FOR GFR 1.66 MG/DL (0.70-1.30); GLOMERULAR FILTRATION RATE 42.2 (>35); MAGNESIUM LEVEL 1.6 MG/DL (1.8-2.4); PHOSPHORUS LEVEL 3.2 MG/DL (2.5-4.9); POTASSIUM SERUM 3.9 MEQ/L (3.5-5.1)
[2022-04-30] MEDS: INSULIN LISPRO (NovoLOG) PER UNIT SC SCH ×4 (07:30→21:00)
[2022-04-30 07:36] VITALS: BP 137/66
[2022-04-30] MEDS: atenoloL 25 MG TAB PO SCH (08:55)
[2022-04-30] MEDS: FERROUS GLUCONATE 324 MG TAB PO SCH (08:55)
[2022-04-30] MEDS: ASPIRIN 81MG ENTERIC TABLET PO SCH (08:55)
[2022-04-30] MEDS: POTASSIUM CHLORIDE 10MEQ SR TABLET PO SCH ×2 (08:56→22:26)
[2022-04-30] MEDS: FOLIC ACID 1MG TAB PO SCH (08:56)
[2022-04-30] MEDS: AMIODARONE 200 MG TAB (PACERONE) PO SCH (08:56)
[2022-04-30] MEDS: CitaloPRAM (CeleXA) 20 MG TAB PO SCH (08:56)
[2022-04-30] MEDS: ATORVASTATIN 20 MG TAB PO SCH (08:56)
[2022-04-30] MEDS ORDERED: CHLORTHALIDONE 25 MG TAB PO SCH (09:00)
[2022-04-30 12:18] VITALS: BP 143/68
[2022-04-30] MEDS ORDERED: MAGNESIUM OXIDE 400MG TAB (MAG-OX) PO ONE (12:40)
[2022-04-30 16:06] VITALS: BP 130/62
[2022-04-30 20:00] VITALS: BP 138/65
[2022-04-30] MEDS: **NOTE PATIENT COMMENT** MISC XX SCH (21:00)
[2022-04-30] MEDS: DOCUSATE SODIUM 100MG CAPSULE PO PRN (22:25)
[2022-04-30] MEDS: PRAMIPEXOLE 1 MG TAB PO SCH (22:26)
[2022-05-01 05:00] VITALS: BP 108/56
[2022-05-01] MEDS: HEPARIN SOD (PORCINE) 5000UNITS/ML 1ML VIAL/SYRINGE SC SCH ×3 (05:16→20:32)
[2022-05-01] MEDS: **hydrALAZINE HCL** 25 MG TAB PO SCH ×3 (05:16→20:31)
[2022-05-01 05:46] LABS: BASO # 0.1 10^3/uL (0.0-0.2); BASO % 0.6 % (0.0-1.0); EOS # 0.1 10^3/uL (0.0-0.5); HEMATOCRIT 42.3 % (42.0-52.0); HEMOGLOBIN 13.8 g/dl (13.5-17.5); LYMPH # 0.9 10^3/uL (1.5-5.0); LYMPH % 7.2 % (24.0-44.0); MEAN CORPUSCULAR HEMOGLOBIN 28.8 pg (27.0-33.0); MEAN CORPUSCULAR HGB CONC 32.6 g/dl (32.0-36.5); MEAN CORPUSCULAR VOLUME 88.1 fl (80.0-96.0); MONO # 0.8 10^3/uL (0.0-0.8); NEUTROPHILS # 10.5 10^3/uL (1.5-8.5); NEUTROPHILS % 84.7 % (36.0-66.0); PLATELET COUNT, AUTOMATED 302 10^3/uL (150-450); WHITE BLOOD COUNT 12.4 10^3/uL (4.0-10.0)
[2022-05-01 06:24] LABS: BLOOD UREA NITROGEN 39 MG/DL (7-18); CALCIUM LEVEL 9.3 MG/DL (8.8-10.2); CARBON DIOXIDE LEVEL 30 MEQ/L (21-32); CHLORIDE LEVEL 96 MEQ/L (98-107); CREATININE FOR GFR 1.62 MG/DL (0.70-1.30); GLOMERULAR FILTRATION RATE 43.4 (>35); GLUCOSE, FASTING 163 MG/DL (70-100); MAGNESIUM LEVEL 1.6 MG/DL (1.8-2.4); PHOSPHORUS LEVEL 3.6 MG/DL (2.5-4.9); POTASSIUM SERUM 3.7 MEQ/L (3.5-5.1); SODIUM LEVEL 134 MEQ/L (136-145)
[2022-05-01 07:43] VITALS: BP 115/57
[2022-05-01] MEDS: atenoloL 25 MG TAB PO SCH (09:00)
[2022-05-01] MEDS: ASPIRIN 81MG ENTERIC TABLET PO SCH (09:02)
[2022-05-01] MEDS: ATORVASTATIN 20 MG TAB PO SCH (09:02)
[2022-05-01] MEDS: FOLIC ACID 1MG TAB PO SCH (09:02)
[2022-05-01] MEDS: MAGNESIUM OXIDE 400MG TAB (MAG-OX) PO PRN (09:03)
[2022-05-01] MEDS: AMIODARONE 200 MG TAB (PACERONE) PO SCH (09:03)
[2022-05-01] MEDS: FERROUS GLUCONATE 324 MG TAB PO SCH (09:03)
[2022-05-01] MEDS: POTASSIUM CHLORIDE 10MEQ SR TABLET PO SCH ×2 (09:03→20:31)
[2022-05-01] MEDS: CitaloPRAM (CeleXA) 20 MG TAB PO SCH (09:03)
[2022-05-01] MEDS: INSULIN LISPRO (NovoLOG) PER UNIT SC SCH ×4 (09:04→20:31)
[2022-05-01] MEDS: MAG SULF 1GM/100ML (MAG RUN) 1 GM in IV 1 EA IV SCH ×2 (10:31→11:43)
[2022-05-01 10:36] LABS: C REACTIVE PROTEIN QUANTITATIV < 0.30 MG/DL (0.00-0.30)
[2022-05-01 13:03] VITALS: BP 135/62
[2022-05-01 20:18] VITALS: BP 161/72
[2022-05-01] MEDS: PRAMIPEXOLE 1 MG TAB PO SCH (20:30)
[2022-05-01] MEDS: **NOTE PATIENT COMMENT** MISC XX SCH (20:31)
[2022-05-01 21:54] VITALS: BP 157/70
[2022-05-02 03:57] VITALS: BP 135/63
[2022-05-02] MEDS: **hydrALAZINE HCL** 25 MG TAB PO SCH (05:29)
[2022-05-02] MEDS: HEPARIN SOD (PORCINE) 5000UNITS/ML 1ML VIAL/SYRINGE SC SCH (05:29)
[2022-05-02 07:33] LABS: BASO # 0.1 10^3/uL (0.0-0.2); BASO % 0.9 % (0.0-1.0); EOS # 0.2 10^3/uL (0.0-0.5); HEMATOCRIT 41.8 % (42.0-52.0); HEMOGLOBIN 13.7 g/dl (13.5-17.5); LYMPH % 11.3 % (24.0-44.0); MEAN CORPUSCULAR HEMOGLOBIN 28.8 pg (27.0-33.0); MEAN CORPUSCULAR HGB CONC 32.8 g/dl (32.0-36.5); MONO # 0.6 10^3/uL (0.0-0.8); MONO % 7.5 % (2.0-8.0); NEUTROPHILS # 6.7 10^3/uL (1.5-8.5); PLATELET COUNT, AUTOMATED 297 10^3/uL (150-450); RED BLOOD COUNT 4.75 10^6/uL (4.30-6.10); WHITE BLOOD COUNT 8.6 10^3/uL (4.0-10.0)
[2022-05-02 08:14] LABS: CALCIUM LEVEL 9.5 MG/DL (8.8-10.2); CREATININE FOR GFR 1.65 MG/DL (0.70-1.30); GLOMERULAR FILTRATION RATE 42.5 (>35); MAGNESIUM LEVEL 2.1 MG/DL (1.8-2.4); PHOSPHORUS LEVEL 3.4 MG/DL (2.5-4.9); POTASSIUM SERUM 3.9 MEQ/L (3.5-5.1)
[2022-05-02] MEDS: FOLIC ACID 1MG TAB PO SCH (09:48)
[2022-05-02] MEDS: ASPIRIN 81MG ENTERIC TABLET PO SCH (09:48)
[2022-05-02] MEDS: CitaloPRAM (CeleXA) 20 MG TAB PO SCH (09:49)
[2022-05-02] MEDS: ATORVASTATIN 20 MG TAB PO SCH (09:49)
[2022-05-02] MEDS: FERROUS GLUCONATE 324 MG TAB PO SCH (09:49)
[2022-05-02] MEDS: POTASSIUM CHLORIDE 10MEQ SR TABLET PO SCH (09:49)
[2022-05-02 09:51] VITALS: BP 149/65
[2022-05-02] MEDS: AMIODARONE 200 MG TAB (PACERONE) PO SCH (09:51)
[2022-05-02] MEDS: atenoloL 25 MG TAB PO SCH (09:51)
[2022-05-02] MEDS: INSULIN LISPRO (NovoLOG) PER UNIT SC SCH ×2 (09:52→12:00)
[2022-05-02] MEDS ORDERED: ATOR1TAB21 PO (11:00)
[2022-05-02] MEDS ORDERED: HYDR25TA PO (11:00)
[2022-05-02] MEDS ORDERED: ATEN25TA PO (11:00)
[2022-05-02] MEDS ORDERED: ASPI-551 PO (11:00)
[2022-05-02] MEDS ORDERED: ATOR40TA75 PO (12:25)
[2022-05-02] MEDS ORDERED: Test Strips (15:20)
[2022-05-02] MEDS ORDERED: LANCMIS33 TOP (15:20)
[2022-05-02] MEDS ORDERED: CVS1KIT XX (15:20)
== END 2022-05-02 13:25 | disposition home health service (06) | DRG 64 ==
LOC: M ED 16:02 → M ED INP 21:02 → ENRESERV 04-26 15:19 → M PCU 04-26 19:53 → M 4MAIN 05-01 21:54
PROVIDERS: ADMIT Family Medicine; ATTEND Internal Medicine
DX: I63.81 Other cerebral infarction due to occlusion or stenosis of small artery (principal); U07.1 COVID-19; I13.0 Hypertensive heart and chronic kidney disease with heart failure and stage 1 through stage 4 chronic kidney disease, or unspecified chronic kidney disease; E87.1 Hypo-osmolality and hyponatremia; I16.0 Hypertensive urgency; I25.10 Atherosclerotic heart disease of native coronary artery without angina pectoris; I25.2 Old myocardial infarction; I50.9 Heart failure, unspecified; N18.30 Chronic kidney disease, stage 3 unspecified; E11.22 Type 2 diabetes mellitus with diabetic chronic kidney disease; E78.5 Hyperlipidemia, unspecified; Z66 Do not resuscitate; F41.9 Anxiety disorder, unspecified; M19.90 Unspecified osteoarthritis, unspecified site; I65.23 Occlusion and stenosis of bilateral carotid arteries; F32.A Depression, unspecified; G25.81 Restless legs syndrome; Z85.51 Personal history of malignant neoplasm of bladder; Z95.1 Presence of aortocoronary bypass graft; Z90.49 Acquired absence of other specified parts of digestive tract; Z79.84 Long term (current) use of oral hypoglycemic drugs; Z79.899 Other long term (current) drug therapy; Z85.46 Personal history of malignant neoplasm of prostate; Z92.21 Personal history of antineoplastic chemotherapy; Z91.19 Patient's noncompliance with other medical treatment and regimen

== ENCOUNTER → 2022-05-08 | Outpatient (CLI) | payer MEDICARE, OTHER ==
[~2022-05-08] MED LIST changes: +AMIO200T49 PO; +ASPI-551 PO; +ATEN25TA PO; +ATOR1TAB21 PO; +ATOR40TA75 PO; +CVS1KIT XX; +DOCU100C17 PO; +FERR32TA PO; +FURO20TA2 PO; +GLIP5TAB8 PO; +HYDR25TA PO; +LANCMIS33 TOP; +MAGN400T35 PO; +METF750T36 PO; +METO25TA4 PO; +POTA1TAB14 PO; +SITA50TAB PO; +Test Strips
[2022-05-08 14:29] LABS: ALBUMIN 3.4 GM/DL (3.2-5.2); BILIRUBIN,TOTAL 0.6 MG/DL (0.2-1.0); CALCIUM LEVEL 9.5 MG/DL (8.8-10.2); CREATININE FOR GFR 1.96 MG/DL (0.70-1.30); GLOMERULAR FILTRATION RATE 34.9 (>35); POTASSIUM SERUM 3.9 MEQ/L (3.5-5.1); TOTAL PROTEIN 7.8 GM/DL (6.4-8.2)
[2022-05-08 14:47] LABS: HEMOGLOBIN A1c 7.1 %
== END ==
LOC: M PLALAB 11:44
PROVIDERS: ATTEND Physician Assistant
DX: E11.29 Type 2 diabetes mellitus with other diabetic kidney complication (principal)

== ENCOUNTER → 2022-06-07 | Outpatient (REF) | payer MEDICARE, OTHER ==
[2022-06-07 13:19] LABS: BASO # 0.1 10^3/uL (0.0-0.2); BASO % 1.4 % (0.0-1.0); EOS # 0.5 10^3/uL (0.0-0.5); EOS % 6.3 % (0.0-3.0); HEMATOCRIT 39.4 % (42.0-52.0); HEMOGLOBIN 12.2 g/dl (13.5-17.5); LYMPH # 0.9 10^3/uL (1.5-5.0); LYMPH % 11.6 % (24.0-44.0); MEAN CORPUSCULAR HEMOGLOBIN 28.8 pg (27.0-33.0); MEAN CORPUSCULAR VOLUME 93.1 fl (80.0-96.0); MONO # 0.8 10^3/uL (0.0-0.8); MONO % 10.3 % (2.0-8.0); NEUTROPHILS # 5.4 10^3/uL (1.5-8.5); NEUTROPHILS % 69.7 % (36.0-66.0); PLATELET COUNT, AUTOMATED 287 10^3/uL (150-450); RED BLOOD COUNT 4.23 10^6/uL (4.30-6.10); WHITE BLOOD COUNT 7.7 10^3/uL (4.0-10.0)
[2022-06-07 13:58] LABS: ALBUMIN 3.3 GM/DL (3.2-5.2); BILIRUBIN,TOTAL 0.5 MG/DL (0.2-1.0); CALCIUM LEVEL 9.2 MG/DL (8.8-10.2); CREATININE FOR GFR 1.79 MG/DL (0.70-1.30); GLOMERULAR FILTRATION RATE 38.7 (>35); MAGNESIUM LEVEL 1.9 MG/DL (1.8-2.4); POTASSIUM SERUM 3.8 MEQ/L (3.5-5.1); THYROID STIMULATING HORMONE 1.97 uIU/ML (0.358-3.740); TOTAL PROTEIN 7.3 GM/DL (6.4-8.2)
== END ==
LOC: M SFHCADAM 08:33
PROVIDERS: ATTEND Physician Assistant
DX: R42 Dizziness and giddiness (principal)

== ENCOUNTER → 2022-06-28 | Outpatient (CLI) | payer MEDICARE, OTHER | LOC: M RAD 16:03 | PROVIDERS: ATTEND Physician Assistant | DX: S09.90XD Unspecified injury of head, subsequent encounter (principal) ==

== ENCOUNTER → 2022-06-28 | Outpatient (CLI) | payer MEDICARE, OTHER | LOC: M RAD 15:46 | PROVIDERS: ATTEND Physician Assistant | DX: S09.90XD Unspecified injury of head, subsequent encounter (principal); Z53.9 Procedure and treatment not carried out, unspecified reason ==

== ENCOUNTER → 2022-07-17 | Outpatient (CLI) | payer MEDICARE, OTHER | LOC: M RAD 17:57 | PROVIDERS: ATTEND Physician Assistant | DX: R31.9 Hematuria, unspecified (principal) ==

== ENCOUNTER → 2022-07-17 | Outpatient (REF) | payer MEDICARE, OTHER ==
[2022-07-17 13:26] LABS: APPEARANCE, URINE MANUAL CLOUDY (CLEAR); COLOR, URINE MANUAL BROWN (YELLOW)
[2022-07-17 13:27] LABS: BILIRUBIN, URINE MANUAL NEGATIVE (NEGATIVE); BLOOD URINE MANUAL POSITIVE (NEGATIVE); GLUCOSE, URINE (UA) MANUAL NEGATIVE (NEGATIVE); KETONE, URINE MANUAL NEGATIVE (NEGATIVE); LEUKOCYTE ESTERASE, URINE MAN POSITIVE (NEGATIVE); NITRITE, URINE MANUAL NEGATIVE (NEGATIVE); PROTEIN, URINE MANUAL 3+ mg/dL (NEGATIVE); UROBILINOGEN, URINE MANUAL NORMAL (NORMAL)
[2022-07-17 14:08] LABS: BACTERIA, URINE LARGE AMOUNT; RBC, URINE TNTC /hpf (0-3); SQUAMOUS EPITHELIAL CELL URINE SMALL AMOUNT /hpf (SMALL AMT); WBC, URINE TNTC /hpf (0-3)
[2022-07-17 14:09] LABS: HYALINE CAST, URINE NONE SEEN /lpf (0-1)
== END ==
LOC: M LAB REF 12:36
PROVIDERS: ATTEND Physician Assistant
DX: N30.00 Acute cystitis without hematuria (principal)

== ENCOUNTER → 2022-07-22 | Outpatient (CLI) | payer MEDICARE, OTHER ==
[~2022-07-22] MED LIST changes: +PROHANCE 279.3MG/ML 15ML VIAL ONE
== END ==
LOC: M PLAIMG 15:02
PROVIDERS: ATTEND Physician Assistant
DX: R93.7 Abnormal findings on diagnostic imaging of other parts of musculoskeletal system (principal); G44.319 Acute post-traumatic headache, not intractable; M47.892 Other spondylosis, cervical region
CPT/HCPCS: 72156; A9576

== ENCOUNTER → 2022-08-07 | Outpatient (REF) | payer MEDICARE, OTHER ==
[~2022-08-07] MED LIST changes: -PROHANCE 279.3MG/ML 15ML VIAL ONE
[2022-08-07 17:06] LABS: BASO # 0.1 10^3/uL (0.0-0.2); BASO % 1.4 % (0.0-1.0); EOS # 0.1 10^3/uL (0.0-0.5); HEMATOCRIT 36.5 % (42.0-52.0); HEMOGLOBIN 11.8 g/dl (13.5-17.5); LYMPH # 0.9 10^3/uL (1.5-5.0); LYMPH % 13.9 % (24.0-44.0); MEAN CORPUSCULAR HEMOGLOBIN 29.9 pg (27.0-33.0); MEAN CORPUSCULAR HGB CONC 32.3 g/dl (32.0-36.5); MEAN CORPUSCULAR VOLUME 92.6 fl (80.0-96.0); MONO # 0.5 10^3/uL (0.0-0.8); NEUTROPHILS # 4.9 10^3/uL (1.5-8.5); NEUTROPHILS % 74.4 % (36.0-66.0); PLATELET COUNT, AUTOMATED 264 10^3/uL (150-450); RED BLOOD COUNT 3.94 10^6/uL (4.30-6.10); WHITE BLOOD COUNT 6.6 10^3/uL (4.0-10.0)
[2022-08-07 20:28] LABS: ALBUMIN 3.8 G/DL (3.2-5.2); BILIRUBIN,TOTAL 0.5 MG/DL (0.3-1.2); CALCIUM LEVEL 8.9 MG/DL (8.3-10.6); CREATININE FOR GFR 1.54 MG/DL (0.70-1.30); POTASSIUM SERUM 4.1 MMOL/L (3.5-5.1); TOTAL PROTEIN 7.1 G/DL (5.7-8.2)
== END ==
LOC: M SFHCADAM 14:41
PROVIDERS: ATTEND Physician Assistant
DX: E11.29 Type 2 diabetes mellitus with other diabetic kidney complication (principal); Z85.51 Personal history of malignant neoplasm of bladder

== ENCOUNTER → 2022-08-09 | Outpatient (CLI) | payer MEDICARE, OTHER ==
[~2022-08-09] MED LIST changes: +ISOVUE-370 76% 100ML VIAL ONE
== END ==
LOC: M PLAIMG 08:35
PROVIDERS: ATTEND Physician Assistant
DX: R93.7 Abnormal findings on diagnostic imaging of other parts of musculoskeletal system (principal); G44.319 Acute post-traumatic headache, not intractable; M54.2 Cervicalgia

== ENCOUNTER → 2022-09-18 | Outpatient (CLI) | payer MEDICARE, OTHER ==
[~2022-09-18] MED LIST changes: -ISOVUE-370 76% 100ML VIAL ONE
[2022-09-18 15:19] LABS: APPEARANCE, URINE MANUAL CLEAR (CLEAR); COLOR, URINE MANUAL YELLOW (YELLOW)
[2022-09-18 15:23] LABS: BILIRUBIN, URINE MANUAL NEGATIVE (NEGATIVE); GLUCOSE, URINE (UA) MANUAL NEGATIVE (NEGATIVE); KETONE, URINE MANUAL NEGATIVE (NEGATIVE); LEUKOCYTE ESTERASE, URINE MAN NEGATIVE (NEGATIVE); NITRITE, URINE MANUAL NEGATIVE (NEGATIVE); PROTEIN, URINE MANUAL 1+ mg/dL (NEGATIVE); UROBILINOGEN, URINE MANUAL NORMAL (NORMAL)
[2022-09-18 15:24] LABS: BLOOD URINE MANUAL NEGATIVE (NEGATIVE)
[2022-09-18 15:26] LABS: BASO # 0.1 10^3/uL (0.0-0.2); BASO % 1.5 % (0.0-1.0); EOS # 0.2 10^3/uL (0.0-0.5); EOS % 2.7 % (0.0-3.0); HEMATOCRIT 37.7 % (42.0-52.0); HEMOGLOBIN 11.8 g/dl (13.5-17.5); LYMPH % 12.8 % (24.0-44.0); MEAN CORPUSCULAR HEMOGLOBIN 29.1 pg (27.0-33.0); MEAN CORPUSCULAR HGB CONC 31.3 g/dl (32.0-36.5); MEAN CORPUSCULAR VOLUME 93.1 fl (80.0-96.0); MONO # 0.8 10^3/uL (0.0-0.8); MONO % 11.2 % (2.0-8.0); NEUTROPHILS # 5.3 10^3/uL (1.5-8.5); NEUTROPHILS % 71.3 % (36.0-66.0); PLATELET COUNT, AUTOMATED 284 10^3/uL (150-450); RED BLOOD COUNT 4.05 10^6/uL (4.30-6.10); WHITE BLOOD COUNT 7.5 10^3/uL (4.0-10.0)
[2022-09-18 15:33] LABS: BACTERIA, URINE NONE SEEN; HYALINE CAST, URINE NONE SEEN /lpf (0-1); RBC, URINE NONE SEEN /hpf (0-3); SQUAMOUS EPITHELIAL CELL URINE NONE SEEN /hpf (SMALL AMT); WBC, URINE NONE SEEN /hpf (0-3)
[2022-09-18 16:01] LABS: ALBUMIN 3.9 G/DL (3.2-5.2); BILIRUBIN,TOTAL 0.7 MG/DL (0.3-1.2); CALCIUM LEVEL 9.6 MG/DL (8.3-10.6); CREATININE FOR GFR 1.7 MG/DL (0.70-1.30); GLOMERULAR FILTRATION RATE 41.1 (>35); POTASSIUM SERUM 4.8 MMOL/L (3.5-5.1); TOTAL PROTEIN 7.7 G/DL (5.7-8.2)
[2022-09-18 16:07] LABS: HEMOGLOBIN A1c 5.4 % (4.0-6.0)
== END ==
LOC: M PLALAB 12:26
PROVIDERS: ATTEND Physician Assistant
DX: E11.29 Type 2 diabetes mellitus with other diabetic kidney complication (principal)
CPT/HCPCS: 36415; 80053; 81000; 81002; 83036; 85025; 87086; 88108; G0463

== ENCOUNTER → 2022-11-22 | Outpatient (CLI) | payer MEDICARE, OTHER ==
[2022-11-22 16:23] LABS: ALBUMIN 3.2 G/DL (3.2-5.2); BILIRUBIN,TOTAL 0.6 MG/DL (0.3-1.2); CALCIUM LEVEL 8.8 MG/DL (8.3-10.6); CREATININE FOR GFR 1.62 MG/DL (0.70-1.30); GLOMERULAR FILTRATION RATE 43.4 (>35); POTASSIUM SERUM 4.4 MMOL/L (3.5-5.1)
[2022-11-22 18:38] LABS: TOTAL PROTEIN 6.5 G/DL (5.7-8.2)
== END ==
LOC: M LAB 10:36 → M PLALAB 10:36
PROVIDERS: ATTEND Physician Assistant
DX: I12.9 Hypertensive chronic kidney disease with stage 1 through stage 4 chronic kidney disease, or unspecified chronic kidney disease (principal); N18.9 Chronic kidney disease, unspecified

== ENCOUNTER → 2022-11-26 | Outpatient (CLI) | payer MEDICARE, OTHER ==
[~2022-11-26] MED LIST changes: +PROHANCE 279.3MG/ML 5ML VIAL ONE
== END ==
LOC: M PLAIMG 14:09
PROVIDERS: ATTEND Physician Assistant
DX: G96.89 Other specified disorders of central nervous system (principal)
CPT/HCPCS: 72156; A9576

== ENCOUNTER → 2023-04-03 | Outpatient (CLI) | payer MEDICARE, OTHER ==
[~2023-04-03] MED LIST changes: +POTA-298 PO; -POTA1TAB14 PO; -PROHANCE 279.3MG/ML 5ML VIAL ONE
[2023-04-03 13:07] LABS: APPEARANCE, URINE CLEAR (CLEAR); BACTERIA, URINE AUTO NEGATIVE (NEGATIVE); BILIRUBIN, URINE AUTO NEGATIVE (NEGATIVE); BLOOD, URINE BLOOD 1+ (NEGATIVE); COLOR, URINE STRAW (YELLOW); GLUCOSE, URINE (UA) AUTO NEGATIVE (NEGATIVE); KETONE, URINE AUTO NEGATIVE (NEGATIVE); LEUKOCYTE ESTERASE, URINE AUTO NEGATIVE (NEGATIVE); NITRITE, URINE AUTO NEGATIVE (NEGATIVE); PROTEIN, URINE AUTO 2+ mg/dL (NEGATIVE); RBC, URINE AUTO 2 /HPF (0-3); SQUAMOUS EPITHELIAL CELL UR AU 0 /HPF (0-6); UROBILINOGEN, URINE AUTO 0.2 mg/dL (0.0-2.0); WBC, URINE AUTO 0 /HPF (0-3)
[2023-04-03 13:14] LABS: BASO # 0.1 10^3/uL (0.0-0.2); BASO % 1.2 % (0.0-1.0); EOS # 0.2 10^3/uL (0.0-0.5); EOS % 3.7 % (0.0-3.0); HEMATOCRIT 38.7 % (42.0-52.0); HEMOGLOBIN 12.1 g/dl (13.5-17.5); LYMPH # 0.7 10^3/uL (1.5-5.0); LYMPH % 12.9 % (24.0-44.0); MEAN CORPUSCULAR HEMOGLOBIN 27.5 pg (27.0-33.0); MEAN CORPUSCULAR HGB CONC 31.3 g/dl (32.0-36.5); MONO # 0.7 10^3/uL (0.0-0.8); MONO % 11.7 % (2.0-8.0); NEUTROPHILS % 70.2 % (36.0-66.0); PLATELET COUNT, AUTOMATED 188 10^3/uL (150-450); WHITE BLOOD COUNT 5.7 10^3/uL (4.0-10.0)
[2023-04-03 13:31] LABS: HEMOGLOBIN A1c 6.6 % (4.0-6.0)
[2023-04-03 13:38] LABS: ERYTHROCYTE SEDIMENTATION RATE 37 mm/hr (0-20)
[2023-04-03 13:46] LABS: C REACTIVE PROTEIN QUANTITATIV < 0.40 MG/DL (<1.0)
[2023-04-03 13:47] LABS: ALBUMIN 3.4 G/DL (3.2-5.2); ALKALINE PHOSPHATASE 114 U/L (46-116); ALT/SGPT 39 U/L (7.0-40); AST/SGOT 46 U/L (<34); BILIRUBIN,TOTAL 0.4 MG/DL (0.3-1.2); BLOOD UREA NITROGEN 32 MG/DL (9-23); CALCIUM LEVEL 8.9 MG/DL (8.3-10.6); CARBON DIOXIDE LEVEL 27 MMOL/L (20-31); CHLORIDE LEVEL 103 MMOL/L (98-107); CHOLESTEROL LEVEL 194 MG/DL (<200); CREATININE FOR GFR 1.42 MG/DL (0.70-1.30); GLOMERULAR FILTRATION RATE 50.4 (>35); GLUCOSE, FASTING 119 MG/DL (74-106); HDL CHOLESTEROL 55.4 MG/DL (>40); LDL CHOLESTEROL 110.8 MG/DL (<100); MAGNESIUM LEVEL 1.6 MG/DL (1.8-2.4); NON-HDL-C 138.6 MG/DL; POTASSIUM SERUM 4.4 MMOL/L (3.5-5.1); SODIUM LEVEL 138 MMOL/L (136-145); TRIGLYCERIDES LEVEL 139 MG/DL (<150)
[2023-04-04 23:09] LABS: PSA TOTAL <0.1 ng/mL (0.0-4.0)
== END ==
LOC: M PLALAB 11:10
PROVIDERS: ATTEND Physician Assistant
DX: R10.9 Unspecified abdominal pain (principal); R03.0 Elevated blood-pressure reading, without diagnosis of hypertension; R31.9 Hematuria, unspecified; E11.29 Type 2 diabetes mellitus with other diabetic kidney complication; E78.00 Pure hypercholesterolemia, unspecified

== ENCOUNTER → 2023-04-03 | Outpatient (CLI) | payer MEDICARE, OTHER | LOC: M WHC 10:16 | PROVIDERS: ATTEND Physician Assistant | DX: N28.1 Cyst of kidney, acquired (principal); R10.9 Unspecified abdominal pain; R31.9 Hematuria, unspecified ==

== ENCOUNTER → 2023-04-23 | Outpatient (CLI) | payer MEDICARE, OTHER | LOC: M RAD 12:38 | PROVIDERS: ATTEND Physician Assistant | DX: R10.9 Unspecified abdominal pain (principal); R31.9 Hematuria, unspecified; Z53.9 Procedure and treatment not carried out, unspecified reason ==

== ENCOUNTER 2023-08-07 21:44 | Inpatient (IN) | payer MEDICARE, OTHER ==
[~2023-08-07] VITALS: Ht 172.7 cm; Wt 78.5 kg
[~2023-08-07 21:44] MED LIST changes: +GLIP5TAB17; +GLIP5TAB17 PO; -GLIP5TAB8; -GLIP5TAB8 PO
[2023-08-07 22:11] LABS: BASO # 0.1 10^3/uL (0.0-0.2); BASO % 1.7 % (0.0-1.0); EOS # 0.5 10^3/uL (0.0-0.5); EOS % 8.1 % (0.0-3.0); HEMATOCRIT 34.8 % (42.0-52.0); HEMOGLOBIN 11.3 g/dl (13.5-17.5); LYMPH # 1.2 10^3/uL (1.5-5.0); LYMPH % 19.2 % (24.0-44.0); MEAN CORPUSCULAR HEMOGLOBIN 28.8 pg (27.0-33.0); MEAN CORPUSCULAR HGB CONC 32.5 g/dl (32.0-36.5); MEAN CORPUSCULAR VOLUME 88.5 fl (80.0-96.0); MONO # 0.8 10^3/uL (0.0-0.8); NEUTROPHILS # 3.8 10^3/uL (1.5-8.5); NEUTROPHILS % 58.7 % (36.0-66.0); PLATELET COUNT, AUTOMATED 194 10^3/uL (150-450); RED BLOOD COUNT 3.93 10^6/uL (4.30-6.10); WHITE BLOOD COUNT 6.4 10^3/uL (4.0-10.0)
[2023-08-07 22:36] LABS: ALBUMIN 3.3 G/DL (3.2-5.2); ALKALINE PHOSPHATASE 135 U/L (46-116); ALT/SGPT 22 U/L (7.0-40); AST/SGOT 22 U/L (<34); BILIRUBIN,DIRECT < 0.1 MG/DL (<0.4); BILIRUBIN,TOTAL 0.3 MG/DL (0.3-1.2); BLOOD UREA NITROGEN 67 MG/DL (9-23); CALCIUM LEVEL 8.5 MG/DL (8.3-10.6); CARBON DIOXIDE LEVEL 31 MMOL/L (20-31); CHLORIDE LEVEL 101 MMOL/L (98-107); CK-MB VALUE MASS 3.8 NG/ML (<3.6); CPK CREATINE PHOSPHOKINASE 250 U/L (46-171); CREATININE FOR GFR 2.18 MG/DL (0.70-1.30); GLOMERULAR FILTRATION RATE 30.8 (>35); GLUCOSE, FASTING 108 MG/DL (74-106); MB/CK RELATIVE INDEX 1.52 (< OR =4); SODIUM LEVEL 138 MMOL/L (136-145); TOTAL PROTEIN 6.9 G/DL (5.7-8.2)
[2023-08-07] MEDS ORDERED: NS 1,000 ML IV SCH (22:50)
[2023-08-07 23:10] LABS: FREE T4 0.36 NG/DL (0.89-1.76)
[2023-08-08] VITALS (11 sets, daily range): BP systolic 131–194; BP diastolic 52–86; TEMP 97.1–97.8; O2SAT 93–98
[2023-08-08] MEDS ORDERED: DEXTROSE 50% 50ML SYRINGE IV PRN (00:25)
[2023-08-08] MEDS ORDERED: GLUCOSE 4GM CHEW TABLET PO PRN (00:25)
[2023-08-08] MEDS ORDERED: GLUCAGON INJ 1MG VIAL SC PRN (00:25)
[2023-08-08] MEDS ORDERED: hydrALAZINE 20MG/ML 1ML VIAL IV STA ×2 (02:37→23:56)
[2023-08-08] MEDS: NS 1,000 ML IV SCH ×2 (03:10→09:09)
[2023-08-08] MEDS ORDERED: MED REC CURRENTLY UNOBTAINABLE XX SCH (04:00)
[2023-08-08] MEDS ORDERED: LEVOTHYROXINE 25MCG TABLET (0.025MG) PO SCH (06:00)
[2023-08-08] MEDS: HEPARIN SOD (PORCINE) 5000UNITS/ML 1ML VIAL/SYRINGE SC SCH ×3 (06:16→20:34)
[2023-08-08 07:07] LABS: BLOOD UREA NITROGEN 58 MG/DL (9-23); CARBON DIOXIDE LEVEL 29 MMOL/L (20-31); CHLORIDE LEVEL 102 MMOL/L (98-107); CREATININE FOR GFR 1.85 MG/DL (0.70-1.30); GLOMERULAR FILTRATION RATE 37.2 (>35); GLUCOSE, FASTING 124 MG/DL (74-106); PHOSPHORUS LEVEL 3.4 MG/DL (2.4-5.1); POTASSIUM SERUM 3.8 MMOL/L (3.5-5.1); SODIUM LEVEL 138 MMOL/L (136-145)
[2023-08-08] MEDS: INSULIN LISPRO (NovoLOG) PER UNIT SC SCH ×3 (07:30→18:09)
[2023-08-08 07:51] LABS: CORTISOL AM 16.5 UG/DL (4.3-22.4)
[2023-08-08 07:59] LABS: CPK CREATINE PHOSPHOKINASE 202 U/L (46-171)
[2023-08-08 08:00] LABS: ALKALINE PHOSPHATASE 95 U/L (46-116); ALT/SGPT 21 U/L (7.0-40); AST/SGOT 23 U/L (<34); BILIRUBIN,TOTAL 0.4 MG/DL (0.3-1.2); THYROID PEROXIDASE ANTIBODY < 28.0 U/ML (<60.0); TOTAL PROTEIN 6.4 G/DL (5.7-8.2)
[2023-08-08] MEDS ORDERED: HYDROCORTISONE 100MG/2ML VIAL IV ONE (08:00)
[2023-08-08] MEDS ORDERED: METO1TAB87 PO (08:12)
[2023-08-08] MEDS ORDERED: AMLO1TAB24 PO (08:12)
[2023-08-08] MEDS ORDERED: PRAM1TAB7 PO (08:12)
[2023-08-08] MEDS ORDERED: DOXE10CA PO (08:12)
[2023-08-08] MEDS ORDERED: POTA-151 PO (08:12)
[2023-08-08] MEDS ORDERED: IBUP200C28 PO (08:12)
[2023-08-08] MEDS ORDERED: HYDR12CA PO (08:12)
[2023-08-08] MEDS ORDERED: GABA-284 PO (08:12)
[2023-08-08] MEDS ORDERED: HOME MED LIST COMPLETE! XX SCH (08:15)
[2023-08-08] MEDS ORDERED: SIMETHICONE 80MG CHEW TAB PO PRN (08:35)
[2023-08-08] MEDS ORDERED: LEVOTHYROXINE 100MCG (0.1MG) 5ML SDV PF (SOLUTION FORM) IV ONE (09:00)
[2023-08-08] MEDS ORDERED: DOCUSATE SODIUM 100MG CAPSULE PO PRN (09:25)
[2023-08-08 10:24] LABS: CHOLESTEROL LEVEL 194 MG/DL (<200); CHOLESTEROL RISK RATIO 4.52 (<5); HDL CHOLESTEROL 42.9 MG/DL (>40); LDL CHOLESTEROL 123.9 MG/DL (<100); NON-HDL-C 151.1 MG/DL; TRIGLYCERIDES LEVEL 136 MG/DL (<150)
[2023-08-08 10:51] LABS: C REACTIVE PROTEIN QUANTITATIV < 0.40 MG/DL (<1.0)
[2023-08-08] MEDS: METOPROLOL TART 25 MG TABLET PO SCH ×2 (12:11→20:33)
[2023-08-08] MEDS: PRAMIPEXOLE 1 MG TAB PO SCH ×2 (12:11→20:33)
[2023-08-08] MEDS: CitaloPRAM (CeleXA) 20 MG TAB PO SCH (12:11)
[2023-08-08] MEDS ORDERED: INSULIN LISPRO (NovoLOG) PER UNIT SC SCH (21:00)
[2023-08-09 01:04] VITALS: BP 166/74
[2023-08-09 04:12] VITALS: BP 160/74; TEMP 98.1; O2SAT 98
[2023-08-09] MEDS ORDERED: LEVOTHYROXINE 100MCG (0.1MG) 5ML SDV PF (SOLUTION FORM) IV SCH (06:00)
[2023-08-09] MEDS: HEPARIN SOD (PORCINE) 5000UNITS/ML 1ML VIAL/SYRINGE SC SCH (06:06)
[2023-08-09] MEDS: NS 1,000 ML IV SCH (06:07)
[2023-08-09 07:58] VITALS: BP 158/64; TEMP 98; O2SAT 99
[2023-08-09 07:59] LABS: BASO # 0.1 10^3/uL (0.0-0.2); BASO % 1.3 % (0.0-1.0); EOS # 0.3 10^3/uL (0.0-0.5); EOS % 3.3 % (0.0-3.0); HEMATOCRIT 35.1 % (42.0-52.0); HEMOGLOBIN 11.5 g/dl (13.5-17.5); LYMPH # 1.2 10^3/uL (1.5-5.0); LYMPH % 13.5 % (24.0-44.0); MEAN CORPUSCULAR HEMOGLOBIN 28.5 pg (27.0-33.0); MEAN CORPUSCULAR HGB CONC 32.8 g/dl (32.0-36.5); MEAN CORPUSCULAR VOLUME 86.9 fl (80.0-96.0); MONO # 0.7 10^3/uL (0.0-0.8); MONO % 7.6 % (2.0-8.0); NEUTROPHILS # 6.4 10^3/uL (1.5-8.5); PLATELET COUNT, AUTOMATED 202 10^3/uL (150-450); RED BLOOD COUNT 4.04 10^6/uL (4.30-6.10); WHITE BLOOD COUNT 8.6 10^3/uL (4.0-10.0)
[2023-08-09 08:17] LABS: CALCIUM LEVEL 8.2 MG/DL (8.3-10.6); CREATININE FOR GFR 1.53 MG/DL (0.70-1.30); GLOMERULAR FILTRATION RATE 46.3 (>35); POTASSIUM SERUM 3.7 MMOL/L (3.5-5.1)
[2023-08-09] MEDS: INSULIN LISPRO (NovoLOG) PER UNIT SC SCH (08:28)
[2023-08-09] MEDS: PRAMIPEXOLE 1 MG TAB PO SCH (08:29)
[2023-08-09] MEDS: CitaloPRAM (CeleXA) 20 MG TAB PO SCH (08:29)
[2023-08-09 09:00] VITALS: BP 158/64
[2023-08-09] MEDS ORDERED: amLODIPine 5 MG TAB PO SCH (09:00)
[2023-08-09] MEDS ORDERED: ASPIRIN 81MG CHEW TABLET PO SCH (09:00)
[2023-08-09] MEDS ORDERED: ATORVASTATIN 20 MG TAB PO SCH (09:00)
[2023-08-09] MEDS: METOPROLOL TART 25 MG TABLET PO SCH (09:00)
[2023-08-09] MEDS ORDERED: ASPI81CH8 PO (10:31)
[2023-08-09] MEDS ORDERED: ATOR1TAB21 PO ×2 (10:31→10:43)
[2023-08-09] MEDS ORDERED: AMLO1TAB25 PO ×2 (10:31→10:44)
[2023-08-09] MEDS ORDERED: METO1TAB87 PO ×2 (10:31→10:44)
[2023-08-09] MEDS ORDERED: LEVO50TA5 PO (10:31)
[2023-08-09] MEDS ORDERED: ASPI-424 PO (10:43)
== END 2023-08-09 12:20 | disposition home or self-care (01) | DRG 644 ==
LOC: EDBD 21:44 → M ED 21:44 → M ED INP 23:43 → M PCU 08-08 01:37
PROVIDERS: ADMIT Internal Medicine; ATTEND Internal Medicine
DX: E03.2 Hypothyroidism due to medicaments and other exogenous substances (principal); I50.32 Chronic diastolic (congestive) heart failure; I13.0 Hypertensive heart and chronic kidney disease with heart failure and stage 1 through stage 4 chronic kidney disease, or unspecified chronic kidney disease; N17.9 Acute kidney failure, unspecified; I25.10 Atherosclerotic heart disease of native coronary artery without angina pectoris; N18.30 Chronic kidney disease, stage 3 unspecified; E11.22 Type 2 diabetes mellitus with diabetic chronic kidney disease; I25.2 Old myocardial infarction; E78.5 Hyperlipidemia, unspecified; M19.90 Unspecified osteoarthritis, unspecified site; F41.9 Anxiety disorder, unspecified; Z66 Do not resuscitate; R27.0 Ataxia, unspecified; G73.7 Myopathy in diseases classified elsewhere; R47.1 Dysarthria and anarthria; H91.93 Unspecified hearing loss, bilateral; M47.9 Spondylosis, unspecified; T46.2X5A Adverse effect of other antidysrhythmic drugs, initial encounter; I48.0 Paroxysmal atrial fibrillation; R63.5 Abnormal weight gain; K59.00 Constipation, unspecified; G25.81 Restless legs syndrome; Z85.46 Personal history of malignant neoplasm of prostate; Z85.51 Personal history of malignant neoplasm of bladder; Z95.1 Presence of aortocoronary bypass graft; Z86.73 Personal history of transient ischemic attack (TIA), and cerebral infarction without residual deficits; Z79.84 Long term (current) use of oral hypoglycemic drugs; Z79.899 Other long term (current) drug therapy; Z90.49 Acquired absence of other specified parts of digestive tract

== ENCOUNTER → 2023-08-28 | Outpatient (CLI) | payer MEDICARE, OTHER ==
[~2023-08-28] MED LIST changes: +ASPI-424 PO; +ASPI81CH8 PO; +DOXE10CA PO; +GABA-284 PO; +HYDR12CA PO; +IBUP200C28 PO; +LEVO50TA5 PO; +POTA-151 PO; +PRAM1TAB7 PO
[2023-08-28 14:15] LABS: APPEARANCE, URINE HAZY (CLEAR); BACTERIA, URINE AUTO NEGATIVE (NEGATIVE); BILIRUBIN, URINE AUTO NEGATIVE (NEGATIVE); BLOOD, URINE BLOOD 1+ (NEGATIVE); COLOR, URINE YELLOW (YELLOW); GLUCOSE, URINE (UA) AUTO NEGATIVE (NEGATIVE); KETONE, URINE AUTO NEGATIVE (NEGATIVE); LEUKOCYTE ESTERASE, URINE AUTO NEGATIVE (NEGATIVE); MUCUS, URINE SMALL (NEGATIVE); NITRITE, URINE AUTO NEGATIVE (NEGATIVE); PROTEIN, URINE AUTO 2+ mg/dL (NEGATIVE); RBC, URINE AUTO 0 /HPF (0-3); SPECIFIC GRAVITY URINE AUTO 1.012 (1.002-1.035); SQUAMOUS EPITHELIAL CELL UR AU 0 /HPF (0-6); UROBILINOGEN, URINE AUTO 0.2 mg/dL (0.0-2.0); WBC, URINE AUTO 7 /HPF (0-3)
[2023-08-28 14:21] LABS: BASO # 0.1 10^3/uL (0.0-0.2); BASO % 1.2 % (0.0-1.0); EOS # 0.3 10^3/uL (0.0-0.5); EOS % 4.4 % (0.0-3.0); HEMATOCRIT 36.6 % (42.0-52.0); HEMOGLOBIN 11.6 g/dl (13.5-17.5); LYMPH # 0.9 10^3/uL (1.5-5.0); LYMPH % 12.1 % (24.0-44.0); MEAN CORPUSCULAR HEMOGLOBIN 28.2 pg (27.0-33.0); MEAN CORPUSCULAR HGB CONC 31.7 g/dl (32.0-36.5); MEAN CORPUSCULAR VOLUME 88.8 fl (80.0-96.0); MONO # 0.8 10^3/uL (0.0-0.8); MONO % 10.8 % (2.0-8.0); NEUTROPHILS # 5.3 10^3/uL (1.5-8.5); NEUTROPHILS % 71.1 % (36.0-66.0); PLATELET COUNT, AUTOMATED 241 10^3/uL (150-450); RED BLOOD COUNT 4.12 10^6/uL (4.30-6.10); WHITE BLOOD COUNT 7.4 10^3/uL (4.0-10.0)
[2023-08-28 14:30] LABS: HEMOGLOBIN A1c 6.1 % (4.0-6.0)
[2023-08-28 14:40] LABS: PSA SCREENING 0.04 NG/ML (< 4.00)
[2023-08-28 14:41] LABS: CREATININE, URINE 41.6 MG/DL
[2023-08-28 14:42] LABS: MAU/CREAT RATIO 870.1 MCG/MG (0.0-30.0)
[2023-08-28 14:43] LABS: ALBUMIN 3.6 G/DL (3.2-5.2); BILIRUBIN,TOTAL 0.4 MG/DL (0.3-1.2); CALCIUM LEVEL 9.9 MG/DL (8.3-10.6); CREATININE FOR GFR 1.98 MG/DL (0.70-1.30); FREE T4 0.56 NG/DL (0.89-1.76); GLOMERULAR FILTRATION RATE 34.4 (>35); POTASSIUM SERUM 4.4 MMOL/L (3.5-5.1); TOTAL PROTEIN 7.4 G/DL (5.7-8.2)
[2023-08-28 14:44] LABS: FERRITIN 33.7 NG/ML (10.5-307.3)
== END ==
LOC: M PLALAB 10:48
PROVIDERS: ATTEND Physician Assistant
DX: R39.9 Unspecified symptoms and signs involving the genitourinary system (principal); E11.29 Type 2 diabetes mellitus with other diabetic kidney complication; R53.1 Weakness; E03.9 Hypothyroidism, unspecified; Z12.5 Encounter for screening for malignant neoplasm of prostate
CPT/HCPCS: 36415; 80053; 81001; 82043; 82728; 83036; 84439; 84443; 85025; 87088; 87186; G0103

== ENCOUNTER → 2023-08-29 | Outpatient (CLI) | payer MEDICARE, OTHER | LOC: M RAD 12:42 | PROVIDERS: ATTEND Physician Assistant | DX: M47.812 Spondylosis without myelopathy or radiculopathy, cervical region (principal); R53.1 Weakness; R25.1 Tremor, unspecified; Z87.898 Personal history of other specified conditions; Z86.73 Personal history of transient ischemic attack (TIA), and cerebral infarction without residual deficits ==

== ENCOUNTER → 2023-10-03 | Outpatient (CLI) | payer MEDICARE, OTHER ==
[2023-10-03 14:02] LABS: BASO # 0.1 10^3/uL (0.0-0.2); BASO % 1.7 % (0.0-1.0); EOS # 0.3 10^3/uL (0.0-0.5); EOS % 4.4 % (0.0-3.0); HEMATOCRIT 37.2 % (42.0-52.0); HEMOGLOBIN 11.7 g/dl (13.5-17.5); MEAN CORPUSCULAR HEMOGLOBIN 28.5 pg (27.0-33.0); MEAN CORPUSCULAR HGB CONC 31.5 g/dl (32.0-36.5); MEAN CORPUSCULAR VOLUME 90.7 fl (80.0-96.0); MONO # 0.7 10^3/uL (0.0-0.8); MONO % 10.7 % (2.0-8.0); NEUTROPHILS # 4.5 10^3/uL (1.5-8.5); NEUTROPHILS % 67.7 % (36.0-66.0); PLATELET COUNT, AUTOMATED 253 10^3/uL (150-450); WHITE BLOOD COUNT 6.6 10^3/uL (4.0-10.0)
[2023-10-03 14:30] LABS: ALBUMIN 3.5 G/DL (3.2-5.2); ALKALINE PHOSPHATASE 96 U/L (46-116); ALT/SGPT 22 U/L (7.0-40); AST/SGOT 20 U/L (<34); BILIRUBIN,TOTAL 0.5 MG/DL (0.3-1.2); BLOOD UREA NITROGEN 30 MG/DL (9-23); CALCIUM LEVEL 9.2 MG/DL (8.3-10.6); CARBON DIOXIDE LEVEL 30 MMOL/L (20-31); CHLORIDE LEVEL 106 MMOL/L (98-107); CREATININE FOR GFR 1.79 MG/DL (0.70-1.30); GLOMERULAR FILTRATION RATE 38.6 (>35); GLUCOSE, FASTING 123 MG/DL (74-106); POTASSIUM SERUM 4.2 MMOL/L (3.5-5.1); SODIUM LEVEL 133 MMOL/L (136-145); TOTAL PROTEIN 7.5 G/DL (5.7-8.2)
[2023-10-03 14:34] LABS: FREE T4 0.46 NG/DL (0.89-1.76)
== END ==
LOC: M PLALAB 11:34
PROVIDERS: ATTEND Physician Assistant
DX: I12.9 Hypertensive chronic kidney disease with stage 1 through stage 4 chronic kidney disease, or unspecified chronic kidney disease (principal); E11.29 Type 2 diabetes mellitus with other diabetic kidney complication; E03.9 Hypothyroidism, unspecified

== ENCOUNTER → 2023-10-23 | Outpatient (CLI) | payer MEDICARE, OTHER ==
[~2023-10-23] MED LIST changes: -HYDR25TA PO; +HYDR25TA88 PO
[2023-10-23 15:51] LABS: BASO # 0.1 10^3/uL (0.0-0.2); BASO % 1.8 % (0.0-1.0); EOS # 0.3 10^3/uL (0.0-0.5); EOS % 4.5 % (0.0-3.0); HEMATOCRIT 35.1 % (42.0-52.0); HEMOGLOBIN 11.2 g/dl (13.5-17.5); LYMPH % 14.8 % (24.0-44.0); MEAN CORPUSCULAR HEMOGLOBIN 28.4 pg (27.0-33.0); MEAN CORPUSCULAR HGB CONC 31.9 g/dl (32.0-36.5); MEAN CORPUSCULAR VOLUME 88.9 fl (80.0-96.0); MONO # 0.8 10^3/uL (0.0-0.8); MONO % 10.9 % (2.0-8.0); NEUTROPHILS # 4.8 10^3/uL (1.5-8.5); NEUTROPHILS % 67.6 % (36.0-66.0); PLATELET COUNT, AUTOMATED 257 10^3/uL (150-450); RED BLOOD COUNT 3.95 10^6/uL (4.30-6.10); WHITE BLOOD COUNT 7.1 10^3/uL (4.0-10.0)
[2023-10-23 16:21] LABS: ALBUMIN 3.4 G/DL (3.2-5.2); BILIRUBIN,TOTAL 0.5 MG/DL (0.3-1.2); CALCIUM LEVEL 8.6 MG/DL (8.3-10.6); CREATININE FOR GFR 1.82 MG/DL (0.70-1.30); GLOMERULAR FILTRATION RATE 37.9 (>35); POTASSIUM SERUM 4.8 MMOL/L (3.5-5.1); TOTAL PROTEIN 7.2 G/DL (5.7-8.2)
[2023-10-23 16:22] LABS: FREE T4 0.77 NG/DL (0.89-1.76); THYROID STIMULATING HORMONE 37.385 uIU/ML (0.55-4.78)
== END ==
LOC: M PLALAB 14:22
PROVIDERS: ATTEND Physician Assistant
DX: N18.9 Chronic kidney disease, unspecified (principal); E07.9 Disorder of thyroid, unspecified

== ENCOUNTER → 2023-11-04 | Outpatient (REF) | payer MEDICARE, OTHER | LOC: M SFHCPLAZ 17:02 | PROVIDERS: ATTEND Physician Assistant | DX: Z87.440 Personal history of urinary (tract) infections (principal); Z79.899 Other long term (current) drug therapy ==

== ENCOUNTER → 2023-11-07 | Outpatient (CLI) | payer MEDICARE, OTHER ==
[2023-11-07 14:24] LABS: APPEARANCE, URINE CLEAR (CLEAR); BACTERIA, URINE AUTO NEGATIVE (NEGATIVE); BILIRUBIN, URINE AUTO NEGATIVE (NEGATIVE); BLOOD, URINE BLOOD NEGATIVE (NEGATIVE); COLOR, URINE YELLOW (YELLOW); GLUCOSE, URINE (UA) AUTO NEGATIVE (NEGATIVE); KETONE, URINE AUTO NEGATIVE (NEGATIVE); LEUKOCYTE ESTERASE, URINE AUTO NEGATIVE (NEGATIVE); NITRITE, URINE AUTO NEGATIVE (NEGATIVE); PROTEIN, URINE AUTO 2+ mg/dL (NEGATIVE); RBC, URINE AUTO 1 /HPF (0-3); SPECIFIC GRAVITY URINE AUTO 1.015 (1.002-1.035); SQUAMOUS EPITHELIAL CELL UR AU 0 /HPF (0-6); UROBILINOGEN, URINE AUTO 0.2 mg/dL (0.0-2.0); WBC, URINE AUTO 0 /HPF (0-3)
[2023-11-07 14:34] LABS: BASO # 0.1 10^3/uL (0.0-0.2); BASO % 1.8 % (0.0-1.0); EOS # 0.3 10^3/uL (0.0-0.5); EOS % 4.7 % (0.0-3.0); HEMATOCRIT 36.5 % (42.0-52.0); HEMOGLOBIN 11.5 g/dl (13.5-17.5); LYMPH % 14.4 % (24.0-44.0); MEAN CORPUSCULAR HGB CONC 31.5 g/dl (32.0-36.5); MEAN CORPUSCULAR VOLUME 88.8 fl (80.0-96.0); MONO # 0.6 10^3/uL (0.0-0.8); MONO % 9.3 % (2.0-8.0); NEUTROPHILS # 4.7 10^3/uL (1.5-8.5); NEUTROPHILS % 69.5 % (36.0-66.0); PLATELET COUNT, AUTOMATED 275 10^3/uL (150-450); RED BLOOD COUNT 4.11 10^6/uL (4.30-6.10); WHITE BLOOD COUNT 6.8 10^3/uL (4.0-10.0)
[2023-11-07 15:07] LABS: ALBUMIN 3.5 G/DL (3.2-5.2); BILIRUBIN,TOTAL 0.5 MG/DL (0.3-1.2); CREATININE FOR GFR 1.81 MG/DL (0.70-1.30); GLOMERULAR FILTRATION RATE 38.1 (>35); PERCENT SATURATION 14.1 % (19.7-50.0); POTASSIUM SERUM 4.3 MMOL/L (3.5-5.1); TOTAL PROTEIN 7.2 G/DL (5.7-8.2)
[2023-11-07 15:10] LABS: THYROID STIMULATING HORMONE 34.743 uIU/ML (0.55-4.78)
[2023-11-07 15:11] LABS: FERRITIN 22.5 NG/ML (10.5-307.3)
== END ==
LOC: M PLALAB 09:23
PROVIDERS: ATTEND Physician Assistant
DX: E11.29 Type 2 diabetes mellitus with other diabetic kidney complication (principal); Z87.440 Personal history of urinary (tract) infections; D63.1 Anemia in chronic kidney disease; R07.89 Other chest pain; N18.9 Chronic kidney disease, unspecified; R53.83 Other fatigue; R06.02 Shortness of breath

== ENCOUNTER 2023-11-25 14:32 | Outpatient (CLI) | payer MEDICARE, OTHER ==
[~2023-11-25] VITALS: Ht 172.7 cm; Wt 83.2 kg
[~2023-11-25 14:32] MED LIST changes: +ALBUTEROL SULFATE 2.5MG/0.5ML INH NEB SOLN INH PRN; +EPINEPHrine INJ 1 MG/ML 1ML AMP IM PRN; +diphenhydrAMINE 50MG/ML VIAL IV PRN; +methylPREDNISolone 125MG 2ML VIAL IV PRN
[2023-11-25 15:20] VITALS: BP 160/76; O2SAT 98
[2023-11-25] MEDS: FERRIC CARBOXYMALTOSE INJ 750 MG in NS 250 ML (>50kg) IV ONE (15:23)
[2023-11-25] MEDS ORDERED: NS 1,000 ML IV SCH (15:30)
[2023-11-25 17:02] VITALS: BP 143/67; O2SAT 99
== END 2023-11-25 17:05 | disposition home or self-care (01) ==
LOC: M INFU 14:32
PROVIDERS: ATTEND Physician Assistant
DX: E61.1 Iron deficiency (principal)
CPT/HCPCS: 96365; J1439

== ENCOUNTER → 2023-12-04 | Outpatient (REF) | payer MEDICARE, OTHER ==
[~2023-12-04] MED LIST changes: -ALBUTEROL SULFATE 2.5MG/0.5ML INH NEB SOLN INH PRN; -EPINEPHrine INJ 1 MG/ML 1ML AMP IM PRN; -diphenhydrAMINE 50MG/ML VIAL IV PRN; -methylPREDNISolone 125MG 2ML VIAL IV PRN
== END ==
LOC: M SFHCPLAZ 12:26
PROVIDERS: ATTEND Physician Assistant
DX: R53.81 Other malaise (principal)

== ENCOUNTER → 2023-12-04 | Outpatient (CLI) | payer MEDICARE, OTHER ==
[2023-12-04 13:50] LABS: BASO # 0.1 10^3/uL (0.0-0.2); BASO % 1.7 % (0.0-1.0); EOS # 0.3 10^3/uL (0.0-0.5); EOS % 3.9 % (0.0-3.0); HEMATOCRIT 39.3 % (42.0-52.0); HEMOGLOBIN 12.4 g/dl (13.5-17.5); LYMPH # 1.1 10^3/uL (1.5-5.0); LYMPH % 14.5 % (24.0-44.0); MEAN CORPUSCULAR HEMOGLOBIN 28.5 pg (27.0-33.0); MEAN CORPUSCULAR HGB CONC 31.6 g/dl (32.0-36.5); MEAN CORPUSCULAR VOLUME 90.3 fl (80.0-96.0); MONO # 0.8 10^3/uL (0.0-0.8); MONO % 11.6 % (2.0-8.0); NEUTROPHILS # 4.9 10^3/uL (1.5-8.5); NEUTROPHILS % 67.9 % (36.0-66.0); PLATELET COUNT, AUTOMATED 229 10^3/uL (150-450); RED BLOOD COUNT 4.35 10^6/uL (4.30-6.10); WHITE BLOOD COUNT 7.2 10^3/uL (4.0-10.0)
[2023-12-04 14:25] LABS: PERCENT SATURATION 29.5 % (19.7-50.0)
[2023-12-04 14:26] LABS: ALBUMIN 3.7 G/DL (3.2-5.2); BILIRUBIN,TOTAL 0.5 MG/DL (0.3-1.2); CREATININE FOR GFR 1.77 MG/DL (0.70-1.30); MAGNESIUM LEVEL 1.6 MG/DL (1.8-2.4); PHOSPHORUS LEVEL 2.2 MG/DL (2.4-5.1); POTASSIUM SERUM 4.6 MMOL/L (3.5-5.1); TOTAL PROTEIN 7.4 G/DL (5.7-8.2)
[2023-12-04 14:27] LABS: FERRITIN 529.4 NG/ML (10.5-307.3); THYROID STIMULATING HORMONE 22.342 uIU/ML (0.55-4.78)
== END ==
LOC: M PLALAB 12:29
PROVIDERS: ATTEND Physician Assistant
DX: E11.29 Type 2 diabetes mellitus with other diabetic kidney complication (principal); R19.7 Diarrhea, unspecified; R53.1 Weakness; R53.81 Other malaise; R42 Dizziness and giddiness; D63.1 Anemia in chronic kidney disease; E03.9 Hypothyroidism, unspecified

== ENCOUNTER → 2023-12-05 | Outpatient (REF) | payer MEDICARE, OTHER | LOC: M SFHCPLAZ 15:23 | PROVIDERS: ATTEND Physician Assistant | DX: R19.7 Diarrhea, unspecified (principal) ==

== ENCOUNTER → 2024-02-05 | Outpatient (CLI) | payer MEDICARE, OTHER ==
[2024-02-05 16:03] LABS: BASO # 0.1 10^3/uL (0.0-0.2); BASO % 1.6 % (0.0-1.0); EOS # 0.4 10^3/uL (0.0-0.5); EOS % 5.1 % (0.0-3.0); HEMOGLOBIN 12.3 g/dl (13.5-17.5); LYMPH % 13.4 % (24.0-44.0); MEAN CORPUSCULAR HEMOGLOBIN 28.8 pg (27.0-33.0); MEAN CORPUSCULAR HGB CONC 30.8 g/dl (32.0-36.5); MEAN CORPUSCULAR VOLUME 93.7 fl (80.0-96.0); MONO # 0.8 10^3/uL (0.0-0.8); MONO % 11.4 % (2.0-8.0); NEUTROPHILS % 68.1 % (36.0-66.0); PLATELET COUNT, AUTOMATED 250 10^3/uL (150-450); RED BLOOD COUNT 4.27 10^6/uL (4.30-6.10); WHITE BLOOD COUNT 7.3 10^3/uL (4.0-10.0)
[2024-02-05 16:32] LABS: ALBUMIN 3.4 G/DL (3.2-5.2); BILIRUBIN,TOTAL 0.5 MG/DL (0.3-1.2); CALCIUM LEVEL 9.2 MG/DL (8.3-10.6); CREATININE FOR GFR 1.9 MG/DL (0.70-1.30); TOTAL PROTEIN 6.9 G/DL (5.7-8.2)
[2024-02-05 16:34] LABS: FREE T4 0.68 NG/DL (0.89-1.76); THYROID STIMULATING HORMONE 52.764 uIU/ML (0.55-4.78)
== END ==
LOC: M PLALAB 12:41
PROVIDERS: ATTEND Physician Assistant
DX: R52 Pain, unspecified (principal); R19.5 Other fecal abnormalities; E03.9 Hypothyroidism, unspecified

== ENCOUNTER → 2024-02-12 | Outpatient (CLI) | payer MEDICARE, OTHER | LOC: M PLAIMG 14:47 | PROVIDERS: ATTEND Physician Assistant | DX: I51.7 Cardiomegaly (principal); I27.20 Pulmonary hypertension, unspecified; R06.02 Shortness of breath; Z95.1 Presence of aortocoronary bypass graft ==

== ENCOUNTER → 2024-03-03 | Outpatient (CLI) | payer MEDICARE, OTHER ==
[2024-03-03 19:12] LABS: FOLATE 6.2 NG/ML (>5.4)
== END ==
LOC: M PLALAB 14:27
PROVIDERS: ATTEND Psychiatry & Neurology Neurology
DX: G62.9 Polyneuropathy, unspecified (principal)

== ENCOUNTER 2024-07-03 18:17 | Inpatient (IN) | payer MEDICARE, OTHER ==
[~2024-07-03] VITALS: Ht 172.7 cm; Wt 75.2 kg
[2024-07-03] MEDS: IBUPROFEN 600MG TAB PO ONE (18:40)
[2024-07-03 18:57] LABS: BASO % 0.4 % (0.0-1.0); EOS % 0.2 % (0.0-3.0); HEMATOCRIT 35.6 % (42.0-52.0); HEMOGLOBIN 11.4 g/dl (13.5-17.5); LYMPH # 0.7 10^3/uL (1.5-5.0); LYMPH % 5.8 % (24.0-44.0); MEAN CORPUSCULAR HEMOGLOBIN 29.8 pg (27.0-33.0); MEAN CORPUSCULAR VOLUME 93.2 fl (80.0-96.0); MONO # 0.9 10^3/uL (0.0-0.8); MONO % 8.1 % (2.0-8.0); NEUTROPHILS # 9.6 10^3/uL (1.5-8.5); PLATELET COUNT, AUTOMATED 233 10^3/uL (150-450); RED BLOOD COUNT 3.82 10^6/uL (4.30-6.10); WHITE BLOOD COUNT 11.3 10^3/uL (4.0-10.0)
[2024-07-03 19:24] LABS: ALKALINE PHOSPHATASE 107 U/L (40-129); ALT/SGPT 38 U/L (7.0-40); AST/SGOT 28 U/L (<34); BILIRUBIN,DIRECT 0.5 MG/DL (<0.4); BILIRUBIN,TOTAL 1.2 MG/DL (0.3-1.2); BLOOD UREA NITROGEN 30 MG/DL (9-23); CALCIUM LEVEL 8.9 MG/DL (8.3-10.6); CARBON DIOXIDE LEVEL 28 MMOL/L (20-31); CHLORIDE LEVEL 103 MMOL/L (98-107); GLOMERULAR FILTRATION RATE 40.9 (>35); GLUCOSE, FASTING 200 MG/DL (74-106); POTASSIUM SERUM 4.5 MMOL/L (3.5-5.1); SODIUM LEVEL 136 MMOL/L (136-145); TOTAL PROTEIN 7.1 G/DL (5.7-8.2)
[2024-07-03 19:26] LABS: THYROXINE (T4) 4.2 UG/DL (4.5-10.9)
[2024-07-03 19:27] LABS: THYROID STIMULATING HORMONE 28.372 uIU/ML (0.55-4.78)
[2024-07-03 19:31] LABS: PROCALCITONIN 0.41 ng/ml
[2024-07-03] MEDS: LIDOCAINE 2% 5ML JELLY UROJET TOP ONE (19:35)
[2024-07-03] MEDS: cefTRIAXone SOD 1 GM in DEXTROSE 5% (D5W) ADV/MINI-BAG 50 ML IV ONE (21:12)
[2024-07-03] MEDS: ACETAMINOPHEN 325 MG TAB PO ONE (21:12)
[2024-07-03] MEDS ORDERED: GLUCAGON INJ 1MG VIAL SC PRN (22:25)
[2024-07-03] MEDS ORDERED: GLUCOSE 4 GM CHEW PO PRN (22:25)
[2024-07-03] MEDS ORDERED: DEXTROSE 50% 50ML SYRINGE IV PRN (22:25)
[2024-07-03 22:27] LABS: CK-MB VALUE MASS < 1.0 NG/ML (<3.6)
[2024-07-03 22:29] LABS: CPK CREATINE PHOSPHOKINASE 87 U/L (46-171); MB/CK RELATIVE INDEX 1.14 (< OR =4)
[2024-07-03] MEDS ORDERED: MAALOX 30 ML SUSP *UDC PO PRN (22:30)
[2024-07-03] MEDS ORDERED: MOM 30ML SUSPENSION UDC PO PRN (22:30)
[2024-07-03] MEDS ORDERED: ACETAMINOPHEN 325 MG TAB PO PRN (22:30)
[2024-07-03] MEDS: FUROSEMIDE 20 MG TAB PO ONE (23:33)
[2024-07-04] VITALS (11 sets, daily range): BP systolic 82–202; BP diastolic 46–84; TEMP 96.9–100.5; O2SAT 94–96
[2024-07-04] MEDS ORDERED: ACET-897 PO (06:19)
[2024-07-04] MEDS ORDERED: ASPI81TA26 PO (06:19)
[2024-07-04] MEDS ORDERED: DONE5TAB82 PO (06:19)
[2024-07-04] MEDS ORDERED: HOME MED LIST COMPLETE! XX SCH (06:20)
[2024-07-04 06:36] LABS: HEMATOCRIT 33.8 % (42.0-52.0); HEMOGLOBIN 10.8 g/dl (13.5-17.5); MEAN CORPUSCULAR HEMOGLOBIN 29.8 pg (27.0-33.0); MEAN CORPUSCULAR VOLUME 93.1 fl (80.0-96.0); PLATELET COUNT, AUTOMATED 203 10^3/uL (150-450); RED BLOOD COUNT 3.63 10^6/uL (4.30-6.10); WHITE BLOOD COUNT 9.6 10^3/uL (4.0-10.0)
[2024-07-04 07:06] LABS: ALBUMIN 2.5 G/DL (3.2-5.2); BILIRUBIN,TOTAL 1.3 MG/DL (0.3-1.2); CALCIUM LEVEL 8.7 MG/DL (8.3-10.6); CREATININE FOR GFR 1.78 MG/DL (0.70-1.30); GLOMERULAR FILTRATION RATE 38.8 (>35); MAGNESIUM LEVEL 1.4 MG/DL (1.8-2.4); POTASSIUM SERUM 3.8 MMOL/L (3.5-5.1); TOTAL PROTEIN 6.4 G/DL (5.7-8.2)
[2024-07-04] MEDS: INSULIN LISPRO (NovoLOG) PER UNIT SC SCH (08:50)
[2024-07-04] MEDS: ERYTHROMYCIN OPHTH OINT OU SCH (08:50)
[2024-07-04] MEDS: HEPARIN SOD (PORCINE) 5000UNITS/ML 1ML VIAL/SYRINGE SC SCH (08:51)
[2024-07-04] MEDS: DOCUSATE SODIUM 100MG CAPSULE PO SCH (08:51)
[2024-07-04] MEDS: cefTRIAXone SOD 1 GM in DEXTROSE 5% (D5W) ADV/MINI-BAG 50 ML IV SCH (08:51)
[2024-07-04] MEDS: DOXYCYCLINE HYCLATE 100MG TABLET PO SCH (11:19)
[2024-07-04] MEDS: MAG SULF 1GM/100ML (MAG RUN) 1 GM in IV 1 EA IV SCH (11:22)
[2024-07-04] MEDS ORDERED: METOPROLOL TART 50 MG TAB PO SCH (12:00)
[2024-07-04] MEDS: CitaloPRAM (CeleXA) 20 MG TAB PO SCH (15:12)
[2024-07-04] MEDS: DONEPEZIL 5 MG TAB PO SCH (15:12)
[2024-07-04] MEDS: ACETAMINOPHEN *IV* 1,000 MG in IV 1 EA IV ONE (15:13)
[2024-07-04] MEDS: GABAPENTIN 400MG CAP PO SCH (15:13)
[2024-07-04] MEDS: SITagliptin 50 MG TAB (JANUVIA) PO SCH (15:13)
[2024-07-04] MEDS: METOPROLOL TART 25 MG TABLET PO SCH (17:41)
[2024-07-04] MEDS: PRAMIPEXOLE 1 MG TAB PO SCH (20:22)
[2024-07-04] MEDS ORDERED: INSULIN LISPRO (NovoLOG) PER UNIT SC SCH (21:00)
[2024-07-04] MEDS: NS 500 ML IV ONE (22:23)
[2024-07-04] MEDS: PROMETHAZINE 25MG/ML 1ML VIAL IV ONE (22:25)
[2024-07-04] MEDS ORDERED: BISACODYL 10MG SUPP PR PRN (23:35)
[2024-07-05 03:40] VITALS: BP 112/62; TEMP 98.2; O2SAT 82
[2024-07-05 04:20] VITALS: BP 122/70
[2024-07-05 05:15] LABS: BASO % 0.3 % (0.0-1.0); EOS % 0.4 % (0.0-3.0); HEMOGLOBIN 9.8 g/dl (13.5-17.5); LYMPH # 0.6 10^3/uL (1.5-5.0); LYMPH % 8.1 % (24.0-44.0); MEAN CORPUSCULAR HEMOGLOBIN 29.5 pg (27.0-33.0); MEAN CORPUSCULAR HGB CONC 31.6 g/dl (32.0-36.5); MEAN CORPUSCULAR VOLUME 93.4 fl (80.0-96.0); MONO # 0.5 10^3/uL (0.0-0.8); NEUTROPHILS # 6.4 10^3/uL (1.5-8.5); NEUTROPHILS % 83.9 % (36.0-66.0); PLATELET COUNT, AUTOMATED 255 10^3/uL (150-450); RED BLOOD COUNT 3.32 10^6/uL (4.30-6.10); WHITE BLOOD COUNT 7.7 10^3/uL (4.0-10.0)
[2024-07-05 05:38] LABS: CALCIUM LEVEL 8.4 MG/DL (8.3-10.6); CREATININE FOR GFR 1.93 MG/DL (0.70-1.30); GLOMERULAR FILTRATION RATE 35.3 (>35); MAGNESIUM LEVEL 1.9 MG/DL (1.8-2.4); POTASSIUM SERUM 3.8 MMOL/L (3.5-5.1)
[2024-07-05 05:56] VITALS: BP 118/72; O2SAT 94
[2024-07-05] MEDS ORDERED: ONDANSETRON 4MG 2ML VIAL IV PRN (08:05)
[2024-07-05] MEDS: METOPROLOL TART 25 MG TABLET PO SCH (08:29)
[2024-07-05] MEDS: SENNA 8.6 MG TAB (SENOKOT) PO SCH (08:29)
[2024-07-05] MEDS ORDERED: MIRALAX *UNIT DOSE* 17GM PACKET PO PRN (09:00)
[2024-07-05] MEDS: TOBRADEX OPHTH SUSP 2.5 ML OU SCH (09:00)
[2024-07-05] MEDS ORDERED: MIRALAX *UNIT DOSE* 17GM PACKET PO SCH (09:00)
[2024-07-05 12:00] VITALS: BP 127/60; TEMP 98.1; O2SAT 94
[2024-07-05 19:30] VITALS: BP 135/74; TEMP 98.1; O2SAT 100
[2024-07-06 01:51] VITALS: O2SAT 91
[2024-07-06 03:50] VITALS: BP 142/67; TEMP 98.8; O2SAT 91
[2024-07-06 06:43] LABS: BASO # 0.1 10^3/uL (0.0-0.2); BASO % 0.8 % (0.0-1.0); EOS # 0.3 10^3/uL (0.0-0.5); EOS % 3.7 % (0.0-3.0); HEMATOCRIT 33.6 % (42.0-52.0); HEMOGLOBIN 10.3 g/dl (13.5-17.5); LYMPH % 14.2 % (24.0-44.0); MEAN CORPUSCULAR HEMOGLOBIN 28.6 pg (27.0-33.0); MEAN CORPUSCULAR HGB CONC 30.7 g/dl (32.0-36.5); MEAN CORPUSCULAR VOLUME 93.3 fl (80.0-96.0); MONO # 0.7 10^3/uL (0.0-0.8); MONO % 8.9 % (2.0-8.0); NEUTROPHILS # 5.3 10^3/uL (1.5-8.5); NEUTROPHILS % 71.7 % (36.0-66.0); PLATELET COUNT, AUTOMATED 271 10^3/uL (150-450); WHITE BLOOD COUNT 7.3 10^3/uL (4.0-10.0)
[2024-07-06 07:00] LABS: CREATININE FOR GFR 1.73 MG/DL (0.70-1.30); GLOMERULAR FILTRATION RATE 40.1 (>35); POTASSIUM SERUM 3.9 MMOL/L (3.5-5.1)
[2024-07-06 09:29] VITALS: BP 142/65
[2024-07-06] MEDS: CEFDINIR 300 MG CAP (OMNICEF) PO SCH (09:29)
[2024-07-06] MEDS ORDERED: CEFD300CAP PO (11:21)
[2024-07-06] MEDS ORDERED: DOXY100T PO (11:21)
== END 2024-07-06 15:35 | disposition home health service (06) | DRG 194 ==
LOC: M ED 18:17 → M ED INP 22:36 → M MSPAV 07-04 14:40
PROVIDERS: ADMIT Student in an Organized Health Care Education/Training Program; ATTEND Internal Medicine Nephrology
PROC: B246ZZZ Ultrasonography of Right and Left Heart (ICD-10-PCS; principal; 2024-07-05)
DX: J15.9 Unspecified bacterial pneumonia (principal); I50.32 Chronic diastolic (congestive) heart failure; N39.0 Urinary tract infection, site not specified; I13.0 Hypertensive heart and chronic kidney disease with heart failure and stage 1 through stage 4 chronic kidney disease, or unspecified chronic kidney disease; Z66 Do not resuscitate; E11.22 Type 2 diabetes mellitus with diabetic chronic kidney disease; I25.10 Atherosclerotic heart disease of native coronary artery without angina pectoris; I25.2 Old myocardial infarction; E78.5 Hyperlipidemia, unspecified; I48.0 Paroxysmal atrial fibrillation; H10.33 Unspecified acute conjunctivitis, bilateral; R53.81 Other malaise; E03.9 Hypothyroidism, unspecified; G25.81 Restless legs syndrome; F03.90 Unspecified dementia, unspecified severity, without behavioral disturbance, psychotic disturbance, mood disturbance, and anxiety; G47.33 Obstructive sleep apnea (adult) (pediatric); F32.A Depression, unspecified; H35.30 Unspecified macular degeneration; D64.9 Anemia, unspecified; N18.30 Chronic kidney disease, stage 3 unspecified; K59.00 Constipation, unspecified; F34.1 Dysthymic disorder; M50.10 Cervical disc disorder with radiculopathy, unspecified cervical region; Z87.891 Personal history of nicotine dependence; Z79.82 Long term (current) use of aspirin; Z79.890 Hormone replacement therapy; Z79.84 Long term (current) use of oral hypoglycemic drugs; Z79.899 Other long term (current) drug therapy; Z98.41 Cataract extraction status, right eye; Z90.49 Acquired absence of other specified parts of digestive tract; Z85.46 Personal history of malignant neoplasm of prostate; Z95.1 Presence of aortocoronary bypass graft; Z86.0101 Personal history of adenomatous and serrated colon polyps

== ENCOUNTER → 2024-07-22 | Outpatient (REF) | payer MEDICARE, OTHER ==
[~2024-07-22] MED LIST changes: +ACET-897 PO; +ASPI81TA26 PO; +CEFD300CAP PO; +DONE5TAB82 PO; +DOXY100T PO
[2024-07-22 12:57] LABS: CALCIUM LEVEL 9.5 MG/DL (8.3-10.6); CREATININE FOR GFR 1.51 MG/DL (0.70-1.30); GLOMERULAR FILTRATION RATE 46.9 (>35); POTASSIUM SERUM 5.1 MMOL/L (3.5-5.1)
[2024-07-22 13:01] LABS: FREE T4 0.95 NG/DL (0.89-1.76); THYROID STIMULATING HORMONE 14.769 uIU/ML (0.55-4.78)
== END ==
LOC: M SFHCPLAZ 09:28
PROVIDERS: ATTEND Nurse Practitioner Family
DX: E03.9 Hypothyroidism, unspecified (principal); I12.9 Hypertensive chronic kidney disease with stage 1 through stage 4 chronic kidney disease, or unspecified chronic kidney disease

== ENCOUNTER → 2024-10-06 | Outpatient (CLI) | payer MEDICARE, OTHER ==
[~2024-10-06] MED LIST changes: -BAYE325T12 PO; +BAYE325T2 PO
[2024-10-06 15:25] LABS: BASO # 0.1 10^3/uL (0.0-0.2); BASO % 1.6 % (0.0-1.0); EOS # 0.3 10^3/uL (0.0-0.5); EOS % 3.4 % (0.0-3.0); HEMATOCRIT 36.1 % (42.0-52.0); HEMOGLOBIN 11.1 g/dl (13.5-17.5); LYMPH % 11.7 % (24.0-44.0); MEAN CORPUSCULAR HEMOGLOBIN 28.1 pg (27.0-33.0); MEAN CORPUSCULAR HGB CONC 30.7 g/dl (32.0-36.5); MEAN CORPUSCULAR VOLUME 91.4 fl (80.0-96.0); MONO # 0.7 10^3/uL (0.0-0.8); MONO % 7.9 % (2.0-8.0); NEUTROPHILS # 6.5 10^3/uL (1.5-8.5); NEUTROPHILS % 75.2 % (36.0-66.0); PLATELET COUNT, AUTOMATED 231 10^3/uL (150-450); RED BLOOD COUNT 3.95 10^6/uL (4.30-6.10); WHITE BLOOD COUNT 8.6 10^3/uL (4.0-10.0)
[2024-10-06 15:34] LABS: ALBUMIN 3.7 G/DL (3.2-5.2); BILIRUBIN,TOTAL 0.8 MG/DL (0.3-1.2); CALCIUM LEVEL 9.1 MG/DL (8.3-10.6); CREATININE FOR GFR 1.7 MG/DL (0.70-1.30); GLOMERULAR FILTRATION RATE 40.9 (>35); POTASSIUM SERUM 4.9 MMOL/L (3.5-5.1); TOTAL PROTEIN 7.4 G/DL (5.7-8.2)
[2024-10-06 15:36] LABS: THYROID STIMULATING HORMONE 1.932 uIU/ML (0.55-4.78)
[2024-10-06 16:31] LABS: HEMOGLOBIN A1c 6.1 % (4.0-6.0)
== END ==
LOC: M PLALAB 13:26
PROVIDERS: ATTEND Student in an Organized Health Care Education/Training Program
DX: Z00.00 Encounter for general adult medical examination without abnormal findings (principal); E03.9 Hypothyroidism, unspecified; E11.29 Type 2 diabetes mellitus with other diabetic kidney complication

== ENCOUNTER → 2024-10-06 | Outpatient (REF) | payer MEDICARE, OTHER | LOC: M SFHCPLAZ 12:35 | PROVIDERS: ATTEND Family Medicine | DX: Z00.00 Encounter for general adult medical examination without abnormal findings (principal); E11.29 Type 2 diabetes mellitus with other diabetic kidney complication ==

== ENCOUNTER 2024-10-31 18:39 | Emergency (ER) | payer MEDICARE, OTHER ==
[~2024-10-31] VITALS: Ht 170.2 cm; Wt 89.1 kg
[2024-10-31 19:03] LABS: BASO # 0.1 10^3/uL (0.0-0.2); BASO % 1.2 % (0.0-1.0); EOS # 0.4 10^3/uL (0.0-0.5); EOS % 4.8 % (0.0-3.0); HEMATOCRIT 31.1 % (42.0-52.0); HEMOGLOBIN 9.8 g/dl (13.5-17.5); LYMPH % 13.1 % (24.0-44.0); MEAN CORPUSCULAR HEMOGLOBIN 28.5 pg (27.0-33.0); MEAN CORPUSCULAR HGB CONC 31.5 g/dl (32.0-36.5); MEAN CORPUSCULAR VOLUME 90.4 fl (80.0-96.0); MONO # 0.6 10^3/uL (0.0-0.8); MONO % 8.3 % (2.0-8.0); NEUTROPHILS # 5.4 10^3/uL (1.5-8.5); NEUTROPHILS % 72.3 % (36.0-66.0); PLATELET COUNT, AUTOMATED 179 10^3/uL (150-450); RED BLOOD COUNT 3.44 10^6/uL (4.30-6.10); WHITE BLOOD COUNT 7.5 10^3/uL (4.0-10.0)
[2024-10-31 19:16] LABS: INR 1.07; PROTHROMBIN TIME 14.2 SECONDS (12.5-14.5)
[2024-10-31 19:37] LABS: CK-MB VALUE MASS 3.2 NG/ML (<3.6)
[2024-10-31 19:39] LABS: ALBUMIN 3.3 G/DL (3.2-5.2); BILIRUBIN,DIRECT 0.3 MG/DL (<0.4); BILIRUBIN,TOTAL 0.8 MG/DL (0.3-1.2); CALCIUM LEVEL 8.9 MG/DL (8.3-10.6); CREATININE FOR GFR 2.05 MG/DL (0.70-1.30); GLOMERULAR FILTRATION RATE 32.9 (>35); MB/CK RELATIVE INDEX 2.6 (< OR =4); POTASSIUM SERUM 4.7 MMOL/L (3.5-5.1); TOTAL PROTEIN 6.8 G/DL (5.7-8.2)
[2024-10-31 19:41] LABS: THYROID STIMULATING HORMONE 1.041 uIU/ML (0.55-4.78)
[2024-10-31 19:42] VITALS: BP 192/84
[2024-10-31] MEDS: NITROGLYCERIN 0.4MG SUBL TABLET SL STA (19:42)
[2024-10-31] MEDS ORDERED: NITROGLYCERIN 0.4MG SUBL TABLET SL STA (20:10)
[2024-10-31] MEDS ORDERED: LABETALOL 100MG/20ML VIAL IV STA (20:10)
[2024-10-31] MEDS ORDERED: HEPARIN SOD (PORCINE) 5000UNITS/ML 1ML VIAL/SYRINGE IV PRN (20:10)
[2024-10-31 20:57] LABS: CK-MB VALUE MASS 2.9 NG/ML (<3.6)
[2024-10-31 21:00] LABS: MB/CK RELATIVE INDEX 2.45 (< OR =4)
[2024-10-31] MEDS: HEPARIN DRIP 25,000 UNITS in IV 1 EA IV SCH (21:19)
[2024-10-31 21:22] LABS: HEMATOCRIT 29.5 % (42.0-52.0); HEMOGLOBIN 9.1 g/dl (13.5-17.5); MEAN CORPUSCULAR HEMOGLOBIN 27.9 pg (27.0-33.0); MEAN CORPUSCULAR HGB CONC 30.8 g/dl (32.0-36.5); MEAN CORPUSCULAR VOLUME 90.5 fl (80.0-96.0); PLATELET COUNT, AUTOMATED 175 10^3/uL (150-450); RED BLOOD COUNT 3.26 10^6/uL (4.30-6.10); WHITE BLOOD COUNT 6.4 10^3/uL (4.0-10.0)
[2024-10-31] MEDS ORDERED: MORPHINE 2 MG/ML 1ML VIAL As Ordered ONE (22:14)
[2024-10-31] MEDS: MORPHINE 2 MG/ML 1ML VIAL IV ONE (22:16)
[2024-11-01] MEDS ORDERED: GLUCAGON INJ 1MG VIAL SC PRN (02:05)
[2024-11-01] MEDS ORDERED: GLUCOSE 4 GM CHEW PO PRN (02:05)
[2024-11-01] MEDS ORDERED: DEXTROSE 50% 50ML SYRINGE IV PRN (02:05)
[2024-11-01] MEDS ORDERED: MORPHINE 2 MG/ML 1ML VIAL IV PRN (02:05)
[2024-11-01] MEDS ORDERED: METOCLOPRAMIDE INJ 10MG/2ML VIAL IV PRN (02:15)
[2024-11-01] MEDS: NORCO, ANEXSIA 5/325MG TABLET (HYDROcodone/ACETAMINOPHEN) PO ONE (04:27)
[2024-11-01] MEDS ORDERED: LABETALOL 100MG/20ML VIAL IV PRN (05:15)
[2024-11-01] MEDS ORDERED: LEVO112T2 PO (06:15)
[2024-11-01] MEDS ORDERED: MEMA10TA PO (06:15)
[2024-11-01] MEDS ORDERED: ATOR1TAB21 PO (06:15)
[2024-11-01] MEDS ORDERED: HOME MED LIST COMPLETE! XX SCH (06:20)
[2024-11-01] MEDS: INSULIN LISPRO (NovoLOG) PER UNIT SC SCH (06:59)
[2024-11-01] MEDS ORDERED: DONE10TA90 PO (07:03)
[2024-11-01] MEDS: ASPIRIN 81MG CHEW TABLET PO ONE (07:40)
[2024-11-01 08:27] VITALS: BP 170/70; TEMP 98.7; O2SAT 95
[2024-11-01] MEDS ORDERED: ATORVASTATIN 20 MG TAB PO SCH (09:00)
[2024-11-02] MEDS ORDERED: ASPIRIN 81MG CHEW TABLET PO SCH (09:00)
== END 2024-11-01 08:28 | disposition short-term general hospital (02) ==
LOC: EDBD 18:39 → M ED 18:39
DX: I21.4 Non-ST elevation (NSTEMI) myocardial infarction (principal); I44.5 Left posterior fascicular block; I45.10 Unspecified right bundle-branch block; I48.91 Unspecified atrial fibrillation; I25.119 Atherosclerotic heart disease of native coronary artery with unspecified angina pectoris; I12.9 Hypertensive chronic kidney disease with stage 1 through stage 4 chronic kidney disease, or unspecified chronic kidney disease; E11.9 Type 2 diabetes mellitus without complications; E78.5 Hyperlipidemia, unspecified; E03.9 Hypothyroidism, unspecified; G47.33 Obstructive sleep apnea (adult) (pediatric); Z87.891 Personal history of nicotine dependence; Z79.1 Long term (current) use of non-steroidal anti-inflammatories (NSAID); Z79.84 Long term (current) use of oral hypoglycemic drugs; Z79.4 Long term (current) use of insulin; Z79.899 Other long term (current) drug therapy
CPT/HCPCS: 70450; 71045; 80048; 80076; 82550; 82553; 83690; 84443; 84484; 85025; 85027; 85610; 85730; 87486; 87581; 87633; 87798; 93005; 93041; 94760; 96365; 96366; 96372; 96375; 99285; J1815

== ENCOUNTER 2024-11-24 14:46 | Observation (INO) | payer MEDICARE, OTHER ==
[~2024-11-24] VITALS: Ht 172.7 cm; Wt 79.3 kg
[~2024-11-24 14:46] MED LIST changes: +DONE10TA90 PO; +LEVO112T2 PO; +MEMA10TA PO
[2024-11-24] MEDS: NS 500 ML IV ONE (15:11)
[2024-11-24 15:21] LABS: BASO # 0.1 10^3/uL (0.0-0.2); BASO % 1.5 % (0.0-1.0); EOS # 0.2 10^3/uL (0.0-0.5); EOS % 2.9 % (0.0-3.0); HEMATOCRIT 28.1 % (42.0-52.0); HEMOGLOBIN 8.7 g/dl (13.5-17.5); LYMPH # 0.8 10^3/uL (1.5-5.0); MEAN CORPUSCULAR HEMOGLOBIN 27.6 pg (27.0-33.0); MEAN CORPUSCULAR VOLUME 89.2 fl (80.0-96.0); MONO # 0.6 10^3/uL (0.0-0.8); MONO % 8.7 % (2.0-8.0); NEUTROPHILS # 5.2 10^3/uL (1.5-8.5); NEUTROPHILS % 75.5 % (36.0-66.0); PLATELET COUNT, AUTOMATED 221 10^3/uL (150-450); RED BLOOD COUNT 3.15 10^6/uL (4.30-6.10); WHITE BLOOD COUNT 6.9 10^3/uL (4.0-10.0)
[2024-11-24 15:53] LABS: CALCIUM LEVEL 8.6 MG/DL (8.3-10.6); CREATININE FOR GFR 1.95 MG/DL (0.70-1.30); GLOMERULAR FILTRATION RATE 34.9 (>35); MAGNESIUM LEVEL 1.8 MG/DL (1.8-2.4); POTASSIUM SERUM 4.5 MMOL/L (3.5-5.1)
[2024-11-24 15:57] LABS: THYROID STIMULATING HORMONE 2.631 uIU/ML (0.55-4.78)
[2024-11-24] MEDS ORDERED: LEVO88TA3 PO (18:59)
[2024-11-24] MEDS ORDERED: ELIQ2.5T PO (19:01)
[2024-11-24] MEDS ORDERED: HOME MED LIST COMPLETE! XX SCH (19:05)
[2024-11-24 19:39] LABS: APPEARANCE, URINE CLEAR (CLEAR); BACTERIA, URINE AUTO NEGATIVE (NEGATIVE); BILIRUBIN, URINE AUTO NEGATIVE (NEGATIVE); BLOOD, URINE BLOOD NEGATIVE (NEGATIVE); GLUCOSE, URINE (UA) AUTO NEGATIVE (NEGATIVE); KETONE, URINE AUTO NEGATIVE (NEGATIVE); LEUKOCYTE ESTERASE, URINE AUTO NEGATIVE (NEGATIVE); MUCUS, URINE SMALL (NEGATIVE); NITRITE, URINE AUTO NEGATIVE (NEGATIVE); PROTEIN, URINE AUTO NEGATIVE (NEGATIVE); RBC, URINE AUTO 1 /HPF (0-3); SPECIFIC GRAVITY URINE AUTO 1.013 (1.002-1.035); SQUAMOUS EPITHELIAL CELL UR AU 0 /HPF (0-6); UROBILINOGEN, URINE AUTO 0.2 mg/dL (0.0-2.0); WBC, URINE AUTO 0 /HPF (0-3)
[2024-11-24 19:40] LABS: COLOR, URINE YELLOW (YELLOW)
[2024-11-24 19:46] LABS: ALBUMIN 3.2 G/DL (3.2-5.2); BILIRUBIN,DIRECT 0.2 MG/DL (<0.4); BILIRUBIN,TOTAL 0.5 MG/DL (0.3-1.2); TOTAL PROTEIN 6.6 G/DL (5.7-8.2)
[2024-11-24] MEDS: INSULIN LISPRO (NovoLOG) PER UNIT SC SCH (21:44)
[2024-11-24] MEDS: MEMANTINE 5MG TABLET (NAMENDA) PO SCH (22:45)
[2024-11-24] MEDS: PRAMIPEXOLE 1 MG TAB PO SCH (22:45)
[2024-11-24] MEDS: GABAPENTIN 400MG CAP PO SCH (22:45)
[2024-11-25 06:03] LABS: HEMATOCRIT 27.3 % (42.0-52.0); HEMOGLOBIN 8.5 g/dl (13.5-17.5); MEAN CORPUSCULAR HEMOGLOBIN 27.8 pg (27.0-33.0); MEAN CORPUSCULAR HGB CONC 31.1 g/dl (32.0-36.5); MEAN CORPUSCULAR VOLUME 89.2 fl (80.0-96.0); PLATELET COUNT, AUTOMATED 203 10^3/uL (150-450); RED BLOOD COUNT 3.06 10^6/uL (4.30-6.10); WHITE BLOOD COUNT 5.9 10^3/uL (4.0-10.0)
[2024-11-25 06:29] LABS: CALCIUM LEVEL 8.6 MG/DL (8.3-10.6); CREATININE FOR GFR 1.8 MG/DL (0.70-1.30); GLOMERULAR FILTRATION RATE 38.3 (>35); POTASSIUM SERUM 3.9 MMOL/L (3.5-5.1)
[2024-11-25] MEDS: LEVOTHYROXINE 88MCG TABLET (0.088 MG) PO SCH (06:41)
[2024-11-25] MEDS: INSULIN LISPRO (NovoLOG) PER UNIT SC SCH (07:57)
[2024-11-25] MEDS: ASPIRIN 81MG CHEW TABLET PO SCH (07:58)
[2024-11-25] MEDS: FUROSEMIDE 20 MG TAB PO SCH (07:59)
[2024-11-25] MEDS: ATORVASTATIN 20 MG TAB PO SCH (07:59)
[2024-11-25] MEDS: DONEPEZIL 5 MG TAB PO SCH (09:15)
[2024-11-25 11:27] VITALS: BP 163/64; TEMP 97.5; O2SAT 93
== END 2024-11-25 15:47 | disposition home or self-care (01) ==
LOC: EDBD 14:46 → M ED 14:46 → M ED INP 14:47 → M MSPAV 11-25 11:24
PROVIDERS: ADMIT Student in an Organized Health Care Education/Training Program; ATTEND Student in an Organized Health Care Education/Training Program
DX: I95.9 Hypotension, unspecified (principal); R19.7 Diarrhea, unspecified; I11.0 Hypertensive heart disease with heart failure; I25.10 Atherosclerotic heart disease of native coronary artery without angina pectoris; F39 Unspecified mood [affective] disorder; I50.30 Unspecified diastolic (congestive) heart failure; E11.42 Type 2 diabetes mellitus with diabetic polyneuropathy; E03.9 Hypothyroidism, unspecified; R41.3 Other amnesia; R25.1 Tremor, unspecified; I35.2 Nonrheumatic aortic (valve) stenosis with insufficiency; Z95.2 Presence of prosthetic heart valve; Z95.0 Presence of cardiac pacemaker; Z86.73 Personal history of transient ischemic attack (TIA), and cerebral infarction without residual deficits; I25.2 Old myocardial infarction; Z95.1 Presence of aortocoronary bypass graft; N18.30 Chronic kidney disease, stage 3 unspecified; Z85.46 Personal history of malignant neoplasm of prostate; Z92.21 Personal history of antineoplastic chemotherapy; Z90.79 Acquired absence of other genital organ(s); Z85.51 Personal history of malignant neoplasm of bladder; R41.82 Altered mental status, unspecified; M19.90 Unspecified osteoarthritis, unspecified site; F41.9 Anxiety disorder, unspecified; Z96.0 Presence of urogenital implants; Z98.890 Other specified postprocedural states; Z90.89 Acquired absence of other organs; Z79.01 Long term (current) use of anticoagulants; Z79.82 Long term (current) use of aspirin; Z79.890 Hormone replacement therapy; Z79.84 Long term (current) use of oral hypoglycemic drugs; Z80.52 Family history of malignant neoplasm of bladder; Z82.41 Family history of sudden cardiac death; Z82.3 Family history of stroke
CPT/HCPCS: 36415; 70450; 71250; 74176; 80047; 80048; 80076; 81001; 83605; 83735; 84443; 84484; 85025; 85027; 87486; 87581; 87633; 87798; 93005; 93041; 94760; 96360; 96361; 99285; G0378; J1815

== ENCOUNTER → 2024-12-03 | Outpatient (CLI) | payer MEDICARE, OTHER ==
[~2024-12-03] MED LIST changes: +ELIQ2.5T PO; +LEVO88TA3 PO
[2024-12-03 19:23] LABS: PSA SCREENING 0.06 NG/ML (< 4.00)
[2024-12-03 19:27] LABS: THYROID STIMULATING HORMONE 1.646 uIU/ML (0.55-4.78)
== END ==
LOC: M PLALAB 14:54
PROVIDERS: ATTEND Student in an Organized Health Care Education/Training Program
DX: Z85.46 Personal history of malignant neoplasm of prostate (principal); I50.32 Chronic diastolic (congestive) heart failure; E03.9 Hypothyroidism, unspecified

== ENCOUNTER → 2024-12-28 | Outpatient (CLI) | payer MEDICARE, OTHER | LOC: M PLALAB 10:49 | PROVIDERS: ATTEND Nurse Practitioner Family | DX: M25.50 Pain in unspecified joint (principal) ==

== ENCOUNTER → 2024-12-28 | Outpatient (CLI) | payer MEDICARE, OTHER ==
[2024-12-28 13:40] LABS: APPEARANCE, URINE CLEAR (CLEAR); BACTERIA, URINE AUTO NEGATIVE (NEGATIVE); BILIRUBIN, URINE AUTO NEGATIVE (NEGATIVE); BLOOD, URINE BLOOD NEGATIVE (NEGATIVE); COLOR, URINE STRAW (YELLOW); GLUCOSE, URINE (UA) AUTO NEGATIVE (NEGATIVE); KETONE, URINE AUTO NEGATIVE (NEGATIVE); LEUKOCYTE ESTERASE, URINE AUTO NEGATIVE (NEGATIVE); NITRITE, URINE AUTO NEGATIVE (NEGATIVE); PROTEIN, URINE AUTO 2+ mg/dL (NEGATIVE); RBC, URINE AUTO 2 /HPF (0-3); SQUAMOUS EPITHELIAL CELL UR AU 0 /HPF (0-6); UROBILINOGEN, URINE AUTO 0.2 mg/dL (0.0-2.0); WBC, URINE AUTO 0 /HPF (0-3)
[2024-12-28 13:43] LABS: BASO # 0.1 10^3/uL (0.0-0.2); BASO % 1.5 % (0.0-1.0); EOS # 0.2 10^3/uL (0.0-0.5); EOS % 2.9 % (0.0-3.0); HEMATOCRIT 36.5 % (42.0-52.0); HEMOGLOBIN 11.1 g/dl (13.5-17.5); LYMPH # 1.1 10^3/uL (1.5-5.0); LYMPH % 13.3 % (24.0-44.0); MEAN CORPUSCULAR HEMOGLOBIN 27.1 pg (27.0-33.0); MEAN CORPUSCULAR HGB CONC 30.4 g/dl (32.0-36.5); MONO # 0.6 10^3/uL (0.0-0.8); MONO % 6.8 % (2.0-8.0); NEUTROPHILS # 6.3 10^3/uL (1.5-8.5); PLATELET COUNT, AUTOMATED 227 10^3/uL (150-450); WHITE BLOOD COUNT 8.4 10^3/uL (4.0-10.0)
[2024-12-28 14:13] LABS: ALBUMIN 3.9 G/DL (3.2-5.2); BILIRUBIN,TOTAL 0.6 MG/DL (0.3-1.2); CALCIUM LEVEL 9.4 MG/DL (8.3-10.6); CREATININE FOR GFR 1.81 MG/DL (0.70-1.30); GLOMERULAR FILTRATION RATE 35.7 (>35); MAGNESIUM LEVEL 1.7 MG/DL (1.8-2.4); POTASSIUM SERUM 4.4 MMOL/L (3.5-5.1); TOTAL PROTEIN 7.9 G/DL (5.7-8.2)
== END ==
LOC: M PLALAB 10:51
PROVIDERS: ATTEND Student in an Organized Health Care Education/Training Program
DX: G93.40 Encephalopathy, unspecified (principal)

== ENCOUNTER 2025-03-19 17:17 | Observation (INO) | payer MEDICARE, OTHER ==
[~2025-03-19] VITALS: Ht 167.6 cm; Wt 72.5 kg
[~2025-03-19 17:17] MED LIST changes: -AMIO200T49 PO; +AMIO200T54 PO; +BLOO-308 XX; -CVS1KIT XX
[2025-03-19] MEDS ORDERED: FLEET OIL RETENTION ENEMA PR PRN (18:00)
[2025-03-19 18:15] LABS: BASO # 0.1 10^3/uL (0.0-0.2); BASO % 1.5 % (0.0-1.0); EOS # 0.1 10^3/uL (0.0-0.5); EOS % 1.6 % (0.0-3.0); LYMPH # 0.8 10^3/uL (1.5-5.0); LYMPH % 10.2 % (24.0-44.0); MONO # 0.6 10^3/uL (0.0-0.8); MONO % 8.6 % (2.0-8.0); NEUTROPHILS # 5.8 10^3/uL (1.5-8.5); NEUTROPHILS % 77.6 % (36.0-66.0); PLATELET COUNT, AUTOMATED 299 10^3/uL (150-450)
[2025-03-19] MEDS: NS 500 ML IV ONE (18:29)
[2025-03-19 18:45] LABS: CALCIUM LEVEL 9.5 MG/DL (8.3-10.6); CARBON DIOXIDE LEVEL 31.0 MMOL/L (20-31); CHLORIDE LEVEL 96.0 MMOL/L (98-107); CREATININE FOR GFR 2.36 MG/DL (0.70-1.30); GLOMERULAR FILTRATION RATE 26.0 (>35); POTASSIUM SERUM 3.9 MMOL/L (3.5-5.1); SODIUM LEVEL 141.0 MMOL/L (136-145)
[2025-03-19] MEDS: FLEET ENEMA PR STA (18:54)
[2025-03-19 19:18] LABS: ALT/SGPT 17.0 U/L (7.0-40); AST/SGOT 25.0 U/L (<34)
[2025-03-19] MEDS: NS (Normal Saline) 0.9% 1,000 ML IV ONE (20:53)
[2025-03-20] MEDS ORDERED: ACETAMINOPHEN 500 MG TAB PO PRN (01:20)
[2025-03-20] MEDS ORDERED: FLEET ENEMA PR PRN (01:50)
[2025-03-20] MEDS: cefTRIAXone SOD 1 GM in DEXTROSE 5% (D5W) ADV/MINI-BAG 50 ML IV SCH (02:25)
[2025-03-20 02:53] LABS: FREE T4 1.6 NG/DL (0.89-1.76)
[2025-03-20] MEDS: LR 1,000 ML IV SCH (03:32)
[2025-03-20] MEDS ORDERED: LEVOTHYROXINE 88 MCG TABLET (0.088 MG) PO SCH (06:00)
[2025-03-20] MEDS: BISACODYL 10 MG SUPP PR SCH (06:01)
[2025-03-20 07:05] LABS: PLATELET COUNT, AUTOMATED 236 10^3/uL (150-450)
[2025-03-20 07:48] LABS: CALCIUM LEVEL 8.5 MG/DL (8.3-10.6); CARBON DIOXIDE LEVEL 29 MMOL/L (20-31); CHLORIDE LEVEL 98 MMOL/L (98-107); CREATININE FOR GFR 1.92 MG/DL (0.70-1.30); GLOMERULAR FILTRATION RATE 33.3 (>35); MAGNESIUM LEVEL 1.6 MG/DL (1.8-2.4); POTASSIUM SERUM 3.0 MMOL/L (3.5-5.1); SODIUM LEVEL 141 MMOL/L (136-145)
[2025-03-20] MEDS: MIRALAX *UNIT DOSE* 17 GM PACKET PO SCH (08:32)
[2025-03-20] MEDS: SENNOSIDES/DOCUSATE SODIUM 8.6 MG/50MG TAB PO SCH (08:34)
[2025-03-20] MEDS: MAG SULF 1GM/100ML (MAG RUN) 1 GM in IV 1 EA IV SCH (08:34)
[2025-03-20] MEDS: POTASSIUM CHLORIDE 10MEQ SR TABLET PO ONE ×2 (08:34→10:38)
[2025-03-20] MEDS ORDERED: APIXABAN 2.5 MG TAB PO SCH (09:00)
[2025-03-20] MEDS ORDERED: METOPROLOL TART 50 MG TAB PO SCH (09:00)
[2025-03-20] MEDS ORDERED: ASPIRIN 81 MG CHEWABLE TABLET PO SCH (09:00)
[2025-03-20] MEDS ORDERED: DONEPEZIL 5 MG TAB PO SCH (09:00)
[2025-03-20] MEDS ORDERED: amLODIPine 10 MG TAB PO SCH (09:00)
[2025-03-20] MEDS ORDERED: MEMANTINE 5 MG TABLET PO SCH (09:00)
[2025-03-20] MEDS ORDERED: MIRA3350 PO (09:40)
[2025-03-20] MEDS ORDERED: CEFD1CAP9 PO (09:40)
[2025-03-20] MEDS ORDERED: DOCU8.6T PO (09:40)
[2025-03-20] MEDS ORDERED: HYDR12CA PO (09:40)
[2025-03-20 14:45] VITALS: BP 161/70; TEMP 98.3; O2SAT 98
[2025-03-20] MEDS ORDERED: PRAMIPEXOLE 1 MG TAB PO SCH (21:00)
[2025-03-20] MEDS ORDERED: GABAPENTIN 400 MG CAP PO SCH (21:00)
== END 2025-03-20 15:12 | disposition home or self-care (01) ==
LOC: M ED 17:17 → M ED INP 17:18
PROVIDERS: ADMIT Student in an Organized Health Care Education/Training Program; ATTEND Student in an Organized Health Care Education/Training Program
DX: N17.9 Acute kidney failure, unspecified (principal); N18.30 Chronic kidney disease, stage 3 unspecified; R10.9 Unspecified abdominal pain; K59.00 Constipation, unspecified; E83.42 Hypomagnesemia; E87.6 Hypokalemia; I25.10 Atherosclerotic heart disease of native coronary artery without angina pectoris; Z95.1 Presence of aortocoronary bypass graft; Z95.2 Presence of prosthetic heart valve; Z95.0 Presence of cardiac pacemaker; I50.32 Chronic diastolic (congestive) heart failure; I48.0 Paroxysmal atrial fibrillation; I13.0 Hypertensive heart and chronic kidney disease with heart failure and stage 1 through stage 4 chronic kidney disease, or unspecified chronic kidney disease; E11.22 Type 2 diabetes mellitus with diabetic chronic kidney disease; E11.40 Type 2 diabetes mellitus with diabetic neuropathy, unspecified; E03.9 Hypothyroidism, unspecified; E78.5 Hyperlipidemia, unspecified; R41.3 Other amnesia; R25.1 Tremor, unspecified; F39 Unspecified mood [affective] disorder; F41.9 Anxiety disorder, unspecified; K62.89 Other specified diseases of anus and rectum; R68.83 Chills (without fever); F03.90 Unspecified dementia, unspecified severity, without behavioral disturbance, psychotic disturbance, mood disturbance, and anxiety; G25.81 Restless legs syndrome; M19.90 Unspecified osteoarthritis, unspecified site; Z85.46 Personal history of malignant neoplasm of prostate; Z90.79 Acquired absence of other genital organ(s); Z85.51 Personal history of malignant neoplasm of bladder; Z92.21 Personal history of antineoplastic chemotherapy; Z96.0 Presence of urogenital implants; Z90.89 Acquired absence of other organs; Z80.52 Family history of malignant neoplasm of bladder; Z84.2 Family history of other diseases of the genitourinary system; Z82.3 Family history of stroke; Z82.49 Family history of ischemic heart disease and other diseases of the circulatory system; Z86.73 Personal history of transient ischemic attack (TIA), and cerebral infarction without residual deficits; Z79.899 Other long term (current) drug therapy; Z79.01 Long term (current) use of anticoagulants; Z79.82 Long term (current) use of aspirin; Z79.890 Hormone replacement therapy; Z79.84 Long term (current) use of oral hypoglycemic drugs
CPT/HCPCS: 36415; 74018; 74176; 80048; 80076; 83605; 83690; 83735; 84145; 84439; 84443; 85025; 85027; 86780; 87040; 87529; 93041; 96365; 96366; 96367; 96376; 99285; G0378; J0696; J3475

== ENCOUNTER 2025-04-25 11:11 | Inpatient (IN) | payer MEDICARE, OTHER ==
[2025-04-25] VITALS (41 sets, daily range): BP systolic 103–176; BP diastolic 54–77; TEMP 97.1–98; O2SAT 93–100
[~2025-04-25] VITALS: Ht 170.2 cm; Wt 68.6 kg
[~2025-04-25 11:11] MED LIST changes: +CEFD1CAP9 PO; +DOCU8.6T PO; +HYDR12.510 PO; -HYDR12CA PO
[2025-04-25 12:11] LABS: BASO # 0.1 10^3/uL (0.0-0.2); BASO % 1.2 % (0.0-1.0); EOS # 0.2 10^3/uL (0.0-0.5); EOS % 2.3 % (0.0-3.0); LYMPH # 0.6 10^3/uL (1.5-5.0); LYMPH % 6.8 % (24.0-44.0); MONO # 0.5 10^3/uL (0.0-0.8); MONO % 5.4 % (2.0-8.0); NEUTROPHILS # 7.4 10^3/uL (1.5-8.5); NEUTROPHILS % 83.7 % (36.0-66.0); PLATELET COUNT, AUTOMATED 283 10^3/uL (150-450)
[2025-04-25] MEDS ORDERED: ISOVUE-370 76% 100 ML VIAL As Ordered ONE (12:51)
[2025-04-25] MEDS ORDERED: ONDANSETRON 4MG 2ML VIAL IV PRN ×2 (14:05→16:40)
[2025-04-25] MEDS ORDERED: KETOROLAC 30 MG/ML 1 ML VIAL IV SCH (14:05)
[2025-04-25] MEDS ORDERED: ACETAMINOPHEN 325 MG TAB PO PRN (14:05)
[2025-04-25] MEDS ORDERED: PERCOCET 5MG/325MG TAB PO PRN ×2 (14:05)
[2025-04-25] MEDS ORDERED: HYDR12.55 PO (14:10)
[2025-04-25] MEDS ORDERED: HOME MED LIST COMPLETE! XX SCH (14:10)
[2025-04-25] MEDS ORDERED: DOCU8.6T PO (14:10)
[2025-04-25] MEDS ORDERED: OXYC1TAB23 PO (14:10)
[2025-04-25] MEDS ORDERED: LEVE500T5 PO (14:10)
[2025-04-25 14:17] LABS: CALCIUM LEVEL 9.0 MG/DL (8.3-10.6); CARBON DIOXIDE LEVEL 28.0 MMOL/L (20-31); CHLORIDE LEVEL 102.0 MMOL/L (98-107); CREATININE FOR GFR 1.37 MG/DL (0.70-1.30); GLOMERULAR FILTRATION RATE 49.9 (>35); POTASSIUM SERUM 4.9 MMOL/L (3.5-5.1); SODIUM LEVEL 141.0 MMOL/L (136-145)
[2025-04-25] MEDS: D5W/0.9% SODIUM CHLORIDE 1,000 ML IV SCH (14:40)
[2025-04-25] MEDS ORDERED: MIRALAX *UNIT DOSE* 17 GM PACKET PO PRN (15:15)
[2025-04-25] MEDS ORDERED: SENNOSIDES/DOCUSATE SODIUM 8.6 MG/50MG TAB PO PRN (15:15)
[2025-04-25] MEDS: MIDAZOLAM INJ 2 MG/2 ML VIAL IV STA (15:56)
[2025-04-25] MEDS: LIDOCAINE 1% MDV 20 ML VIAL SC STA (15:57)
[2025-04-25] MEDS: FLUMAZENIL 0.5 MG/5 ML VIAL IV STA (16:30)
[2025-04-25] MEDS ORDERED: diphenhydrAMINE 50 MG/ML VIAL IV PRN (16:40)
[2025-04-25] MEDS ORDERED: EPIDURAL/PCA KEYS XX PRN (16:40)
[2025-04-25] MEDS ORDERED: NALOXONE INJ 0.4 MG/1 ML VIAL IV PRN (16:40)
[2025-04-25] MEDS: LEVALBUTEROL 1.25 MG 0.5ML CONCENTRATE NEB NEB SCH (19:30)
[2025-04-25] MEDS: MORPHINE IV PRN (21:20)
[2025-04-25] MEDS: NACL 0.9% IV PRN (21:20)
[2025-04-25] MEDS: PRAMIPEXOLE 1 MG TAB PO SCH (21:23)
[2025-04-25] MEDS: DOCUSATE SODIUM 100 MG CAPSULE PO SCH (21:23)
[2025-04-25] MEDS: METOPROLOL TART 50 MG TAB PO SCH (21:24)
[2025-04-26] VITALS (31 sets, daily range): BP systolic 103–146; BP diastolic 55–90; TEMP 97.4–98.8; O2SAT 69–100
[2025-04-26] MEDS: LEVOTHYROXINE 88 MCG TABLET (0.088 MG) PO SCH (05:19)
[2025-04-26 05:50] LABS: BASO # 0.1 10^3/uL (0.0-0.2); BASO % 0.9 % (0.0-1.0); EOS # 0.1 10^3/uL (0.0-0.5); EOS % 1.2 % (0.0-3.0); LYMPH # 0.5 10^3/uL (1.5-5.0); LYMPH % 7.1 % (24.0-44.0); MONO # 0.5 10^3/uL (0.0-0.8); MONO % 6.2 % (2.0-8.0); NEUTROPHILS # 6.3 10^3/uL (1.5-8.5); NEUTROPHILS % 84.2 % (36.0-66.0); PLATELET COUNT, AUTOMATED 234 10^3/uL (150-450)
[2025-04-26 06:15] LABS: CALCIUM LEVEL 7.5 MG/DL (8.3-10.6); CARBON DIOXIDE LEVEL 29.0 MMOL/L (20-31); CHLORIDE LEVEL 101.0 MMOL/L (98-107); CREATININE FOR GFR 1.52 MG/DL (0.70-1.30); GLOMERULAR FILTRATION RATE 44.1 (>35); POTASSIUM SERUM 4.0 MMOL/L (3.5-5.1); SODIUM LEVEL 141.0 MMOL/L (136-145)
[2025-04-26 06:30] LABS: APPEARANCE, URINE CLEAR (CLEAR); BACTERIA, URINE AUTO NEGATIVE (NEGATIVE); BILIRUBIN, URINE AUTO NEGATIVE (NEGATIVE); BLOOD, URINE BLOOD NEGATIVE (NEGATIVE); GLUCOSE, URINE (UA) AUTO 1+ mg/dL (NEGATIVE); KETONE, URINE AUTO NEGATIVE (NEGATIVE); LEUKOCYTE ESTERASE, URINE AUTO NEGATIVE (NEGATIVE); NITRITE, URINE AUTO NEGATIVE (NEGATIVE); PROTEIN, URINE AUTO 1+ mg/dL (NEGATIVE); RBC, URINE AUTO 0 /HPF (0-3); SPECIFIC GRAVITY URINE AUTO 1.015 (1.002-1.035); SQUAMOUS EPITHELIAL CELL UR AU 0 /HPF (0-6); UROBILINOGEN, URINE AUTO 0.2 mg/dL (0.0-2.0); WBC, URINE AUTO 1 /HPF (0-3)
[2025-04-26] MEDS: amLODIPine 10 MG TAB PO SCH (09:17)
[2025-04-26] MEDS: DONEPEZIL 5 MG TAB PO SCH (09:17)
[2025-04-26] MEDS: MEMANTINE 5 MG TABLET PO SCH (09:18)
[2025-04-26] MEDS: MAGNESIUM OXIDE 400 MG TAB PO SCH (09:19)
[2025-04-26] MEDS: PANTOPRAZOLE 40MG TAB PO SCH (09:19)
[2025-04-26] MEDS: MOM 30 ML SUSPENSION UDC PO SCH (09:19)
[2025-04-26] MEDS: FUROSEMIDE 20 MG TAB PO SCH (09:19)
[2025-04-27] VITALS (26 sets, daily range): BP systolic 100–156; BP diastolic 48–72; TEMP 98–102.8; O2SAT 82–100
[2025-04-27 05:34] LABS: BASO # 0.1 10^3/uL (0.0-0.2); BASO % 1.2 % (0.0-1.0); EOS # 0.2 10^3/uL (0.0-0.5); EOS % 3.6 % (0.0-3.0); LYMPH # 0.6 10^3/uL (1.5-5.0); LYMPH % 9.6 % (24.0-44.0); MONO # 0.5 10^3/uL (0.0-0.8); MONO % 7.6 % (2.0-8.0); NEUTROPHILS # 5.2 10^3/uL (1.5-8.5); NEUTROPHILS % 77.9 % (36.0-66.0); PLATELET COUNT, AUTOMATED 196 10^3/uL (150-450)
[2025-04-27 06:01] LABS: CALCIUM LEVEL 8.4 MG/DL (8.3-10.6); CARBON DIOXIDE LEVEL 30.0 MMOL/L (20-31); CHLORIDE LEVEL 104.0 MMOL/L (98-107); CREATININE FOR GFR 1.67 MG/DL (0.70-1.30); GLOMERULAR FILTRATION RATE 39.4 (>35); POTASSIUM SERUM 4.1 MMOL/L (3.5-5.1); SODIUM LEVEL 143.0 MMOL/L (136-145)
[2025-04-27] MEDS: oxyCODONE 10 MG CR TAB PO SCH (12:05)
[2025-04-27] MEDS: LEVALBUTEROL 1.25 MG 0.5ML CONCENTRATE NEB NEB PRN (15:50)
[2025-04-27] MEDS: NS (Normal Saline) 0.9% 1,000 ML IV ONE (16:27)
[2025-04-27] MEDS: ACETAMINOPHEN *IV* 1,000 MG in IV 1 EA IV ONE (16:27)
[2025-04-27 16:58] LABS: KETONE, URINE AUTO RFX NEGATIVE (NEGATIVE); LEUKOCYTE ESTERASE UR AUTO RFX NEGATIVE (NEGATIVE); MUCUS, URINE RFX SMALL (NEGATIVE); NITRITE, URINE AUTO RFX NEGATIVE (NEGATIVE); RBC, URINE AUTO RFX 1 /HPF (0-3); SQUAM EPITHELIAL CELL UR AURFX 0 /HPF (0-6); WBC, URINE AUTO RFX 1 /HPF (0-3)
[2025-04-27] MEDS ORDERED: NALOXONE INJ 0.4 MG/1 ML VIAL IV PRN (17:00)
[2025-04-27 17:01] LABS: BASO # 0.1 10^3/uL (0.0-0.2); BASO % 0.9 % (0.0-1.0); EOS # 0.1 10^3/uL (0.0-0.5); EOS % 1.2 % (0.0-3.0); LYMPH # 0.7 10^3/uL (1.5-5.0); LYMPH % 5.5 % (24.0-44.0); MONO # 0.6 10^3/uL (0.0-0.8); MONO % 5.3 % (2.0-8.0); NEUTROPHILS # 10.3 10^3/uL (1.5-8.5); NEUTROPHILS % 86.7 % (36.0-66.0); PLATELET COUNT, AUTOMATED 215 10^3/uL (150-450)
[2025-04-27 17:30] LABS: C REACTIVE PROTEIN QUANTITATIV 8.06 MG/DL (<1.0)
[2025-04-27 17:31] LABS: ALT/SGPT 42.0 U/L (7.0-40); AST/SGOT 52.0 U/L (<34); CALCIUM LEVEL 8.0 MG/DL (8.3-10.6); CARBON DIOXIDE LEVEL 29.0 MMOL/L (20-31); CHLORIDE LEVEL 102.0 MMOL/L (98-107); CREATININE FOR GFR 1.72 MG/DL (0.70-1.30); GLOMERULAR FILTRATION RATE 38.0 (>35); POTASSIUM SERUM 4.4 MMOL/L (3.5-5.1); SODIUM LEVEL 140.0 MMOL/L (136-145)
[2025-04-27] MEDS: PIPERACILLIN/TAZOBACTAM SOD 3.375 GM in DEXTROSE 5% (D5W) ADV/MINI-BAG 50 ML IV SCH (18:02)
[2025-04-27] MEDS: HYDROMORPHONE HCL 0.5 MG/0.5 ML SYRINGE IV PRN (18:17)
[2025-04-27] MEDS: ONDANSETRON 4MG 2ML VIAL IV PRN (18:17)
[2025-04-27] MEDS: DOXYCYCLINE HYCLATE 100 MG in DEXTROSE 5% (D5W) MINI-BAG PLU 100 ML IV SCH (20:26)
[2025-04-28] VITALS (30 sets, daily range): BP systolic 93–149; BP diastolic 44–69; TEMP 97.8–100.4; O2SAT 87–100
[2025-04-28] MEDS: ACETAMINOPHEN *IV* 1,000 MG in IV 1 EA IV SCH (00:01)
[2025-04-28 05:46] LABS: BASO # 0.1 10^3/uL (0.0-0.2); BASO % 0.6 % (0.0-1.0); EOS # 0.1 10^3/uL (0.0-0.5); EOS % 0.7 % (0.0-3.0); LYMPH # 0.6 10^3/uL (1.5-5.0); LYMPH % 6.4 % (24.0-44.0); MONO # 0.3 10^3/uL (0.0-0.8); MONO % 2.8 % (2.0-8.0); NEUTROPHILS # 8.3 10^3/uL (1.5-8.5); NEUTROPHILS % 89.1 % (36.0-66.0); PLATELET COUNT, AUTOMATED 190 10^3/uL (150-450)
[2025-04-28] MEDS: HYDROMORPHONE HCL 0.5 MG/0.5 ML SYRINGE IV ONE (06:02)
[2025-04-28 06:14] LABS: CALCIUM LEVEL 7.5 MG/DL (8.3-10.6); CARBON DIOXIDE LEVEL 28.0 MMOL/L (20-31); CHLORIDE LEVEL 102.0 MMOL/L (98-107); CREATININE FOR GFR 1.95 MG/DL (0.70-1.30); GLOMERULAR FILTRATION RATE 32.7 (>35); POTASSIUM SERUM 4.6 MMOL/L (3.5-5.1); SODIUM LEVEL 139.0 MMOL/L (136-145)
[2025-04-28] MEDS: HYDROMORPHONE HCL 0.5 MG/0.5 ML SYRINGE IV PRN (09:37)
[2025-04-28] MEDS: IPRATROPIUM 0.5 MG/ALBUTEROL 2.5 MG INH SOL UD 3 ML NEB ONE (09:45)
[2025-04-28] MEDS ORDERED: NALBUPHINE HCL 10 MG/ML 1 ML AMP IV PRN (10:35)
[2025-04-28] MEDS ORDERED: ONDANSETRON 4MG 2ML VIAL IV PRN (10:35)
[2025-04-28] MEDS ORDERED: diphenhydrAMINE 50 MG/ML VIAL IV PRN (10:35)
[2025-04-28] MEDS ORDERED: EPIDURAL/PCA KEYS XX PRN (10:35)
[2025-04-28] MEDS ORDERED: NALOXONE INJ 0.4 MG/1 ML VIAL IV PRN (10:35)
[2025-04-28] MEDS: LIDOCAINE 2% W/EPINEPHrine 20 ML VIAL **PRES FREE INJ ONE (11:20)
[2025-04-28] MEDS ORDERED: LIDOCAINE 2% W/EPINEPHrine 20 ML VIAL **PRES FREE As Ordered ONE (11:20)
[2025-04-28] MEDS: fentaNYL CITRATE 500 MCG, BUPIVACAINE HCL 0.5% 31.25 ML in NS 208.75 ML EPIDURAL SCH (11:50)
[2025-04-28] MEDS ORDERED: CALCIUM GLUCONATE 1,000 MG/10 ML VIAL As Ordered ONE (12:03)
[2025-04-28] MEDS: CALCIUM GLUCONATE 1,000 MG in DEXTROSE 5% (D5W) MINI-BAG PLU 100 ML IV ONE (12:06)
[2025-04-28] MEDS: ACETAMINOPHEN *IV* 1,000 MG in IV 1 EA IV ONE (15:20)
[2025-04-28] MEDS: NS 500 ML IV STA (15:22)
[2025-04-28 16:21] LABS: ABG BASE EXCESS -3.0 (-2.0-2.0); ABG HCO3 23.4 MMOL/L (22.0-26.0); ABG O2 SATURATION 95.8 % (95.0-99.0); ABG PARTIAL PRESSURE CO2 50.0 mmHg (35.0-45.0); ABG PARTIAL PRESSURE O2 82.2 mmHg (75.0-100.0); ABG STANDARD HCO3 21.9 MMOL/L. (22.0-26.0); ABG TOTAL CO2 25.0 MMOL/L (23.0-31.0); ABG pH (ARTERIAL) 7.289 UNITS (7.350-7.450)
[2025-04-28] MEDS: NS (Normal Saline) 0.9% 1,000 ML IV ONE (16:33)
[2025-04-28] MEDS ORDERED: METOPROLOL TART 12.5 MG PER 1/2 TAB PO SCH (17:00)
[2025-04-28] MEDS ORDERED: PHENYLEPHRINE HCL INJ 50 MG in D5W 495 ML IV SCH (17:15)
[2025-04-28] MEDS: DOXYCYCLINE HYCLATE 100 MG TABLET PO SCH (20:34)
[2025-04-28] MEDS: METOPROLOL TART 12.5 MG PER 1/2 TAB PO SCH (20:50)
[2025-04-29] VITALS (58 sets, daily range): BP systolic 84–137; BP diastolic 45–65; O2SAT 90–97
[2025-04-29 04:34] LABS: BASO # 0.0 10^3/uL (0.0-0.2); BASO % 0.6 % (0.0-1.0); EOS # 0.1 10^3/uL (0.0-0.5); EOS % 2.0 % (0.0-3.0); LYMPH # 0.4 10^3/uL (1.5-5.0); LYMPH % 5.9 % (24.0-44.0); MONO # 0.4 10^3/uL (0.0-0.8); MONO % 5.5 % (2.0-8.0); NEUTROPHILS # 6.0 10^3/uL (1.5-8.5); NEUTROPHILS % 85.6 % (36.0-66.0); PLATELET COUNT, AUTOMATED 144 10^3/uL (150-450)
[2025-04-29 04:56] LABS: CALCIUM LEVEL 7.7 MG/DL (8.3-10.6); CARBON DIOXIDE LEVEL 25.0 MMOL/L (20-31); CHLORIDE LEVEL 101.0 MMOL/L (98-107); CREATININE FOR GFR 2.15 MG/DL (0.70-1.30); GLOMERULAR FILTRATION RATE 29.1 (>35); MAGNESIUM LEVEL 1.8 MG/DL (1.8-2.4); PHOSPHORUS LEVEL 4.2 MG/DL (2.4-5.1); POTASSIUM SERUM 4.3 MMOL/L (3.5-5.1); SODIUM LEVEL 137.0 MMOL/L (136-145)
[2025-04-29] MEDS: FUROSEMIDE 20 MG/2 ML VIAL IV ONE (11:34)
[2025-04-29] MEDS ORDERED: diphenhydrAMINE 50 MG/ML VIAL IV PRN (12:20)
[2025-04-29] MEDS ORDERED: NALOXONE INJ 0.4 MG/1 ML VIAL IV PRN (12:20)
[2025-04-29] MEDS ORDERED: NALBUPHINE HCL 10 MG/ML 1 ML AMP IV PRN (12:20)
[2025-04-29] MEDS ORDERED: EPIDURAL/PCA KEYS XX PRN (12:20)
[2025-04-29] MEDS: BUPIVACAINE HCL 0.5% 62.5 ML in NS 187.5 ML EPIDURAL SCH (13:38)
[2025-04-29] MEDS: POLYVINYL ALCOHOL OPHTH SOLN 15ML (LIQUITEARS) OU SCH (16:44)
[2025-04-30] VITALS (25 sets, daily range): BP systolic 107–147; BP diastolic 52–77; O2SAT 91–99
[2025-04-30 05:42] LABS: PLATELET COUNT, AUTOMATED 171 10^3/uL (150-450)
[2025-04-30 05:53] LABS: CALCIUM LEVEL 7.6 MG/DL (8.3-10.6); CARBON DIOXIDE LEVEL 27.0 MMOL/L (20-31); CHLORIDE LEVEL 101.0 MMOL/L (98-107); CREATININE FOR GFR 2.16 MG/DL (0.70-1.30); GLOMERULAR FILTRATION RATE 28.9 (>35); MAGNESIUM LEVEL 2.1 MG/DL (1.8-2.4); PHOSPHORUS LEVEL 3.8 MG/DL (2.4-5.1); POTASSIUM SERUM 3.9 MMOL/L (3.5-5.1); SODIUM LEVEL 139.0 MMOL/L (136-145)
[2025-04-30 06:08] LABS: EOSINOPHILS 3 % (0-3); LYMPHOCYTES 3 % (16-44); MONOCYTES 3 % (0-5); NEUTROPHILS 91 % (28-66)
[2025-04-30 06:09] LABS: PLATELET ESTIMATE NORMAL (NORMAL)
[2025-04-30] MEDS: FUROSEMIDE 40 MG/4 ML VIAL IV ONE (10:08)
[2025-04-30] MEDS: traMADol 50 MG TAB PO PRN (17:47)
[2025-05-01] VITALS (24 sets, daily range): BP systolic 111–179; BP diastolic 55–80; O2SAT 88–96
[2025-05-01 05:48] LABS: CALCIUM LEVEL 8.1 MG/DL (8.3-10.6); CARBON DIOXIDE LEVEL 31.0 MMOL/L (20-31); CHLORIDE LEVEL 99.0 MMOL/L (98-107); CREATININE FOR GFR 1.86 MG/DL (0.70-1.30); GLOMERULAR FILTRATION RATE 34.6 (>35); POTASSIUM SERUM 3.3 MMOL/L (3.5-5.1); SODIUM LEVEL 141.0 MMOL/L (136-145)
[2025-05-01] MEDS: MORPHINE 4 MG/ML 1 ML VIAL IV PRN (05:55)
[2025-05-01] MEDS: KCL 10MEQ/100ML SWI (KRUN) 10 MEQ in IV 1 EA IV SCH (06:23)
[2025-05-01] MEDS ORDERED: POTASSIUM CHLORIDE 10MEQ SR TABLET PO ONE (07:00)
[2025-05-01] MEDS: ACETAMINOPHEN *IV* 1,000 MG in IV 1 EA IV SCH (08:51)
[2025-05-01] MEDS: POTASSIUM CHLORIDE 10MEQ SR TABLET PO ONE (10:15)
[2025-05-01] MEDS: FUROSEMIDE 40 MG/4 ML VIAL IV ONE (10:43)
[2025-05-01] MEDS: DOXYCYCLINE HYCLATE 100 MG in DEXTROSE 5% (D5W) MINI-BAG PLU 100 ML IV SCH (15:35)
[2025-05-01] MEDS: LABETALOL 100 MG/20 ML VIAL IV ONE (15:35)
[2025-05-01] MEDS: levETIRAcetam INJection 500 MG in DEXTROSE 5% (D5W) MINI-BAG PLU 100 ML IV SCH (16:11)
[2025-05-01] MEDS: PANTOPRAZOLE 40MG VIAL IV SCH (16:11)
[2025-05-01] MEDS: MAG SULF 1GM/100ML (MAG RUN) 1 GM in IV 1 EA IV ONE (16:12)
[2025-05-01] MEDS: KCL 20MEQ IN D5/NS 1000ML 1,000 ML IV SCH (17:16)
[2025-05-01 19:06] LABS: ALT/SGPT 19.0 U/L (7.0-40); AST/SGOT 18.0 U/L (<34); CALCIUM LEVEL 7.9 MG/DL (8.3-10.6); CARBON DIOXIDE LEVEL 32.0 MMOL/L (20-31); CHLORIDE LEVEL 100.0 MMOL/L (98-107); CREATININE FOR GFR 1.82 MG/DL (0.70-1.30); GLOMERULAR FILTRATION RATE 35.5 (>35); POTASSIUM SERUM 3.6 MMOL/L (3.5-5.1); SODIUM LEVEL 142.0 MMOL/L (136-145)
[2025-05-01] MEDS: MORPHINE 10 MG/0.5 ML ORAL CONCENTRATE SOLUTION U/D SL PRN (19:48)
[2025-05-01] MEDS: LABETALOL 100 MG/20 ML VIAL IV SCH (20:31)
[2025-05-01] MEDS: hydrALAZINE 20 MG/ML 1 ML VIAL IV ONE (23:23)
[2025-05-02] VITALS (27 sets, daily range): BP systolic 76–188; BP diastolic 40–89; O2SAT 93–100
[2025-05-02] MEDS: hydrALAZINE 20 MG/ML 1 ML VIAL IV ONE (04:35)
[2025-05-02 06:39] LABS: ALT/SGPT 20.0 U/L (7.0-40); AST/SGOT 19.0 U/L (<34); CALCIUM LEVEL 8.1 MG/DL (8.3-10.6); CARBON DIOXIDE LEVEL 32.0 MMOL/L (20-31); CHLORIDE LEVEL 100.0 MMOL/L (98-107); CREATININE FOR GFR 1.57 MG/DL (0.70-1.30); GLOMERULAR FILTRATION RATE 42.4 (>35); MAGNESIUM LEVEL 2.0 MG/DL (1.8-2.4); POTASSIUM SERUM 3.5 MMOL/L (3.5-5.1); SODIUM LEVEL 142.0 MMOL/L (136-145)
[2025-05-02] MEDS ORDERED: BUPIVACAINE HCL 0.5% 62.5 ML in NS 187.5 ML EPIDURAL SCH (07:59)
[2025-05-02] MEDS: MORPHINE 10 MG/0.5 ML ORAL CONCENTRATE SOLUTION U/D SL PRN (08:06)
[2025-05-02] MEDS: LEVOTHYROXINE 100 MCG (0.1 MG) 5ML SDV PF (SOLUTION FORM) IV SCH (08:48)
[2025-05-02 09:36] LABS: BASO # 0.1 10^3/uL (0.0-0.2); BASO % 0.6 % (0.0-1.0); EOS # 0.3 10^3/uL (0.0-0.5); EOS % 3.3 % (0.0-3.0); LYMPH # 0.5 10^3/uL (1.5-5.0); LYMPH % 5.7 % (24.0-44.0); MONO # 0.6 10^3/uL (0.0-0.8); MONO % 6.1 % (2.0-8.0); NEUTROPHILS # 7.9 10^3/uL (1.5-8.5); NEUTROPHILS % 83.6 % (36.0-66.0); PLATELET COUNT, AUTOMATED 248 10^3/uL (150-450)
[2025-05-02] MEDS: FUROSEMIDE 40 MG/4 ML VIAL IV ONE (10:01)
[2025-05-02] MEDS: POTASSIUM CHLORIDE 10% LIQ 20MEQ/15ML UDC PO ONE (11:16)
[2025-05-02] MEDS ORDERED: GLUCOSE 4 GM CHEW PO PRN (12:20)
[2025-05-02] MEDS ORDERED: GLUCAGON INJ 1 MG VIAL SC PRN (12:20)
[2025-05-02] MEDS ORDERED: DEXTROSE 50% 50 ML SYRINGE IV PRN (12:20)
[2025-05-02] MEDS: INSULIN LISPRO (NovoLOG) PER UNIT SC SCH ×2 (12:35→20:41)
[2025-05-02] MEDS ORDERED: INSULIN LISPRO (NovoLOG) PER UNIT SC SCH (17:30)
[2025-05-02] MEDS ORDERED: APIXABAN 2.5 MG TAB PO SCH (21:00)
[2025-05-03] VITALS (33 sets, daily range): BP systolic 130–228; BP diastolic 59–96; O2SAT 92–100
[2025-05-03 02:54] LABS: MAGNESIUM LEVEL 1.8 MG/DL (1.8-2.4); POTASSIUM SERUM 3.7 MMOL/L (3.5-5.1)
[2025-05-03] MEDS: hydrALAZINE 20 MG/ML 1 ML VIAL IV ONE (03:04)
[2025-05-03] MEDS: POTASSIUM CHLORIDE 10% LIQ 20MEQ/15ML UDC PO ONE (03:24)
[2025-05-03] MEDS: MAG SULF 1GM/100ML (MAG RUN) 1 GM in IV 1 EA IV SCH (03:24)
[2025-05-03] MEDS: LEVOTHYROXINE 88 MCG TABLET (0.088 MG) PO SCH (06:16)
[2025-05-03 07:26] LABS: BASO # 0.1 10^3/uL (0.0-0.2); BASO % 0.7 % (0.0-1.0); EOS # 0.3 10^3/uL (0.0-0.5); EOS % 2.4 % (0.0-3.0); LYMPH # 0.6 10^3/uL (1.5-5.0); LYMPH % 5.2 % (24.0-44.0); MONO # 0.7 10^3/uL (0.0-0.8); MONO % 6.3 % (2.0-8.0); NEUTROPHILS # 9.6 10^3/uL (1.5-8.5); NEUTROPHILS % 83.8 % (36.0-66.0); PLATELET COUNT, AUTOMATED 255 10^3/uL (150-450)
[2025-05-03 07:57] LABS: ALT/SGPT 23.0 U/L (7.0-40); AST/SGOT 27.0 U/L (<34); CALCIUM LEVEL 8.8 MG/DL (8.3-10.6); CARBON DIOXIDE LEVEL 32.0 MMOL/L (20-31); CHLORIDE LEVEL 98.0 MMOL/L (98-107); CREATININE FOR GFR 1.35 MG/DL (0.70-1.30); GLOMERULAR FILTRATION RATE 50.8 (>35); MAGNESIUM LEVEL 2.3 MG/DL (1.8-2.4); PHOSPHORUS LEVEL 2.5 MG/DL (2.4-5.1); POTASSIUM SERUM 4.2 MMOL/L (3.5-5.1); SODIUM LEVEL 140.0 MMOL/L (136-145)
[2025-05-03] MEDS ORDERED: PILL CUTTER 1 EACH XX ONE (08:46)
[2025-05-03] MEDS: PANTOPRAZOLE 40MG TAB PO SCH (08:46)
[2025-05-03] MEDS: FUROSEMIDE 40 MG/4 ML VIAL IV ONE (09:48)
[2025-05-03] MEDS: amLODIPine 10 MG TAB PO SCH (13:25)
[2025-05-03] MEDS: **hydrALAZINE HCL** 25 MG TAB PO SCH (15:59)
[2025-05-03] MEDS: LIDOCAINE 5% PATCH TD SCH (17:28)
[2025-05-03] MEDS: ACETAMINOPHEN *IV* 1,000 MG in IV 1 EA IV ONE (18:33)
[2025-05-03] MEDS: SENNA 8.6 MG TAB PO SCH (19:58)
[2025-05-03] MEDS ORDERED: LIDOCAINE 5% PATCH TD SCH (21:00)
[2025-05-04] VITALS (56 sets, daily range): BP systolic 77–217; BP diastolic 41–86; PULSE 96; TEMP 99.7–100.9; O2SAT 88–100
[2025-05-04 05:02] LABS: BASO # 0.1 10^3/uL (0.0-0.2); BASO % 0.5 % (0.0-1.0); EOS # 0.3 10^3/uL (0.0-0.5); EOS % 2.8 % (0.0-3.0); LYMPH # 0.7 10^3/uL (1.5-5.0); LYMPH % 6.4 % (24.0-44.0); MONO # 0.9 10^3/uL (0.0-0.8); MONO % 8.4 % (2.0-8.0); NEUTROPHILS # 8.1 10^3/uL (1.5-8.5); NEUTROPHILS % 78.5 % (36.0-66.0); PLATELET COUNT, AUTOMATED 268 10^3/uL (150-450)
[2025-05-04 05:28] LABS: ALT/SGPT 20.0 U/L (7.0-40); AST/SGOT 23.0 U/L (<34); CALCIUM LEVEL 8.6 MG/DL (8.3-10.6); CARBON DIOXIDE LEVEL 32.0 MMOL/L (20-31); CHLORIDE LEVEL 98.0 MMOL/L (98-107); CREATININE FOR GFR 1.28 MG/DL (0.70-1.30); GLOMERULAR FILTRATION RATE 54.2 (>35); POTASSIUM SERUM 4.3 MMOL/L (3.5-5.1); SODIUM LEVEL 138.0 MMOL/L (136-145)
[2025-05-04] MEDS: MIRALAX *UNIT DOSE* 17 GM PACKET PO SCH (10:13)
[2025-05-04] MEDS: FUROSEMIDE 40 MG/4 ML VIAL IV ONE (10:13)
[2025-05-04] MEDS: ACETAMINOPHEN 325 MG TAB PO SCH (10:14)
[2025-05-04] MEDS: BISACODYL 10 MG SUPP PR PRN (13:25)
[2025-05-04] MEDS: ONDANSETRON 4MG 2ML VIAL IV PRN (14:54)
[2025-05-04] MEDS ORDERED: CHLORASEPTIC SPRAY MT PRN (16:25)
[2025-05-04] MEDS: hydrALAZINE 20 MG/ML 1 ML VIAL IV SCH (17:04)
[2025-05-04] MEDS ORDERED: METOPROLOL 5 MG/5 ML VIAL As Ordered ONE (17:25)
[2025-05-04] MEDS: METOPROLOL 5 MG/5 ML VIAL IV SCH (17:28)
[2025-05-04] MEDS ORDERED: NITROGLYCERIN 0.4 MG SUBL TABLET As Ordered ONE (17:31)
[2025-05-04] MEDS: NITROGLYCERIN 0.4 MG SUBL TABLET SL PRN (17:44)
[2025-05-04 17:53] LABS: C REACTIVE PROTEIN QUANTITATIV 21.5 MG/DL (<1.0)
[2025-05-04] MEDS: SENNA 8.6 MG TAB PO SCH (21:00)
[2025-05-04] MEDS: levETIRAcetam INJection 500 MG in DEXTROSE 5% (D5W) MINI-BAG PLU 100 ML IV SCH (22:41)
[2025-05-04] MEDS: ACETAMINOPHEN *IV* 1,000 MG in IV 1 EA IV PRN (23:07)
[2025-05-05] VITALS (22 sets, daily range): BP systolic 127–183; BP diastolic 58–90; TEMP 97–99.5; O2SAT 91–98
[2025-05-05] MEDS: hydrALAZINE 20 MG/ML 1 ML VIAL IV SCH
[2025-05-05] MEDS ORDERED: hydrALAZINE 20 MG/ML 1 ML VIAL As Ordered ONE (02:33)
[2025-05-05 07:19] LABS: BASO # 0.1 10^3/uL (0.0-0.2); BASO % 0.4 % (0.0-1.0); EOS # 0.1 10^3/uL (0.0-0.5); EOS % 1.1 % (0.0-3.0); LYMPH # 0.6 10^3/uL (1.5-5.0); LYMPH % 5.1 % (24.0-44.0); MONO # 0.8 10^3/uL (0.0-0.8); MONO % 6.9 % (2.0-8.0); NEUTROPHILS # 10.1 10^3/uL (1.5-8.5); NEUTROPHILS % 82.5 % (36.0-66.0); PLATELET COUNT, AUTOMATED 372 10^3/uL (150-450)
[2025-05-05 07:45] LABS: CALCIUM LEVEL 8.7 MG/DL (8.3-10.6); CARBON DIOXIDE LEVEL 33.0 MMOL/L (20-31); CHLORIDE LEVEL 94.0 MMOL/L (98-107); CREATININE FOR GFR 1.33 MG/DL (0.70-1.30); GLOMERULAR FILTRATION RATE 51.7 (>35); POTASSIUM SERUM 4.1 MMOL/L (3.5-5.1); SODIUM LEVEL 137.0 MMOL/L (136-145)
[2025-05-05] MEDS ORDERED: hydrALAZINE 20 MG/ML 1 ML VIAL IV PRN (08:00)
[2025-05-05] MEDS: LABETALOL 100 MG/20 ML VIAL IV SCH (08:35)
[2025-05-05 10:01] LABS: LDH LACTATE DEHYDROGENASE 273.0 U/L (120-246)
[2025-05-05 12:32] LABS: PLEURAL FL COLOR RED (COLORLESS)
[2025-05-05 12:33] LABS: APPEARANCE, BODY FLUID TURBID (CLEAR); SOURCE, BODY FLUID PLEURAL
[2025-05-05 12:38] LABS: PH BODY FLUID 7.538 UNITS (NOT ESTABLISHED); SOURCE, BODY FLUID pH PLEURAL
[2025-05-05] MEDS: D5W/0.9% SODIUM CHLORIDE 1,000 ML IV SCH (13:40)
[2025-05-05] MEDS: MAG SULF 1GM/100ML (MAG RUN) 1 GM in IV 1 EA IV ONE (18:37)
[2025-05-05 19:03] LABS: ALT/SGPT 20.0 U/L (7.0-40); AST/SGOT 29.0 U/L (<34); CALCIUM LEVEL 8.4 MG/DL (8.3-10.6); CARBON DIOXIDE LEVEL 33.0 MMOL/L (20-31); CHLORIDE LEVEL 96.0 MMOL/L (98-107); CREATININE FOR GFR 1.18 MG/DL (0.70-1.30); GLOMERULAR FILTRATION RATE 59.7 (>35); MAGNESIUM LEVEL 2.1 MG/DL (1.8-2.4); PHOSPHORUS LEVEL 3.7 MG/DL (2.4-5.1); POTASSIUM SERUM 4.0 MMOL/L (3.5-5.1); SODIUM LEVEL 139.0 MMOL/L (136-145)
[2025-05-06] VITALS (10 sets, daily range): BP systolic 129–177; BP diastolic 60–90; TEMP 97.3–98.5; O2SAT 92–97
[2025-05-06 04:53] LABS: BASO # 0.1 10^3/uL (0.0-0.2); BASO % 0.6 % (0.0-1.0); EOS # 0.4 10^3/uL (0.0-0.5); EOS % 4.1 % (0.0-3.0); LYMPH # 0.6 10^3/uL (1.5-5.0); LYMPH % 6.0 % (24.0-44.0); MONO # 0.7 10^3/uL (0.0-0.8); MONO % 6.8 % (2.0-8.0); NEUTROPHILS # 7.8 10^3/uL (1.5-8.5); NEUTROPHILS % 78.3 % (36.0-66.0); PLATELET COUNT, AUTOMATED 340 10^3/uL (150-450)
[2025-05-06 05:19] LABS: CALCIUM LEVEL 8.3 MG/DL (8.3-10.6); CARBON DIOXIDE LEVEL 34.0 MMOL/L (20-31); CHLORIDE LEVEL 97.0 MMOL/L (98-107); CREATININE FOR GFR 1.14 MG/DL (0.70-1.30); GLOMERULAR FILTRATION RATE 62.3 (>35); POTASSIUM SERUM 3.7 MMOL/L (3.5-5.1); SODIUM LEVEL 139.0 MMOL/L (136-145)
[2025-05-06] MEDS: PANTOPRAZOLE 40MG VIAL IV SCH (09:17)
[2025-05-06] MEDS: DOCUSATE SOD LIQ 100 MG/10 ML UDC PO SCH (09:18)
[2025-05-06] MEDS ORDERED: ALTEPLASE 2 MG/2 ML VIAL XX ONE (10:25)
[2025-05-06] MEDS ORDERED: ALPRAZolam 0.25 MG TAB PO PRN (11:30)
[2025-05-06] MEDS: ALTEPLASE 10MG IN NS 60ML SYRINGE INTRAPLEU ONE (11:39)
[2025-05-07] VITALS (11 sets, daily range): BP systolic 112–150; BP diastolic 55–67; TEMP 97.4–98; O2SAT 93–96
[2025-05-07 05:10] LABS: PLATELET COUNT, AUTOMATED 398 10^3/uL (150-450)
[2025-05-07 05:48] LABS: CALCIUM LEVEL 8.0 MG/DL (8.3-10.6); CARBON DIOXIDE LEVEL 35.0 MMOL/L (20-31); CHLORIDE LEVEL 97.0 MMOL/L (98-107); CREATININE FOR GFR 1.22 MG/DL (0.70-1.30); GLOMERULAR FILTRATION RATE 57.4 (>35); POTASSIUM SERUM 4.1 MMOL/L (3.5-5.1); SODIUM LEVEL 138.0 MMOL/L (136-145)
[2025-05-07 05:59] LABS: ATYPICAL LYMPH 3 % (0-5); BASOPHILS 1 % (0-1); EOSINOPHILS 1 % (0-3); LYMPHOCYTES 6 % (16-44); MONOCYTES 3 % (0-5); NEUTROPHILS 84 % (28-66)
[2025-05-07 06:00] LABS: PLATELET ESTIMATE NORMAL (NORMAL)
[2025-05-07] MEDS: CEFEPIME HCL 2 GM in DEXTROSE 5% (D5W) ADV/MINI-BAG 50 ML IV SCH (11:19)
[2025-05-07] MEDS ORDERED: MIDAZOLAM 100MG/100ML-0.9%NACL 100 MG in IV 1 EA IV SCH (15:10)
[2025-05-07 15:47] LABS: PLATELET COUNT, AUTOMATED 469 10^3/uL (150-450)
[2025-05-07 16:27] LABS: ALT/SGPT 26.0 U/L (7.0-40); AST/SGOT 29.0 U/L (<34); CALCIUM LEVEL 8.3 MG/DL (8.3-10.6); CARBON DIOXIDE LEVEL 31.0 MMOL/L (20-31); CHLORIDE LEVEL 97.0 MMOL/L (98-107); CREATININE FOR GFR 1.2 MG/DL (0.70-1.30); GLOMERULAR FILTRATION RATE 58.5 (>35); MAGNESIUM LEVEL 2.4 MG/DL (1.8-2.4); PHOSPHORUS LEVEL 2.5 MG/DL (2.4-5.1); POTASSIUM SERUM 3.9 MMOL/L (3.5-5.1); SODIUM LEVEL 137.0 MMOL/L (136-145)
[2025-05-07] MEDS: FUROSEMIDE 40 MG/4 ML VIAL IV ONE (18:08)
[2025-05-08] VITALS (9 sets, daily range): BP systolic 123–180; BP diastolic 60–82; TEMP 97.8–98.9; O2SAT 92–100
[2025-05-08 05:47] LABS: BASO # 0.1 10^3/uL (0.0-0.2); BASO % 0.6 % (0.0-1.0); EOS # 0.4 10^3/uL (0.0-0.5); EOS % 3.5 % (0.0-3.0); LYMPH # 0.8 10^3/uL (1.5-5.0); LYMPH % 7.5 % (24.0-44.0); MONO # 0.6 10^3/uL (0.0-0.8); MONO % 5.2 % (2.0-8.0); NEUTROPHILS # 8.7 10^3/uL (1.5-8.5); NEUTROPHILS % 78.8 % (36.0-66.0); PLATELET COUNT, AUTOMATED 449 10^3/uL (150-450)
[2025-05-08 06:34] LABS: CALCIUM LEVEL 7.7 MG/DL (8.3-10.6); CARBON DIOXIDE LEVEL 33.0 MMOL/L (20-31); CHLORIDE LEVEL 97.0 MMOL/L (98-107); CREATININE FOR GFR 1.23 MG/DL (0.70-1.30); GLOMERULAR FILTRATION RATE 56.8 (>35); MAGNESIUM LEVEL 2.4 MG/DL (1.8-2.4); PHOSPHORUS LEVEL 3.2 MG/DL (2.4-5.1); POTASSIUM SERUM 3.8 MMOL/L (3.5-5.1); SODIUM LEVEL 137.0 MMOL/L (136-145)
[2025-05-08] MEDS: amLODIPine 10 MG TAB PO SCH (09:27)
[2025-05-09] VITALS (8 sets, daily range): BP systolic 127–146; BP diastolic 58–65; TEMP 97.7–98.7; O2SAT 91–97
[2025-05-09 06:02] LABS: BASO # 0.1 10^3/uL (0.0-0.2); BASO % 0.8 % (0.0-1.0); EOS # 0.4 10^3/uL (0.0-0.5); EOS % 3.4 % (0.0-3.0); LYMPH # 0.7 10^3/uL (1.5-5.0); LYMPH % 6.0 % (24.0-44.0); MONO # 0.5 10^3/uL (0.0-0.8); MONO % 4.4 % (2.0-8.0); NEUTROPHILS # 9.8 10^3/uL (1.5-8.5); NEUTROPHILS % 82.4 % (36.0-66.0); PLATELET COUNT, AUTOMATED 464 10^3/uL (150-450)
[2025-05-09 06:31] LABS: CALCIUM LEVEL 8.1 MG/DL (8.3-10.6); CARBON DIOXIDE LEVEL 34.0 MMOL/L (20-31); CHLORIDE LEVEL 97.0 MMOL/L (98-107); CREATININE FOR GFR 1.18 MG/DL (0.70-1.30); GLOMERULAR FILTRATION RATE 59.7 (>35); POTASSIUM SERUM 3.8 MMOL/L (3.5-5.1); SODIUM LEVEL 137.0 MMOL/L (136-145)
[2025-05-09] MEDS ORDERED: PERCOCET 5MG/325MG TAB PO PRN (08:05)
[2025-05-09] MEDS: FUROSEMIDE 20 MG/2 ML VIAL IV SCH (08:31)
[2025-05-09] MEDS: METOPROLOL TART 12.5 MG PER 1/2 TAB PO SCH (08:32)
[2025-05-09] MEDS: APIXABAN 2.5 MG TAB PO SCH (09:26)
[2025-05-09] MEDS ORDERED: ACETAMINOPHEN 325 MG TAB PO PRN (10:00)
[2025-05-09] MEDS: ACETAMINOPHEN 500 MG TAB PO SCH (18:16)
[2025-05-09] MEDS ORDERED: DOXEPIN 25 MG CAP PO SCH (21:00)
[2025-05-10] VITALS (8 sets, daily range): BP systolic 119–146; BP diastolic 58–86; TEMP 97.8–98.6; O2SAT 92–97
[2025-05-10 05:44] LABS: BASO # 0.1 10^3/uL (0.0-0.2); BASO % 0.6 % (0.0-1.0); EOS # 0.3 10^3/uL (0.0-0.5); EOS % 2.6 % (0.0-3.0); LYMPH # 0.6 10^3/uL (1.5-5.0); LYMPH % 4.7 % (24.0-44.0); MONO # 0.6 10^3/uL (0.0-0.8); MONO % 4.6 % (2.0-8.0); NEUTROPHILS # 10.8 10^3/uL (1.5-8.5); NEUTROPHILS % 85.3 % (36.0-66.0); PLATELET COUNT, AUTOMATED 481 10^3/uL (150-450)
[2025-05-10 06:07] LABS: CALCIUM LEVEL 8.0 MG/DL (8.3-10.6); CARBON DIOXIDE LEVEL 33.0 MMOL/L (20-31); CHLORIDE LEVEL 96.0 MMOL/L (98-107); CREATININE FOR GFR 1.17 MG/DL (0.70-1.30); GLOMERULAR FILTRATION RATE 60.3 (>35); POTASSIUM SERUM 4.1 MMOL/L (3.5-5.1); SODIUM LEVEL 136.0 MMOL/L (136-145)
[2025-05-10] MEDS ORDERED: PANTOPRAZOLE 40MG TAB PO SCH (09:00)
[2025-05-10] MEDS: FUROSEMIDE 40 MG/4 ML VIAL IV SCH (09:38)
[2025-05-11 04:00] VITALS: BP 175/69; TEMP 97.7; O2SAT 95
[2025-05-11 04:52] LABS: BASO # 0.1 10^3/uL (0.0-0.2); BASO % 0.8 % (0.0-1.0); EOS # 0.4 10^3/uL (0.0-0.5); EOS % 3.4 % (0.0-3.0); LYMPH # 0.8 10^3/uL (1.5-5.0); LYMPH % 6.8 % (24.0-44.0); MONO # 0.7 10^3/uL (0.0-0.8); MONO % 6.4 % (2.0-8.0); NEUTROPHILS # 9.3 10^3/uL (1.5-8.5); NEUTROPHILS % 80.8 % (36.0-66.0); PLATELET COUNT, AUTOMATED 504 10^3/uL (150-450)
[2025-05-11 05:14] LABS: CALCIUM LEVEL 8.2 MG/DL (8.3-10.6); CARBON DIOXIDE LEVEL 34.0 MMOL/L (20-31); CHLORIDE LEVEL 96.0 MMOL/L (98-107); CREATININE FOR GFR 1.3 MG/DL (0.70-1.30); GLOMERULAR FILTRATION RATE 53.2 (>35); POTASSIUM SERUM 4.1 MMOL/L (3.5-5.1); SODIUM LEVEL 136.0 MMOL/L (136-145)
[2025-05-11 08:00] VITALS: BP 140/63; TEMP 97.9; O2SAT 95
[2025-05-11] MEDS: BACLOFEN 10 MG TAB PO ONE (11:58)
[2025-05-11 12:00] VITALS: BP 130/63; TEMP 98.1; O2SAT 94
[2025-05-11 16:00] VITALS: BP 157/72; TEMP 98; O2SAT 95
[2025-05-11 20:00] VITALS: BP 143/93; TEMP 98.4; O2SAT 97
[2025-05-12] VITALS (9 sets, daily range): BP systolic 116–167; BP diastolic 59–78; TEMP 98–98.9; O2SAT 91–99
[2025-05-12 05:20] LABS: BASO # 0.1 10^3/uL (0.0-0.2); BASO % 1.0 % (0.0-1.0); EOS # 0.4 10^3/uL (0.0-0.5); EOS % 3.6 % (0.0-3.0); LYMPH # 0.7 10^3/uL (1.5-5.0); LYMPH % 7.1 % (24.0-44.0); MONO # 0.7 10^3/uL (0.0-0.8); MONO % 6.4 % (2.0-8.0); NEUTROPHILS # 8.2 10^3/uL (1.5-8.5); NEUTROPHILS % 80.0 % (36.0-66.0); PLATELET COUNT, AUTOMATED 525 10^3/uL (150-450)
[2025-05-12 05:44] LABS: CALCIUM LEVEL 8.3 MG/DL (8.3-10.6); CARBON DIOXIDE LEVEL 33.0 MMOL/L (20-31); CHLORIDE LEVEL 96.0 MMOL/L (98-107); CREATININE FOR GFR 1.33 MG/DL (0.70-1.30); GLOMERULAR FILTRATION RATE 51.7 (>35); POTASSIUM SERUM 4.0 MMOL/L (3.5-5.1); SODIUM LEVEL 136.0 MMOL/L (136-145)
[2025-05-13] VITALS: BP 137/64; TEMP 98.4; O2SAT 96
[2025-05-13 04:00] VITALS: BP 161/71; TEMP 98.6; O2SAT 98
[2025-05-13 05:55] LABS: BASO # 0.1 10^3/uL (0.0-0.2); BASO % 1.2 % (0.0-1.0); EOS # 0.4 10^3/uL (0.0-0.5); EOS % 4.3 % (0.0-3.0); LYMPH # 0.7 10^3/uL (1.5-5.0); LYMPH % 7.3 % (24.0-44.0); MONO # 0.6 10^3/uL (0.0-0.8); MONO % 6.9 % (2.0-8.0); NEUTROPHILS # 7.3 10^3/uL (1.5-8.5); NEUTROPHILS % 79.3 % (36.0-66.0); PLATELET COUNT, AUTOMATED 463 10^3/uL (150-450)
[2025-05-13 06:21] LABS: CALCIUM LEVEL 8.2 MG/DL (8.3-10.6); CARBON DIOXIDE LEVEL 31.0 MMOL/L (20-31); CHLORIDE LEVEL 99.0 MMOL/L (98-107); CREATININE FOR GFR 1.34 MG/DL (0.70-1.30); GLOMERULAR FILTRATION RATE 51.3 (>35); POTASSIUM SERUM 3.9 MMOL/L (3.5-5.1); SODIUM LEVEL 140.0 MMOL/L (136-145)
[2025-05-13 08:00] VITALS: BP 151/70; TEMP 98.2; O2SAT 99
[2025-05-13] MEDS: ANUSOL HC CREAM 30 GM TOP SCH (09:00)
[2025-05-13 12:00] VITALS: BP 137/78; TEMP 98.3; O2SAT 99
[2025-05-13 16:25] VITALS: BP 127/61; TEMP 98; O2SAT 97
[2025-05-13 22:24] VITALS: BP 141/63; TEMP 99.5; O2SAT 94
[2025-05-14] VITALS (7 sets, daily range): BP systolic 137–158; BP diastolic 60–71; TEMP 97–99.4; O2SAT 93–99
[2025-05-14 05:54] LABS: BASO # 0.1 10^3/uL (0.0-0.2); BASO % 1.5 % (0.0-1.0); EOS # 0.4 10^3/uL (0.0-0.5); EOS % 4.4 % (0.0-3.0); LYMPH # 0.7 10^3/uL (1.5-5.0); LYMPH % 8.5 % (24.0-44.0); MONO # 0.6 10^3/uL (0.0-0.8); MONO % 7.2 % (2.0-8.0); NEUTROPHILS # 6.6 10^3/uL (1.5-8.5); NEUTROPHILS % 77.1 % (36.0-66.0); PLATELET COUNT, AUTOMATED 472 10^3/uL (150-450)
[2025-05-15] VITALS (8 sets, daily range): BP systolic 92–166; BP diastolic 49–72; PULSE 72–76; TEMP 97–98.5; O2SAT 93–99
[2025-05-15] MEDS: LIDOCAINE 5% PATCH TD ONE (04:58)
[2025-05-15] MEDS: ACETAMINOPHEN *IV* 1,000 MG in IV 1 EA IV ONE (04:58)
[2025-05-15 05:11] LABS: BASO # 0.1 10^3/uL (0.0-0.2); BASO % 1.3 % (0.0-1.0); EOS # 0.4 10^3/uL (0.0-0.5); EOS % 5.2 % (0.0-3.0); LYMPH # 0.9 10^3/uL (1.5-5.0); LYMPH % 11.7 % (24.0-44.0); MONO # 0.6 10^3/uL (0.0-0.8); MONO % 8.0 % (2.0-8.0); NEUTROPHILS # 5.7 10^3/uL (1.5-8.5); NEUTROPHILS % 72.9 % (36.0-66.0); PLATELET COUNT, AUTOMATED 392 10^3/uL (150-450)
[2025-05-15 05:33] LABS: CK-MB VALUE MASS 1.0 NG/ML (<3.6)
[2025-05-15 05:34] LABS: CALCIUM LEVEL 8.4 MG/DL (8.3-10.6); CARBON DIOXIDE LEVEL 30.0 MMOL/L (20-31); CHLORIDE LEVEL 103.0 MMOL/L (98-107); CPK CREATINE PHOSPHOKINASE 46.0 U/L (46-171); CREATININE FOR GFR 1.32 MG/DL (0.70-1.30); GLOMERULAR FILTRATION RATE 52.2 (>35); MAGNESIUM LEVEL 1.9 MG/DL (1.8-2.4); MB/CK RELATIVE INDEX 2.17 (< OR =4); POTASSIUM SERUM 3.6 MMOL/L (3.5-5.1); SODIUM LEVEL 142.0 MMOL/L (136-145)
[2025-05-16] VITALS (8 sets, daily range): BP systolic 124–158; BP diastolic 60–70; TEMP 97.6–99.4; O2SAT 94–98
[2025-05-16 06:06] LABS: BASO # 0.1 10^3/uL (0.0-0.2); BASO % 2.0 % (0.0-1.0); EOS # 0.4 10^3/uL (0.0-0.5); EOS % 5.9 % (0.0-3.0); LYMPH # 0.8 10^3/uL (1.5-5.0); LYMPH % 11.9 % (24.0-44.0); MONO # 0.5 10^3/uL (0.0-0.8); MONO % 7.7 % (2.0-8.0); NEUTROPHILS # 4.8 10^3/uL (1.5-8.5); NEUTROPHILS % 71.4 % (36.0-66.0); PLATELET COUNT, AUTOMATED 328 10^3/uL (150-450)
[2025-05-16 06:39] LABS: CALCIUM LEVEL 8.5 MG/DL (8.3-10.6); CARBON DIOXIDE LEVEL 28.0 MMOL/L (20-31); CHLORIDE LEVEL 103.0 MMOL/L (98-107); CREATININE FOR GFR 1.29 MG/DL (0.70-1.30); GLOMERULAR FILTRATION RATE 53.7 (>35); MAGNESIUM LEVEL 1.7 MG/DL (1.8-2.4); POTASSIUM SERUM 3.6 MMOL/L (3.5-5.1); SODIUM LEVEL 140.0 MMOL/L (136-145)
[2025-05-16] MEDS: DOCUSATE SODIUM 100 MG CAPSULE PO SCH (21:33)
[2025-05-17] VITALS (7 sets, daily range): BP systolic 118–162; BP diastolic 56–77; TEMP 97.3–98.5; O2SAT 92–100
[2025-05-17 05:55] LABS: BASO # 0.1 10^3/uL (0.0-0.2); BASO % 1.3 % (0.0-1.0); EOS # 0.3 10^3/uL (0.0-0.5); EOS % 3.3 % (0.0-3.0); LYMPH # 0.8 10^3/uL (1.5-5.0); LYMPH % 10.2 % (24.0-44.0); MONO # 0.5 10^3/uL (0.0-0.8); MONO % 7.2 % (2.0-8.0); NEUTROPHILS # 5.8 10^3/uL (1.5-8.5); NEUTROPHILS % 77.3 % (36.0-66.0); PLATELET COUNT, AUTOMATED 306 10^3/uL (150-450)
[2025-05-17 06:24] LABS: CALCIUM LEVEL 8.2 MG/DL (8.3-10.6); CARBON DIOXIDE LEVEL 29.0 MMOL/L (20-31); CHLORIDE LEVEL 102.0 MMOL/L (98-107); CREATININE FOR GFR 1.15 MG/DL (0.70-1.30); GLOMERULAR FILTRATION RATE 61.6 (>35); MAGNESIUM LEVEL 1.5 MG/DL (1.8-2.4); POTASSIUM SERUM 3.6 MMOL/L (3.5-5.1); SODIUM LEVEL 140.0 MMOL/L (136-145)
[2025-05-17] MEDS: MAG SULF 1GM/100ML (MAG RUN) 1 GM in IV 1 EA IV ONE (06:35)
[2025-05-17] MEDS: MAGNESIUM OXIDE 400 MG TAB PO SCH (09:36)
[2025-05-17] MEDS ORDERED: MAGN400T35 PO (11:29)
[2025-05-17] MEDS ORDERED: METO1TAB87 PO (11:29)
[2025-05-18 03:55] VITALS: BP 131/90; TEMP 98.6; O2SAT 96
[2025-05-18 06:21] LABS: CALCIUM LEVEL 8.3 MG/DL (8.3-10.6); CARBON DIOXIDE LEVEL 29.0 MMOL/L (20-31); CHLORIDE LEVEL 101.0 MMOL/L (98-107); CREATININE FOR GFR 1.19 MG/DL (0.70-1.30); GLOMERULAR FILTRATION RATE 59.1 (>35); MAGNESIUM LEVEL 1.6 MG/DL (1.8-2.4); POTASSIUM SERUM 3.6 MMOL/L (3.5-5.1); SODIUM LEVEL 139.0 MMOL/L (136-145)
[2025-05-18] MEDS: MAG SULF 1GM/100ML (MAG RUN) 1 GM in IV 1 EA IV SCH (06:51)
[2025-05-18 09:55] VITALS: BP 160/87; TEMP 97.4; O2SAT 100
[2025-05-18 12:00] VITALS: BP 157/63; TEMP 97; O2SAT 98
[2025-05-18 15:51] VITALS: BP 125/62; TEMP 98.1; O2SAT 99
[2025-05-18] MEDS: MAGNESIUM OXIDE 400 MG TAB PO SCH (16:32)
[2025-05-18] MEDS: TAMSULOSIN 0.4 MG CAP PO ONE (18:01)
[2025-05-18 19:36] VITALS: BP 112/58; TEMP 98.3; O2SAT 95
[2025-05-19 00:02] VITALS: BP 140/66; TEMP 97.5; O2SAT 96
[2025-05-19 03:50] VITALS: BP 148/67; TEMP 98.6; O2SAT 95
[2025-05-19 04:48] LABS: CALCIUM LEVEL 7.9 MG/DL (8.3-10.6); CARBON DIOXIDE LEVEL 28.0 MMOL/L (20-31); CHLORIDE LEVEL 103.0 MMOL/L (98-107); CREATININE FOR GFR 1.08 MG/DL (0.70-1.30); GLOMERULAR FILTRATION RATE 66.4 (>35); MAGNESIUM LEVEL 1.7 MG/DL (1.8-2.4); POTASSIUM SERUM 4.1 MMOL/L (3.5-5.1); SODIUM LEVEL 140.0 MMOL/L (136-145)
[2025-05-19 08:08] VITALS: BP 166/70; TEMP 98.5; O2SAT 96
[2025-05-19 09:34] VITALS: BP 148/67
[2025-05-19] MEDS ORDERED: TAMS-18 PO (10:11)
== END 2025-05-19 12:24 | DRG 199 ==
LOC: EDBD 11:11 → M ED 11:11 → M ED INP 13:31 → M PCU 14:59 → M ICU 04-28 17:21 → M PCU 05-13 16:13
PROVIDERS: ADMIT Internal Medicine; ATTEND Internal Medicine
PROC: 0W9900Z Drainage of Right Pleural Cavity with Drainage Device, Open Approach (ICD-10-PCS; 2025-04-25)
PROC: B246ZZZ Ultrasonography of Right and Left Heart (ICD-10-PCS; 2025-05-05)
PROC: 0W9930Z Drainage of Right Pleural Cavity with Drainage Device, Percutaneous Approach (ICD-10-PCS; principal; 2025-05-05 10:43)
PROC: 3E0L3GC Introduction of Other Therapeutic Substance into Pleural Cavity, Percutaneous Approach (ICD-10-PCS; 2025-05-06)
DX: S27.0XXA Traumatic pneumothorax, initial encounter (principal); A41.9 Sepsis, unspecified organism; R65.21 Severe sepsis with septic shock; J96.01 Acute respiratory failure with hypoxia; J18.9 Pneumonia, unspecified organism; I50.33 Acute on chronic diastolic (congestive) heart failure; G93.41 Metabolic encephalopathy; E43 Unspecified severe protein-calorie malnutrition; J96.02 Acute respiratory failure with hypercapnia; S22.41XA Multiple fractures of ribs, right side, initial encounter for closed fracture; I13.0 Hypertensive heart and chronic kidney disease with heart failure and stage 1 through stage 4 chronic kidney disease, or unspecified chronic kidney disease; E87.4 Mixed disorder of acid-base balance; G72.81 Critical illness myopathy; K56.7 Ileus, unspecified; I48.21 Permanent atrial fibrillation; I25.10 Atherosclerotic heart disease of native coronary artery without angina pectoris; I25.2 Old myocardial infarction; N18.31 Chronic kidney disease, stage 3a; E11.22 Type 2 diabetes mellitus with diabetic chronic kidney disease; Z66 Do not resuscitate; E03.9 Hypothyroidism, unspecified; F03.90 Unspecified dementia, unspecified severity, without behavioral disturbance, psychotic disturbance, mood disturbance, and anxiety; R33.9 Retention of urine, unspecified; M79.89 Other specified soft tissue disorders; N40.1 Benign prostatic hyperplasia with lower urinary tract symptoms; S27.1XXA Traumatic hemothorax, initial encounter; G25.81 Restless legs syndrome; M48.02 Spinal stenosis, cervical region; K59.00 Constipation, unspecified; K21.9 Gastro-esophageal reflux disease without esophagitis; I49.5 Sick sinus syndrome; E87.6 Hypokalemia; D64.9 Anemia, unspecified; E83.42 Hypomagnesemia; L89.316 Pressure-induced deep tissue damage of right buttock; Z85.46 Personal history of malignant neoplasm of prostate; Z85.51 Personal history of malignant neoplasm of bladder; Z92.21 Personal history of antineoplastic chemotherapy; Z86.73 Personal history of transient ischemic attack (TIA), and cerebral infarction without residual deficits; Z95.1 Presence of aortocoronary bypass graft; Z95.0 Presence of cardiac pacemaker; Z95.2 Presence of prosthetic heart valve; W18.39XA Other fall on same level, initial encounter; Y93.E8 Activity, other personal hygiene; Y92.012 Bathroom of single-family (private) house as the place of occurrence of the external cause; Y99.8 Other external cause status; Z79.01 Long term (current) use of anticoagulants; Z79.82 Long term (current) use of aspirin; Z79.890 Hormone replacement therapy; Z79.891 Long term (current) use of opiate analgesic; Z79.899 Other long term (current) drug therapy; Z87.891 Personal history of nicotine dependence

== ENCOUNTER → 2025-06-03 | Outpatient (REF) | payer MEDICARE, OTHER ==
[~2025-06-03] MED LIST changes: +HYDR12.55 PO; +LEVE500T5 PO; +TAMS-18 PO
[2025-06-03 10:53] LABS: CALCIUM LEVEL 8.6 MG/DL (8.3-10.6); CARBON DIOXIDE LEVEL 30.0 MMOL/L (20-31); CHLORIDE LEVEL 98.0 MMOL/L (98-107); CREATININE FOR GFR 1.07 MG/DL (0.70-1.30); GLOMERULAR FILTRATION RATE 67.2 (>35); POTASSIUM SERUM 4.0 MMOL/L (3.5-5.1); SODIUM LEVEL 137.0 MMOL/L (136-145)
== END ==
LOC: SKLAB4 09:28
PROVIDERS: ATTEND Nurse Practitioner Adult Health
DX: R25.2 Cramp and spasm (principal)

== ENCOUNTER → 2025-06-03 | Outpatient (REF) | payer MEDICARE, OTHER | LOC: M RAD 08:45 → EDSTATUS 09:00 | PROVIDERS: ATTEND Nurse Practitioner Adult Health | DX: M79.661 Pain in right lower leg (principal) ==

== ENCOUNTER → 2025-07-20 | Outpatient (REF) | payer MEDICARE, OTHER ==
[~2025-07-20] MED LIST changes: +BUSP10TA PO; +KEPP1TAB PO; +MAGN400T33 PO; +OXYC-517 PO; +SANT250O8 TOP; +THERTAB52 PO
[2025-07-20 15:11] LABS: PLATELET COUNT, AUTOMATED 353 10^3/uL (150-450)
[2025-07-20 15:51] LABS: ALT/SGPT 27.0 U/L (7.0-40); AST/SGOT 25.0 U/L (<34); CALCIUM LEVEL 8.7 MG/DL (8.3-10.6); CARBON DIOXIDE LEVEL 29.0 MMOL/L (20-31); CHLORIDE LEVEL 92.0 MMOL/L (98-107); CREATININE FOR GFR 1.48 MG/DL (0.70-1.30); GLOMERULAR FILTRATION RATE 45.5 (>35); POTASSIUM SERUM 4.4 MMOL/L (3.5-5.1); SODIUM LEVEL 133.0 MMOL/L (136-145)
== END ==
LOC: SKLAB4 14:08
PROVIDERS: ATTEND Family Medicine
DX: R06.02 Shortness of breath (principal); R63.5 Abnormal weight gain; N18.9 Chronic kidney disease, unspecified; G40.909 Epilepsy, unspecified, not intractable, without status epilepticus; Z79.899 Other long term (current) drug therapy

== ENCOUNTER → 2025-07-20 | Outpatient (REF) ==
[2025-07-20 16:58] LABS: APPEARANCE, URINE CLOUDY (CLEAR); BACTERIA, URINE AUTO NEGATIVE (NEGATIVE); BILIRUBIN, URINE AUTO NEGATIVE (NEGATIVE); BLOOD, URINE BLOOD 2+ (NEGATIVE); GLUCOSE, URINE (UA) AUTO 2+ mg/dL (NEGATIVE); KETONE, URINE AUTO NEGATIVE (NEGATIVE); LEUKOCYTE ESTERASE, URINE AUTO 3+ (NEGATIVE); MUCUS, URINE SMALL (NEGATIVE); NITRITE, URINE AUTO NEGATIVE (NEGATIVE); PROTEIN, URINE AUTO 2+ mg/dL (NEGATIVE); RBC, URINE AUTO 149 /HPF (0-3); SPECIFIC GRAVITY URINE AUTO 1.019 (1.002-1.035); SQUAMOUS EPITHELIAL CELL UR AU 0 /HPF (0-6); UROBILINOGEN, URINE AUTO 0.2 mg/dL (0.0-2.0); WBC, URINE AUTO TNTC /HPF (0-3)
== END ==
LOC: SKLAB2 16:25
PROVIDERS: ATTEND Family Medicine
DX: R50.9 Fever, unspecified (principal)

== ENCOUNTER 2025-07-21 12:02 | Inpatient (IN) | payer MEDICARE, OTHER ==
[~2025-07-21] VITALS: Ht 170.2 cm; Wt 76.8 kg
[~2025-07-21 12:02] MED LIST changes: -BUSP10TA PO; -DOCU8.6T PO; -KEPP1TAB PO; -MAGN400T33 PO; -OXYC-517 PO; -SANT250O8 TOP; +SENN-208 PO; -THERTAB52 PO
[2025-07-21 12:47] LABS: BASO # 0.1 10^3/uL (0.0-0.2); BASO % 0.7 % (0.0-1.0); EOS # 0.4 10^3/uL (0.0-0.5); EOS % 2.4 % (0.0-3.0); LYMPH # 1.2 10^3/uL (1.5-5.0); LYMPH % 7.4 % (24.0-44.0); MONO # 0.8 10^3/uL (0.0-0.8); MONO % 4.9 % (2.0-8.0); NEUTROPHILS # 13.7 10^3/uL (1.5-8.5); NEUTROPHILS % 83.9 % (36.0-66.0); PLATELET COUNT, AUTOMATED 379 10^3/uL (150-450)
[2025-07-21 13:14] LABS: ALT/SGPT 30.0 U/L (7.0-40); AST/SGOT 29.0 U/L (<34); CALCIUM LEVEL 8.9 MG/DL (8.3-10.6); CARBON DIOXIDE LEVEL 30.0 MMOL/L (20-31); CHLORIDE LEVEL 94.0 MMOL/L (98-107); CREATININE FOR GFR 1.58 MG/DL (0.70-1.30); GLOMERULAR FILTRATION RATE 42.1 (>35); POTASSIUM SERUM 4.4 MMOL/L (3.5-5.1); SODIUM LEVEL 134.0 MMOL/L (136-145)
[2025-07-21] MEDS ORDERED: MAGN400T33 PO (13:21)
[2025-07-21] MEDS ORDERED: THERTAB52 PO (13:21)
[2025-07-21] MEDS ORDERED: KEPP1TAB PO (13:21)
[2025-07-21] MEDS ORDERED: SANT250O8 TOP (13:21)
[2025-07-21] MEDS ORDERED: TAMS-18 PO (13:21)
[2025-07-21] MEDS ORDERED: BUSP10TA PO (13:22)
[2025-07-21] MEDS ORDERED: OXYC-517 PO (13:25)
[2025-07-21] MEDS ORDERED: HOME MED LIST COMPLETE! XX SCH (13:30)
[2025-07-21] MEDS: HYDROMORPHONE HCL 0.5 MG/0.5 ML SYRINGE IV PRN (15:45)
[2025-07-21] MEDS: NS (Normal Saline) 0.9% 1,000 ML IV ONE (15:45)
[2025-07-21] MEDS ORDERED: ISOVUE-370 76% 100 ML VIAL As Ordered ONE (15:58)
[2025-07-21 17:42] LABS: KETONE, URINE AUTO RFX NEGATIVE (NEGATIVE); MUCUS, URINE RFX SMALL (NEGATIVE); NITRITE, URINE AUTO RFX NEGATIVE (NEGATIVE); RBC, URINE AUTO RFX 13 /HPF (0-3); SQUAM EPITHELIAL CELL UR AURFX 0 /HPF (0-6)
[2025-07-21 17:43] LABS: LEUKOCYTE ESTERASE UR AUTO RFX 3+ (NEGATIVE); WBC, URINE AUTO RFX 116 /HPF (0-3)
[2025-07-21] MEDS: ACETAMINOPHEN *IV* 1,000 MG in IV 1 EA IV ONE (18:50)
[2025-07-21] MEDS: cefTRIAXone SOD 1 GM in DEXTROSE 5% (D5W) ADV/MINI-BAG 50 ML IV ONE (19:18)
[2025-07-21] MEDS ORDERED: ONDANSETRON 4MG/2ML VIAL IV PRN (20:10)
[2025-07-21] MEDS: NS (Normal Saline) 0.9% 1,000 ML IV SCH (21:08)
[2025-07-21] MEDS: APIXABAN 2.5 MG TAB PO SCH (21:32)
[2025-07-21] MEDS: METOPROLOL TART 12.5 MG PER 1/2 TAB PO SCH (21:32)
[2025-07-21] MEDS: PIPERACILLIN/TAZOBACTAM SOD 3.375 GM in DEXTROSE 5% (D5W) ADV/MINI-BAG 50 ML IV SCH (21:32)
[2025-07-21] MEDS: TAMSULOSIN 0.4 MG CAP PO SCH (21:32)
[2025-07-21] MEDS: PRAMIPEXOLE 1 MG TAB PO SCH (21:33)
[2025-07-21 22:21] VITALS: BP 148/65; TEMP 99.8; O2SAT 95
[2025-07-22] VITALS (11 sets, daily range): BP systolic 111–165; BP diastolic 54–77; TEMP 98–101.5; O2SAT 90–98
[2025-07-22] MEDS: ACETAMINOPHEN 325 MG TAB PO PRN (00:21)
[2025-07-22 06:03] LABS: PLATELET COUNT, AUTOMATED 314 10^3/uL (150-450)
[2025-07-22 06:40] LABS: ALT/SGPT 32.0 U/L (7.0-40); AST/SGOT 35.0 U/L (<34); CALCIUM LEVEL 8.1 MG/DL (8.3-10.6); CARBON DIOXIDE LEVEL 30.0 MMOL/L (20-31); CHLORIDE LEVEL 97.0 MMOL/L (98-107); CREATININE FOR GFR 1.53 MG/DL (0.70-1.30); GLOMERULAR FILTRATION RATE 43.7 (>35); MAGNESIUM LEVEL 1.5 MG/DL (1.8-2.4); POTASSIUM SERUM 3.8 MMOL/L (3.5-5.1); SODIUM LEVEL 135.0 MMOL/L (136-145)
[2025-07-22] MEDS: LEVOTHYROXINE 88 MCG TABLET (0.088 MG) PO SCH (06:49)
[2025-07-22] MEDS: MIRALAX *UNIT DOSE* 17 GM PACKET PO SCH (08:50)
[2025-07-22] MEDS: MAGNESIUM OXIDE 400 MG TAB PO SCH (08:51)
[2025-07-22] MEDS: amLODIPine 10 MG TAB PO SCH (08:56)
[2025-07-22] MEDS: MAG SULF 1GM/100ML (MAG RUN) 1 GM in IV 1 EA IV SCH (09:06)
[2025-07-22] MEDS ORDERED: VANCOMYCIN HCL 1,000 MG, VIAL MATE ADAPTER 1 EACH in NS 250 ML IV SCH (15:15)
[2025-07-22] MEDS ORDERED: SANTYL OINT 30GM TOP PRN (16:35)
[2025-07-22] MEDS: VANCOMYCIN HCL 1,500 MG, VIAL MATE ADAPTER 1 EACH in NS 500 ML IV ONE (18:19)
[2025-07-23] VITALS (8 sets, daily range): BP systolic 114–144; BP diastolic 52–58; TEMP 97.1–100.9; O2SAT 95–98
[2025-07-23 07:05] LABS: PLATELET COUNT, AUTOMATED 306 10^3/uL (150-450)
[2025-07-23 07:45] LABS: CALCIUM LEVEL 8.0 MG/DL (8.3-10.6); CARBON DIOXIDE LEVEL 28.0 MMOL/L (20-31); CHLORIDE LEVEL 97.0 MMOL/L (98-107); CREATININE FOR GFR 1.97 MG/DL (0.70-1.30); GLOMERULAR FILTRATION RATE 32.3 (>35); POTASSIUM SERUM 3.7 MMOL/L (3.5-5.1); SODIUM LEVEL 133.0 MMOL/L (136-145)
[2025-07-23] MEDS ORDERED: VANCOMYCIN HCL 1,000 MG, VIAL MATE ADAPTER 1 EACH in NS 250 ML IV SCH (08:00)
[2025-07-23] MEDS: VANCOMYCIN HCL 500 MG in DEXTROSE 5% (D5W) MINI-BAG PLU 100 ML IV SCH (09:28)
[2025-07-23] MEDS: INSULIN LISPRO (NovoLOG) PER UNIT SC SCH ×2 (12:00→20:52)
[2025-07-23] MEDS ORDERED: GLUCOSE 4 GM CHEW PO PRN (14:20)
[2025-07-23] MEDS ORDERED: GLUCAGON INJ 1 MG VIAL SC PRN (14:20)
[2025-07-23] MEDS ORDERED: DEXTROSE 50% 50 ML SYRINGE IV PRN (14:20)
[2025-07-23] MEDS: LR 1,000 ML IV SCH (16:33)
[2025-07-24 03:43] VITALS: BP 159/74; TEMP 99; O2SAT 90
[2025-07-24 08:06] LABS: PLATELET COUNT, AUTOMATED 339 10^3/uL (150-450)
[2025-07-24 08:33] LABS: CALCIUM LEVEL 8.3 MG/DL (8.3-10.6); CARBON DIOXIDE LEVEL 29.0 MMOL/L (20-31); CHLORIDE LEVEL 97.0 MMOL/L (98-107); CREATININE FOR GFR 1.9 MG/DL (0.70-1.30); GLOMERULAR FILTRATION RATE 33.7 (>35); POTASSIUM SERUM 3.7 MMOL/L (3.5-5.1); SODIUM LEVEL 135.0 MMOL/L (136-145)
[2025-07-24 12:00] VITALS: BP 153/76; TEMP 100.1; O2SAT 99
[2025-07-24] MEDS: LR 1,000 ML IV SCH (13:18)
[2025-07-24 13:29] LABS: MAGNESIUM LEVEL 1.8 MG/DL (1.8-2.4)
[2025-07-24 16:00] VITALS: TEMP 99.4
[2025-07-24] MEDS: LOPERAMIDE 2 MG CAPLET PO PRN (18:50)
[2025-07-24 20:25] VITALS: BP 148/69; TEMP 97.6; O2SAT 99
[2025-07-25 04:25] VITALS: BP 145/80; O2SAT 98
[2025-07-25 04:50] VITALS: TEMP 97.3
[2025-07-25] MEDS ORDERED: CEFEPIME HCL 2 GM in DEXTROSE 5% (D5W) ADV/MINI-BAG 50 ML IV SCH (07:45)
[2025-07-25 08:07] LABS: PLATELET COUNT, AUTOMATED 332 10^3/uL (150-450)
[2025-07-25] MEDS: CEFEPIME HCL 1 GM in DEXTROSE 5% (D5W) ADV/MINI-BAG 50 ML IV SCH (08:19)
[2025-07-25 08:42] LABS: CALCIUM LEVEL 8.2 MG/DL (8.3-10.6); CARBON DIOXIDE LEVEL 29.0 MMOL/L (20-31); CHLORIDE LEVEL 98.0 MMOL/L (98-107); CREATININE FOR GFR 1.67 MG/DL (0.70-1.30); GLOMERULAR FILTRATION RATE 39.4 (>35); POTASSIUM SERUM 3.5 MMOL/L (3.5-5.1); SODIUM LEVEL 134.0 MMOL/L (136-145)
[2025-07-25 09:05] VITALS: O2SAT 96
[2025-07-25] MEDS: VANCOMYCIN HCL 750 MG, VIAL MATE ADAPTER 1 EACH in NS 250 ML IV SCH (09:24)
[2025-07-25 11:48] VITALS: BP 120/58; TEMP 98.5; O2SAT 99
[2025-07-25] MEDS: AMPICILLIN SOD/SULBACTAM SOD 3 GM in D5W MINI-BAG 100 ML IV SCH (17:15)
[2025-07-25 20:00] VITALS: BP 132/62; TEMP 98.4; O2SAT 96
[2025-07-26 04:00] VITALS: BP 156/70; TEMP 98.2; O2SAT 95
[2025-07-26 06:59] LABS: PLATELET COUNT, AUTOMATED 363 10^3/uL (150-450)
[2025-07-26 07:21] LABS: CALCIUM LEVEL 8.1 MG/DL (8.3-10.6); CARBON DIOXIDE LEVEL 29.0 MMOL/L (20-31); CHLORIDE LEVEL 99.0 MMOL/L (98-107); CREATININE FOR GFR 1.45 MG/DL (0.70-1.30); GLOMERULAR FILTRATION RATE 46.6 (>35); POTASSIUM SERUM 3.5 MMOL/L (3.5-5.1); SODIUM LEVEL 138.0 MMOL/L (136-145)
[2025-07-26 12:00] VITALS: BP 154/67; TEMP 98.3; O2SAT 94
[2025-07-26 20:50] VITALS: BP 170/77; TEMP 98.6; O2SAT 97
[2025-07-26] MEDS: **hydrALAZINE** 10 MG TAB PO SCH (20:55)
[2025-07-27 04:18] VITALS: BP 142/64; TEMP 98.8; O2SAT 97
[2025-07-27 06:27] LABS: PLATELET COUNT, AUTOMATED 388 10^3/uL (150-450)
[2025-07-27 06:56] LABS: CALCIUM LEVEL 8.0 MG/DL (8.3-10.6); CARBON DIOXIDE LEVEL 30.0 MMOL/L (20-31); CHLORIDE LEVEL 100.0 MMOL/L (98-107); CREATININE FOR GFR 1.5 MG/DL (0.70-1.30); GLOMERULAR FILTRATION RATE 44.8 (>35); POTASSIUM SERUM 3.6 MMOL/L (3.5-5.1); SODIUM LEVEL 139.0 MMOL/L (136-145)
[2025-07-27 12:00] VITALS: BP 162/62; TEMP 98.2; O2SAT 98
[2025-07-27] MEDS: SIMETHICONE 80MG CHEW TAB PO PRN (13:04)
[2025-07-27 20:28] VITALS: BP 159/71; TEMP 99.2; O2SAT 97
[2025-07-27] MEDS: **hydrALAZINE HCL** 25 MG TAB PO SCH (20:33)
[2025-07-28 05:09] VITALS: BP 183/83; TEMP 98.8; O2SAT 96
[2025-07-28 05:12] VITALS: BP 175/70
[2025-07-28 06:30] LABS: PLATELET COUNT, AUTOMATED 423 10^3/uL (150-450)
[2025-07-28 06:54] LABS: CALCIUM LEVEL 8.0 MG/DL (8.3-10.6); CARBON DIOXIDE LEVEL 30.0 MMOL/L (20-31); CHLORIDE LEVEL 98.0 MMOL/L (98-107); CREATININE FOR GFR 1.44 MG/DL (0.70-1.30); GLOMERULAR FILTRATION RATE 47.0 (>35); POTASSIUM SERUM 3.6 MMOL/L (3.5-5.1); SODIUM LEVEL 138.0 MMOL/L (136-145)
[2025-07-28] MEDS: SANTYL OINT 30GM TOP SCH (08:29)
[2025-07-28 11:56] VITALS: BP 130/62; TEMP 98.8; O2SAT 98
[2025-07-28] MEDS: cefTRIAXone SOD 1 GM in DEXTROSE 5% (D5W) ADV/MINI-BAG 50 ML IV SCH (17:26)
[2025-07-28 21:44] VITALS: BP 169/77; TEMP 98.2; O2SAT 99
[2025-07-29 03:28] VITALS: BP 150/68; TEMP 98.6; O2SAT 97
[2025-07-29 06:28] LABS: PLATELET COUNT, AUTOMATED 413 10^3/uL (150-450)
[2025-07-29 07:00] LABS: CALCIUM LEVEL 8.1 MG/DL (8.3-10.6); CARBON DIOXIDE LEVEL 30.0 MMOL/L (20-31); CHLORIDE LEVEL 100.0 MMOL/L (98-107); CREATININE FOR GFR 1.45 MG/DL (0.70-1.30); GLOMERULAR FILTRATION RATE 46.6 (>35); POTASSIUM SERUM 3.5 MMOL/L (3.5-5.1); SODIUM LEVEL 140.0 MMOL/L (136-145)
[2025-07-29] MEDS: **hydrALAZINE HCL** 25 MG TAB PO SCH (09:00)
[2025-07-29] MEDS ORDERED: **hydrALAZINE HCL** 25 MG TAB PO SCH (09:00)
[2025-07-29] MEDS: LanTUS (INSULIN GLARGINE INJ) 1 UNITS/0.01 ML SC SCH (09:51)
[2025-07-29 11:40] VITALS: BP 137/62; TEMP 98.8; O2SAT 96
[2025-07-29 21:12] VITALS: BP 168/76; TEMP 99.1; O2SAT 96
[2025-07-30 04:25] VITALS: BP_SYST 154; BP_SYST 175; BP_DIAS 70; BP_DIAS 74; TEMP 98.9; O2SAT 91
[2025-07-30 07:51] LABS: BASO # 0.1 10^3/uL (0.0-0.2); BASO % 1.1 % (0.0-1.0); EOS # 0.5 10^3/uL (0.0-0.5); EOS % 4.7 % (0.0-3.0); LYMPH # 1.1 10^3/uL (1.5-5.0); LYMPH % 9.9 % (24.0-44.0); MONO # 0.6 10^3/uL (0.0-0.8); MONO % 5.6 % (2.0-8.0); NEUTROPHILS # 8.3 10^3/uL (1.5-8.5); NEUTROPHILS % 76.7 % (36.0-66.0); PLATELET COUNT, AUTOMATED 431 10^3/uL (150-450)
[2025-07-30 08:27] LABS: CALCIUM LEVEL 8.2 MG/DL (8.3-10.6); CARBON DIOXIDE LEVEL 30.0 MMOL/L (20-31); CHLORIDE LEVEL 100.0 MMOL/L (98-107); CREATININE FOR GFR 1.5 MG/DL (0.70-1.30); GLOMERULAR FILTRATION RATE 44.8 (>35); POTASSIUM SERUM 3.5 MMOL/L (3.5-5.1); SODIUM LEVEL 138.0 MMOL/L (136-145)
[2025-07-30] MEDS: **hydrALAZINE** 50 MG TAB PO SCH (08:43)
[2025-07-30] MEDS: SIMETHICONE 80MG CHEW TAB PO ONE (09:46)
[2025-07-30 12:00] VITALS: BP 145/70; TEMP 98.6; O2SAT 94
[2025-07-30] MEDS: INSULIN LISPRO (NovoLOG) PER UNIT SC SCH (18:00)
[2025-07-30] MEDS: LR 1,000 ML IV SCH (18:39)
[2025-07-30] MEDS: MORPHINE 2 MG/ML 1 ML VIAL IV PRN (18:39)
[2025-07-30] MEDS: KCL 10MEQ/100ML SWI (KRUN) 10 MEQ in IV 1 EA IV SCH (19:27)
[2025-07-30] MEDS: FLUCONAZOLE 50 MG TABLET PO ONE (20:38)
[2025-07-30 20:51] VITALS: BP 136/63; TEMP 98.4; O2SAT 97
[2025-07-31 04:05] VITALS: BP 123/58; TEMP 98.8; O2SAT 95
[2025-07-31 06:18] LABS: BASO # 0.1 10^3/uL (0.0-0.2); BASO % 0.9 % (0.0-1.0); EOS # 0.6 10^3/uL (0.0-0.5); EOS % 5.6 % (0.0-3.0); LYMPH # 1.0 10^3/uL (1.5-5.0); LYMPH % 10.3 % (24.0-44.0); MONO # 0.6 10^3/uL (0.0-0.8); MONO % 6.5 % (2.0-8.0); NEUTROPHILS # 7.4 10^3/uL (1.5-8.5); NEUTROPHILS % 74.8 % (36.0-66.0); PLATELET COUNT, AUTOMATED 433 10^3/uL (150-450)
[2025-07-31 06:54] LABS: CALCIUM LEVEL 8.2 MG/DL (8.3-10.6); CARBON DIOXIDE LEVEL 29.0 MMOL/L (20-31); CHLORIDE LEVEL 100.0 MMOL/L (98-107); CREATININE FOR GFR 1.49 MG/DL (0.70-1.30); GLOMERULAR FILTRATION RATE 45.1 (>35); POTASSIUM SERUM 3.7 MMOL/L (3.5-5.1); SODIUM LEVEL 139.0 MMOL/L (136-145)
[2025-07-31 12:00] VITALS: BP 140/65; TEMP 98.8; O2SAT 95
[2025-07-31 16:50] LABS: C REACTIVE PROTEIN QUANTITATIV 4.09 MG/DL (<1.0)
[2025-07-31] MEDS: SIMETHICONE 80MG CHEW TAB PO ONE (16:54)
[2025-07-31] MEDS: GABAPENTIN 100 MG CAP PO ONE (17:26)
[2025-07-31 20:18] VITALS: BP 126/61; TEMP 98.3; O2SAT 95
[2025-08-01 03:44] VITALS: BP 159/70; TEMP 98.4; O2SAT 95
[2025-08-01] MEDS ORDERED: GLUCAGON INJ 1 MG VIAL SC PRN (07:45)
[2025-08-01] MEDS ORDERED: GLUCOSE 4 GM CHEW PO PRN (07:45)
[2025-08-01] MEDS ORDERED: DEXTROSE 50% 50 ML SYRINGE IV PRN (07:45)
[2025-08-01 11:43] VITALS: BP 140/63; TEMP 99.2; O2SAT 97
[2025-08-01] MEDS: INSULIN LISPRO (NovoLOG) PER UNIT SC SCH ×2 (13:34→21:00)
[2025-08-01 20:48] VITALS: BP 130/61; TEMP 99; O2SAT 96
[2025-08-01] MEDS: GABAPENTIN 100 MG CAP PO SCH (23:20)
[2025-08-02 04:10] VITALS: BP 143/63; TEMP 98.4; O2SAT 97
[2025-08-02 06:32] LABS: BASO # 0.1 10^3/uL (0.0-0.2); BASO % 1.3 % (0.0-1.0); EOS # 0.5 10^3/uL (0.0-0.5); EOS % 6.0 % (0.0-3.0); LYMPH # 0.9 10^3/uL (1.5-5.0); LYMPH % 11.4 % (24.0-44.0); MONO # 0.6 10^3/uL (0.0-0.8); MONO % 8.5 % (2.0-8.0); NEUTROPHILS # 5.4 10^3/uL (1.5-8.5); NEUTROPHILS % 71.9 % (36.0-66.0); PLATELET COUNT, AUTOMATED 418 10^3/uL (150-450)
[2025-08-02 06:59] LABS: CALCIUM LEVEL 8.2 MG/DL (8.3-10.6); CARBON DIOXIDE LEVEL 29.0 MMOL/L (20-31); CHLORIDE LEVEL 103.0 MMOL/L (98-107); CREATININE FOR GFR 1.51 MG/DL (0.70-1.30); GLOMERULAR FILTRATION RATE 44.4 (>35); POTASSIUM SERUM 3.7 MMOL/L (3.5-5.1); SODIUM LEVEL 140.0 MMOL/L (136-145)
[2025-08-02] MEDS: NS (Normal Saline) 0.9% 1,000 ML IV SCH ×2 (08:44→17:54)
[2025-08-02 08:46] LABS: C REACTIVE PROTEIN QUANTITATIV 3.39 MG/DL (<1.0)
[2025-08-02 08:55] VITALS: O2SAT 91
[2025-08-02 12:00] VITALS: BP 138/65; TEMP 97.6; O2SAT 96
[2025-08-02] MEDS: SIMETHICONE 80MG CHEW TAB PO SCH (13:00)
[2025-08-02 20:25] VITALS: BP 148/67; TEMP 98.5; O2SAT 96
[2025-08-03 04:22] VITALS: BP 150/66; TEMP 99; O2SAT 96
[2025-08-03 06:33] LABS: PLATELET COUNT, AUTOMATED 389 10^3/uL (150-450)
[2025-08-03 06:58] LABS: ALT/SGPT 9.0 U/L (7.0-40); AST/SGOT 15.0 U/L (<34); CALCIUM LEVEL 7.9 MG/DL (8.3-10.6); CARBON DIOXIDE LEVEL 27.0 MMOL/L (20-31); CHLORIDE LEVEL 104.0 MMOL/L (98-107); CREATININE FOR GFR 1.5 MG/DL (0.70-1.30); GLOMERULAR FILTRATION RATE 44.8 (>35); POTASSIUM SERUM 3.6 MMOL/L (3.5-5.1); SODIUM LEVEL 140.0 MMOL/L (136-145)
[2025-08-03 12:15] VITALS: BP 142/66; TEMP 98.6; O2SAT 98
[2025-08-03 20:34] VITALS: BP 169/70; TEMP 98.6; O2SAT 95
[2025-08-04] VITALS (9 sets, daily range): BP systolic 135–171; BP diastolic 63–77; TEMP 97.1–98.6; O2SAT 92–98
[2025-08-04 07:19] LABS: PLATELET COUNT, AUTOMATED 352 10^3/uL (150-450)
[2025-08-04 07:44] LABS: ALT/SGPT 14.0 U/L (7.0-40); AST/SGOT 19.0 U/L (<34); CALCIUM LEVEL 7.8 MG/DL (8.3-10.6); CARBON DIOXIDE LEVEL 26.0 MMOL/L (20-31); CHLORIDE LEVEL 103.0 MMOL/L (98-107); CREATININE FOR GFR 1.3 MG/DL (0.70-1.30); GLOMERULAR FILTRATION RATE 53.2 (>35); POTASSIUM SERUM 3.8 MMOL/L (3.5-5.1); SODIUM LEVEL 140.0 MMOL/L (136-145)
[2025-08-04] MEDS ORDERED: LIDOCAINE 2% 100 MG/5 ML SDV (FOR ANES.) As Ordered ONE (11:29)
[2025-08-05 01:33] VITALS: BP 171/72; TEMP 97.8; O2SAT 96
[2025-08-05] MEDS ORDERED: ACET32TAB PO (06:50)
[2025-08-05] MEDS ORDERED: SIME80CH6 PO (06:50)
[2025-08-05] MEDS ORDERED: INSUHUMDS SC ×2 (06:50)
[2025-08-05] MEDS ORDERED: GABA-1171 PO (06:50)
[2025-08-05] MEDS ORDERED: HYDR50TA46 PO (06:50)
[2025-08-05] MEDS ORDERED: METH-1164 PO (06:50)
[2025-08-05] MEDS ORDERED: RISATAB3 PO (06:50)
[2025-08-05 06:51] LABS: PLATELET COUNT, AUTOMATED 377 10^3/uL (150-450)
[2025-08-05 07:18] LABS: ALT/SGPT 16.0 U/L (7.0-40); AST/SGOT 20.0 U/L (<34); CALCIUM LEVEL 8.2 MG/DL (8.3-10.6); CARBON DIOXIDE LEVEL 27.0 MMOL/L (20-31); CHLORIDE LEVEL 101.0 MMOL/L (98-107); CREATININE FOR GFR 1.28 MG/DL (0.70-1.30); GLOMERULAR FILTRATION RATE 54.2 (>35); POTASSIUM SERUM 3.7 MMOL/L (3.5-5.1); SODIUM LEVEL 139.0 MMOL/L (136-145)
[2025-08-05 07:59] VITALS: BP 160/73; TEMP 98.9; O2SAT 97
[2025-08-05 10:00] VITALS: BP 176/77
== END 2025-08-05 12:07 | DRG 673 ==
LOC: M ED 12:02 → EDBD 12:02 → M ED INP 12:03 → M MSPAV 22:09 → OBSVTOIN 07-22 12:45
PROVIDERS: ADMIT Internal Medicine; ATTEND Internal Medicine
PROC: 0JB90ZZ Excision of Buttock Subcutaneous Tissue and Fascia, Open Approach (ICD-10-PCS; principal; 2025-07-22)
PROC: 0DJD8ZZ Inspection of Lower Intestinal Tract, Via Natural or Artificial Opening Endoscopic (ICD-10-PCS; 2025-08-04)
DX: T83.511A Infection and inflammatory reaction due to indwelling urethral catheter, initial encounter (principal); A41.9 Sepsis, unspecified organism; N17.0 Acute kidney failure with tubular necrosis; L89.154 Pressure ulcer of sacral region, stage 4; I50.32 Chronic diastolic (congestive) heart failure; I13.0 Hypertensive heart and chronic kidney disease with heart failure and stage 1 through stage 4 chronic kidney disease, or unspecified chronic kidney disease; K52.1 Toxic gastroenteritis and colitis; Y84.6 Urinary catheterization as the cause of abnormal reaction of the patient, or of later complication, without mention of misadventure at the time of the procedure; I25.10 Atherosclerotic heart disease of native coronary artery without angina pectoris; I25.2 Old myocardial infarction; Z86.73 Personal history of transient ischemic attack (TIA), and cerebral infarction without residual deficits; I48.91 Unspecified atrial fibrillation; N18.30 Chronic kidney disease, stage 3 unspecified; K83.8 Other specified diseases of biliary tract; R10.9 Unspecified abdominal pain; E11.22 Type 2 diabetes mellitus with diabetic chronic kidney disease; N39.0 Urinary tract infection, site not specified; F03.90 Unspecified dementia, unspecified severity, without behavioral disturbance, psychotic disturbance, mood disturbance, and anxiety; E03.9 Hypothyroidism, unspecified; K80.20 Calculus of gallbladder without cholecystitis without obstruction; R53.1 Weakness; F32.A Depression, unspecified; K57.30 Diverticulosis of large intestine without perforation or abscess without bleeding; F41.9 Anxiety disorder, unspecified; Z79.01 Long term (current) use of anticoagulants; Z79.899 Other long term (current) drug therapy; Z79.891 Long term (current) use of opiate analgesic; Z95.2 Presence of prosthetic heart valve; Z95.1 Presence of aortocoronary bypass graft; Z95.0 Presence of cardiac pacemaker; Z85.46 Personal history of malignant neoplasm of prostate; Z85.51 Personal history of malignant neoplasm of bladder

== ENCOUNTER → 2025-08-09 | Outpatient (REF) ==
[~2025-08-09] MED LIST changes: +ACET32TAB PO; +BUSP10TA PO; +GABA-1171 PO; +HYDR50TA46 PO; +INSUHUMDS SC; +KEPP1TAB PO; +MAGN400T33 PO; +METH-1164 PO; +OXYC-517 PO; +RISATAB3 PO; +SANT250O8 TOP; +SIME80CH6 PO; +THERTAB52 PO
== END ==
LOC: SKLAB2 10:46
PROVIDERS: ATTEND Family Medicine
DX: R19.7 Diarrhea, unspecified (principal)

== ENCOUNTER → 2025-08-09 | Outpatient (REF) ==
[2025-08-09 12:48] LABS: ESTIMATED AVERAGE GLUCOSE 183.0 MG/DL (60-110)
== END ==
LOC: SKLAB2 11:36
PROVIDERS: ATTEND Family Medicine
DX: E11.9 Type 2 diabetes mellitus without complications (principal)

== ENCOUNTER → 2025-08-18 | Outpatient (REF) | payer MEDICARE, OTHER | LOC: M SFHCWOUN 17:39 | PROVIDERS: ATTEND Surgery | DX: L89.154 Pressure ulcer of sacral region, stage 4 (principal) ==

== ENCOUNTER → 2025-08-21 | Outpatient (REF) | payer MEDICARE, OTHER ==
[2025-08-21 20:15] LABS: APPEARANCE, URINE CLEAR (CLEAR); BACTERIA, URINE AUTO NEGATIVE (NEGATIVE); BILIRUBIN, URINE AUTO NEGATIVE (NEGATIVE); BLOOD, URINE BLOOD NEGATIVE (NEGATIVE); GLUCOSE, URINE (UA) AUTO 3+ mg/dL (NEGATIVE); KETONE, URINE AUTO NEGATIVE (NEGATIVE); LEUKOCYTE ESTERASE, URINE AUTO NEGATIVE (NEGATIVE); MUCUS, URINE SMALL (NEGATIVE); NITRITE, URINE AUTO NEGATIVE (NEGATIVE); PROTEIN, URINE AUTO 2+ mg/dL (NEGATIVE); RBC, URINE AUTO 1 /HPF (0-3); SPECIFIC GRAVITY URINE AUTO 1.011 (1.002-1.035); SQUAMOUS EPITHELIAL CELL UR AU 0 /HPF (0-6); UROBILINOGEN, URINE AUTO 0.2 mg/dL (0.0-2.0); WBC, URINE AUTO 0 /HPF (0-3)
[2025-08-21 20:38] LABS: PLATELET COUNT, AUTOMATED 354 10^3/uL (150-450)
[2025-08-21 21:10] LABS: CALCIUM LEVEL 8.6 MG/DL (8.3-10.6); CARBON DIOXIDE LEVEL 27.0 MMOL/L (20-31); CHLORIDE LEVEL 102.0 MMOL/L (98-107); CREATININE FOR GFR 1.39 MG/DL (0.70-1.30); GLOMERULAR FILTRATION RATE 49.1 (>35); POTASSIUM SERUM 4.2 MMOL/L (3.5-5.1); SODIUM LEVEL 138.0 MMOL/L (136-145)
== END ==
LOC: SKLAB2 19:23
PROVIDERS: ATTEND Nurse Practitioner Women's Health
DX: R10.0 Acute abdomen (principal)

== ENCOUNTER → 2025-08-22 | Outpatient (REF) | LOC: SKLAB2 14:53 | PROVIDERS: ATTEND Family Medicine | DX: L89.90 Pressure ulcer of unspecified site, unspecified stage (principal) ==

== ENCOUNTER → 2025-08-22 | Outpatient (REF) | LOC: SKLAB2 07:00 | PROVIDERS: ATTEND Family Medicine | DX: D72.829 Elevated white blood cell count, unspecified (principal); Z98.890 Other specified postprocedural states; Z95.2 Presence of prosthetic heart valve ==

== ENCOUNTER → 2025-09-04 | Outpatient (REF) | payer MEDICARE, OTHER | LOC: SKLAB2 07:00 | PROVIDERS: ATTEND Nurse Practitioner Women's Health | DX: R19.7 Diarrhea, unspecified (principal) ==